=== PATIENT | female | born 1995 | race Caucasian/White ===

== ENCOUNTER 2021-08-14 10:33 | Outpatient (CLI) | payer OTHER, SELFPAY ==
[2021-08-14 11:57] LABS: Hematocrit 33.3 % (37.0-47.0); Hemoglobin 11.4 g/dL (12.0-15.0)
[2021-08-14 12:09] LABS: Glucose 1 Hour PP 50gm Dose 126 mg/dL
[2021-08-14 12:50] LABS: HIV 1/2 Ab P24 Ag Result Negative (Negative)
[2021-08-15 06:45] LABS: Rapid Plasma Reagin Non-Reactive (NonReactive)
== END 2021-08-14 10:34 | disposition home or self-care (01) ==
LOC: ANHLAB 10:36
PROVIDERS: Visit Provider Obstetrics & Gynecology
DX: Z36.89 Encounter for other specified antenatal screening (principal); O36.0130 Maternal care for anti-D [Rh] antibodies, third trimester, not applicable or unspecified; Z3A.00 Weeks of gestation of pregnancy not specified
CPT/HCPCS: 36415; 82947; 85014; 85018; 85461; 86592; 86703; G0432

== ENCOUNTER 2021-08-23 15:36 | Outpatient (RCR) | payer OTHER, SELFPAY ==
[2021-08-24] MEDS: RHO(D) IMMUNE GLOBULIN 300 MCG/2 ML SYRINGE IM (09:52)
== END 2021-11-21 23:59 | disposition home or self-care (01) ==
LOC: ANHLAB 15:36
PROVIDERS: Visit Provider Obstetrics & Gynecology
DX: Z29.13 Encounter for prophylactic Rho(D) immune globulin (principal); O36.0130 Maternal care for anti-D [Rh] antibodies, third trimester, not applicable or unspecified; Z3A.00 Weeks of gestation of pregnancy not specified
CPT/HCPCS: 36415; 85461; 90384; 96372; J2790

== ENCOUNTER 2021-10-29 07:27 | Inpatient (IN) | payer OTHER, SELFPAY ==
[2021-10-29] VITALS (14 sets, daily range): BP systolic 101–121; BP diastolic 43–104; PULSE 91–133; RESP 16–20; TEMP 36.6–37.4; BMI 30.8
[2021-10-29] MEDS: miSOPROStol 200 MCG TABLET 600 MCG (07:44)
[2021-10-29] MEDS: LACTATED RINGERS 1,000 ML 125 ML IV CONT (07:45)
--- NOTE | 2021-10-29 07:48 | WPDOBADMIT ---
Obstetrics - Admit Note Admission Note: record reviewed. No pertinent additions to the history and/or any subsequent changes in the physical findings that are not consistent with the expected course of the were found. Patient admitted after delivered baby in the car. Additions to the history and/or subsequent changes in the physical findings follow. None.
--- NOTE | 2021-10-29 07:49 | PM.OBPRVD ---
OB - Delivery Note Procedure Delivery date: 10/29/21 Induction method: None Delivery monitor: None Route of delivery: Laceration Description: None Specimen: No Quantitative Blood Loss (ml): 655 Anesthesia type: None Disposition: Floor Baby Date of : 10/29/21 Time of : 07:15 Weeks of gestation at delivery: 38 gender: Male Weight (pounds): 7 Weight (ounces): 7 presentation: vertex Placenta delivery description: Spontaneous Cord Vessel Description: 3 Vessels, Clamped/Cut and Delayed Cord Clamping score five minutes: 9
[2021-10-29] MEDS: OXYTOCIN 30 UNITS/NS 500 ML 30 UNITS/500 ML BAG 125 UNITS (08:14)
[2021-10-29 08:26] LABS: Basophils Percent Auto 0.2 % (0.2-1.2); Eosinophils Percent Auto 0.1 % (0-4.4); Hematocrit 31.6 % (37.0-47.0); Hemoglobin 10.3 g/dL (12.0-15.0); Immature Granulocyte Absolute 0.11 K/mm3 (0.00-0.031); Immature Granulocyte Percent A 0.6 % (0-0.5); Lymphocytes Absolute Auto 1.51 K/mm3 (0.9-3.2); Mean Corpuscular HGB Conc 32.6 g/dl (32-36); Mean Corpuscular Hemoglobin 28.5 pg (26-34); Mean Corpuscular Volume 87.3 fl (80-100); Monocytes Absolute Auto 1.1 K/mm3 (0.1-0.6); Monocytes Percent Auto 5.6 % (2.6-8.5); Neutrophils Absolute Auto 16.2 K/mm3 (1.3-6.7); Neutrophils Percent Auto 85.5 % (45.5-73.1); Platelet Count Result 226 k/mm3 (150-375); Red Blood Count 3.62 M/mm3 (4.2-5.4); Red Cell Distribution Width 14.1 % (11.5-14.5)
[2021-10-29] MEDS: IBUPROFEN 600 MG TABLET PO (08:52)
--- NOTE | 2021-10-29 09:44 | PC.NURSE ---
Met patient at unit entrance with warm blankets, crib, and wheelchair. Patient taken to room 107 on Labor and Delivery. Aldo Whitney CNM at entrance as well.
--- NOTE | 2021-10-29 10:19 | OBPPTRN ---
Patient transferred to post room # 282 via wheelchair. Support person present. Oriented to unit, room, information board, rooming in, admission packet and security measures. Patient verbalizes understanding.
--- NOTE | 2021-10-29 15:19 | LDADM ---
This patient, Vannessa Bowden, was admitted to L&D room 107. Plans for labor, pain management and were discussed with patient. Patient/family oriented to hospital policies and general routines including ID bracelet, bed and alarms, visiting hours, pain management, procedures, bathroom and other care routines, personal items, smoking policy, room service/diet and guest tray routines, infant security routines, and visiting hours. Patient/Family are encouraged to report perceived risks to care and to ask questions if they do not understand what they are told or what they should do. See OBIX for further documentation.
[2021-10-30] MEDS: IBUPROFEN 600 MG TABLET PO (04:25)
[2021-10-30 04:30] VITALS: BP 107/70; PULSE 91; RESP 16; TEMP 36.4
[2021-10-30 05:07] LABS: Hematocrit 24.2 % (37.0-47.0); Hemoglobin 7.9 g/dL (12.0-15.0)
[2021-10-30] MEDS: POLYSACCHARIDE IRON COMPLEX 150 MG CAPSULE PO (07:45)
[2021-10-30] MEDS: MULTIVIT/MIN/PREN/FOL AC/IRON TABLET 1 TAB PO (07:45)
[2021-10-30] MEDS: DOCUSATE SODIUM 100 MG CAPSULE PO (07:45)
[2021-10-30 07:50] VITALS: BP 113/60; PULSE 83; RESP 16; TEMP 36.6; O2SAT 100
--- NOTE | 2021-10-30 08:13 | P.PNOB_ITS ---
OB - PN: Subj Subjective Date/time seen: 10/30/21 08:13 Patient comments: no complaints and pain well controlled baby status: doing well and nursing well [place] feeding status: exclusively breast feeding OB - PN: Obj Data Labs CBC & Chem 7: 10/30/21 04:32 Labs: Laboratory Results - last 24 hr 10/29/21 10/29/21 10/30/21 08:19 08:19 04:32 WBC 19.0 H RBC 3.62 L Hgb 10.3 L 7.9 L Hct 31.6 L 24.2 L MCV 87.3 MCH 28.5 MCHC 32.6 RDW 14.1 Plt Count 226 MPV 11.0 H Immature Gran % (Auto) 0.6 H Neut % (Auto) 85.5 H Lymph % (Auto) 8.0 L [place] % (Auto) 5.6 Eos % (Auto) 0.1 Baso % (Auto) 0.2 Lymph # (Auto) 1.51 [place] # (Auto) 1.1 H Eos # (Auto) 0.0 Baso # (Auto) 0.0 Abs Immat Gran (auto) 0.11 H Absolute Neuts (auto) 16.2 H Absolute Nucleated RBC 0.0 Nucleated RBC % 0.0 Blood Type A Negative Antibody Screen Positive Antibody Identification Passive Due to RH Imm Glob Antigen Identification Cancelled DIXIE, IgG Interpret Not Performed DIXIE, Poly Interpret Neg DIXIE, Complement Interp Not Performed OB - PN A/P Assessment and Plan (1) Vaginal delivery: Code(s): O80 - Encounter for full-term uncomplicated delivery Status: Acute Plan day: 1 Plan: routine care and discharge home Comments: continue oral iron at home Time Spent With Patient Time: Total time spent is greater than 50% in coordination of care (as documented) at patient's floor/unit and/or counseling patient: Time with patient: less than 15 minutes Exam Narrative: NAD abdomen soft, nontender, fundus firm below the umbilicus Extremities nontender, 1+ edema
--- NOTE | 2021-10-30 08:15 | P.DS_ITS ---
DS: Admitting Diagnosis Discharge Date 10/30/21 Admitting Diagnosis delivery in car DS: Discharge Diagnosis Discharge Diagnosis (1) Vaginal delivery: Code(s): O80 - Encounter for full-term uncomplicated delivery Status: Acute DS: Summary Hospital Course Hospital Course: Vannessa delivered her in the car on the way to the hospital. She had an uncomplicated course. Status at Discharge Functional status at discharge: independent ambulation Time Spent with Patient Time attestation: Total time spent providing and/or coordinating discharge services: DS: Data Data Completed and Pending Labs on day of discharge: Labs from last 24 hours 10/30/21 10/29/21 10/29/21 04:32 08:19 08:19 WBC RBC Hgb 7.9 L Hct 24.2 L MCV MCH MCHC RDW Plt Count MPV Immature Gran % (Auto) Neut % (Auto) Lymph % (Auto) [place] % (Auto) Eos % (Auto) Baso % (Auto) Lymph # (Auto) [place] # (Auto) Eos # (Auto) Baso # (Auto) Abs Immat Gran (auto) Absolute Neuts (auto) Absolute Nucleated RBC Nucleated RBC % RPR Pending Blood Type A Negative Antibody Screen Positive Antibody Identification Passive Due to RH Imm Glob Antigen Identification Cancelled DIXIE, IgG Interpret Not Performed DIXIE, Poly Interpret Neg DIXIE, Complement Interp Not Performed 10/29/21 08:19 WBC 19.0 H RBC 3.62 L Hgb 10.3 L Hct 31.6 L MCV 87.3 MCH 28.5 MCHC 32.6 RDW 14.1 Plt Count 226 MPV 11.0 H Immature Gran % (Auto) 0.6 H Neut % (Auto) 85.5 H Lymph % (Auto) 8.0 L [place] % (Auto) 5.6 Eos % (Auto) 0.1 Baso % (Auto) 0.2 Lymph # (Auto) 1.51 [place] # (Auto) 1.1 H Eos # (Auto) 0.0 Baso # (Auto) 0.0 Abs Immat Gran (auto) 0.11 H Absolute Neuts (auto) 16.2 H Absolute Nucleated RBC 0.0 Nucleated RBC % 0.0 RPR Blood Type Antibody Screen Antibody Identification Antigen Identification DIXIE, IgG Interpret DIXIE, Poly Interpret DIXIE, Complement Interp Discharge Plan Discharge Attending physician on discharge: Kenisha Newton Discharging Clinician: Kenisha Newton Anticipated Discharge Date/Time: 10/30/21 08:14 Patient Disposition: Home, Self-Care Activity: pelvic rest Diet: regular Discharge Instructions: continue over the counter iron daily Patient Instructions: Antibiotic Form Stand Alone Forms: General Discharge Information Follow-up/Referrals: Paris Whitney CNM [Certified Nurse [employer] Inspector] - 4 Weeks Discharge Medications: Continued PNV [id number] [] 28 mg iron- 800 mcg Tablet 1 tablet PO DAILY RF: 0 Date of admission: 10/29/21 07:27 Primary Care Provider: UNKNOWN,DOCTOR Admitting Provider: Char Mane Attending physician on admission: Paris Whitney Condition: Stable
[2021-10-30 08:20] LABS: Rapid Plasma Reagin Non-Reactive (NonReactive)
[2021-10-30] MEDS: TETANUS,DIPHTHERIA,AC PERTUSSIS ADULT (0.5 ML) BOOSTRIX IM (09:42)
--- NOTE | 2021-10-30 10:05 | PC.NURSE ---
Patient instructed on viewing the discharge video Mother & Baby Care, The First Two Weeks . Patient was given the opportunity and encouraged to ask questions. Patient verbalized understanding of information shared and has been given the mother/baby guide for home reference.
[2021-11-01 11:33] VITALS: BP 128/77; PULSE 110; RESP 16; TEMP 37; O2SAT 100
== END 2021-10-30 10:45 | disposition home or self-care (01) | DRG 776 ==
LOC: ANHLDR 07:36 → ANHOB2 10-30 06:45 → ANHLDR 10-31 09:40 → ANHOB2 10-31 09:40
PROVIDERS: Advanced Practice Midwife; Admitting Provider Obstetrics & Gynecology; Visit Provider Obstetrics & Gynecology
DX: Z39.0 Encounter for care and examination of mother immediately after delivery (principal)
CPT/HCPCS: 36415; 85014; 85018; 85025; 86592; 86850; 86880; 86900; 86901; 86902; 90715; A9270; J2590; J7120

== ENCOUNTER 2021-11-01 12:14 | Outpatient (CLI) | payer OTHER, SELFPAY ==
[2021-11-01 12:34] LABS: Hematocrit 26.6 % (37.0-47.0); Hemoglobin 8.2 g/dL (12.0-15.0); Mean Corpuscular HGB Conc 30.8 g/dl (32-36); Mean Corpuscular Hemoglobin 28.3 pg (26-34); Mean Corpuscular Volume 91.7 fl (80-100); Mean Platelet Volume 10.2 fl (7.4-10.4); Platelet Count Result 188 k/mm3 (150-375); Red Cell Distribution Width 14.4 % (11.5-14.5)
== END 2021-11-01 12:15 | disposition home or self-care (01) ==
LOC: ANHOBOP 12:17
PROVIDERS: Visit Provider Advanced Practice Midwife
DX: Z34.90 Encounter for supervision of normal pregnancy, unspecified, unspecified trimester (principal); Z3A.00 Weeks of gestation of pregnancy not specified
CPT/HCPCS: 36415; 85027

== ENCOUNTER 2024-03-03 11:08 | Outpatient (RCR) | payer BC, SELFPAY ==
[2024-03-03] MEDS: RHO(D) IMMUNE GLOBULIN 300 MCG/2 ML SYRINGE IM (16:45)
== END 2024-06-01 23:59 | disposition home or self-care (01) ==
LOC: ANHLAB 11:08
PROVIDERS: PCP Family Medicine Sports Medicine; Visit Provider Advanced Practice Midwife
DX: O20.0 Threatened abortion (principal); Z29.13 Encounter for prophylactic Rho(D) immune globulin; O36.0190 Maternal care for anti-D [Rh] antibodies, unspecified trimester, not applicable or unspecified; Z3A.00 Weeks of gestation of pregnancy not specified
CPT/HCPCS: 36415; 84702; 85461; 86850; 86900; 86901; 90384; 96372; J2790

== ENCOUNTER 2024-03-03 15:40 | Outpatient (CLI) | payer BC, SELFPAY ==
[2024-03-03 16:43] LABS: Beta HCG Quantitative 624.48 mIU/ML
== END 2024-03-03 15:41 | disposition home or self-care (01) ==
LOC: ANHLAB 15:42
PROVIDERS: PCP Family Medicine Sports Medicine; Visit Provider Obstetrics & Gynecology
DX: O20.0 Threatened abortion (principal); Z3A.00 Weeks of gestation of pregnancy not specified
CPT/HCPCS: 36415; 84702

== ENCOUNTER 2024-03-09 14:19 | Outpatient (CLI) | payer BC, OTHER, SELFPAY ==
[2024-03-09 15:08] LABS: Beta HCG Quantitative 22.35 mIU/ML
== END 2024-03-09 14:20 | disposition home or self-care (01) ==
LOC: ANHLAB 14:22
PROVIDERS: PCP Family Medicine Sports Medicine; Visit Provider Obstetrics & Gynecology
DX: O03.9 Complete or unspecified spontaneous abortion without complication (principal)
CPT/HCPCS: 36415; 84702

== ENCOUNTER 2024-09-12 10:37 | Outpatient (RCR) | payer BC, OTHER, SELFPAY ==
--- OUTSIDE RECORDS SUMMARY | 2024-09-10 15:12 | XMS_ITS | Data Portability ---
Author Organization [facility] Address [address] [place] [address] Care Team Providers Care County Attorney Name Role Phone ABYLO MILLER Primary Care Provider Assessment Encounter Date Assessment Date Assessment LastModified by Organization Details LastModified Time 11/29/2021 11/29/2021 doing well normal pp exam f/u wwe in may 2022 Not available 11/29/2021 15:05:44 Plan of Treatment Reminders Order Date Submit Date Provider Last Modified By Organization Details Last Modified Time Details Appointments None recorded. Lab beta-HCG, quantitativ e, serum or plasma 2023 024 [facility] (Lab), [address] [facility], [place], [address], 4 10:27:40 beta-HCG, quantitativ e, serum or plasma [id number] (Lab), [address] [facility], [place], [address], 4 14:56:36 Referral None recorded. Procedures None recorded. Surgeries None recorded. Imaging US, obstetric, transvagina l 2023 024 [email or web address] [address], [address], [place], [address], 4 22:38:06 non-stress test 2021 022 [address], [place], [address], 2 16:10:26 Medication Orders dicloxacill in 250 mg capsule 2021 022 [email or web address] 1 [facility] [address] In [facility], [address] [place], [address], 2 14:34:12 Patient TargetsNo targets recorded. Patient InstructionsNo instructions recorded. Reason for Referral None Reported. Results Created Date Observation Date Name Description Value Unit Range Abnormal Flag Note LastModifiedBy Organization Detail LastModifiedTime 10/12/1910/11/2021 CULTU RE: GROUP B STREP SCREE N result report SEE RESULT S BELOW Test: Cultu re: Group B Strep Scree n - Vagin al/Re ctal Speci men Sourc e: Vagin a/Rec rosalina Speci men Type: Vagin al/Re ctal Speci men Date: 2021 3:46 PM Resul t Date: 2021 2:09 PM Resul t Statu s: Final resul t Abnor mal: No Resul ting Lab: [facility] [address] [facility] [address] Tel: CULTU RE ----- ----- ----- --- No Group B strep isola marline at 2 days (jose carlos ctive broth enhan cemen t) Not Available [facility] (Lab) [address] [facility], [place], [address], 10/14/2021 15:11:50 03/02/20 24 03/02/2024 BHCG, QUANT ITATI VE B-HCG 2408.0 mIU/m L This assay was perfo rmed using [employer] n reage nts and test kits. Value s obtai jeromy with other assay metho ds or kits canno t be used inter merritt eably . Refer ence Range s: Non-p regna nt, preme nopau bennie women : 0.0-5 .3 mIU/m L Postm enopa usal women : 0.0-7 .0 mIU/m L Hina l Pregn loki: Gesta cherie l Age bHCG Conc. - mIU/m L 3 Weeks 5.8 - 71.7 4 Weeks 9.5 - 750 5 Weeks 217-7 138 6 Weeks 158 - 31,79 5 7 Weeks 3,697 - 162,5 63 8 Weeks 32,06 5 - 149,5 71 9 Weeks 63,80 3 - 151,4 10 10 Weeks 46,50 9 - 186,9 77 12 Weeks 27,83 2 - 210,6 12 14 Weeks 13,95 0 - 62,53 0 15 Weeks 12,03 9 - 70,97 1 16 Weeks 9,040 - 56,45 1 17 Weeks 8,175 - 55,86 8 18 Weeks 8,099 - 58,17 6 Not Available [facility] (Lab) [address] [facility], [place], [address], 03/03/2024 10:27:40 03/16/20 24 03/16/2024 BHCG, QUANT ITATI VE B-HCG 1.8 mIU/m L This assay was perfo rmed using [employer] reage nts and test kits. Value s obtai jeromy with other assay metho ds or kits canno t be used inter merritt eably . Refer ence Range s: Non-p regna nt, preme nopau bennie women : 0.0-5 .3 mIU/m L Postm enopa usal women : 0.0-7 .0 mIU/m L Hina l Pregn loki: Gesta cherie l Age bHCG Conc. - mIU/m L 3 Weeks 5.8 - 71.7 4 Weeks 9.5 - 750 5 Weeks 217-7 138 6 Weeks 158 - 31,79 5 7 Weeks 3,697 - 162,5 63 8 Weeks 32,06 5 - 149,5 71 9 Weeks 63,80 3 - 151,4 10 10 Weeks 46,50 9 - 186,9 77 12 Weeks 27,83 2 - 210,6 12 14 Weeks 13,95 0 - 62,53 0 15 Weeks 12,03 9 - 70,97 1 16 Weeks 9,040 - 56,45 1 17 Weeks 8,175 - 55,86 8 18 Weeks 8,099 - 58,17 6 Not Available [facility] (Lab) [address], [place], [address], 03/17/2024 08:14:21 09/28/19 22 09/27/2021 non-s tress test No observ ation record ed. [email or web address] [facility] [address], [place], [address], 09/27/2021 15:00:43 09/28/19 22 09/27/2021 US, obste tric, bioph ysica l profi le + non-s tress test No observ ation record ed. [email or web address] [facility] [address], [place], [address], 09/27/2021 15:38:15 09/28/19 22 09/27/2021 US, obste tric, bioph ysica l profi le + non-s tress test No observ ation record ed. [email or web address] [address] [facility], [place], [address], 09/27/2021 21:44:05 10/05/19 22 10/04/2021 non-s tress test No observ ation record ed. [facility] [address], [place], [address], 10/04/2021 14:33:11 10/05/19 22 10/04/2021 US, obste tric, follo w-up No observ ation record ed. [email or web address] [facility] [address], [place], [address], 10/04/2021 17:49:35 10/05/19 22 10/04/2021 US, obste tric, bioph ysica l profi le + non-s tress test No observ ation record ed. [email or web address] [facility] [address], [place], [address], 10/04/2021 18:45:20 10/05/19 22 10/04/2021 US, obste tric, follo w-up No observ ation record ed. MIMI [address], [place], [address], 10/04/2021 20:08:47 10/12/19 22 10/11/2021 non-s tress test No observ ation record ed. [email or web address] [facility] [address], [place], [address], 10/11/2021 14:30:28 10/12/19 22 10/11/2021 US, obste tric, bioph ysica l profi le + non-s tress test No observ ation record ed. [email or web address] [address], [place], [address], 10/11/2021 18:37:03 10/12/19 22 10/11/2021 US, obste tric, bioph ysica l profi le + non-s tress test No observ ation record ed. [email or web address] [address], [place], [address], 10/11/2021 17:09:59 10/19/19 22 10/18/2021 non-s tress test No observ ation record ed. [email or web address] [facility] [address], [place], [address], 10/18/2021 14:42:39 10/19/19 22 10/18/2021 US, obste tric, bioph ysica l profi le + non-s tress test No observ ation record ed. [email or web address] [facility] [address], [place], [address], 10/18/2021 16:48:55 10/19/19 22 10/18/2021 US, obste tric, bioph ysica l profi le + non-s tress test No observ ation record ed. MIMI [address], [place], [address], 10/22/2021 03:47:50 10/26/19 22 10/25/2021 non-s tress test No observ ation record ed. [email or web address] [facility] [address], [place], [address], 10/25/2021 15:56:50 10/26/19 22 10/25/2021 US, obste tric, bioph ysica l profi le + non-s tress test No observ ation record ed. [email or web address] [facility] [address], [place], [address], 10/25/2021 18:34:09 10/26/19 22 10/25/2021 US, obste tric, bioph ysica l profi le + non-s tress test No observ ation record ed. [email or web address] [address], [place], [address], 10/26/2021 10:42:02 03/02/20 24 03/02/2024 US, obste tric, trans vagin al No observ ation record ed. [email or web address] [facility] [address], [place], [address], 03/02/2024 18:36:14 03/02/20 24 03/02/2024 US, obste tric, trans vagin al No observ ation record ed. [email or web address] [address], [place], [address], 03/02/2024 21:04:12 Result Notes None recorded. Problems Name Problem SNOMED Code Status Onset Date Resolution Date Notes Provider Name and Address Organization Details Recorded Time Normal pregnanc y in multigra bryan [id number] 4106 Completed 201805/22/2021 Encounte r for suprvsn of normal pregnanc y, third trimeste r;Practi ce ID: 0001 Radha bradley, [facility] 18:21:53 Uterine size for dates discrepa ncy Completed 201805/22/2021 Uterine size-ivet e discrepa ncy, third trimeste r;Practi ce ID: 0001 Radha Cloud null, [facility] 18:21:06 Gestatio n period, 35 weeks [id number] Completed 201805/22/2021 35 weeks gestatio n of pregnanc y;Practi ce ID: 0001 Radha Cloud null, [facility] 18:22:15 finding Completed 201805/22/2021 Matern care for oth or susp poor fetl grth, third tri, unsp;Pra ctice ID: 0001 Radha Cloud null, [facility] 18:21:09 Gestatio n period, 36 weeks [id number] Completed 201805/22/2021 36 weeks gestatio n of pregnanc y;Practi ce ID: 0001 Radha Cloud null, [facility] 18:22:07 Single live [id number] Completed 201805/22/2021 Single live ;Pr actice ID: 0001 Radha Cloud null, [facility] 18:20:37 Educatio n Completed 201905/22/2021 Encounte r for oth general cnsl and advice on contrace ption;Pr actice ID: 0001 Radha Pedro Luis null, [facility] 18:21:33 Lochia finding Completed 201905/22/2021 Encounte r for routine postpart um follow-u p;Practi ce ID: 0001 Radha bradley, [facility] 18:21:43 Postpart um care Completed 201205/22/2021 Routine postpart um follow-u p;Practi ce ID: 0001 Radha bradley, [facility] 18:20:27 First degree perineal lacerati on [id number] Completed 201205/22/2021 First-de gree perineal lacerati on, unspecif ied as to episode of care in pregnanc y;Practi ce ID: 0001 Radha bradley, [facility] 18:22:05 Educatio n Completed 201205/22/2021 Counseli ng contrace ptive manageme nt;Pract ice ID: 0001 Radha bradley, [facility] 18:21:58 Speciali zed medical examinat ion Completed 201205/22/2021 Routine gynecolo gical examinat ion;Prac luis fernando ID: 0001 Radha bradley, [facility] 18:22:00 Pregnanc y test negative [id number] Completed 201205/22/2021 Negative Pregnanc y Test;Pra ctice ID: 0001 Radha bradley, [facility] 18:21:19 Candidal vulvovag initis [id number] Completed 201305/22/2021 Candidia sis of vulva and vagina;P ractice ID: 0001 Radha bradley, [facility] 18:22:13 Proteinu mary [id number] Completed 201305/22/2021 Proteinu mary;Prac luis fernando ID: 0001 Radha bradley [facility] 18:21:28 Adult health examinat ion Completed 201405/22/2021 Routine general medical examinat ion at a health care facility ;Practic e ID: 0001 Radha bradley [facility] 18:21:22 Speciali zed medical examinat ion Completed 201405/22/2021 Other specifie d chlamydi al diseases ;Practic e ID: 0001 Radha bradley [facility] 18:22:01 Venereal disease screenin g Completed 201405/22/2021 Screenin g examinat ion for venereal disease; Practice ID: 0001 Radha bradley [facility] 18:20:39 Secondar y amenorrh ea 877412661 Completed 201405/22/2021 Secondar y amenorrh ea;Pract ice ID: 0001 Radha bradley [facility] 18:20:35 Pregnanc y detectio n examinat ion Completed 201405/22/2021 Encounte r for pregnanc y test, result positive ;Practic e ID: 0001 Radha bradley [facility] 18:22:14 Uterine size for dates discrepa ncy Completed 201405/22/2021 Uterine size-ivet e discrepa ncy, first trimeste r;Practi ce ID: 0001 Radha bradley [facility] 18:21:04 Gestatio n period, 8 weeks [id number] Completed 201405/22/2021 8 weeks gestatio n of pregnanc y;Practi ce ID: 0001 Radha bradley [facility] 18:21:21 Pregnanc y, childbir th and puerperi um finding Completed 201505/22/2021 Encntr for suprvsn of normal first preg, first trimeste r;Practi ce ID: 0001 Radha Starr null, [facility] 18:21:40 Pregnanc y, childbir th and puerperi um finding Completed 201505/22/2021 Encntr for suprvsn of normal first preg, third trimeste r;Practi ce ID: 0001 Radha Pedro Luis null, [facility] 18:21:42 finding Completed 201505/22/2021 Matern care for oth or susp poor fetl grth, 2nd tri, unsp;Pra ctice ID: 0001 Radha Cloud null, [facility] 18:21:07 Gestatio n period, 27 weeks [id number] Completed 201505/22/2021 27 weeks gestatio n of pregnanc y;Practi ce ID: 0001 Radha Starr null, [facility] 18:21:55 Gestatio n period, 31 weeks [id number] Completed 201505/22/2021 31 weeks gestatio n of pregnanc y;Practi ce ID: 0001 Radha Cloud null, [facility] 18:22:08 Gestatio n period, 34 weeks [id number] Completed 201505/22/2021 34 weeks gestatio n of pregnanc y;Practi ce ID: 0001 Radha Cloud null, [facility] 18:20:29 finding Completed 201505/22/2021 Matern care for oth or susp poor fetl grth, third tri, fts1;Pra ctice ID: 0001 Radha bradley, [facility] 18:21:11 Gestatio n period, 37 weeks 01654848 Completed 201505/22/2021 37 weeks gestatio n of pregnanc y;Practi ce ID: 0001 Radha bradley [facility] 18:21:51 Gestatio n period, 38 weeks [id number] Completed 201505/22/2021 38 weeks gestatio n of pregnanc y;Practi ce ID: 0001 Radha bradley, [facility] 18:20:31 Term pregnanc y delivere d [id number] Completed 201505/22/2021 Encounte r for full-ter m uncompli cated delivery ;Practic e ID: 0001 Radha Cloud [facility] 18:20:45 Finding of regulari ty of menstrua l cycle Completed 201505/22/2021 Irregula r menstrua tion, unspecif ied;Prac luis fernando ID: 0001 [facility] 18:20:[address] Concept Completed 201605/22/2021 Encntr for independent distributor exam (general ) (routine ) w/o abn findings ;Practic e ID: 0001 [facility] 18:21:31 Insertio n of intraute rine contrace ptive device Completed 201605/22/2021 Encounte r for insertio n of intraute rine contrace ptive device;P ractice ID: 0001 Radha bradley [facility] 18:22:10 Contrace ptive sheath status [id number] Completed 201605/22/2021 Encounte r for routine checking of intraute rine contrace p dev;Prac luis fernando ID: 0001 Radha bradley, [facility] 18:21:16 Gestatio n period, 11 weeks [id number] Completed 201805/22/2021 11 weeks gestatio n of pregnanc y;Practi ce ID: 0001 Radha bradley, [facility] 18:22:03 Antenata l screenin g Completed 201805/22/2021 Encounte r for antenata l screenin g for nuchal transluc ency;Pra ctice ID: 0001 Radha bradley, [facility] 18:21:13 Antenata l screenin g for malforma tion Completed 201805/22/2021 Encounte r for antenata l screenin g for malforma tions;Pr actice ID: 0001 Radha bradley, [facility] 18:22:11 Syphilis test finding [id number] Completed 201605/22/2021 Encntr screen for infectio ns w sexl mode of transmis s;Record ed Elsewher e: No Locat ion: [facility] S ource: EHR Pipe [employer] Trimmer mohsen: N Practi ce ID: 0001 David lable Time: 03:15:00 PM Radha bradley [facility] 18:21:50 Infectio n screenin g Completed 201605/22/2021 Encounte r for screenin g for oth infec/pa rastc diseases ;Recorde d Elsewher e: No Locat ion: [facility] S ource: EHR [employer] mohsen: N Practi ce ID: 0001 David lable Time: 03:15:00 PM Radha bradley [facility] 18:21:14 Placenta previa [id number] Completed 201805/22/2021 Placenta previa specifie d as w/o hemor, second trimeste r;Record ed Elsewher e: No [facility]at ion[facility] S ource: EHR P[employer] Trimmer mohsen: N Practi ce ID: 0001 David lable Time: 01:00:00 PM Radha bradley, [facility] 18:21:48 Central nervous system malforma tion in fetus affectin g obstetri [facility] [id number] Completed 201205/22/2021 Central nervous system malforma tion in fetus, antepart um;Recor ded Elsewher e: No Locat ion: [facility] S ource: EHR [employer] Tr[employer] mohsen: N Practi ce ID: 0001 David lable Time: 11:00:00 AM [facility] 18:20:33 Leukorrh ea [id number] Completed 201305/22/2021 Leukorrh ea, not specifie d as infectiv e;Record ed Elsewher e: No Locat ion: [facility] S ource: EHR [employer] Tr[employer] mohsen: N Practi ce ID: 0001 David lable Time: 03:00:00 PM Radha bradley, [facility] 18:21:00 Vaginiti s and vulvovag initis Completed 201105/22/2021 Vaginiti s and vulvovag initis, unspecif ied;Prac luis fernando ID: 0001 Radha bradley, [facility] 18:20:42 Pregnanc y test positive [id number] Completed 201105/22/2021 Positive Pregnanc y Test;Pra ctice ID: 0001 Radha bradley, [facility] 18:21:18 Screenin g for malignan t neoplasm of cervix Completed 201105/22/2021 Pap Smear;Pr actice ID: 0001 Radha bradley, [facility] 18:20:40 anatomy study Completed 201105/22/2021 [facility] ANATMC SURVEY;Emil hagen ID: 0001 Radha bradley, [facility] 18:21:26 Primigra bryan [id number] Completed 201105/22/2021 Supervis ion of normal first pregnanc y;Practi ce ID: 0001 Radha Cloud [facility], [facility] 18:20:25 Delivery normal [id number] Completed 201205/22/2021 Normal delivery ;Practic e ID: 0001 Radha Cloud [facility] 18:21:56 Pregnanc y-induce d hyperten russell Completed 201805/22/2021 Gestatio nal hyperten russell w/o signific ant proteinu mary, 2nd trimeste r;Record ed Elsewher e: No Locat ion: [facility] S ource: EHR P[employer] Trimmer mohsen: N Deedee ce ID: 0001 David lable Time: 02:30:00 PM [facility] 18:21:02 Clinical finding Completed 201605/22/2021 Presence of (intraut erine) contrace ptive device;R ecorded Elsewher e: No Locat ion: [facility] S ource: EHR P[employer] Tr[employer] mohsen: N Deedee ce ID: 0001 David lable Time: 08:00:00 AM Radha Cloud [facility] 18:21:45 Gestatio n period, 24 weeks [id number] Completed 201805/22/2021 24 weeks gestatio n of pregnanc y;Record ed Elsewher e: No [facility] [employer] mohsen: N Deedee ce ID: 0001 David lable Time: 01:00:00 PM Radha Cloud null, [facility] 1 18:21:29 Pregnanc y [id number] Completed 202011/14/2021 Graciela Bohnenstie hl null, [facility] 2 13:05:46 History of growth retardat ion [id number] 108 Completed wkly antenata l testing 32wks Graciela Bohnenstie hl null, [facility] 2 13:05:39 Placenta l abruptio n - delivere d [id number] Completed 36wks Graciela Bohnenstie hl null, [facility] 2 13:05:39 RhD negative [id number] Completed Graciela Bohnenstie hl null, [facility] 2 13:05:39 Problem Notes None recorded. Procedures Surgical History Date Name Laterality Status Provider Name and Address Organization Details Recorded Time 05/23/20 21 Date of Last Pap [facility] 10/11/2021 13:54:28 08/23/19 19 [facility] 08/23/2021 16:05:41 Imaging Results Imaging Date Name Status LastModified by Organization Details LastModified Time 09/27/2021 non-stress test completed [facility] [address], [place], [address], 09/27/2021 15:00:43 09/27/2021 US, obstetric, biophysical profile + non-stress test completed [email or web address] [facility] [address], [place], [address], 09/27/2021 15:38:15 09/27/2021 US, obstetric, biophysical profile + non-stress test completed [email or web address] [address], [place], [address], 09/27/2021 21:44:05 10/04/2021 non-stress test completed nelsy [facility], [place], [address], 10/04/2021 14:33:11 10/04/2021 US, obstetric, [facility] [address], [place], [address], 10/04/2021 17:49:35 10/04/2021 US, obstetric, biophysical profile + non-stress test [facility] [address], [place], [address], 10/04/2021 18:45:20 10/04/2021 US, obstetric, follow-up completed MIMI [address], [place], [address], 10/04/2021 20:08:47 10/11/2021 non-stress test completed nelsy [address], [place], [address], 10/11/2021 14:30:28 10/11/2021 US, obstetric, biophysical profile + non-stress test completed rohith [facility] [address], [place], [address], 10/11/2021 18:37:03 10/11/2021 US, obstetric, biophysical profile + non-stress test completed [email or web address] [address], [place], [address], 10/11/2021 17:09:59 10/18/2021 non-stress test completed nelsy [facility] [address], [place], [address], 10/18/2021 14:42:39 10/18/2021 US, obstetric, biophysical profile + non-stress test completed [email or web address] [facility] [address], [place], [address], 10/18/2021 16:48:55 10/18/2021 US, obstetric, biophysical profile + non-stress test completed MIMI [address], [place], [address], 10/22/2021 03:47:50 10/25/2021 non-stress test completed [email or web address] [address], [place], [address], 10/25/2021 15:56:50 10/25/2021 US, obstetric, biophysical profile + non-stress test completed [email or web address] [facility], [place], [address], 10/25/2021 18:34:09 10/25/2021 US, obstetric, biophysical profile + non-stress test completed [email or web address] [address], [place], [address], 10/26/2021 10:42:02 03/02/2024 US, obstetric, transvaginal completed [email or web address] [facility] [address], [place], [address], 03/02/2024 18:36:14 03/02/2024 US, obstetric, transvaginal completed [email or web address] [address], [place], [address], 03/02/2024 21:04:12 Procedure Notes None recorded. Medical Equipment None Reported. Allergies No known drug allergies Medications Name Sig Start Date Stop Date Status Note LastModified by Organization Details LastModified Time Mirena 21 mcg/24 hr (up to 8 years) 52 mg intrauter ine device 12/03 completed Prescrib ed Elsewher e: Yes Loca tion: Nannette oglesby [facility] odify By: [email or web address] z Encoun ter DateTime : 05/21/20 17 11:45:00 AM Not Available Not Available Not Available Diflucan 150 mg tablet take 1 tablet by oral route once 11/11 completed Prescrib ed Elsewher e: No [facility] odify By: [email or web address] trick En counter DateTime : 01/08/20 14 03:00:00 PM Not Available Not Available Not Available metronida zole 500 mg tablet Take 1 tablet twice a day by oral route for 7 days. 08/23 completed Not Available Not Available Not Available Metrogel Vaginal 0.75 % (37.5 mg/5 gram) insert 1 applicat orful (37.5MG) by vaginal route every day at bedtime 04/14 completed Prescrib ed Elsewher e: No Locat ion: [facility] odify By: [email or web address] trick En counter DateTime : 01/15/20 12 08:28:05 AM Not Available Not Available Not Available Vitamin D2 1,250 mcg (50,000 unit) capsule take 1 capsule ([id number] ITS) by oral route every week 01/25 completed Prescrib ed Elsewher e: No [facility] By: [email or web address] Mendel ncosheryl DateTime : 10/17/19 16 01:42:07 PM Not Available Not Available Not Available dicloxaci llin 250 mg capsule TAKE 1 CAPSULE BY MOUTH EVERY 6 HOURS FOR 7 DAYS 11/29 completed Not Available Not Available Not Available 11/29 completed Not Available Not Available Not Available Lo Loestrin Fe 1 mg-10 mcg (24)/10 mcg (2) tablet take 1 tablet by oral route every day 08/28 completed Prescrib ed Elsewher e: No Locat ion: [facility] odify By: sonia Moraes ter DateTime : 04/15/20 13 01:00:00 PM Not Available Not Available Not Available Triveen-D uo DHA 29 mg-1 mg-400 mg oral pack take 2 by Oral route every day 04/15 completed Prescrib ed Elsewher e: No Locat ion: [facility] odify By: [email or web address] trick En counter DateTime : 04/29/20 12 03:45:44 PM Not Available Not Available Not Available DEPUTY CLERK-PNV-DH A 28 mg iron-1 mg-200 mg capsule take 1 capsule by oral route every day 05/21 completed Prescrib ed Elsewher e: No Locat ion: [facility] odify By: [email or web address] Oglesby ncounter DateTime : 05/25/20 15 02:30:00 PM Not Available Not Available Not Available Diclegis 10 mg-10 mg tablet,de layed release 05/22 completed Not Available Not Available Not Available Minastrin 24 Fe 1 mg-20 mcg (24)/75 mg (4) chewable tablet chew 1 tablet by oral route every day 05/25 completed Prescrib ed Elsewher e: No Locat ion: [facility] odify By: [email or web address] trick En counter DateTime : 11/12/19 15 01:30:00 PM Not Available Not Available Not Available Slynd 4 mg (28) tablet Take 1 tablet every day by oral route. 05/22 completed Not Available Not Available Not Available ID NOW COVID-19 Test Kit TEST DIRECTED TODAY active Not Available Not Available No t Available Vitals Date Recorded Body height Body mass index (BMI) Body weight Systolic blood pressure Diastolic blood pressure Provider Name and Address Organization Details Last Updated DateTime 10/25/2021 172.72 cm 31.2 kg/m2 07186.43 585 g 125 mm[Hg] 84 mm[Hg] Ellen Tanner [facility] 16:17:48 Date Recorded Body height Body mass index (BMI) Systolic blood pressure Diastolic blood pressure Provider Name and Address Organization Details Last Updated DateTime 11/13/2021 172.72 cm 28.1 kg/m2 105 mm[Hg] 63 mm[Hg] Faye Chavez [facility] 11/13/2021 15:42:11 Date Recorded Body weight Provider Name an d Address Organization Details Last Updated DateTime 11/13/2021 79584.68605 g Graciela Dinora [facility] 11/14/2021 13:05:40 Date Recorded Body height Body mass index (BMI) Body weight Systolic blood pressure Diastolic blood pressure Provider Name and Address Organization Details Last Updated DateTime 11/29/2021 172.72 cm 27.7 kg/m2 35595.81 g 121 mm[Hg] 80 mm[Hg] Ellen Tanner [facility] 2 14:33:47 Date Recorded Body height Body mass index (BMI) Body weight Systolic blood pressure Diastolic blood pressure Provider Name and Address Organization Details Last Updated DateTime 03/02/2024 172.72 cm 27.8 kg/m2 53007.4 g 126 mm[Hg] 87 mm[Hg] Ellen [facility] 4 14:56:39 Social History Question Answer Notes LastModified by Organizat ion Details LastModified Time Tobacco Smoking Status Never Smoker Faye [email or web address] 11/13/2021 15:42:19 Do You Have An Advance Directive? No Information not available 06/01/2021 What Is Your Level Of Alcohol Consumption? None Information not available 06/01/2021 Are You Blind Or Do You Have Difficulty Seeing? No Information not available 06/01/2021 What Is Your Level Of Caffeine Consumption? Moderate Information not available 11/13/2021 How Much Tobacco Do You Chew? None Information not available 06/01/2021 In The 14 Days Before Symptom Onset, Have You Had Close Contact With A Laboratory-confir med COVID-19 While That Case Was Ill? No Information not available 06/01/2021 In The 14 Days Before Symptom Onset, Have You Had Close Contact With A Person Who Is Under Investigation For COVID-19 While That Person Was Ill? No Information not available 06/01/2021 Have You Been To An Area Known To Be High Risk For COVID-19? No Information not available 06/01/2021 Are You Deaf Or Do You Have Serious Difficulty Hearing? No Information not available 06/01/2021 What Type Of Diet Are You Following? REGULAR Information not available 06/01/2021 What Is The Highest Grade Or Level Of School You Have Completed Or The Highest Degree You Have Received? 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 No Information not available 06/01/2021 Do You Use Protection During Sex? No Information not available 06/01/2021 Do You Use Your Seat Belt Or Car Seat Routinely? Yes Information not available 06/01/2021 Do You Have Smoke And Carbon Monoxide Detectors In Your Home? Yes Information not available 06/01/2021 How Much Tobacco Do You Smoke? No Information not available 06/01/2021 Do You Feel Stressed (tense, Restless, Nervous, Or Anxious, Or Unable To Sleep At Night)? [id number] Information not available 06/01/2021 Do You Use Any Illicit Or Recreational Drugs? No Information not available 06/01/2021 Do You Use Sunscreen Routinely? Yes Information not available 06/01/2021 Have You Used IV Drugs? No Information not available 06/01/2021 Sex: Unknown Functional Status Question Answer Note LastModified by Organizat ion Details LastModified Time Do you have difficulty walking or climbing stairs? No Information not available 11/13/2021 Are you able to walk? YESWOREST Information not available 06/01/2021 Are you able to care for yourself? Yes Information not available 11/13/2021 Do you have difficulty dressing or bathing? No Information not available 11/13/2021 What is your exercise level? Occasional Information not available 06/01/2021 Mental Status None recorded. Family History Relationship Description Onset Age of this Age Resolved Age Notes LastModified by Organization Details LastModified Time Mother Multiple sclerosis [email or web address] Not available 2019 09:09:49 Maternal Grandfather Diabetes mellitus [email or web address] Not available 2019 09:10:00 Sister Polycystic ovary syndrome [email or web address] Not available 2023 14:01:01 Paternal Uncle Seizure disorder [email or web address] Not available 2023 14:01:01 Paternal Aunt Inflammatory disease of liver [email or web address] Not available 2023 14:01:01 Father Diabetes mellitus Not available 08/23 16:05:09 Medical History Condition Response Allergies (Food, seasonal, environmental ) N Other Y Breast Cancer N Drug/Latex Allergies/Reactions N Blood Transfusion N Dermatologic Disorders N Lung Disease N Defects or Inherited Disease N Breast Problem N Gestational Diabetes N Hematologic disorders N Anesthesia Complications N History of STI N Deep Vein Thrombosis N Polycystic ovary syndrome N Anxiety Disorder N Autoimmune disease N Arthritis N Infertility N Polyps N Acid Reflux (GERD) N History of abnormal pap N Cancer N Stroke N Varicosities N Neurologic/Epilepsy N Endometriosis N High Cholesterol N Headaches N Fibromyalgia N Kidney Disease N Heart Problems N Kidney or Bladder Problems N Thyroid Problems N GI Problems N Eating Disorder N Anemia N Art (IVF or FET) N Psychiatric Illness N Ovarian Cancer N Diabetes N Pulmonary (TB, Asthma) N Hepatitis/Liver Disease N No Past Medical History N Eczema N Urinary Tract Infection N Abuse/Domestic Violence N Asthma N Trauma/Violence N Depression/ depression N Heart Disease N Pre-Eclampsia N Hypertension N Osteoporosis N Thrombophilias N Gynecological History Statement/Question Response Date of Last Mammogram Date of LMP 01/06/2024 STIs/STDs N Was last menstrual period normal Y Date of Last Colonoscopy Partner Vasectomy Desired Control Method None Abnormal Pap N On BCP's at Conception? N HPV Vaccine N Duration of Flow (days) 4 Current Control Method Age at First Child 17 Are cycles usually normal Y Frequency of Cycle (Q days) 25 Sexually Active? Y Menses Monthly Y Date of DEXA bone scan Age of first menstrual cycle 10 Date of Last Pap Smear 05/23/2021 Sexual Problems? N LMP Approximate Obstetrics History GPAL:G 5 P 3 1 1 4 Type Value Full Term 3 Spontaneous 1 Premature 1 Living 4 Total 5 Past Encounters Encounter ID Performer Location Encounter Start Date Encounter Closed Date Diagnosis/Indication Diagnosis SNOMED-CT Code Diagnosis ICD10 Code Diagnosis Note [id number] Candelaria Gabemary ellen [facility] [address],[place] [address] 05/23/2021 15:18:49 05/23/2021 16:44:19 Gynecologic examination 62824972 Z01.419 test positive 116159289 Z32.01 Risk factors addressed: Tobacco Cessation, Safe Sexual Practices, environmen annia, work hazards, travel restrictio ns, seat belt use.Eat a health well balanced diet, avoid alcohol, tobacco, and street drugs.Enga ge in daily low impact exercise, avoid temperatur e extremes, and cat, rodent, and bird feces.Avoi d travel to areas where zika virus is a concern.Of fered cf/sma/nip t. Desires NIPT. Handouts given and discussed with patient.Ch ildbirth classes recommende d.New OB sheet given.If previous , counseling . New OB gina Gender ID Labs today Pt verbalizes that she understand s the importance of above instructio ns.All questions were answered.P atient reminded to have annual well woman examinatio n and address preventati ve healthcare . screening 2437 18702 Z36.89 Routine an tenatal care 476352679 Z34.92 [id number] Kellee Quiles [facility] [address],[place] [address] 05/23/2021 15:19:54 05/23/2021 16:16:25 Uterine size for dates discrepancy 538089927 O26.849 Z3A.15 [id number] Kellee Quiles [facility] [address],[place] [address] 06/01/2021 15:01:43 06/01/2021 15:47:42 [id number] Raffy Mane MD [facility] [address],[place] [address] 06/01/2021 15:02:38 06/01/2021 16:16:20 Routine care 835578446 Z34.82 [id number] Candelaria Bernalmary ellen [facility] [address],[place] [address] 07/25/2021 14:11:03 07/26/2021 11:24:08 Routine care 646727960 Z34.92 [id number] [facility] [address],[place] [address] 07/25/2021 14:08:04 07/25/2021 15:10:34 screening for malformation 553677600 Z36.3 [id number] Paris Whitney [facility] [address],[place] [address] 08/23/2021 15:56:13 08/23/2021 16:42:52 Routine care 980807286 Z34.93 [id number] [facility] [address],[place] [address] 09/07/2021 15:49:59 09/07/2021 16:31:09 Medical examination for suspected condition 597074676 Z03.74 [id number] Raffy Mane MD [facility] [address],[place] [address] 09/07/2021 15:50:45 09/07/2021 18:00:42 Routine care 716749498 Z34.82 [id number] Paris Whitney [facility] [address],[place] [address] 09/20/2021 13:55:34 09/20/2021 15:51:37 Routine care 218035720 Z34.93 [id number] Radha Cloud [facility] [address],[place] [address] 09/20/2021 13:55:02 09/20/2021 14:36:36 growth restriction 51748898 O36.5999 [id number] Kellee Quiles [facility] [address],[place] [address] 09/20/2021 13:55:20 09/20/2021 15:06:25 History of growth retardation 9752356806 9108 Z87.59 Z3A.32 [id number] Radha Cloud [facility] [address],[place] [address] 09/27/2021 14:26:40 09/27/2021 15:05:52 growth restriction 47920858 O36.5999 [id number] [facility] [address],[place] [address] 09/27/2021 14:26:58 09/27/2021 15:38:14 care: poor obstetric history 467578235 O09.293 Z3A.33 [id number] Raffy Mane MD [facility] [address],[place] [address] 09/27/2021 14:27:25 09/27/2021 15:52:51 Routine care 751182501 Z34.82 [id number] [facility] [address],[place] [address] 10/04/2021 13:58:38 10/04/2021 14:53:22 growth restriction 94621567 O36.5999 [id number] Kellee Quiles [facility] [address],[place] [address] 10/04/2021 13:59:12 10/04/2021 14:59:24 Poor growth affecting management 017924460 O36.5999 Z3A.34 [id number] Kenisha Newton MD [facility] [address],[place] [address] 10/04/2021 13:59:34 10/04/2021 15:26:35 Routine care 207453290 Z34.83 [id number] [facility] [address],[place] [address] 10/11/2021 13:55:00 10/11/2021 15:25:14 care: poor obstetric history 507382865 O09.293 Z3A.35 [id number] Radha [facility] [address],[place] [address] 10/11/2021 13:55:33 10/11/2021 14:41:34 growth restriction 31662089 O36.5999 [id number] Paris Whitney [facility] [address],[place] [address] 10/11/2021 13:55:51 10/11/2021 15:24:56 Routine care 595088234 Z34.93 [id number] Paris Whitney [facility] [address],[place] [address] 10/18/2021 14:00:56 10/18/2021 15:39:50 Routine care 468966763 Z34.93 [id number] Radha Cloud [facility] [address],[place] [address] 10/18/2021 13:59:59 10/18/2021 14:54:31 growth restriction 62900776 O36.5999 [id number] [facility] [address],[place] [address] 10/18/2021 14:00:45 10/18/2021 15:17:04 care: poor obstetric history 651073992 O09.293 Z3A.36 [id number] Paris Whitney [facility] [address],[place] [address] 10/25/2021 14:58:59 10/25/2021 17:22:18 Routine care 758367524 Z34.93 [id number] [facility] [address],[place] [address] 10/25/2021 14:58:16 10/25/2021 16:10:26 growth restriction 59468050 O36.5999 [id number] [facility] [address],[place] [address] 10/25/2021 14:58:44 10/25/2021 16:10:07 care: poor obstetric history 244211530 O09.293 Z3A.37 [id number] KATHE Murillo [facility] [address],[place] [address] 11/13/2021 15:15:37 11/13/2021 16:12:56 Acute mastitis 92894503 N61.0 Breast pain, redness, mild fevers, and flu-like symptoms x 1 day. She is 2 weeks , breastfeed ing infant.Lac tational mastitis suspected. 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 Time spent with the patient was 30 minutes [id number] Paris Whitney CNM [facility] [address],[place] [address] 11/29/2021 14:21:00 11/29/2021 15:12:35 care 586148743 Z39.2 [id number] Suyapa Welch [facility] [address],[place] [address] 03/02/2024 14:00:31 03/02/2024 14:59:26 Missed miscarriage 07218761 O02.1 Z3A.00 [id number] Raffy Mane MD [facility] [address],[place] [address] 03/02/2024 14:55:37 03/02/2024 17:03:00 Threatened miscarriage 96553859 O20.0 This patient is a 28y/o female who presents for threatened discussed the etiology, frequency, natural history, and treatment of this condition. Spent more than 35 minutes talking about the above, as well as, her history, the particular findings of her case, and detail of her the treatment options. We discussed the risk benefits of each option. She understand s the risk include infection and hemorrhage . She understand s a D&C also holds the risk of injury. She understand s that waiting can result in a septic that is even more difficult to treat. We talked about signs and symptoms of infection. There is some uncertaint y about the viability of the . It appears to be a missed A/B the pole, presumed pole, is very different in size than expected. Patient is very certain of last menstrual period. pole is much smaller than expected. Patient is considerin g her treatment options and will make a decision after we confirm the non viability of the . I spent over 30 minutes on the patient's care in total. Health Concerns Section Related Observation LastModified by Organization Detai ls LastModified Time None Recorded Concern Status LastModified by Organization Details LastModified Time None Recorded Advance Directives Directive N: Payers Encounter Date Sequence Insurance Name Policy Number Policy Chavez Covered Member ID Chavez Member ID Guarantor Name 10/25/2021 1 [place] [facility] Vannessa Holgeorge [id number] Vannessa Hol 10/25/2021 1 UMR [id number] Vannessa D Holik [id number] Vannessa Holgeorge 11/13/2021 1 [place] [facility] Vannessa Holik [id number] Vannessa Holik 11/13/2021 1 UMR [id number] Vannessa D Holik [id number] Vannessa Holik 11/29/2021 1 [place] [facility] Vannessa Holik [id number] Vannessa Holik 11/29/2021 1 UMR [id number] Vannessa D Holik [id number] Vannessa Holik 03/02/2024 1 [place] [id number] Vannessa Holik [id number] Vannessa Holik 03/02/2024 1 [place] [id number] Vannessa Holik [id number] Vannessa Holik Notes Date Note Type Note Provider Name and Address Organization Details Recorded Time 11/13/2021 text/html Here for left breast pain, fevers, chills, and unable to breastfeed from left breast. Patient is x 2 weeks. only. KATHE Murillo [address], [place], [address], [facility] 11/13/2021 16:02:08 11/29/2021 text/html VisitReported bypatient.Quality:N ; pt delivered in her car w/o any diffculties Context:complicatio ns of : none; feeding choice: breast; good support from partner/family Associated Symptoms:no abnormal bleeding; no vaginal discharge; no pelvic pain; no dysuria; no urinary incontinence; no fever; no problems; normal moodNotes:declines bcm thinking about vasectomy Paris Whitney CNM [address], [place], [address], [facility] 11/29/2021 15:06:00 03/02/2024 text/html This patient is a 28y/o female who presents for threatened discussed the etiology, frequency, natural history, and treatment of this condition. Spent more than 35 minutes talking about the above, as well as, her history, the particular findings of her case, and detail of her the treatment options. We discussed the risk benefits of each option. She understands the risk include infection and hemorrhage. She understands a D&C also holds the risk of injury. She understands that waiting can result in a septic that is even more difficult to treat. We talked about signs and symptoms of infection. There is some uncertainty about the viability of the . It appears to be a missed A/B the pole, presumed pole, is very different in size than expected. Patient is very certain of last menstrual period. pole is much smaller than expected. Patient is considering her treatment options and will make a decision after we confirm the non viability of the . Raffy Mane MD [address], [place], [address], [facility] 03/02/2024 15:21:23 OBGyn Episode Ob Episode Information Episode Created Date Number of Fetuses Patient Bloodtype Patient rh Status Prepregnancy Weight lbs Domestic Partner Domestic Partner Phone Father Name Corporate Traffic Manager Status 05/22/20 21 1 CLOSED Fetus Data First Name Last Name Admitted to NICU Weight (g) Sex Living Outcome Pediatric Complications Fetus ID Race Codes Race Delivery Type 3826.95 5704 M Full Term [id number] Vaginal Delivery Daryn Calculation Initial Daryn Date Initial Exam Date Initial Exam Provider Initial Ultrasound Date Last Menstrual Period Date Ultra Sound Weeks Gestation 0 Eighteen To Twenty Week Daryn Update Ultra Sound Date Fundal Height At Umbil Quickening Date Ultra Sound Latest Weeks Gestation Final Daryn Confirmed By Final Daryn Confirmed Date Final Daryn Date Ultra Sound Latest Days Gestation 0 0 Menstrual History Last Menstrual Date Menses Monthly On Bcp Conception Prior Menses Frequency Hcg Plus Date Menarche Onset Age Delivery Information Delivery Date Delivery Type Labor Anesthesia Weeks Gestation Incision Type Labor Labor Length Hrs Delivered By Post Complications Tubal Sterilization Discharge Date Comments 3 39 Terence Discharge Information Feeding Method Contraceptive Method Maternal HG B and HCT Levels Ob Episode Information Episode Created Date Number of Fetuses Patient Bloodtype Patient rh Status Prepregnancy Weight lbs Domestic Partner Domestic Partner Phone Father Name Corporate Traffic Manager Status 06/01/20 21 1 A Negative 182 CLOSED Fetus Data First Name Last Name Admitted to NICU Weight (g) Sex Living Outcome Pediatric Complications Fetus ID Race Codes Race Delivery Type 3373.59 05 M true Full Term [id number] Vaginal Delivery Problems Problem Notes Problem Name Start Date End Date Resolution Snomed Code Not e RhD negative [id number] History of growth retardation [id number] wkly an tenatal testing 32wks Placental abruption - delivered 36wks Daryn Calculation Initial Daryn Date Initial Exam Date Initial Exam Provider Initial Ultrasound Date Last Menstrual Period Date Ultra Sound Weeks Gestation 11/10/2021 06/01/2021 05/23/2021 15 Eighteen To Twenty Week Daryn Update Ultra Sound Date Fundal Height At Umbil Quickening Date Ultra Sound Latest Weeks Gestation Final Daryn Confirmed By Final Daryn Confirmed Date Final Daryn Date Ultra Sound Latest Days Gestation 0 [email or web address] 06/01/2021 11/11/19 22 0 Pre-tri Flowsheet Flowsheet Date 06/01/2021 Oliver Score Blood Edema Fundus Height Fundus Units Glucose Ketones Leukocytes Nitrite Labor Signs Protein Cervic Dilation Cervic Effacement Cervic Station 16 Type Weight in lbs Pre/Post Dialysis Refused Weight 185.274280533279 BP Diastolic BP Location Tested BP Systolic BP Type 71 R arm 107 sitting Fetus Heart Rate Present A 147 Fetus Movement Comments This patient is a 25-year-ol d 4 para 07/25/2002 at 16 weeks gestation who presents for initial care. She has history of abruption at 36 weeks and intrauterine growth restriction. The history growth restriction is suspected. The baby was 6 lb 6 oz at 38 weeks gestation. Patient to be vaccinated. To begin routine care. Flowsheet Date 07/25/2021 Oliver Score Blood Edema Fundus Height Fundus Units Glucose Ketones Leukocytes Nitrite Labor Signs Protein Cervic Dilation Cervic Effacement Cervic Station Type Weight in lbs Pre/Post Dialysis Refused BP Diastolic BP Location Tested BP Systolic BP Type Fetus Heart Rate Present Fetus Movement Comments Flowsheet Date 07/25/2021 Oliver Score Blood Edema Fundus Height Fundus Units Glucose Ketones Leukocytes Nitrite Labor Signs Protein Cervic Dilation Cervic Effacement Cervic Station none none trace Type Weight in lbs Pre/Post Dialysis Refused Weight 194.681567828425 BP Diastolic BP Location Tested BP Systolic BP Type 77 116 Fetus Heart Rate Present Fetus Movement A Yes Comments Doing well. No contractions. Order given for 28 week labs. U/S today. Will await recommendations. Flowsheet Date 08/23/2021 Oliver Score Blood Edema Fundus Height Fundus Units Glucose Ketones Leukocytes Nitrite Labor Signs Protein Cervic Dilation Cervic Effacement Cervic Station neg none 28 trace Type Weight in lbs Pre/Post Dialysis Refused Weight 196.783071479131 BP Diastolic BP Location Tested BP Systolic BP Type 79 119 Fetus Heart Rate Present A 150 Fetus Movement A Yes Comments order for rhogam given, doin g well, needs to schedule weekly NST plan growth hx IUGR Flowsheet Date 09/07/2021 Oliver Score Blood Edema Fundus Height Fundus Units Glucose Ketones Leukocytes Nitrite Labor Signs Protein Cervic Dilation Cervic Effacement Cervic Station Type Weight in lbs Pre/Post Dialysis Refused BP Diastolic BP Location Tested BP Systolic BP Type Fetus Heart Rate Present Fetus Movement Comments Flowsheet Date 09/07/2021 Oliver Score Blood Edema Fundus Height Fundus Units Glucose Ketones Leukocytes Nitrite Labor Signs Protein Cervic Dilation Cervic Effacement Cervic Station 30 Type Weight in lbs Pre/Post Dialysis Refused Weight 201.025608971335 BP Diastolic BP Location Tested BP Systolic BP Type 76 L arm 118 sitting Fetus Heart Rate Present A 145 Fetus Movement A Yes Comments Good growth on ultrasound, s hort humerus, insignificant, status post RhoGAM Flowsheet Date 09/20/2021 Oliver Score Blood Edema Fundus Height Fundus Units Glucose Ketones Leukocytes Nitrite Labor Signs Protein Cervic Dilation Cervic Effacement Cervic Station Type Weight in lbs Pre/Post Dialysis Refused BP Diastolic BP Location Tested BP Systolic BP Type Fetus Heart Rate Present Fetus Movement Comments Flowsheet Date 09/20/2021 Oliver Score Blood Edema Fundus Height Fundus Units Glucose Ketones Leukocytes Nitrite Labor Signs Protein Cervic Dilation Cervic Effacement Cervic Station Type Weight in lbs Pre/Post Dialysis Refused BP Diastolic BP Location Tested BP Systolic BP Type Fetus Heart Rate Present Fetus Movement Comments Flowsheet Date 09/20/2021 Oliver Score Blood Edema Fundus Height Fundus Units Glucose Ketones Leukocytes Nitrite Labor Signs Protein Cervic Dilation Cervic Effacement Cervic Station neg none trace Type Weight in lbs Pre/Post Dialysis Refused Weight 202.983186145411 BP Diastolic BP Location Tested BP Systolic BP Type 80 122 Fetus Heart Rate Present Fetus Movement A Yes Comments Bpp 01/29 NST R, doing well, p recautions reviewed, plan preadmit Flowsheet Date 09/27/2021 Oliver Score Blood Edema Fundus Height Fundus Units Glucose Ketones Leukocytes Nitrite Labor Signs Protein Cervic Dilation Cervic Effacement Cervic Station Type Weight in lbs Pre/Post Dialysis Refused BP Diastolic BP Location Tested BP Systolic BP Type Fetus Heart Rate Present Fetus Movement Comments Flowsheet Date 09/27/2021 Oliver Score Blood Edema Fundus Height Fundus Units Glucose Ketones Leukocytes Nitrite Labor Signs Protein Cervic Dilation Cervic Effacement Cervic Station Type Weight in lbs Pre/Post Dialysis Refused BP Diastolic BP Location Tested BP Systolic BP Type Fetus Heart Rate Present Fetus Movement Comments Flowsheet Date 09/27/2021 Oliver Score Blood Edema Fundus Height Fundus Units Glucose Ketones Leukocytes Nitrite Labor Signs Protein Cervic Dilation Cervic Effacement Cervic Station 33 Type Weight in lbs Pre/Post Dialysis Refused Weight 206.865855893237 BP Diastolic BP Location Tested BP Systolic BP Type 66 R arm 104 sitting Fetus Heart Rate Present A 145 Fetus Movement Comments No complaints, growth ultras ound next week, good growth in this , status post RhoGAM Flowsheet Date 10/04/2021 Oliver Score Blood Edema Fundus Height Fundus Units Glucose Ketones Leukocytes Nitrite Labor Signs Protein Cervic Dilation Cervic Effacement Cervic Station Type Weight in lbs Pre/Post Dialysis Refused BP Diastolic BP Location Tested BP Systolic BP Type Fetus Heart Rate Present Fetus Movement Comments Flowsheet Date 10/04/2021 Oliver Score Blood Edema Fundus Height Fundus Units Glucose Ketones Leukocytes Nitrite Labor Signs Protein Cervic Dilation Cervic Effacement Cervic Station Type Weight in lbs Pre/Post Dialysis Refused BP Diastolic BP Location Tested BP Systolic BP Type Fetus Heart Rate Present Fetus Movement Comments Flowsheet Date 10/04/2021 Oliver Score Blood Edema Fundus Height Fundus Units Glucose Ketones Leukocytes Nitrite Labor Signs Protein Cervic Dilation Cervic Effacement Cervic Station neg none 36 none trace Type Weight in lbs Pre/Post Dialysis Refused Weight 206.112996546973 BP Diastolic BP Location Tested BP Systolic BP Type 74 114 Fetus Heart Rate Present A 130 Fetus Movement A Yes Comments Doing well except GERD. Will try pepcid. BPP 04/02. Growth 62% this - no IUGR> Precautions given. Flowsheet Date 10/11/2021 Oliver Score Blood Edema Fundus Height Fundus Units Glucose Ketones Leukocytes Nitrite Labor Signs Protein Cervic Dilation Cervic Effacement Cervic Station Type Weight in lbs Pre/Post Dialysis Refused BP Diastolic BP Location Tested BP Systolic BP Type Fetus Heart Rate Present Fetus Movement Comments Flowsheet Date 10/11/2021 Oliver Score Blood Edema Fundus Height Fundus Units Glucose Ketones Leukocytes Nitrite Labor Signs Protein Cervic Dilation Cervic Effacement Cervic Station Type Weight in lbs Pre/Post Dialysis Refused BP Diastolic BP Location Tested BP Systolic BP Type Fetus Heart Rate Present Fetus Movement Comments Flowsheet Date 10/11/2021 Oliver Score Blood Edema Fundus Height Fundus Units Glucose Ketones Leukocytes Nitrite Labor Signs Protein Cervic Dilation Cervic Effacement Cervic Station neg none trace 2cm 50% -3 Type Weight in lbs Pre/Post Dialysis Refused Weight 206.215490777793 BP Diastolic BP Location Tested BP Systolic BP Type 78 112 Fetus Heart Rate Present Fetus Movement Comments US today, GBS collected, pre cautions reviewed, NST Flowsheet Date 10/18/2021 Oliver Score Blood Edema Fundus Height Fundus Units Glucose Ketones Leukocytes Nitrite Labor Signs Protein Cervic Dilation Cervic Effacement Cervic Station Type Weight in lbs Pre/Post Dialysis Refused BP Diastolic BP Location Tested BP Systolic BP Type Fetus Heart Rate Present Fetus Movement Comments Flowsheet Date 10/18/2021 Oliver Score Blood Edema Fundus Height Fundus Units Glucose Ketones Leukocytes Nitrite Labor Signs Protein Cervic Dilation Cervic Effacement Cervic Station Type Weight in lbs Pre/Post Dialysis Refused BP Diastolic BP Location Tested BP Systolic BP Type Fetus Heart Rate Present Fetus Movement Comments Flowsheet Date 10/18/2021 Oliver Score Blood Edema Fundus Height Fundus Units Glucose Ketones Leukocytes Nitrite Labor Signs Protein Cervic Dilation Cervic Effacement Cervic Station neg none none trace Type Weight in lbs Pre/Post Dialysis Refused Weight 207.255096222106 BP Diastolic BP Location Tested BP Systolic BP Type 78 108 Fetus Heart Rate Present Fetus Movement A Yes Comments doing well bpp 8/8, declines cervical exam, precautions reviewed f/u one week Flowsheet Date 10/25/2021 Oliver Score Blood Edema Fundus Height Fundus Units Glucose Ketones Leukocytes Nitrite Labor Signs Protein Cervic Dilation Cervic Effacement Cervic Station Type Weight in lbs Pre/Post Dialysis Refused BP Diastolic BP Location Tested BP Systolic BP Type Fetus Heart Rate Present Fetus Movement Comments Flowsheet Date 10/25/2021 Oliver Score Blood Edema Fundus Height Fundus Units Glucose Ketones Leukocytes Nitrite Labor Signs Protein Cervic Dilation Cervic Effacement Cervic Station Type Weight in lbs Pre/Post Dialysis Refused BP Diastolic BP Location Tested BP Systolic BP Type Fetus Heart Rate Present Fetus Movement Comments Flowsheet Date 10/25/2021 Oliver Score Blood Edema Fundus Height Fundus Units Glucose Ketones Leukocytes Nitrite Labor Signs Protein Cervic Dilation Cervic Effacement Cervic Station neg none none trace 3cm 50% -2 Type Weight in lbs Pre/Post Dialysis Refused Weight 205.638102058292 BP Diastolic BP Location Tested BP Systolic BP Type 84 125 Fetus Heart Rate Present Fetus Movement A Yes Comments PATIENT STATES THAT HAVING S OME CRAMPING. bpp 8/8 doing well, discussed 39 week induction, hx placental abruption, pt declines at this time will call, Flowsheet Date 11/13/2021 Oliver Score Blood Edema Fundus Height Fundus Units Glucose Ketones Leukocytes Nitrite Labor Signs Protein Cervic Dilation Cervic Effacement Cervic Station Type Weight in lbs Pre/Post Dialysis Refused Weight 185.514277131448 BP Diastolic BP Location Tested BP Systolic BP Type 63 105 Fetus Heart Rate Present Fetus Movement Comments Menstrual History Last Menstrual Date Menses Monthly On Bcp Conception Prior Menses Frequency Hcg Plus Date Menarche Onset Age Genetic Screening And Infection History Question Response Note Mental Retardation/Autism false Patient's Age Will Be 35 Years Or Older At Estim ated Date of Delivery false Thalassemia (Hebrew, Macedonian, Mediterranean, Or Background): MCV < 80 false Neural Tube Defect (Meningomyelocele, Spina Bifi da, Or Anencephaly) false Congenital Heart Defect false Down Syndrome false Kahlil-Sachs (eg, Congregation, Cajun, South African-Kaleva) f alse Curly Disease false Sickle Cell Disease Or Trait () false Hemophilia Or Other Blood Disorders false Muscular Dystrophy false Cystic Fibrosis false Meir's Chorea false Intellectual Disability/Autism false If Yes, Was Person Tested For Fragile X? false Other Inherited Genetic Or Chromosomal Disorder false Maternal Metabolic Disorder (eg, Type 1 Diabetes , PKU) false Patient Or Baby's Father Had A Child With Defects Not Listed Above false Recurrent Loss, Or A Stillbirth false Medications (including Suppl ements, Vitamins, Herbs, OTC Drugs), Illicit/Recreational Drugs, Alcohol false If Yes, Agent(s) And Strength/Dosage false Any Other Genetic History false Live With Someone With TB Or Exposed To TB false Patient Or Partner Has History Of Genital Herpes false Rash Or Viral Illness Since Last Menstrual Perio d false History Of STD, Gonorrhea, Chlamydia, HPV, Syphi lis false Other Infection History false History of HIV false History of Hepatitis false Prior GBS-infected child false Hemoglobinopathy Or Carrier false Other Structural Defect false Recent Travel History Outside of Country false Delivery Information Delivery Date Delivery Type Labor Anesthesia Weeks Gestation Incision Type Labor Labor Length Hrs Delivered By Post Complications Tubal Sterilization Discharge Date Comments 2 None None 38.2 false Paris Whitney CNTaylor Patient delivered in her car prior to arrival at the hospital. CNM at car upon arrival. Discharge Information Feeding Method Contraceptive Method Maternal HG B and HCT Levels Ob Episode Information Episode Created Date Number of Fetuses Patient Bloodtype Patient rh Status Prepregnancy Weight lbs Domestic Partner Domestic Partner Phone Father Name Corporate Traffic Manager Status 05/22/20 21 1 CLOSED Fetus Data First Name Last Name Admitted to NICU Weight (g) Sex Living Outcome Pediatric Complications Fetus ID Race Codes Race Delivery Type 2948.34 8 F Prematur e [id number] Vaginal Delivery Daryn Calculation Initial Daryn Date Initial Exam Date Initial Exam Provider Initial Ultrasound Date Last Menstrual Period Date Ultra Sound Weeks Gestation 0 Eighteen To Twenty Week Daryn Update Ultra Sound Date Fundal Height At Umbil Quickening Date Ultra Sound Latest Weeks Gestation Final Dayrn Confirmed By Final Daryn Confirmed Date Final Daryn Date Ultra Sound Latest Days Gestation 0 0 Menstrual History Last Menstrual Date Menses Monthly On Bcp Conception Prior Menses Frequency Hcg Plus Date Menarche Onset Age Delivery Information Delivery Date Delivery Type Labor Anesthesia Weeks Gestation Incision Type Labor Labor Length Hrs Delivered By Post Complications Tubal Sterilization Discharge Date Comments 9 36 Beckie Abruption Discharge Information Feeding Method Contraceptive Method Maternal HG B and HCT Levels Ob Episode Information Episode Created Date Number of Fetuses Patient Bloodtype Patient rh Status Prepregnancy Weight lbs Domestic Partner Domestic Partner Phone Father Name Corporate Traffic Manager Status 05/22/20 21 1 CLOSED Fetus Data First Name Last Name Admitted to NICU Weight (g) Sex Living Outcome Pediatric Complications Fetus ID Race Codes Race Delivery Type 2891.64 9 F Full Term [id number] Vaginal Delivery Daryn Calculation Initial Daryn Date Initial Exam Date Initial Exam Provider Initial Ultrasound Date Last Menstrual Period Date Ultra Sound Weeks Gestation 0 Eighteen To Twenty Week Daryn Update Ultra Sound Date Fundal Height At Umbil Quickening Date Ultra Sound Latest Weeks Gestation Final Daryn Confirmed By Final Daryn Confirmed Date Final Daryn Date Ultra Sound Latest Days Gestation 0 0 Menstrual History Last Menstrual Date Menses Monthly On Bcp Conception Prior Menses Frequency Hcg Plus Date Menarche Onset Age Delivery Information Delivery Date Delivery Type Labor Anesthesia Weeks Gestation Incision Type Labor Labor Length Hrs Delivered By Post Complications Tubal Sterilization Discharge Date Comments 6 38 Shira IUGR Discharge Information Feeding Method Contraceptive Method Maternal HG B and HCT Levels Ob Episode Information Episode Created Date Number of Fetuses Patient Bloodtype Patient rh Status Prepregnancy Weight lbs Domestic Partner Domestic Partner Phone Father Name Corporate Traffic Manager Status 03/09/20 24 1 CLOSED Fetus Data First Name Last Name Admitted to NICU Weight (g) Sex Living Outcome Pediatric Complications Fetus ID Race Codes Race Delivery Type , [place]ont[place] ous [id number] Daryn Calculation Initial Daryn Date Initial Exam Date Initial Exam Provider Initial Ultrasound Date Last Menstrual Period Date Ultra Sound Weeks Gestation 0 Eighteen To Twenty Week Daryn Update Ultra Sound Date Fundal Height At Umbil Quickening Date Ultra Sound Latest Weeks Gestation Final Daryn Confirmed By Final Daryn Confirmed Date Final Daryn Date Ultra Sound Latest Days Gestation 0 0 Menstrual History Last Menstrual Date Menses Monthly On Bcp Conception Prior Menses Frequency Hcg Plus Date Menarche Onset Age Delivery Information Delivery Date Delivery Type Labor Anesthesia Weeks Gestation Incision Type Labor Labor Length Hrs Delivered By Post Complications Tubal Sterilization Discharge Date Comments 4 Discharge Information Feeding Method Contraceptive Method Maternal HG B and HCT Levels
--- OUTSIDE RECORDS SUMMARY | 2024-09-10 15:12 | XMS_ITS | Clinical Summary ---
Author Organization [employer] [facility] Address [address] [place] [address] Care Team Providers Care Water Tender Name Role Phone Not Found, Stl Primary Care Provider Unavailabl e Allergies No known active allergies Medications PNV no.[id number] flannery-epa-fish ( Gummies) 400 mcg-35 mg- 25 mg-5 mg Tablet, Chewable Take 2 Each by mouth daily. Active doxylamine-pyri doxine, vit B6, (DICLEGIS) 10-10 mg Tablet, Delayed Release (E.C.) Take two tablets at bedtime on day 1 and 2; if symptoms persist, take 1 tablet in morning and 2 tablets at bedtime on day 3; if symptoms persist, may increase to 1 tablet in morning, 1 tablet mid-afternoon , and 2 tablets at bedtime on day 4. 90 Tablet 1 04/04/2021 Active Active Problems Problem Noted Date Diagnosed Date Prior with placent al abruption in first trimester, antepartum 04/04/2021 Nausea and vomiting in 04/04/2021 History of intrauterine grow th restriction in prior , currently in first trimester 04/03/2021 Low serum progesterone 04/03/2021 Family History Medical History Relation Name Comments Healthy Brother 1 Healthy Brother 2 Healthy Brother 3 Healthy Brother 4 Healthy Daughter Diabetes Father Healthy Sister Healthy Son 1 Healthy Son 2 Relation Name Status Comments Brother 1 Alive Brother 2 Alive Brother 3 Alive Brother 4 Alive Daughter Alive Father Alive Maternal Grandfather Maternal Grandmother Alive Mother Alive Has MS Paternal Grandfather Paternal Grandmother Alive Sister Alive Son 1 Alive Son 2 Alive Social History Tobacco Use Types Packs/Day Years Used Date Smoking Tobacco: Never Smokeless Tobacco: Never Tobacco Cessation:Counseling Given: No Alcohol Use Standard Drinks/Week Comments Never 0 (1 standard drink = 0.6 oz pur e alcohol) Feeling Safe Answer Date Recorded Within the last year, have y ou been afraid of your partner or ex-partner? No 03/15/2021 Within the last year, have y ou been humiliated or emotionally abused in other ways by your partner or ex-partner? No Within the last year, have y ou been kicked, hit, slapped, or otherwise physically hurt by your partner or ex-partner? No 03/15/2021 Within the last year, have y ou been raped or forced to have any kind of sexual activity by your partner or ex-partner? No 03/15/2021 Social Connections Answer Date Recorded In a typical week, how many times do you talk on the telephone with family, friends, or neighbors? More than three times a week 03/15/2021 How often do you get togethe r with friends or relatives? More than three times a week 03/15/2021 How often do you attend chur ch or scientology services? Never 03/15/2021 Do you belong to any clubs o r organizations such as baptist groups, unions, fraternal or athletic groups, or school groups? No 03/15/2021 How often do you attend meet ings of the clubs or organizations you belong to? Never 03/15/2021 Are you , , di vorced, , never , or living with a partner? 03/15/2021 Financial Resource Strain Answer Date R ecorded How hard is it for you to pa y for the very basics like food, housing, medical care, and heating? Not hard at all 03/15/2021 Food Insecurity Answer Date Recorded In the past 12 months, have you worried that your food would run out before you had money to buy more? Never true 03/15/2021 In the past 12 months, did y ou run out of food and didn't have money to buy more? Never true 03/15/2021 Transportation Needs Answer Date Record ed In the past 12 months, has l ack of transportation kept you from medical appointments or from getting medications? No 02/23 In the past 12 months, has l ack of transportation kept you from meetings, work, or from getting things needed for daily living? No 03/15/2021 Housing Stability Answer Date Recorded In the last 12 months, was t here a time when you were not able to pay the mortgage or rent on time? No 03/15/2021 Number of Times Moved in the Last Year Not on fi le 03/15/2021 (RETIRED) In the last 12 sat th, was there a time when you did not have a steady place to sleep or slept in a penitentiary (including now)? 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 Gender Identity Not on file Sexual Orientation Not on file Last Filed Vital Signs Vital Sign Reading Time Taken Comments Blood Pressure 100/58 04/04/2021 1:20 PM CDT Pulse - - Temperature - - Respiratory Rate - - Oxygen Saturation - - Inhaled Oxygen Concentration - - Weight 81.9 kg (180 lb 9.6 oz) 04/04/2021 1:20 P M CDT Height 172.7 cm (5' 8) 04/04/2021 1:20 PM CDT Body Mass Index 27.46 04/04/2021 1:20 PM CDT Plan of Treatment Health Maintenance Due Date Last Done Comments DTAP/TDAP/TD VACCINES (1 - Tdap) 2014 HEPATITIS B VACCINES (1 of 3 - 19+ 3-dose series) 2014 PAP SMEAR 2016 INFLUENZA VACCINE (#1) 2024 HPV VACCINES Aged Out No longer eligi ble based on patient's age to complete this topic PNEUMOCOCCAL VACCINE 0-49 YEARS Aged Out No longer eligible based on patient's age to complete this topic Insurance GENERIC PAYOR BCBS BLUE ACCESS CHOICE Care Teams Water Tender Relationship Specialty Start Date End Date Not Found, Stl NO ADDRESS ON FILE PCP - General 08/07/12
--- OUTSIDE RECORDS SUMMARY | 2024-09-10 15:12 | XMS_ITS | Clinical Summary ---
Author Organization [facility] Address [address] [place] [id number] Care Team Providers Care Customer Success Specialist Name Role Phone New Referring, Provider Primary Care Provider Un available Social History Tobacco Use Types Packs/Day Years Used Date Smoking Tobacco: Never Assessed Comments Unknown Sex and Gender Information Value Date Recorded Sex Assigned at Not on file Legal Sex Female 10:09 PM CDT Gender Identity Not on file Sexual Orientation Not on file Plan of Treatment Health Maintenance Due Date Last Done Comments Cervical Cancer Screening Pa p Smear (Age 21 to 29) Every 3 Years 1995 Cervical Cancer Screening 1995 Annual Physical 1998 Hepatitis C 2013 DTaP, Tdap and Td Vaccines ( 1 - Tdap) 2014 Hepatitis B Vaccines (1 of 3 - 19+ 3-dose series) 2014 COVID-19 Vaccine (2023-2 5 season) 2024 Influenza Adult (#1) 2024 HPV Vaccines Aged Out No longer eligi ble based on patient's age to complete this topic Meningococcal B Vaccine Aged Out No l onger eligible based on patient's age to complete this topic Meningococcal Vaccine Aged Out No jose nieves eligible based on patient's age to complete this topic Pneumococcal Vaccine: Pediat rics (0 to 5 Years) and At-Risk Patients (6 to 64 Years) Aged Out No longer eligible b ased on patient's age to complete this topic RSV Immunizations Under 20 Months Aged Out No longer eligible based on patient's age to complete this topic Care Teams Customer Success Specialist Relationship Specialty Start Date End Date New Referring, Provider PCP - General UNKNOWN PHYSICIAN SPECIALTY 03/16/21
== END 2024-12-09 23:59 | disposition home or self-care (01) ==
LOC: ANHLAB 10:37
PROVIDERS: PCP Family Medicine Sports Medicine; Visit Provider Obstetrics & Gynecology
DX: Z87.59 Personal history of other complications of pregnancy, childbirth and the puerperium (principal)
CPT/HCPCS: 36415; 84702

== ENCOUNTER 2025-02-20 13:06 | Outpatient (RCR) | payer BC, OTHER, SELFPAY ==
--- OUTSIDE RECORDS SUMMARY | 2012-08-06 18:00 | XMS_ITS | Continuity of Care Document ---
Author Organization [facility] Address [address] [place] [address] Phone Care Team Providers Care Verifier Name Role Phone Unavailable Unavailable Unavailable Advance Directives Directive Yes / No Effective Date File Name No Information Encounters Encounter Description Practice Location Reason(s) For Visit Diagnoses Date Provider Providers Copied on Encounter [facility], [address], [place], [place], [id number], [place] tel:[phone] [facility] No Information No Information Referring Provider: ANNITA WALLACE N, [address] [place], [address]. tel:[phone] Family History Family Member Type Diagnosis Age At Onset No Information Payers Payer name Insurance type Covered constitution party ID Authorgiannia rafael(s) [facility] PPO [id number] Social History Type Description Quantity Date Captured Comments Sex Female Smoking Status No Information Chief Complaint And Reason For Visit No Information History Of Present Illness Encounter Date Complaint History Of Prese nt Illness No Information Instructions Date Instruction Additional Infor mation No Information Assessments Type Assessment Date No Information
--- OUTSIDE RECORDS SUMMARY | 2025-02-20 13:09 | XMS_ITS | Clinical Summary ---
Author Organization [employer] [facility] Address [address] [place] [address] Care Team Providers Care Metal Welder Name Role Phone Not Found, Stl Primary Care Provider Unavailabl e Allergies No known active allergies Medications PNV no.[id number] flannery-epa-fish ( Gummies) 400 mcg-35 mg- 25 [...] often do you attend chur ch or buddhism services? Never 03/15/2021 Do you belong to any clubs o r organizations such as mosque groups, unions, fraternal or athletic groups, or [...] Last Year Not on fi le 03/15/2021 At any time in the past 12 m [facility], were you homeless or living in a nursing home (including now)? 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
[2025-02-22] MEDS: RHO(D) IMMUNE GLOBULIN 300 MCG/2 ML SYRINGE IM (14:04)
== END 2025-05-21 23:59 | disposition home or self-care (01) ==
LOC: ANHLAB 13:06
PROVIDERS: PCP Family Medicine Sports Medicine; Visit Provider Obstetrics & Gynecology
DX: Z29.13 Encounter for prophylactic Rho(D) immune globulin (principal); O36.0190 Maternal care for anti-D [Rh] antibodies, unspecified trimester, not applicable or unspecified; Z3A.00 Weeks of gestation of pregnancy not specified
CPT/HCPCS: 36415; 85461; 86850; 86900; 86901; 90384; 96372; J2790

== ENCOUNTER 2025-05-08 10:16 | Inpatient (IN) | payer BC, OTHER, SELFPAY ==
[2025-05-08] VITALS (16 sets, daily range): BP systolic 100–150; BP diastolic 59–87; PULSE 57–176; RESP 14–18; TEMP 36.8–37.1; O2SAT 100; BMI 31.4
--- OUTSIDE RECORDS SUMMARY | 2025-05-08 10:42 | XMS_ITS | Continuity of Care Document ---
Author Organization [facility] Address [address] [place] [address] Care Team Providers Care Ceo Na Name Role Phone LO BADILLO Primary Care Provider Assessment Encounter Date Assessment Date Assessment LastModified by Organization Details LastModified Time 04/30/2025 04/30/2025 Patient is _38__weeks . Discussed plan. Not available 04/30/2025 10:18:24 Plan of Treatment Reminders Order Date Submit Date Provider Last Modified By Organization Details Last Modified Time Details Appointments OB ROUTINE 2024 09:00A M Paris Whitney CNM Not available Not available Not available INDUCTION 2024 05:00A Taylor Whitney CNM Not available Not available Not available Lab None recorded. Referral None recorded. Procedures None recorded. Surgeries None recorded. Imaging None recorded. Medication Orders None recorded. Patient TargetsNo targets recorded. Patient InstructionsNo instructions recorded. Reason for Referral None Reported. Results Created Date Observation Date Name Description Value Unit Range Abnormal Flag Note LastModifiedBy Organization Detail LastModifiedTime 11/03/1911/02/2024 HIV 1/2 ANTIG EN/AN TIBOD Y, REFLE X CONFI RMATI ON HIV antigen/anti body Nonrea ctive nonrea ctive HIV-1 antig en and HIV-1 /HIV- 2 antib odies were not detec marline. No labor atory evide nce of HIV infec tion. Not Available [facility] (Lab) [address], [place], [address], 11/03/2024 12:54:58 11/03/1911/02/2024 HEPAT ITIS B SURFA CE ANTIG EN hepatitis B surface antigen Non-re active non-re active This assay was perfo rmed using [employer] ratio n reage nts and test kits. Value s obtai jeromy with other assay metho ds or kits canno t be used inter merritt eably . Not Available [facility] (Lab) [address], [place], [address], 11/03/2024 12:54:59 11/03/1911/02/2024 HEPAT ITIS C ANTIB BERYL SCREE N, REFLE X TO CONFI RMATI ON hepatitis C antibody Non-re active non-re active Antib odies to HCV Not Detec marline, does not exclu de the possi bilit y of expos ure to HCV. Not Available [facility] (Lab) [address], [place], [address], 11/03/2024 12:55:00 11/03/1911/02/2024 RUBEL LA IGG ANTIB BERYL, QUANT rubella antibodies, IgG Reacti ve reacti ve Not Available [facility] (Lab) [address], [place], [address], 11/03/2024 12:55:00 11/03/19 25 11/02/2024 RUBEL LA IGG ANTIB BERYL, QUANT rubella antibodies, IgG quant 20.6 IU/mL >=10 Non-r eacti ve (Non- Immun e) <10 IU/mL React shabbir (Immu ne) > or = 10 IU/mL Not Available [facility] (Lab) [address], [place], [address], 11/03/2024 12:55:00 11/03/1911/02/2024 CBC W/DIF F WBC 9.4 10'3/ uL 3.5-10 .5 Not Available [facility] (Lab) [address], [place], [address], 11/03/2024 12:55:01 11/03/19 25 11/02/2024 CBC W/DIF F RBC 3.77 10'6/ uL (based on docume nted legal sex) 3.80-5 .20 low Not Available [facility] (Lab) [address], [place], [address], 11/03/2024 12:55:01 11/03/19 25 11/02/2024 CBC W/DIF F HGB 12.4 g/dL (based on docume nted legal sex) 11.6-1 5.4 Not Available [facility] (Lab) [address], [place], [address], 11/03/2024 12:55:01 11/03/1911/02/2024 CBC W/DIF F HCT 35.4 % (based on docume nted legal sex) 34.0-4 5.0 Not Available [facility] (Lab) [address], [place], [address], 11/03/2024 12:55:01 11/03/19 25 11/02/2024 CBC W/DIF F MCV 93.9 fL 80.0-9 9.0 Not Available [facility] (Lab) [address], [place], [address], 11/03/2024 12:55:01 11/03/19 25 11/02/2024 CBC W/DIF F MCH 32.9 pg 27.0-3 4.0 Not Available [facility] (Lab) [address], [place], [address], 11/03/2024 12:55:01 11/03/19 25 11/02/2024 CBC W/DIF F MCHC 35.0 g/dL 32.0-3 5.5 Not Available [facility] (Lab) [address], [place], [address], 11/03/2024 12:55:01 11/03/19 25 11/02/2024 CBC W/DIF F RDW 13.2 % 11.0-1 5.0 Not Available [facility] (Lab) [address], [place], [address], 11/03/2024 12:55:01 11/03/1911/02/2024 CBC W/DIF F plt 252 10'3/ uL 150-40 0 Not Available [facility] (Lab) [address], [place], [address], 11/03/2024 12:55:01 11/03/19 25 11/02/2024 CBC W/DIF F MPV 10.9 fL 8.8-12 .1 Not Available [facility] (Lab) [address], [place], [address], 11/03/2024 12:55:01 11/03/19 25 11/02/2024 CBC W/DIF F NRBC's 0.0 % 0.0 Not Available [facility] (Lab) [address], [place], [address], 11/03/2024 12:55:01 11/03/1911/02/2024 CBC W/DIF F absolute NRBCs 0.0 10'3/ uL no refere nce range establ ished Not Available [facility] (Lab) [address], [place], [address], 11/03/2024 12:55:01 11/03/1911/02/2024 CBC W/DIF F neutrophils 75.0 % 34.0-7 3.0 high Not Available [facility] (Lab) [address], [place], [address], 11/03/2024 12:55:01 11/03/19 25 11/02/2024 CBC W/DIF F lymphocytes 17.0 % 15.0-5 0.0 Not Available [facility] (Lab) [address] [place], [address], 11/03/2024 12:55:01 11/03/1911/02/2024 CBC W/DIF F monocytes 6.8 % 1.0-15 .0 Not Available [facility] (Lab) [address] [place], [address], 11/03/2024 12:55:01 11/03/19 25 11/02/2024 CBC W/DIF F eosinophils 0.6 % 0.0-8. 0 Not Available [facility] (Lab) [address], [place], [address], 11/03/2024 12:55:01 11/03/1911/02/2024 CBC W/DIF F basophils 0.2 % 0.0-2. 0 Not Available [facility] (Lab) [address], [place], [address], 11/03/2024 12:55:01 11/03/1911/02/2024 CBC W/DIF F immature granulocytes 0.4 % no define d refere nce range Immat ure Granu locyt es (IG) repre sents autom ated enume ratio n of Metam yeloc ytes, Myelo cytes and Promy elocy kasey when IG is < 5%. Blast s are not inclu ded in IG and repor marline separ ately if prese nt. Not Available [facility] (Lab) [address], [place], [address], 11/03/2024 12:55:01 11/03/1911/02/2024 CBC W/DIF F absolute neutrophils 7.0 10'3/ uL 1.5-8. 0 Not Available [facility] (Lab) [address] [place], [address], 11/03/2024 12:55:01 11/03/1911/02/2024 CBC W/DIF F absolute lymphocytes 1.6 10'3/ uL 1.0-4. 0 Not Available [facility] (Lab) [address], [place], [address], 11/03/2024 12:55:01 11/03/1911/02/2024 CBC W/DIF F absolute monocytes 0.6 10'3/ uL 0.2-1. 0 Not Available [facility] (Lab) [address], [place], [address], 11/03/2024 12:55:01 11/03/1911/02/2024 CBC W/DIF F absolute eosinophils 0.1 10'3/ uL 0.0-0. 6 Not Available [facility] (Lab) [address], [place], [address], 11/03/2024 12:55:01 11/03/1911/02/2024 CBC W/DIF F absolute basophils 0.0 10'3/ uL 0.0-0. 3 Not Available [facility] (Lab) [address], [place], [address], 11/03/2024 12:55:01 11/03/1911/02/2024 CBC W/DIF F absolute immature granulocytes 0.0 10'3/ uL 0.00-0 .10 Refer ence range s for nonbi nary/ inter sex or unspe cifie d gende r patie nts have not been estab lishe d. [facility]as [facility] for range s estab lishe d for cisge nder patie nts and evalu ate in the clini georges elyssa xt of the indiv idual patie nt: https ://izzy vasquez book. nm.or g/gen derx Not Available [facility] (Lab) [address], [place], [address], 11/03/2024 12:55:01 11/03/1911/02/2024 TYPE/ RH/SC REEN ABO/Rh type A NEG Not Available [facility] (Lab) [address], [place], [address], 11/03/2024 12:55:02 11/03/1911/02/2024 TYPE/ RH/SC REEN antibody screen NEG Not Available [facility] (Lab) [address], [place], [address], 11/03/2024 12:55:02 11/03/1911/02/2024 TYPE/ RH/SC REEN exp date 2024 23:59 Not Available [facility] (Lab) [address], [place], [address], 11/03/2024 12:55:02 11/03/1911/02/2024 HEMOG LOBIN A1C hemoglobin A1C 4.5 % 4.0-5. 6 The Ameri can [employer] kasey [employer] iatio n recom mends that a prima ry goal of thera py shoul d be a HBA1C of < 7% and that physi cians shoul d reeva luate the treat ment regim en in patie nts with HBA1C value s consi stent ly > 8%. <5.7% Hina l 5.7 - 6.4% Incre ased risk for diabe kasey >=6.5 % Diagn ostic of diabe kasey <7.0% Goal of thera py >8.0% Actio n sugge sted Not Available [facility] (Lab) [address], [place], [address], 11/03/2024 12:55:02 11/03/1911/02/2024 RPR SCREE N, REFLE X TITER /CONF IRMAT ION RPR qualitative Nonrea ctive nonrea ctive Not Available [facility] (Lab) [address], [place], [address], 11/03/2024 12:55:03 11/03/1911/02/2024 CULTU RE: URINE result report SEE RESULT S BELOW Test: Cultu re: Urine Speci men Sourc e: Urine Voide d Speci men Type: Urine Speci men Date: 2024 1723 Resul t Date: 2024 0338 Resul t Statu s: Final resul t Abnor mal: No Resul ting Lab: [facility] [address] [facility] [address] Tel: CULTU RE ----- ----- ----- --- No growt h in 1 day (dete ction level of 10,00 0 colon ies / ml.) Not Available [facility] (Lab) [address], [place], [address], 11/04/2024 04:43:17 02/19/2002/18/2025 HEMAT OCRIT (HCT) HCT 32.0 % (based on docume nted legal sex) 34.0-4 5.0 low Not Available [facility] (Lab) [address], [place], [address], 02/19/2025 04:10:34 02/19/2002/18/2025 HEMOG LOBIN (HGB) HGB 10.3 g/dL (based on docume nted legal sex) 11.6-1 5.4 low Not Available [facility] (Lab) [address], [place], [address], 02/19/2025 04:10:34 02/19/2002/18/2025 GTT - GESTA MAYELIN L SCREE N, ACOG OB glucose, 1 hour screen 114 mg/dL 70-135 Not Available [facility] (Lab) [address] [place], [address], 02/19/2025 04:10:35 02/19/2002/18/2025 HIV 1/2 ANTIG EN/AN TIBOD Y, REFLE X CONFI RMATI ON HIV antigen/anti body Nonrea ctive nonrea ctive HIV-1 antig en and HIV-1 /HIV- 2 antib odies were not detec marline. No labor atory evide nce of HIV infec tion. Not Available [facility] (Lab) [address], [place], [address], 02/19/2025 04:10:35 03/05/2003/05/2025 RPR SCREE N, REFLE X TITER /CONF IRMAT ION RPR qualitative Nonrea ctive nonrea ctive Do not charg e a venip unctu re for this test. Test was cinthia d at last visit . Not Available [facility] (Lab) [address], [place], [address], 03/06/2025 11:08:08 04/07/2004/07/2025 CBC W/DIF F WBC 9.7 10'3/ uL 3.5-10 .5 Not Available [facility] (Lab) [address], [place], [address], 04/08/2025 04:02:42 04/07/20 25 04/07/2025 CBC W/DIF F RBC 3.68 10'6/ uL (based on docume nted legal sex) 3.80-5 .20 low Not Available [facility] (Lab) [address], [place], [address], 04/08/2025 04:02:42 04/07/20 25 04/07/2025 CBC W/DIF F HGB 11.4 g/dL (based on docume nted legal sex) 11.6-1 5.4 low Not Available [facility] (Lab) [address], [place], [address], 04/08/2025 04:02:42 04/07/2004/07/2025 CBC W/DIF F HCT 34.1 % (based on docume nted legal sex) 34.0-4 5.0 Not Available [facility] (Lab) [address], [place], [address], 04/08/2025 04:02:42 04/07/20 25 04/07/2025 CBC W/DIF F MCV 92.7 fL 80.0-9 9.0 Not Available [facility] (Lab) [address], [place], [address], 04/08/2025 04:02:42 04/07/20 25 04/07/2025 CBC W/DIF F MCH 31.0 pg 27.0-3 4.0 Not Available [facility] (Lab) [address], [place], [address], 04/08/2025 04:02:42 04/07/20 25 04/07/2025 CBC W/DIF F MCHC 33.4 g/dL 32.0-3 5.5 Not Available [facility] (Lab) [address], [place], [address], 04/08/2025 04:02:42 04/07/2004/07/2025 CBC W/DIF F RDW 15.2 % 11.0-1 5.0 high Not Available [facility] (Lab) [address], [place], [address], 04/08/2025 04:02:42 04/07/20 25 04/07/2025 CBC W/DIF F plt 203 10'3/ uL 150-40 0 Not Available [facility] (Lab) [address], [place], [address], 04/08/2025 04:02:42 04/07/20 25 04/07/2025 CBC W/DIF F MPV 11.8 fL 8.8-12 .1 Not Available [facility] (Lab) [address], [place], [address], 04/08/2025 04:02:42 04/07/20 25 04/07/2025 CBC W/DIF F NRBC's 0.0 % 0.0 Not Available [facility] (Lab) [address], [place], [address], 04/08/2025 04:02:42 04/07/20 25 04/07/2025 CBC W/DIF F absolute NRBCs 0.0 10'3/ uL no refere nce range establ ished Not Available [facility] (Lab) [address] [place], [address], 04/08/2025 04:02:42 04/07/20 25 04/07/2025 CBC W/DIF F neutrophils 78.0 % 34.0-7 3.0 high Not Available [facility] (Lab) [address] [place], [address], 04/08/2025 04:02:42 04/07/20 25 04/07/2025 CBC W/DIF F lymphocytes 14.8 % 15.0-5 0.0 low Not Available [facility] (Lab) [address] [place], [address], 04/08/2025 04:02:42 04/07/20 25 04/07/2025 CBC W/DIF F monocytes 5.8 % 1.0-15 .0 Not Available [facility] (Lab) [address] [place], [address], 04/08/2025 04:02:42 04/07/20 25 04/07/2025 CBC W/DIF F eosinophils 0.6 % 0.0-8. 0 Not Available [facility] (Lab) [address] [place], [address], 04/08/2025 04:02:42 04/07/20 25 04/07/2025 CBC W/DIF F basophils 0.3 % 0.0-2. 0 Not Available [facility] (Lab) [address] [place], [address], 04/08/2025 04:02:42 04/07/20 25 04/07/2025 CBC W/DIF F immature granulocytes 0.5 % no define d refere nce range Immat ure Granu locyt es (IG) repre sents autom ated enume ratio n of Metam yeloc ytes, Myelo cytes and Promy elocy kasey when IG is < 5%. Blast s are not inclu ded in IG and repor marline separ ately if prese nt. Not Available [facility] (Lab) [address], [place], [address], 04/08/2025 04:02:42 04/07/2004/07/2025 CBC W/DIF F absolute neutrophils 7.6 10'3/ uL 1.5-8. 0 Not Available [facility] (Lab) [address], [place], [address], 04/08/2025 04:02:42 04/07/20 25 04/07/2025 CBC W/DIF F absolute lymphocytes 1.4 10'3/ uL 1.0-4. 0 Not Available [facility] (Lab) [address], [place], [address], 04/08/2025 04:02:42 04/07/20 25 04/07/2025 CBC W/DIF F absolute monocytes 0.6 10'3/ uL 0.2-1. 0 Not Available [facility] (Lab) [address], [place], [address], 04/08/2025 04:02:42 04/07/20 25 04/07/2025 CBC W/DIF F absolute eosinophils 0.1 10'3/ uL 0.0-0. 6 Not Available [facility] (Lab) [address] [place], [address], 04/08/2025 04:02:42 04/07/20 25 04/07/2025 CBC W/DIF F absolute basophils 0.0 10'3/ uL 0.0-0. 3 Not Available [facility] (Lab) [address], [place], [address], 04/08/2025 04:02:42 04/07/20 25 04/07/2025 CBC W/DIF F absolute immature granulocytes 0.1 10'3/ uL 0.00-0 .10 Refer ence range s for nonbi nary/ inter sex or unspe cifie d gende r patie nts have not been estab lishe andrea Pleas e refer to the follo wing table for range s estab lishe d for cisge nder patie nts and evalu ate in the clini georges elyssa xt of the indiv idual patie nt: https ://izzy vasquez book. nm.or g/gen derx Not Available [facility] (Lab) [address], [place], [address], 04/08/2025 04:02:42 04/07/2004/07/2025 ADRIAN TIN / IRON / TRANS ADRIAN N / TIBC iron 123 ug/dL 40-170 Not Available [facility] (Lab) [address], [place], [address], 04/08/2025 04:02:42 04/07/20 25 04/07/2025 ADRIAN TIN / IRON / TRANS ADRIAN N / TIBC transferrin 360 mg/dL 200-36 0 Not Available [facility] (Lab) [address], [place], [address], 04/08/2025 04:02:42 04/07/20 25 04/07/2025 ADRIAN TIN / IRON / TRANS ADRIAN N / TIBC ferritin 10.4 NG/mL 8.0-25 2.0 Not Available [facility] (Lab) [address], [place], [address], 04/08/2025 04:02:42 04/07/20 25 04/07/2025 ADRIAN TIN / IRON / TRANS ADRIAN N / TIBC TIBC 504 ug/dL 250-45 0 high Not Available [facility] (Lab) [address] [place], [address], 04/08/2025 04:02:42 04/07/20 25 04/07/2025 ADRIAN TIN / IRON / TRANS ADRIAN N / TIBC iron saturation 24 % 20-55 Not Available [facility] (Lab) [address] [place], [address], 04/08/2025 04:02:42 04/16/20 25 04/16/2025 CULTU RE: GROUP B STREP SCREE N, REFLE X SUSCE PTIBI LITY result report SEE RESULT S BELOW abnormal Test: Cultu re: Group B Strep , Refle x Susce ptibi lity ([facility]/ [facility] ) Speci men Sourc e: Vagin a/Rec rosalina Speci men Type: Vagin al/Re ctal Speci men Date: 04/16 1426 Resul t Date: 04/20 1550 Resul t Statu s: Final resul t Abnor mal: Yes Resul ting Lab: [facility] [address] [facility] [address] Tel: CULTU RE ----- ----- ----- --- Posit shabbir for Strep tococ cus agala ctiae (Grou p B) (Abno rmal) Clind amyci n is presu med to be resis tant based on detec tion of induc ible clind amyci n resis tance (Dte st posit shabbir) .? Eryth romyc in = resis tant. Cefaz katerina may be used for intra partu m proph ylaxi s in penic illin -lai rgic women at low risk, and Vanco mycin is recom nafisa d for women at high risk for anaph ylaxi s. Susce ptibi lity testi ng is not neces jesica for these drugs . Not Available [facility] (Lab) [address], [place], [address], 04/20/2025 16:57:04 11/03/1911/02/2024 US, obste tric, nucha l trans lucen cy No observ ation record ed. [email or web address] [employer] [address], [place], [address], 11/02/2024 18:18:57 11/03/1911/02/2024 US, obste tric, follo w-up No observ ation record ed. [email or web address] [address], [place], [address], 11/03/2024 15:44:13 01/01/20 25 12/31/2024 US, obste tric, 2nd or 3rd trime ster No observ ation record ed. [email or web address] [address], [place], [address], 12/31/2024 16:14:45 01/01/20 25 12/31/2024 US, obste tric, 2nd or 3rd trime ster No observ ation record ed. [email or web address] Gr[address]a [address], [place], [address], 01/03/2025 22:41:59 01/12/20 25 01/11/2025 US, obste tric, trans vagin al No observ ation record ed. [email or web address] [address], [place], [address], 01/11/2025 17:33:19 01/12/20 25 01/11/2025 US, obste tric, trans vagin al No observ ation record ed. [email or web address] Gr[address]a [address], [place], [address], 01/12/2025 22:12:23 03/24/20 25 03/24/2025 US, obste tric, follo w-up No observ ation record ed. [email or web address] [address], [place], [address], 03/24/2025 13:36:18 03/24/20 25 03/24/2025 US, obste tric, bioph ysica l profi le No observ ation record ed. [email or web address] [address], [place], [address], 03/24/2025 13:36:31 03/24/20 25 03/24/2025 US, obste tric, follo w-up No observ ation record ed. [email or web address] Gr[address], [place], [address], 03/26/2025 17:41:33 04/06/2004/06/2025 imagi ng/di agnos tic resul t No observ ation record ed. [email or web address] Gr[address], [place], [address], 04/06/2025 13:11:41 04/06/2004/06/2025 US, obste tric, limit ed No observ ation record ed. [email or web address] [address], [place], [address], 04/06/2025 11:40:14 Result Notes None recorded. Problems Name Problem SNOMED Code Status Onset Date Resolution Date Notes Provider Name and Address Organization Details Recorded Time History of growth retardat ion 8927992013 [id number] Completed wkly antenata l testing 32wks Graciela Bohnenstieh l null, [facility] 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 2 13:05:39 RhD negative 993424292 Completed Graciela Gtznstieh l null, [facility] 2 13:05:39 Past pregnanc y history of placenta l abruptio n 361934095 Active Shadia Lu null, [facility] 5 09:35:28 History of previous intraute rine growth restrict ed [id number] 94934 Active Shadia Lu null, [facility] 5 09:35:56 Vaginiti s and vulvovag initis Completed 201105/22/2021 Vaginiti s and vulvovag initis, unspecif ied;Prac luis fernando ID: [id number] Radha bradley, [facility] 18:20:42 Pregnanc y test positive [id number] Completed 201105/22/2021 Positive Pregnanc y Test;Pra ctice ID: [id number] Radha bradley, [facility] 18:21:18 Screenin g for malignan t neoplasm of cervix Completed 201105/22/2021 Pap Smear;Pr actice ID: [id number] Radha bradley, [facility] 18:20:40 anatomy study Completed 201105/22/2021 [facility] ANATMC SURVEY;P ractice ID: [id number] Radha bradley, [facility] 18:21:26 Primigra bryan [id number] Completed 201105/22/2021 Supervis ion of normal first pregnanc y;Practi ce ID: 0001 Radha Cloud [facility] [place], [facility] 18:20:25 malforma tion of central nervous system affectin g obstetri [facility] [id number] Completed 201205/22/2021 Central nervous system malforma tion in fetus, antepart um;Recor ded Elsewher e: No Locat ion: [facility] S ource: EHR Paradi Tender mohsen: N Practi ce ID: [id number] David lable Time: 11:00:00 AM Radha bradley, [facility] 18:20:33 Delivery normal [id number] Completed 201205/22/2021 Normal delivery ;Practic e ID: 0001 Radha bradley, [facility] 18:21:56 Postpart um care Completed 201205/22/2021 Routine postpart um follow-u p;Practi ce ID: [id number] Radha bradley, [facility] 18:20:27 First degree perineal lacerati on [id number] Completed 201205/22/2021 First-de gree perineal lacerati on, unspecif ied as to episode of care in pregnanc y;Practi ce ID: 0001 Radha bradley [facility] 18:22:05 Educatio n Completed 201205/22/2021 Counseli ng contrace ptive manageme nt;Pract ice ID: 0001 Radha bradley [facility] 18:21:58 Speciali zed medical examinat ion Completed 201205/22/2021 Routine gynecolo gical examinat ion;Prac luis fernando ID: 0001 Radha Cloud [facility] [place], [facility] 18:22:00 Pregnanc y test negative [id number] Completed 201205/22/2021 Negative Pregnanc y Test;Pra ctice ID: 0001 Radha Cloud [facility] [place], [facility] 18:21:19 Candidal vulvovag initis [id number] Completed 201305/22/2021 Candidia sis of vulva and vagina;P ractice ID: 0001 Radha Cloud [facility] [place], [facility] 18:22:13 Proteinu mary [id number] Completed 201305/22/2021 Proteinu mary;Prac luis fernando ID: 0001 Radha Cloud [facility] [place] [facility] 18:21:28 Leukorrh ea [id number] Completed 201305/22/2021 Leukorrh ea, not specifie d as infectiv e;Record ed Elsewher e: No Locat ion: Nannette oglesby [facility] S ource: EHR Paradi Tender mohsen: N Practi ce ID: 0001 David lable Time: 03:00:00 PM Radha bradley [facility] 18:21:00 Adult health examinat ion Completed 201405/22/2021 Routine general medical examinat ion at a health care facility ;Practic e ID: 0001 Radha bradley [facility] 18:21:22 Speciali zed medical examinat ion Completed 201405/22/2021 Other specifie d chlamydi al diseases ;Practic e ID: 0001 Radha bradley [facility] 18:22:01 Venereal disease screenin g Completed 201405/22/2021 Screenin g examinat ion for venereal disease; Practice ID: 0001 Radha bradley [facility] 18:20:39 Secondar y amenorrh ea [id number] Completed 201405/22/2021 Secondar y amenorrh ea;Pract ice ID: 0001 Radha bradley [facility] 18:20:35 Pregnanc y detectio n examinat ion Completed 201405/22/2021 Encounte r for pregnanc y test, result positive ;Practic e ID: 0001 Radha bradley [facility] 18:22:14 Uterine size for dates discrepa ncy Completed 201405/22/2021 Uterine size-ivet e discrepa ncy, first trimeste r;Practi ce ID: 0001 Radha bradley [facility] 18:21:04 Gestatio n period, 8 weeks [id number] Completed 201405/22/2021 8 weeks gestatio n of pregnanc y;Practi ce ID: 0001 Radha Cloud null, [facility] 18:21:21 Pregnanc y, childbir th and puerperi um finding Completed 201505/22/2021 Encntr for suprvsn of normal first preg, first trimeste r;Practi ce ID: 0001 Radha Cloud null, [facility] 18:21:40 Pregnanc y, childbir th and puerperi um finding Completed 201505/22/2021 Encntr for suprvsn of normal first preg, third trimeste r;Practi ce ID: 0001 Radha Cloud null, [facility] 18:21:42 finding Completed 201505/22/2021 Matern care for oth or susp poor fetl grth, 2nd tri, unsp;Pra ctice ID: 0001 Radha Cloud null, [facility] 18:21:07 Gestatio n period, 27 weeks [id number] Completed 201505/22/2021 27 weeks gestatio n of pregnanc y;Practi ce ID: 0001 Radha Cloud null, [facility] 18:21:55 Gestatio n period, 31 weeks [id number] Completed 201505/22/2021 31 weeks gestatio n of pregnanc y;Practi ce ID: 0001 Radha Cloud null, [facility] 18:22:08 Gestatio n period, 34 weeks [id number] Completed 201505/22/2021 34 weeks gestatio n of pregnanc y;Practi ce ID: 0001 Radha Cloud null, [facility] 18:20:29 finding Completed 201505/22/2021 Matern care for oth or susp poor fetl grth, third tri, fts1;Pra ctice ID: 0001 Radha bradley, [facility] 18:21:11 Gestatio n period, 37 weeks [id number] Completed 201505/22/2021 37 weeks gestatio n of pregnanc y;Practi ce ID: 0001 Radha bradley [facility] 18:21:51 Gestatio n period, 38 weeks [id number] Completed 201505/22/2021 38 weeks gestatio n of pregnanc y;Practi ce ID: 0001 Radha Cloud [facility] [place] [facility] 18:20:31 Term pregnanc y delivere d [id number] Completed 201505/22/2021 Encounte r for full-ter m uncompli cated delivery ;Practic e ID: 0001 aRdha bradley, [facility] 18:20:45 Finding of regulari ty of menstrua l cycle Completed 201505/22/2021 Irregula r menstrua tion, unspecif ied;Prac luis fernando ID: 0001 Radha bradley [facility] 18:20:[address] Concept Completed 201605/22/2021 Encntr for hospital medical assistant exam (general ) (routine ) w/o abn findings ;Practic e ID: 0001 Radha bradley [facility] 18:21:31 Syphilis test finding [id number] Completed 201605/22/2021 Encntr screen for infectio ns w sexl mode of transmis s;Record ed Elsewher e: No Locat ion: Nannette oglesby [facility] S ource: EHR Paradi Tender mohsen: N Practi ce ID: 0001 David lable Time: 03:15:00 PM Radha bradley [facility] 18:21:50 Infectio n screenin g Completed 201605/22/2021 Encounte r for screenin g for oth infec/pa rastc diseases ;Recorde d Elsewher e: No Locat ion: [facility] S ource: EHR Paradi Tender mohsen: N Practi ce ID: 0001 David lable Time: 03:15:00 PM [facility]:21:14 Insertio n of intraute rine contrace ptive device Completed 201605/22/2021 Encounte r for insertio n of intraute rine contrace ptive device;P ractice ID: 0001 [facility] 18:22:10 Clinical finding Completed 201605/22/2021 Presence of (intraut erine) contrace ptive device;R ecorded Elsewher e: No [facility]at ion[facility] Practi ce ID: 0001 David lable Time: 08:00:00 AM [facility] 18:21:45 Contrace ptive sheath status [id number] Completed 201605/22/2021 Encounte r for routine checking of intraute rine contrace p dev;Prac luis fernando ID: 0001 Radha bradley, [facility] 18:21:16 Gestatio n period, 11 weeks [id number] Completed 201805/22/2021 11 weeks gestatio n of pregnanc y;Practi ce ID: 0001 Radha bradley, [facility] 18:22:03 Antenata l screenin g Completed 201805/22/2021 Encounte r for antenata l screenin g for nuchal transluc ency;Pra ctice ID: 0001 Radha bradley, [facility] 18:21:13 Pregnanc y-induce d hyperten russell Completed 201805/22/2021 Gestatio nal hyperten russell w/o signific ant proteinu mary, 2nd trimeste r;Record ed Elsewher e: No Locat ion: Nannette oglesby [facility] S ource: EHR Paradi Tender mohsen: N Practi ce ID: 0001 David lable Time: 02:30:00 PM Radha bardley, [facility] 18:21:02 Antenata l screenin g for malforma tion Completed 201805/22/2021 Encounte r for antenata l screenin g for malforma tions;Pr actice ID: 0001 Radha bradley, [facility] 18:22:11 Placenta previa [id number] Completed 201805/22/2021 Placenta previa specifie d as w/o hemor, second trimeste r;Record ed Elsewher e: No [facility] S ource: EHR Paradi Tender mohsen: N Pravinti ce ID: 0001 David lable Time: 01:00:00 PM Radha bradley [facility] 18:21:48 Gestatio n period, 24 weeks [id number] Completed 201805/22/2021 24 weeks gestatio n of pregnanc y;Record ed Elsewher e: No [facility] S ource: EHR Paradi Tender mohsen: N Pravinti ce ID: 0001 David lable Time: 01:00:00 PM Radha bradley, [facility] 18:21:29 Normal pregnanc y in multigra bryan [id number] 92123 Completed 201805/22/2021 Encounte r for suprvsn of normal pregnanc y, third trimeste r;Practi ce ID: 0001 Radha bradley, [facility] 18:21:53 Uterine size for dates discrepa ncy Completed 201805/22/2021 Uterine size-ivet e discrepa ncy, third trimeste r;Practi ce ID: 0001 Radha bradley, [facility] 18:21:06 Gestatio n period, 35 weeks [id number] Completed 201805/22/2021 35 weeks gestatio n of pregnanc y;Practi ce ID: 0001 Radha bradley, [facility] 18:22:15 finding Completed 201805/22/2021 Matern care for oth or susp poor fetl grth, third tri, unsp;Pra ctice ID: 0001 Radha bradley, [facility] 18:21:09 Gestatio n period, 36 weeks [id number] Completed 201805/22/2021 36 weeks gestatio n of pregnanc y;Practi ce ID: 0001 Radha bradley, [facility] 18:22:07 Single live from singleto n pregnanc y [id number] Completed 201805/22/2021 Single live ;Pr actice ID: 0001 Radha bradley, [facility] 18:20:37 Procedur e by method Completed 201905/22/2021 Encounte r for oth general cnsl and advice on contrace ption;Pr actice ID: 0001 Radha Cloud mirna, [facility] 18:21:33 Lochia finding Completed 201905/22/2021 Encounte r for routine postpart um follow-u p;Practi ce ID: 0001 Radha Cloud [facility] [place], [facility] 1 18:21:43 Pregnanc y [id number] Completed 202011/14/[address] [facility] 5 17:00:00 Pregnanc y 97026550 Active 2024 Shadia Lu [facility] [place], [facility] 5 17:00:00 Precipit ate labor 19965626 Active 2024 delivere d in car on last pregnanc y Raffy Mane MD [address], [place], [address], [facility] 5 17:13:06 Administ ration of human anti-D immunogl obulin needed Active 2024 A neg rhogam @28wks Yesi Vivar [facility] 5 06:51:43 Administ ration of human anti-D immunogl obulin needed Active 2024 A neg rhogam @28wks Yesi Vivar [facility] 5 06:51:43 Iron deficien cy anemia 35919853 Active 2024 Fe suppleme nt, recheck at 34 weeks KYRA GOULD MD [address], [place], [address], [facility] 5 18:03:31 Problem Notes None recorded. Procedures Surgical History Date Name Laterality Status Provider Name and Address Organization Details Recorded Time 10/08/19 25 Date of Last Pap Smear completed Shadiameme Lu [facility] 11/02/2024 16:57:17 08/23/19 19 Cholecystectomy completed Ellen Tanner [facility] 08/23/2021 16:05:41 Cholecystectomy completed Latoya Tejeda [facility] 10/07/2024 15:24:22 Imaging Results None recorded. Procedure Notes None recorded. Medical Equipment None Reported. Allergies No known drug allergies Medications Name Sig Start Date Stop Date Status Note LastModified by Organization Details LastModified Time Mirena 21 mcg/24 hr (up to 8 years) 52 mg intrauter ine device 12/03 completed Prescrib ed Elsewher e: Yes Loca tion: [facility] odify By: [email or web address] z Encoun ter DateTime : 05/21/20 17 11:45:00 AM Not Available Not Available Not Available Diflucan 150 mg tablet take 1 tablet by oral route once 11/11 completed Prescrib ed Elsewher e: No Locat ion: [facility] odify By: [email or web address] trick En counter DateTime [...] Prescrib ed Elsewher e: No Locat ion: [facility] odify By: [email or web address] trick En counter DateTime : 01/15/20 12 08:28:05 AM Not Available Not Available Not Available Vitamin D2 1,250 mcg (50,000 unit) capsule take 1 capsule (21371NO ITS) by oral route every week 01/25 completed Prescrib ed Elsewher e: No Locat ion: [facility] odify By: kelsy wayne DateTime : 10/17/19 16 01:42:07 PM Not Available Not Available Not Available dicloxaci llin 250 mg capsule TAKE 1 CAPSULE BY MOUTH EVERY 6 HOURS FOR 7 DAYS 11/29 completed Not Available Not Available Not Available active Not Available Not Avai lable Not Available Lo Loestrin Fe 1 mg-10 mcg (24)/10 mcg (2) tablet take 1 tablet by oral route every day 08/28 completed Prescrib ed Elsewher e: No Locat ion: [facility] odify By: sonia alexander DateTime : 04/15/20 13 01:00:00 PM Not Available Not Available Not Available Tyson-Richard uo DHA 29 mg-1 mg-400 mg oral pack take 2 by Oral route every day 04/15 completed Prescrib ed Elsewher e: No Locat ion: [facility] odify By: [email or web address] trick En counter DateTime : 04/29/20 12 03:45:44 PM Not Available Not Available Not Available TIMING INSPECTOR-PNV-DH A 28 mg iron-1 mg-200 mg capsule take 1 capsule by oral route every day 05/21 completed Prescrib ed Elsewher e: No Locat ion: [facility] odify By: kelsy wayne DateTime : 05/25/20 15 02:30:00 PM Not Available Not Available Not Available Diclegis 10 mg-10 mg tablet,de layed release 05/22 completed Not Available Not Available Not Available Minastrin 24 Fe 1 mg-20 mcg (24)/75 mg (4) chewable tablet chew 1 tablet by oral route every day 05/25 completed Prescrib ed Elsewher e: No Locat ion: [facility] odify By: [email or web address] trick En counter DateTime : 11/12/19 15 01:30:00 PM Not Available Not Available Not Available Slynd 4 mg (28) tablet Take 1 tablet every day by oral route. 05/22 completed Not Available Not Available Not Available ID NOW COVID-19 Test Kit TEST DIRECTED TODAY 10/07 completed Not Available Not Available Not Available Vitals Date Recorded Body weight Systolic And Diastolic Provider Name and Address Organization Details Last Updated DateTime 04/30/2025 26030.51670 g 112/77 mm[Hg] Shadia Lu [facility] 04/30/2025 10:02:26 Social History Question Answer Notes LastModified by Organizat ion Details LastModified Time Tobacco Smoking Status Never Smoker Faye Chavez [facility] 11/13/2021 15:42:19 Do You Have An Advance Directive? No Information n ot available 06/01/2021 Are You Blind Or Do You Have Difficulty Seeing? No Information n ot available 06/01/2021 What Is Your Level Of Caffeine Consumption? Moderate Information not available 11/13/2021 How Much Tobacco Do You Chew? None Information not available 06/01/2021 In The 14 Days Before Symptom Onset, Have You Had Close Contact With A Laboratory-confirm ed COVID-19 While That Case Was Ill? No Information n ot available 06/01/2021 In The 14 Days Before [...] Of Diet Are You Following? REGULAR Information n ot available 06/01/2021 What Is The Highest Grade Or Level Of School You Have Completed Or The Highest Degree You Have Received? [id number] Information not available 06/01/2021 Are There Any Guns Present In Your [...] IV Drugs? No Information not available 06/01/2021 Do You Have Difficulty Walking Or Climbing Stairs? No Information not available 11/13/2021 Sex: Unknown Functional Status Question Answer Note LastModified by Organizat ion Details LastModified Time Do you use any illicit or recreational drugs? No Information not available 06/01/2021 What is your level of alcohol consumption? None Information not available 06/01/2021 Are you able to walk independently without assistance or assistive devices? YESWOREST Information not available 06/01/2021 Are you able to care for yourself independently? 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 No Information not available 11/13/2021 What is your exercise level? Occasional Information not available 06/01/2021 Mental Status Question Answer Note LastModified by Organization D etails LastModified Time Do you feel stressed (tense, restless, nervous, or anxious, or unable to sleep at night)? [id number] Information not available 06/01/2021 Family History Relationship Description Onset Age of this Age Resolved Age Notes LastModified by Organization Details LastModified Time Mother Multiple sclerosis [email or web address] Not available 2019 09:09:49 Maternal Grandfather Diabetes mellitus [email or web address] Not available 2019 09:10:00 Sister Polycystic ovary syndrome [email or web address] Not available 2023 14:01:01 Paternal Uncle Seizure disorder [email or web address] Not available 2023 14:01:01 Paternal Aunt Inflammatory disease of liver Not available 2023 14:01:01 Father Diabetes mellitus [email or web address] Not available 08/23 16:05:09 Medical History Condition [...] History Statement/Question Response Date of Last Mammogram Flow Moderate Date of LMP 08/05/2024 Was last menstrual period normal Y STIs/STDs N Date of Last Colonoscopy Partner Vasectomy Desired [...] cycle 10 Date of Last Pap Smear 10/07/2024 Sexual Problems? N LMP Approximate Obstetrics History GPAL:G 6 P 3 1 1 4 Type Value Full Term 3 Spontaneous 1 Premature 1 Living 4 Total 6 Past Encounters Encounter ID Performer Location Encounter Start Date Encounter Closed Date Diagnosis/Indication Diagnosis SNOMED-CT Code Diagnosis ICD10 Code Diagnosis IMO Codes Diagnosis Note [id number] KYRA GOULD MD [facility] [address],[place] [address] 04/06/2025 10:18:59 04/06/2025 11:09:33 Oligohydramnios 50410246 O41.03X0 Z3A.34 [id number] YKRA GOULD MD [facility] [address] [place] [address] 04/07/2025 13:49:57 04/07/2025 14:53:45 Anemia 935353792 D64.9 7190467 Iron defic iency anemia 33968322 D50.9 23163388 Gestation period, 35 weeks 19600714 Z3A.35 3334254 [id number] KYRA GOULD MD [facility] [address],[place] [address] 04/16/2025 14:41:56 04/16/2025 15:29:08 Gestation period, 36 weeks 52560736 Z3A.36 6745224 Iron defic iency anemia 06932723 D50.9 89119552 Precipitate labor 806729 04 O62.3 [id number] Paris Whitney CNM [facility] [address] [address] 04/30/2025 09:39:14 04/30/2025 10:21:58 Gestation period, 38 weeks 38082740 Z3A.38 5944854 Health Concerns Section Related Observation LastModified by Organization Detai ls LastModified Time None Recorded Concern Status LastModified by Organization Details LastModified Time None Recorded Payers Encounter Date Sequence Insurance Name Policy Number Policy Chavez Covered Member ID Chavez Member ID Guarantor Name 04/30/2025 1 [facility] [id number] Vannessa Bowden [id number] Vannessa Bowden 04/30/2025 2 [facility] ON OR AFTER 12/22/20 (MEDICAID REPLACEMENT - HMO) Vannessa Bowden [id number] Vannessa Bowden Notes Date Note Type Note Provider Name and Address Organization Details Recorded Time 04/30/2025 text/html Generic HPI TemplateReported by Patient Paris Whitney CNM [address], [place], [address], [facility] 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 Status 11/03/19 25 1 A Negative 173 OPEN Fetus Data First Name Last Name Admitted to NICU Weight (g) Sex Living Outcome Pediatric Complications Fetus ID Race Codes Race Delivery Type [id number] Problems Problem Notes Problem Name Start Date End Date Resolution Snomed Code Not e Administration of human anti-D immunoglobulin needed 11/04/2024 5927581065 A neg rhogam @28wks Precipitate labor 11/02/2024 88319320 d elivered in car on last Past history of placental abruption 500649650 History of previous intrauterine growth restricted 138718923923645 Iron deficiency anemia 03/09/2025 730585 02 Fe supplement, recheck at 34 weeks Daryn Calculation Initial Daryn Date Initial Exam Date Initial Exam Provider Initial Ultrasound Date Last Menstrual Period Date Ultra Sound Weeks Gestation 11/02/2024 10/07/2024 08/05/2024 9 Eighteen To Twenty Week Daryn Update Ultra Sound Date Fundal Height At Umbil Quickening Date Ultra Sound Latest Weeks Gestation Final Daryn Confirmed By Final Daryn Confirmed Date Final Daryn Date Ultra Sound Latest Days Gestation 01/01/20 25 20 [email or web address] 11/02/2024 05/12/20 25 4 Pre-tri Flowsheet Flowsheet Date 11/02/2024 Oliver Score Blood Edema Fundus Height Fundus Units Glucose Ketones Leukocytes Nitrite Labor Signs Protein Cervic Dilation Cervic Effacement Cervic Station Type Weight in lbs Pre/Post Dialysis Refused Weight 176.576380368941 BP Diastolic BP Location Tested BP Systolic BP Type 78 L arm 114 sitting Fetus Heart Rate Present Fetus Movement Comments this patient is a 29-year-ol d mulltiparous female at 12 weeks' gestation who presents for initial care. She has a history of term vaginal births. Her medical, surgical, obstetric history is unremarkable. She is vaccinated. She was given precautions recommendations for . We talked about vaccines in . Talked about care in detail. She is having genetic testing. She had a normal 12 week ultrasound. To begin routine care. Flowsheet Date 11/30/2024 Oliver Score Blood Edema Fundus Height Fundus Units Glucose Ketones Leukocytes Nitrite Labor Signs Protein Cervic Dilation Cervic Effacement Cervic Station Type Weight in lbs Pre/Post Dialysis Refused Weight 180.647110246715 BP Diastolic BP Location Tested BP Systolic BP Type 81 L arm 133 sitting Fetus Heart Rate Present A 148 Present Fetus Movement A Yes Comments no complaints, no problems, routine care, no contractions, no vaginal bleeding, no loss of fluid, no cramping Flowsheet Date 12/31/2024 Oliver Score Blood Edema Fundus Height Fundus Units Glucose Ketones Leukocytes Nitrite Labor Signs Protein Cervic Dilation Cervic Effacement Cervic Station Type Weight in lbs Pre/Post Dialysis Refused BP Diastolic BP Location Tested BP Systolic BP Type Fetus Heart Rate Present Fetus Movement Comments Flowsheet Date 12/31/2024 Oliver Score Blood Edema Fundus Height Fundus Units Glucose Ketones Leukocytes Nitrite Labor Signs Protein Cervic Dilation Cervic Effacement Cervic Station Type Weight in lbs Pre/Post Dialysis Refused 184.461393216203 BP Diastolic BP Location Tested BP Systolic BP Type 86 L arm 126 sitting Fetus Heart Rate Present A 145 Fetus Movement A Yes Comments no complaints, no problems, routine care, no contractions, no vaginal bleeding, no loss of fluid, no cramping Flowsheet Date 01/11/2025 Oliver Score Blood Edema Fundus Height Fundus Units Glucose Ketones Leukocytes Nitrite Labor Signs Protein Cervic Dilation Cervic Effacement Cervic Station Type Weight in lbs Pre/Post Dialysis Refused BP Diastolic BP Location Tested BP Systolic BP Type Fetus Heart Rate Present Fetus Movement Comments Flowsheet Date 01/28/2025 Oliver Score Blood Edema Fundus Height Fundus Units Glucose Ketones Leukocytes Nitrite Labor Signs Protein Cervic Dilation Cervic Effacement Cervic Station Type Weight in lbs Pre/Post Dialysis Refused 191.682580872530 BP Diastolic BP Location Tested BP Systolic BP Type 76 L arm 113 sitting Fetus Heart Rate Present A 146 Present Fetus Movement A Yes Comments no complaints, no problems, routine care, no contractions, no vaginal bleeding, no loss of fluid, no cramping Flowsheet Date 02/18/2025 Oliver Score Blood Edema Fundus Height Fundus Units Glucose Ketones Leukocytes Nitrite Labor Signs Protein Cervic Dilation Cervic Effacement Cervic Station Type Weight in lbs Pre/Post Dialysis Refused 195.085157206635 BP Diastolic BP Location Tested BP Systolic BP Type 81 L arm 119 sitting Fetus Heart Rate Present A 136 Present Fetus Movement A Yes Comments no complaints, no problems, routine care, no contractions, no vaginal bleeding, no loss of fluid, no cramping Flowsheet Date 03/05/2025 Oliver Score Blood Edema Fundus Height Fundus Units Glucose Ketones Leukocytes Nitrite Labor Signs Protein Cervic Dilation Cervic Effacement Cervic Station Type Weight in lbs Pre/Post Dialysis Refused Weight 200.790252496530 BP Diastolic BP Location Tested BP Systolic BP Type 76 L arm 114 sitting Fetus Heart Rate Present A 152 Present Fetus Movement A Yes Comments Flowsheet Date 03/09/2025 Oliver Score Blood Edema Fundus Height Fundus Units Glucose Ketones Leukocytes Nitrite Labor Signs Protein Cervic Dilation Cervic Effacement Cervic Station Type Weight in lbs Pre/Post Dialysis Refused Weight 200.884927331721 BP Diastolic BP Location Tested BP Systolic BP Type 74 L arm 110 sitting Fetus Heart Rate Present A 150 Fetus Movement A Yes Comments Doing well, no cramping or b leeding. Good movement. Received Rhogam. Passed GCT. Mild anemia, recheck in 4 weeks, starting Fe supplement. Growth US next visit for hx of FGR in G2 . RTC 2 weeks. Flowsheet Date 03/24/2025 Oliver Score Blood Edema Fundus Height Fundus Units Glucose Ketones Leukocytes Nitrite Labor Signs Protein Cervic Dilation Cervic Effacement Cervic Station Type Weight in lbs Pre/Post Dialysis Refused BP Diastolic BP Location Tested BP Systolic BP Type Fetus Heart Rate Present Fetus Movement Comments Flowsheet Date 03/24/2025 Oliver Score Blood Edema Fundus Height Fundus Units Glucose Ketones Leukocytes Nitrite Labor Signs Protein Cervic Dilation Cervic Effacement Cervic Station Type Weight in lbs Pre/Post Dialysis Refused 200.077882669382 BP Diastolic BP Location Tested BP Systolic BP Type 76 L arm 106 sitting Fetus Heart Rate Present A Present Fetus Movement A Yes Comments Doing well, no issues. Good movement. No cramping or bleeding. EFW 28%, low normal KIESHA, KIESHA 6.9cm. Repeat in 2 weeks. Flowsheet Date 04/06/2025 Oliver Score Blood Edema Fundus Height Fundus Units Glucose Ketones Leukocytes Nitrite Labor Signs Protein Cervic Dilation Cervic Effacement Cervic Station Type Weight in lbs Pre/Post Dialysis Refused BP Diastolic BP Location Tested BP Systolic BP Type Fetus Heart Rate Present Fetus Movement Comments Flowsheet Date 04/07/2025 Oliver Score Blood Edema Fundus Height Fundus Units Glucose Ketones Leukocytes Nitrite Labor Signs Protein Cervic Dilation Cervic Effacement Cervic Station Type Weight in lbs Pre/Post Dialysis Refused [phone] BP Diastolic BP Location Tested BP Systolic BP Type 76 L arm 116 sitting Fetus Heart Rate Present A 130 Fetus Movement A Yes Comments Doing well, baby active. KIESHA repeated yesterday due to low normal last visit, now 8.1cm with DVP >3cm. Considering 39 week induction. Discussed GBS for next week.Repeat anemia labs today. RTC 1 week. Flowsheet Date 04/16/2025 Oliver Score Blood Edema Fundus Height Fundus Units Glucose Ketones Leukocytes Nitrite Labor Signs Protein Cervic Dilation Cervic Effacement Cervic Station 2cm 50% -3 Type Weight in lbs Pre/Post Dialysis Refused [id number] BP Diastolic BP Location Tested BP Systolic BP Type 69 L arm 104 sitting Fetus Heart Rate Present A 145 Fetus Movement A Yes Comments Good movement. Mild cr amping, no bleeding. GBS collected today. SVE 2cm. Labor precautions discussed. RTC 1 week. Flowsheet Date 04/30/2025 Oliver Score Blood Edema Fundus Height Fundus Units Glucose Ketones Leukocytes Nitrite Labor Signs Protein Cervic Dilation Cervic Effacement Cervic Station 2cm 60% -2 Type Weight in lbs Pre/Post Dialysis Refused [id number] BP Diastolic BP Location Tested BP Systolic BP Type 77 L arm 112 sitting Fetus Heart Rate Present A 145 Present Fetus Movement A Yes Comments +FM, +GBS discussed precauti ons and education, f/u one week, declines IOL Flowsheet Date 05/07/2025 Oliver Score Blood Edema Fundus Height Fundus Units Glucose Ketones Leukocytes Nitrite Labor Signs Protein Cervic Dilation Cervic Effacement Cervic Station 4cm 60% -2 Type Weight in lbs Pre/Post Dialysis Refused Weight 209.278132611535 BP Diastolic BP Location Tested BP Systolic BP Type 85 L arm 127 sitting Fetus Heart Rate Present Fetus Movement A Yes Comments membrane sweep, +FM doing we ll IOL next saturday scheduled for 0500, precautions and education Menstrual History Last Menstrual Date Menses Monthly On Bcp Conception Prior Menses Frequency Hcg Plus Date Menarche Onset Age 0208/05/2024 true Delivery Information Delivery Date Delivery Type Labor Anesthesia Weeks Gestation Incision Type Labor Labor Length Hrs Delivered By Post Complications Tubal Sterilization Discharge Date Comments Discharge Information Feeding Method Contraceptive Method Maternal HG B and HCT Levels
--- OUTSIDE RECORDS SUMMARY | 2025-05-08 10:42 | XMS_ITS | Continuity of Care Document ---
Author Organization [facility], [facility] Address [address] [place] [address] Care Team Providers Care Aerodynamicist Name Role Phone ABYLO Primary Care Provider Assessment No assessment recorded. Plan of Treatment Reminders Order Date Submit Date Provider Last Modified By Organization Details Last Modified Time Details Appointments OB ROUTINE 2024 09:00A Taylor Whitney CNM Not available Not available [...] nce of HIV infec tion. Not Available [facility] (Lab) [address], [place], [address], 11/03/2024 12:54:58 11/03/1911/02/2024 HEPAT ITIS B SURFA CE ANTIG EN hepatitis B surface antigen Non-re active non-re active This assay was perfo rmed using [employer] ratio n reage nts and test kits. Value s obtai jeromy with other assay metho ds or kits canno t be used inter merritt eably . Not Available [facility] (Lab) [address] [facility], [place], [address], 11/03/2024 12:54:59 11/03/19 25 11/02/2024 HEPAT ITIS C ANTIB BERYL SCREE N, REFLE X TO CONFI RMATI ON hepatitis C antibody Non-re active non-re active Antib odies to HCV Not Detec marline, does not exclu de the possi bilit y of expos ure to HCV. Not Available [facility] (Lab) [address], [place], [address], 11/03/2024 12:55:00 11/03/1911/02/2024 RUBEL LA IGG ANTIB BERYL, QUANT rubella antibodies, IgG Reacti ve reacti ve Not Available [facility] (Lab) [address], [place], [address], 11/03/2024 12:55:00 11/03/19 25 11/02/2024 RUBEL LA IGG ANTIB BERYL, QUANT rubella antibodies, IgG quant 20.6 IU/mL >=10 Non-r eacti ve (Non- Immun e) <10 IU/mL React shabbir (Immu ne) > or = 10 IU/mL Not Available [facility] (Lab) [address], [place], [address], 11/03/2024 12:55:00 11/03/19 25 11/02/2024 CBC W/DIF F WBC 9.4 10'3/ uL 3.5-10 .5 Not Available [facility] (Lab) [address] [place], [address], 11/03/2024 12:55:01 11/03/19 25 11/02/2024 CBC W/DIF F RBC 3.77 10'6/ uL (based on docume nted legal sex) 3.80-5 .20 low Not Available [facility] (Lab) [address], [place], [address], 11/03/2024 12:55:01 11/03/1911/02/2024 CBC W/DIF F HGB 12.4 g/dL (based on docume nted legal sex) 11.6-1 5.4 Not Available [facility] (Lab) [address], [place], [address], 11/03/2024 12:55:01 11/03/19 25 11/02/2024 CBC W/DIF F HCT 35.4 % (based on docume nted legal sex) 34.0-4 5.0 Not Available [facility] (Lab) [address], [place], [address], 11/03/2024 12:55:01 11/03/1911/02/2024 CBC W/DIF F MCV 93.9 fL 80.0-9 9.0 Not Available [facility] (Lab) [address], [place], [address], 11/03/2024 12:55:01 11/03/1911/02/2024 CBC W/DIF F MCH 32.9 pg 27.0-3 4.0 Not Available [facility] (Lab) [address], [place], [address], 11/03/2024 12:55:01 11/03/19 25 11/02/2024 CBC W/DIF F MCHC 35.0 g/dL 32.0-3 5.5 Not Available [facility] (Lab) [address], [place], [address], 11/03/2024 12:55:01 11/03/1911/02/2024 CBC W/DIF F RDW 13.2 % 11.0-1 5.0 Not Available [facility] (Lab) [address], [place], [address], 11/03/2024 12:55:01 11/03/19 25 11/02/2024 CBC W/DIF F plt 252 10'3/ uL 150-40 0 Not Available [facility] (Lab) [address] [facility], [place], [address], 11/03/2024 12:55:01 11/03/19 25 11/02/2024 CBC W/DIF F MPV 10.9 fL 8.8-12 .1 Not Available [facility] (Lab) [address], [place], [address], 11/03/2024 12:55:01 11/03/19 25 11/02/2024 CBC W/DIF F NRBC's 0.0 % 0.0 Not Available [facility] (Lab) [address], [place], [address], 11/03/2024 12:55:01 11/03/1911/02/2024 CBC W/DIF F absolute NRBCs 0.0 10'3/ uL no refere nce range establ ished Not Available [facility] (Lab) [address], [place], [address], 11/03/2024 12:55:01 11/03/19 25 11/02/2024 CBC W/DIF F neutrophils 75.0 % 34.0-7 3.0 high Not Available [facility] (Lab) [address], [place], [address], 11/03/2024 12:55:01 11/03/19 25 11/02/2024 CBC W/DIF F lymphocytes 17.0 % 15.0-5 0.0 Not Available [facility] (Lab) [address], [place], [address], 11/03/2024 12:55:01 11/03/19 25 11/02/2024 CBC W/DIF F monocytes 6.8 % 1.0-15 .0 Not Available [facility] (Lab) [address] [place], [address], 11/03/2024 12:55:01 11/03/19 25 11/02/2024 CBC W/DIF F eosinophils 0.6 % 0.0-8. 0 Not Available [facility] (Lab) [address], [place], [address], 11/03/2024 12:55:01 11/03/19 25 11/02/2024 CBC W/DIF F basophils 0.2 % 0.0-2. 0 Not Available [facility] (Lab) [address] [facility], [place], [address], 11/03/2024 12:55:01 11/03/19 25 11/02/2024 CBC W/DIF F immature granulocytes 0.4 % no define d refere nce range Immat ure Granu locyt es (IG) repre sents autom ated enume ratio n of Metam yeloc ytes, Myelo cytes and Promy elocy kasey when IG is < 5%. Blast s are not inclu ded in IG and repor marline separ ately if prese nt. Not Available [facility] (Lab) [address] , [place], [address], 11/03/2024 12:55:01 11/03/19 25 11/02/2024 CBC W/DIF F absolute neutrophils 7.0 10'3/ uL 1.5-8. 0 Not Available [facility] (Lab) [address], [place], [address], 11/03/2024 12:55:01 11/03/19 25 11/02/2024 CBC W/DIF F absolute lymphocytes 1.6 10'3/ uL 1.0-4. 0 Not Available [facility] (Lab) [address], [place], [address], 11/03/2024 12:55:01 11/03/19 25 11/02/2024 CBC W/DIF F absolute monocytes 0.6 10'3/ uL 0.2-1. 0 Not Available [facility] (Lab) [address], [place], [address], 11/03/2024 12:55:01 11/03/1911/02/2024 CBC W/DIF F absolute eosinophils 0.1 10'3/ uL 0.0-0. 6 Not Available [facility] (Lab) [address], [place], [address], 11/03/2024 12:55:01 11/03/1911/02/2024 CBC W/DIF F absolute basophils 0.0 10'3/ uL 0.0-0. 3 Not Available [facility] (Lab) [address], [place], [address], 11/03/2024 12:55:01 11/03/1911/02/2024 CBC W/DIF F absolute immature granulocytes 0.0 10'3/ uL 0.00-0 .10 Refer ence range s for nonbi nary/ inter sex or unspe cifie d gende r patie nts have not been estab lishe d. Pleas e refer to the follo wing table for range s estab lishe d for cisge nder patie nts and evalu ate in the clini georges elyssa xt of the indiv idual patie nt: https ://izzy vasquez book. nm.or g/gen derx Not Available [facility] (Lab) [address], [place], [address], 11/03/2024 12:55:01 11/03/1911/02/2024 TYPE/ RH/SC REEN ABO/Rh type A NEG Not Available [facility] (Lab) [address], [place], [address], 11/03/2024 12:55:02 11/03/1911/02/2024 TYPE/ RH/SC REEN antibody screen NEG Not Available [facility] (Lab) [address], [place], [address], 11/03/2024 12:55:02 11/03/1911/02/2024 TYPE/ RH/SC REEN exp date 2024 23:59 Not Available [facility] (Lab) [address], [place], [address], 11/03/2024 12:55:02 11/03/19 25 11/02/2024 HEMOG LOBIN A1C hemoglobin A1C 4.5 % [...] >8.0% Actio n sugge sted Not Available [facility] (Lab) [address], [place], [address], 11/03/2024 12:55:02 11/03/1911/02/2024 RPR SCREE N, REFLE X TITER /CONF IRMAT ION RPR qualitative Nonrea ctive nonrea ctive Not Available [facility] (Lab) [address], [place], [address], 11/03/2024 12:55:03 11/03/1911/02/2024 CULTU RE: URINE result report SEE RESULT S BELOW Test: Cultu re: Urine Speci men Sourc e: Urine Voide d Speci men Type: Urine Speci men Date: 2024 1723 Resul t Date: 2024 0338 Resul t Statu s: Final resul t Abnor mal: No Resul ting Lab: [facility] [address] [facility] [address] Tel: CULTU RE ----- ----- ----- --- No growt h in 1 day (dete ction level of 10,00 0 colon ies / ml.) Not Available [facility] (Lab) [address], [place], [address], 11/04/2024 04:43:17 02/19/20 25 02/18/2025 HEMAT OCRIT (HCT) HCT 32.0 % (based on docume nted legal sex) 34.0-4 5.0 low Not Available [facility] (Lab) [address] [facility], [place], [address], 02/19/2025 04:10:34 02/19/20 25 02/18/2025 HEMOG LOBIN (HGB) HGB 10.3 g/dL (based on docume nted legal sex) 11.6-1 5.4 low Not Available [facility] (Lab) [address] [place], [address], 02/19/2025 04:10:34 02/19/20 25 02/18/2025 GTT - GESTA MAYELIN L CHIDI Rivera, ACOG OB glucose, 1 hour screen 114 mg/dL 70-[address] [facility] (Lab) [address] [place], [address], 02/19/2025 04:10:35 02/19/20 25 02/18/2025 HIV 1/2 ANTIG EN/AN TIBOD Y, REFLE X CONFI RMATI ON HIV antigen/anti body Nonrea ctive nonrea ctive HIV-1 antig en and HIV-1 /HIV- 2 antib odies were not detec marline. No labor atory evide nce of HIV infec tion. Not Available [facility] (Lab) [address] [place], [address], 02/19/2025 04:10:35 03/05/20 25 03/05/2025 RPR SCREE N, REFLE X TITER /CONF IRMAT ION RPR qualitative Nonrea ctive nonrea ctive Do not charg e a venip unctu re for this test. Test was misse d at last visit . Not Available [facility] (Lab) [address], [place], [address], 03/06/2025 11:08:08 11/03/19 25 11/02/2024 US, obste tric, nucha l trans lucen cy No observ ation record ed. [email or web address] [address], [place], [address], 11/02/2024 18:18:57 11/03/1911/02/2024 US, obste tric, follo w-up No observ ation record ed. [email or web address] Graciela [address], [place], [address], 11/03/2024 15:44:13 01/01/20 25 12/31/2024 US, obste tric, 2nd or 3rd trime ster No observ ation record ed. [email or web address] [address], [place], [address], 12/31/2024 16:14:45 01/01/2012/31/2024 US, obste tric, 2nd or 3rd trime ster No observ ation record ed. [email or web address] Graciela [address], [place], [address], 01/03/2025 22:41:59 01/12/20 25 01/11/2025 US, obste tric, trans vagin al No observ ation record ed. [email or web address] [address], [place], [address], 01/11/2025 17:33:19 01/12/20 25 01/11/2025 US, obste tric, trans vagin al No observ ation record ed. [email or web address] Graciela [address], [place], [address], 01/12/2025 22:12:23 03/24/2003/24/2025 US, obste tric, follo w-up No observ ation record ed. [email or web address] [address], [place], [address], 03/24/2025 13:36:18 03/24/2003/24/2025 US, obste tric, bioph ysica l profi le No observ ation record ed. [email or web address] [address], [place], [address], 03/24/2025 13:36:31 03/24/2003/24/2025 , obste tric, follo w-up No observ ation record ed. [email or web address] Graciela [address], [place], [address], 03/26/2025 17:41:33 04/06/2004/06/2025 imagi ng/di agnos tic resul t No observ ation record ed. [email or web address] Graciela [address], [place], [address], 04/06/2025 13:11:41 04/06/2004/06/2025 , obste tric, limit ed No observ ation record ed. [email or web address] [address], [place], [address], 04/06/2025 11:40:14 Result Notes None recorded. Problems Name Problem SNOMED Code Status Onset Date Resolution Date Notes Provider Name and Address Organization Details Recorded Time History of growth retardat ion [id number] 9159 Completed wkly antenata l testing 32wks Graciela lund null, [facility] 2 13:05:39 Placenta l abruptio n - delivere d [id number] Completed 36wks Graciela lund null, [facility] 2 13:05:39 RhD negative 459317045 Completed Graciela lund [facility], [facility] 2 13:05:39 Past pregnanc y history of placenta l abruptio n 525517829 Active Shadia Lu [facility], [facility] 5 09:35:28 History of previous intraute rine growth restrict ed [id number] 35899 Active Shadia Lu null, [facility] 5 09:35:56 Vaginiti s and vulvovag initis Completed 201105/22/2021 Vaginiti s and vulvovag initis, unspecif ied;Prac luis fernando ID: 0001 Radha Cloud [facility] 18:20:42 Pregnanc y test positive [id number] Completed 201105/22/2021 Positive Pregnanc y Test;Pra ctice ID: 0001 Radha Cloud [facility], [facility] 18:21:18 Screenin g for malignan t neoplasm of cervix Completed 201105/22/2021 Pap Smear;Pr actice ID: 0001 Radha bradley, [facility] 18:20:40 anatomy study Completed 201105/22/2021 [facility] ANATMC SURVEY;P ractice ID: 0001 Radha bradley, [facility] 18:21:26 Primigra bryan [id number] Completed 201105/22/2021 Supervis ion of normal first pregnanc y;Practi ce ID: 0001 Radha bradley, [facility] 18:20:25 malforma tion of central nervous system affectin g obstetri [facility] [id number] Completed 201205/22/2021 Central nervous system malforma tion in fetus, antepart um;Recor ded Elsewher e: No Locat ion: Nannette oglesby [facility] S ource: EHR Sales Operations Assistant mohsen: N Practi ce ID: 0001 David lable Time: 11:00:00 AM Radha bradley, [facility] 18:20:33 Delivery normal [id number] Completed 201205/22/2021 Normal delivery ;Practic e ID: 0001 Radha bradley, [facility] 18:21:56 Postpart um care Completed 201205/22/2021 Routine postpart um follow-u p;Practi ce ID: 0001 Radha bradley, [facility] 18:20:27 First degree perineal lacerati on [id number] Completed 201205/22/2021 First-de gree perineal lacerati on, unspecif ied as to episode of care in pregnanc y;Practi ce ID: 0001 Radha bradley, [facility] 18:22:05 Educatio n Completed 201205/22/2021 Counseli ng contrace ptive manageme nt;Pract ice ID: 0001 Radha bradley, [facility] 18:21:58 Speciali zed medical examinat ion Completed 201205/22/2021 Routine gynecolo gical examinat ion;Prac luis fernando ID: 0001 Radha bradley, [facility] 18:22:00 Pregnanc y test negative [id number] Completed 201205/22/2021 Negative Pregnanc y Test;Pra ctice ID: 0001 Radha bradley, [facility] 18:21:19 Candidal vulvovag initis [id number] Completed 201305/22/2021 Candidia sis of vulva and vagina;P ractice ID: 0001 Radha bradley [facility] 18:22:13 Proteinu mary [id number] Completed 201305/22/2021 Proteinu mary;Prac luis fernando ID: 0001 Radha bradley [facility] 18:21:28 Leukorrh ea [id number] Completed 201305/22/2021 Leukorrh ea, not specifie d as infectiv e;Record ed Elsewher e: No Locat ion: [facility] S ource: EHR Sales Operations Assistant mohsen: N Practi ce ID: 0001 David lable Time: 03:00:00 PM Radha bradley [facility] 18:21:00 Adult health examinat ion Completed 201405/22/2021 Routine general medical examinat ion at a health care facility ;Practic e ID: 0001 Radha bradley [facility] 18:21:22 Speciali zed medical examinat ion Completed 201405/22/2021 Other specifie d chlamydi al diseases ;Practic e ID: 0001 Radha bradley [facility] 18:22:01 Venereal disease screenin g Completed 201405/22/2021 Screenin g examinat ion for venereal disease; Practice ID: 0001 Radhajeane bradley [facility] 18:20:39 Secondar y amenorrh ea [id number] Completed 201405/22/2021 Secondar y amenorrh ea;Pract ice ID: 0001 Radha bradley [facility] 11/29/202 1 18:20:35 Pregnanc y detectio n examinat ion Completed 201405/22/2021 Encounte r for pregnanc y test, result positive ;Practic e ID: 0001 Radha Mazomanie mirna, [facility] 18:22:14 Uterine size for dates discrepa ncy Completed 201405/22/2021 Uterine size-ivet e discrepa ncy, first trimeste r;Practi ce ID: 0001 Radha Mazomanie mirna, [facility] 18:21:04 Gestatio n period, 8 weeks [id number] Completed 201405/22/2021 8 weeks gestatio n of pregnanc y;Practi ce ID: 0001 Radha Pedro Luis bradley, [facility] 18:21:21 Pregnanc y, childbir th and puerperi um finding Completed 201505/22/2021 Encntr for suprvsn of normal first preg, first trimeste r;Practi ce ID: 0001 Radha Pedro Luis bradley, [facility] 18:21:40 Pregnanc y, childbir th and puerperi um finding Completed 201505/22/2021 Encntr for suprvsn of normal first preg, third trimeste r;Practi ce ID: 0001 Radha Mazomanie mirna, [facility] 18:21:42 finding Completed 201505/22/2021 Matern care for oth or susp poor fetl grth, 2nd tri, unsp;Pra ctice ID: 0001 Radha Mazomanie mirna, [facility] 18:21:07 Gestatio n period, 27 weeks [id number] Completed 201505/22/2021 27 weeks gestatio n of pregnanc y;Practi ce ID: 0001 Radha Pedro Luis bradley, [facility] 18:21:55 Gestatio n period, 31 weeks [id number] Completed 201505/22/2021 31 weeks gestatio n of pregnanc y;Practi ce ID: 0001 Radha bradley, [facility] 18:22:08 Gestatio n period, 34 weeks [id number] Completed 201505/22/2021 34 weeks gestatio n of pregnanc y;Practi ce ID: 0001 Radha bradley, [facility] 18:20:29 finding Completed 201505/22/2021 Matern care for oth or susp poor fetl grth, third tri, fts1;Pra ctice ID: 0001 Radha bradley, [facility] 18:21:11 Gestatio n period, 37 weeks [id number] Completed 201505/22/2021 37 weeks gestatio n of pregnanc y;Practi ce ID: 0001 Radha Cloud mirna, [facility] 18:21:51 Gestatio n period, 38 weeks [id number] Completed 201505/22/2021 38 weeks gestatio n of pregnanc y;Practi ce ID: 0001 Radha Cloud mirna, [facility] 18:20:31 Term pregnanc y delivere d [id number] Completed 201505/22/2021 Encounte r for full-ter m uncompli cated delivery ;Practic e ID: 0001 Radha Cloud mirna, [facility] 18:20:45 Finding of regulari ty of menstrua l cycle Completed 201505/22/2021 Irregula r menstrua tion, unspecif ied;Prac luis fernando ID: 0001 [facility]:[address] Concept Completed 201605/22/2021 Encntr for vacuum conditioner operator exam (general ) (routine ) w/o abn findings ;Practic e ID: 0001 Radha bradley [facility] 18:21:31 Syphilis test finding [id number] Completed 201605/22/2021 Encntr screen for infectio ns w sexl mode of transmis s;Record ed Elsewher e: No Locat ion: [facility] S ource: EHR Sales Operations Assistant mohsen: N Practi ce ID: 0001 David lable Time: 03:15:00 PM [facility] 18:21:50 Infectio n screenin g Completed 201605/22/2021 Encounte r for screenin g for oth infec/pa rastc diseases ;Recorde d Elsewher e: No Locat ion: [facility] S ource: EHR Sales Operations Assistant mohsen: N Practi ce ID: 0001 David lable Time: 03:15:00 PM Radha bradley [facility] 18:21:14 Insertio n of intraute rine contrace ptive device Completed 201605/22/2021 Encounte r for insertio n of intraute rine contrace ptive device;P ractice ID: 0001 Radha bradley [facility] 18:22:10 Clinical finding Completed 201605/22/2021 Presence of (intraut erine) contrace ptive device;R ecorded Elsewher e: No Locat ion: [facility] S ource: EHR Sales Operations Assistant mohsen: N Practi ce ID: 0001 David lable Time: 08:00:00 AM [facility] 18:21:45 Contrace ptive sheath status [id number] Completed 201605/22/2021 Encounte r for routine checking of intraute rine contrace p dev;Prac luis fernando ID: 0001 Radha bradley, [facility] 18:21:16 Gestatio n period, 11 weeks [id number] Completed 201805/22/2021 11 weeks gestatio n of pregnanc y;Practi ce ID: 0001 Radha bradley, [facility] 18:22:03 Antenata l screenin g Completed 201805/22/2021 Encounte r for antenata l screenin g for nuchal transluc ency;Pra ctice ID: 0001 Radha bradley, [facility] 18:21:13 Pregnanc y-induce d hyperten russell Completed 201805/22/2021 Gestatio nal hyperten russell w/o signific ant proteinu mary, 2nd trimeste r;Record ed Elsewher e: No Locat ion: [facility] S ource: EHR Sales Operations Assistant mohsen: N Practi ce ID: 0001 David lable Time: 02:30:00 PM Radha bradley, [facility] 18:21:02 Antenata l screenin g for malforma tion Completed 201805/22/2021 Encounte r for antenata l screenin g for malforma tions;Pr actice ID: 0001 Radha bradley, [facility] 18:22:11 Placenta previa [id number] Completed 201805/22/2021 Placenta previa specifie d as w/o hemor, second trimeste r;Record ed Elsewher e: No Locat ion: [facility] S ource: EHR Sales Operations Assistant mohsen: N Practi ce ID: 0001 David lable Time: 01:00:00 PM Radha bradley, [facility] 18:21:48 Gestatio n period, 24 weeks [id number] Completed 201805/22/2021 24 weeks gestatio n of pregnanc y;Record ed Elsewher e: No Locat ion: Nannette oglesby [facility] S ource: EHR Sales Operations Assistant mohsen: N Practi ce ID: 0001 David lable Time: 01:00:00 PM Radha bradley, [facility] 18:21:29 Normal pregnanc y in multigra bryan [id number] Completed 201805/22/2021 Encounte r for suprvsn of normal pregnanc y, third trimeste r;Practi ce ID: 0001 Radha bradley, [facility] 18:21:53 Uterine size for dates discrepa ncy Completed 201805/22/2021 Uterine size-ivet e discrepa ncy, third trimeste r;Practi ce ID: 0001 Radha Cloud null, [facility] 18:21:06 Gestatio n period, 35 weeks [id number] Completed 201805/22/2021 35 weeks gestatio n of pregnanc y;Practi ce ID: 0001 Radha Cloud mirna, [facility] 18:22:15 finding Completed 201805/22/2021 Matern care for oth or susp poor fetl grth, third tri, unsp;Pra ctice ID: 0001 Radha Cloud mirna, [facility] 18:21:09 Gestatio n period, 36 weeks [id number] Completed 201805/22/2021 36 weeks gestatio n of pregnanc y;Practi ce ID: 0001 Radha Pedro Luis mirna, [facility] 18:22:07 Single live from [place] n pregnanc y [id number] Completed 201805/22/2021 Single live ;Pr actice ID: 0001 Radha bradley, [facility] 18:20:37 Procedur e by method Completed 201905/22/2021 Encounte r for oth general cnsl and advice on contrace ption;Pr actice ID: 0001 Radha bradley, [facility] 18:21:33 Lochia finding Completed 201905/22/2021 Encounte r for routine postpart um follow-u p;Practi ce ID: 0001 Radha Cloud [facility], [facility] 18:21:43 Pregnanc y [id number] Completed 202011/14/2021 Shadia Lu [facility], [facility] 5 17:00:00 Pregnanc y [id number] Active 2024 Shadia Lu [facility], [facility] 5 17:00:00 Precipit ate labor [id number] Active 2024 delivere d in car on last pregnanc y Raffy Mane MD [address], [place], [address], [facility] 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 5 06:51:43 Iron deficien cy anemia [id number] Active 2024 Fe suppleme nt, recheck at 34 weeks KYRA GOULD MD [address], [place], [address], [facility] 5 18:03:31 Problem Notes None recorded. Procedures Surgical History Date Name Laterality Status Provider Name and Address Organization Details Recorded Time 10/08/19 25 Date of Last Pap Smear completed Shadia Lu [facility] 11/02/2024 16:57:17 08/23/19 19 Cholecystectomy completed Ellen Tanner [facility] 08/23/2021 16:05:41 Cholecystectomy completed Latoya Tejeda [facility] 10/07/2024 15:24:22 Imaging Results None recorded. Procedure Notes None recorded. Medical Equipment None Reported. Allergies No known drug allergies Medications Name Sig Start Date Stop Date Status Note LastModified by Organization Details LastModified Time Mirena 21 mcg/24 hr (up to 8 years) 52 mg intrauter ine device 12/03 completed [facility] ed Elsewher e: Yes Loca tion: [facility] By: [email or web address] z Encoun ter DateTime : 05/21/20 17 11:45:00 AM Not Available Not Available Not Available Diflucan 150 mg tablet take 1 tablet by oral route once 11/11 completed [facility] ed Elsewher e: No Locat ion: [facility] By: [email or web address] morton En counter DateTime : 01/08/20 14 03:00:00 PM Not Available Not Available Not Available metronida zole 500 mg tablet Take 1 tablet twice a day by oral route for 7 days. 08/23 completed Not Available Not Available Not Available Metrogel Vaginal 0.75 % (37.5 mg/5 gram) insert 1 applicat orful (37.5MG) by vaginal route every day at bedtime 04/14 completed [facility] ed Elsewher e: No Locat ion: [facility] By: [email or web address] trick En counter DateTime : 01/15/20 12 08:28:05 AM Not Available Not Available Not Available Vitamin D2 1,250 mcg (50,000 unit) capsule take 1 capsule (57738IY ITS) by oral route every week 01/25 completed Prescrib ed Elsewher e: No [facility] By: [email or web address] Oglesby ncounter DateTime : 10/17/19 16 01:42:07 PM Not [...] Prescrib ed Elsewher e: No Locat ion: [facility] By: sonia alexander DateTime : 04/15/20 13 01:00:00 PM Not Available Not Available Not Available Triveen-Richard uo DHA 29 mg-1 mg-400 mg oral pack take 2 by Oral route every day 04/15 completed Prescrib ed Elsewher e: No Locat ion: [facility] By: [email or web address] trick En counter DateTime : 04/29/20 12 03:45:44 PM Not Available Not Available Not Available 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 A 28 mg iron-1 mg-200 mg capsule take 1 capsule by oral route every day 05/21 completed Prescrib ed Elsewher e: No Locat ion: [facility] By: amkshahzad Oglesby ncounter DateTime : 05/25/20 15 02:30:00 PM Not Available Not Available Not Available Diclegis 10 mg-10 mg tablet,de layed release 05/22 completed Not Available Not Available Not Available Minastrin 24 Fe 1 mg-20 mcg (24)/75 mg (4) chewable tablet chew 1 tablet by oral route every day 05/25 completed Prescrib ed Elsewher e: No [facility] By: [email or web address] trick En counter DateTime : 11/12/19 01:30:00 PM Not Available Not Available Not Available Slynd 4 mg (28) tablet Take 1 tablet every day by oral route. 05/22 completed Not Available Not Available Not Available ID NOW COVID-19 Test Kit TEST DIRECTED TODAY 10/07 completed Not Available Not Available Not Available Vitals Date Recorded Body weight Body mass index (BMI) Body height Systolic And Diastolic Provider Name and Address Organization Details Last Updated DateTime 03/24/2025 70250.474 g 30.4 kg/m2 172.72 cm 106/76 mm[Hg] Candice Malik [facility] 03/24/2025 10:31:36 Social History Question Answer Notes LastModified by Organizat ion Details LastModified Time Tobacco Smoking Status Never Smoker Faye bradley, [facility] 11/13/2021 15:42:19 Do You Have [...] Or The Highest Degree You Have Received? [id number] Information not available 06/01/2021 Are There Any [...] anxious, or unable to sleep at night)? DT5397-4 Information not available 06/01/2021 Family History Relationship Description Onset Age of this Age Resolved Age Notes LastModified by Organization Details LastModified Time Mother Multiple sclerosis [email or web address] Not available 2019 09:09:49 Maternal Grandfather Diabetes mellitus [email or web address] Not available 2019 09:10:00 Sister Polycystic ovary syndrome Not available 2023 14:01:01 Paternal Uncle Seizure disorder [email or web address] Not available 2023 14:01:01 Paternal Aunt Inflammatory disease of liver Not available 2023 14:01:01 Father Diabetes mellitus [email or web address] Not available 08/23 16:05:09 Medical History Condition Response Allergies (Food, seasonal, environmental ) N Other Y Breast Cancer N Blood Transfusion N Drug/Latex Allergies/Reactions N Dermatologic Disorders N Lung Disease N Defects or Inherited Disease N Breast Problem N Gestational Diabetes N Hematologic disorders N Anesthesia Complications N History of STI N Deep Vein Thrombosis N Polycystic ovary syndrome N Anxiety Disorder N Autoimmune disease N Arthritis N Polyps N Infertility N Acid Reflux (GERD) N History of abnormal pap N Cancer N Varicosities N Stroke N Neurologic/Epilepsy N Endometriosis N High Cholesterol N Fibromyalgia N Headaches N Kidney Disease N Heart Problems N Thyroid Problems N Kidney or Bladder Problems N GI Problems N Eating Disorder [...] ICD10 Code Diagnosis IMO Codes Diagnosis Note [id number] Raffy Mane MD [facility] [address],[place] [address] 03/05/2025 14:53:58 03/05/2025 17:56:54 [id number] KYRA GOULD MD [facility] [address],[place] [address] 03/09/2025 17:40:12 03/09/2025 18:06:45 History of previous intrauterine growth restricted 4270129978 88911 Z87.59 [id number] Past pregn loki history of placental abruption 687813849 Z87.59 85890543 Iron defic iency anemia 17988139 D50.9 68370815 Gestation period, 30 weeks 88457115 Z3A.30 6960924 [id number] KYRA GOULD MD [facility] [address],[place] [address] 03/24/2025 09:55:18 03/24/2025 10:37:52 Past history of small for gestational age baby 304099495 Z87.59 O41.03X0 Z3A.33 57317352 [id number] KYRA GOULD MD [facility] [address],[place] [address] 03/24/2025 09:55:33 03/24/2025 16:01:09 Iron deficiency anemia 59862311 D50.9 60225380 History of previous intrauterine growth restricted 3017331270 28415 Z87.59 27924403 Gestation period, 33 weeks 95301290 Z3A.33 1936244 Health Concerns Section Related Observation LastModified by Organization Detai ls LastModified Time None Recorded Concern Status LastModified by Organization Details LastModified Time None Recorded Payers Encounter Date Sequence Insurance Name Policy Number Policy Chavez Covered Member ID Chavez Member ID Guarantor Name 03/24/2025 1 [facility] [id number] Vannessa Bowden [id number] Vannessa Bowden 03/24/2025 2 [facility] - DOS ON OR AFTER 20 (MEDICAID REPLACEMENT - HMO) Vannessa Bowden [id number] Vannessa Bowden Notes Date Note Type Note Provider Name and Address Organization Details Recorded Time 03/24/2025 text/html Generic HPI TemplateReported by Patient KYRA GOULD MD [address], [place], [address], [place] [facility] 03/24/2025 15:57:46 OBGyn Episode Ob Episode Information Episode Created Date Number of Fetuses Patient Bloodtype Patient rh Status Prepregnancy Weight lbs Domestic Partner Domestic Partner Phone Father Name Brain Surgeon Status 11/03/19 25 1 A Negative 173 OPEN Fetus Data First Name Last Name Admitted to NICU Weight (g) Sex Living Outcome Pediatric Complications Fetus ID Race Codes Race Delivery Type [id number] Problems Problem Notes Problem Name Start Date End Date Resolution Snomed Code Not e Administration of human anti-D immunoglobulin needed 11/04/2024 3632430029 A neg rhogam @28wks Precipitate labor 11/02/2024 55419618 d elivered in car on last Past history of placental abruption 852965303 History of previous intrauterine growth restricted 142360691929609 Iron deficiency anemia 03/09/2025 102497 02 Fe supplement, recheck at 34 weeks [...] 25 20 [email or web address] 11/02/2024 05/12/20 25 4 Pre- Flowsheet Flowsheet Date 11/02/2024 Oliver Score Blood Edema Fundus Height Fundus Units Glucose Ketones Leukocytes Nitrite Labor Signs Protein Cervic Dilation Cervic Effacement Cervic Station Type Weight in lbs Pre/Post Dialysis Refused Weight 176.068270507699 BP Diastolic BP Location Tested BP Systolic [...] Weight in lbs Pre/Post Dialysis Refused Weight 180.724684024994 BP Diastolic BP Location Tested BP Systolic [...] Type Weight in lbs Pre/Post Dialysis Refused 184.862293764559 BP Diastolic BP Location Tested BP Systolic [...] Type Weight in lbs Pre/Post Dialysis Refused 191.415386490186 BP Diastolic BP Location Tested BP Systolic [...] Type Weight in lbs Pre/Post Dialysis Refused 195.676727665889 BP Diastolic BP Location Tested BP Systolic [...] Weight in lbs Pre/Post Dialysis Refused Weight 200.647443689515 BP Diastolic BP Location Tested BP Systolic BP Type 76 L arm 114 sitting Fetus Heart Rate Present A 152 Present Fetus Movement A Yes Comments Flowsheet Date 03/09/2025 Oliver Score Blood Edema Fundus Height Fundus Units Glucose Ketones Leukocytes Nitrite Labor Signs Protein Cervic Dilation Cervic Effacement Cervic Station Type Weight in lbs Pre/Post Dialysis Refused Weight 200.991365998184 BP Diastolic BP Location Tested BP Systolic [...] Type Weight in lbs Pre/Post Dialysis Refused 200.822075487540 BP Diastolic BP Location Tested BP Systolic [...] Type Weight in lbs Pre/Post Dialysis Refused 203.23873061866 BP Diastolic BP Location Tested BP Systolic [...] Type Weight in lbs Pre/Post Dialysis Refused 204.050538750763 BP Diastolic BP Location Tested BP Systolic [...] Type Weight in lbs Pre/Post Dialysis Refused 208.582739150088 BP Diastolic BP Location Tested BP Systolic [...] Weight in lbs Pre/Post Dialysis Refused Weight 209.958005442613 BP Diastolic BP Location Tested BP Systolic [...]
--- OUTSIDE RECORDS SUMMARY | 2025-05-08 10:42 | XMS_ITS | Clinical Summary ---
Author Organization [facility] Address [address] [place] [address] Care Team Providers Care Program Director/Music Director Name Role Phone Not Found, Stl Primary Care Provider Unavailabl e Allergies No known active allergies Medications PNV no.[id number] flannery-epa-fish ( Gummies) 400 mcg-35 mg- 25 [...] 03/15/2021 How often do you attend chur or hoahaoism services? Never 03/15/2021 Do you belong to any clubs o r organizations such as confucianist groups, unions, fraternal or athletic groups, or [...] any time in the past 12 m [facility], were you homeless or living in a fdc (including now)? 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
--- OUTSIDE RECORDS SUMMARY | 2025-05-08 10:42 | XMS_ITS | Continuity of Care Document ---
Author Organization [facility] Address [address] [place] [address] Care Team Providers Care Jewelsmith Name Role Phone LO BADILLO Primary Care Provider Assessment Encounter Date Assessment Date Assessment LastModified by Organization Details LastModified Time 03/05/2025 03/05/2025 Patient is ___weeks . Discussed plan. [email or web address] Not available 03/05/2025 15:21:10 Plan of Treatment Reminders Order Date Submit [...] nce of HIV infec tion. Not Available [facility] (Lab) [address], [place], [address], 11/03/2024 12:54:58 11/03/1911/02/2024 HEPAT ITIS B SURFA CE ANTIG EN hepatitis B surface antigen Non-re active non-re active This assay was perfo rmed using [employer] ratio n reage nts and test kits. Value s obtai jeromy with other assay metho ds or kits canno t be used inter merritt eably . Not Available [facility] (Lab) [address], [place], [address], 11/03/2024 12:54:59 11/03/1911/02/2024 HEPAT ITIS C ANTIB BERYL SCREE N, REFLE X TO CONFI RMATI ON hepatitis C antibody Non-re active non-re active Antib odies to HCV Not Detec marline, does not exclu de the possi bilit y of expos ure to HCV. Not Available [facility] (Lab) [address], [place], [address], 11/03/2024 12:55:00 11/03/1911/02/2024 RUBEL LA IGG ANTIB BERYL, QUANT rubella antibodies, IgG Reacti ve reacti ve Not Available [facility] (Lab) [address], [place], [address], 11/03/2024 12:55:00 11/03/19 25 11/02/2024 RUBEL LA IGG ANTIB BERYL, QUANT rubella antibodies, IgG quant 20.6 IU/mL >=10 Non-r eacti ve (Non- Immun e) <10 IU/mL React shabbir (Immu ne) > or = 10 IU/mL Not Available [facility] (Lab) [address], [place], [address], 11/03/2024 12:55:00 11/03/1911/02/2024 CBC W/DIF F WBC 9.4 10'3/ uL 3.5-10 .5 Not Available [facility] (Lab) [address], [place], [address], 11/03/2024 12:55:01 11/03/19 25 11/02/2024 CBC W/DIF F RBC 3.77 10'6/ uL (based on docume nted legal sex) 3.80-5 .20 low Not Available [facility] (Lab) [address], [place], [address], 11/03/2024 12:55:01 11/03/19 25 11/02/2024 CBC W/DIF F HGB 12.4 g/dL (based on docume nted legal sex) 11.6-1 5.4 Not Available [facility] (Lab) [address] [facility], [place], [address], 11/03/2024 12:55:01 11/03/1911/02/2024 CBC W/DIF F HCT 35.4 % (based on docume nted legal sex) 34.0-4 5.0 Not Available [facility] (Lab) [address] [facility], [place], [address], 11/03/2024 12:55:01 11/03/19 25 11/02/2024 CBC W/DIF F MCV 93.9 fL 80.0-9 9.0 Not Available [facility] (Lab) [address] [facility], [place], [address], 11/03/2024 12:55:01 11/03/19 25 11/02/2024 CBC W/DIF F MCH 32.9 pg 27.0-3 4.0 Not Available [facility] (Lab) [address] [facility], [place], [address], 11/03/2024 12:55:01 11/03/19 25 11/02/2024 CBC W/DIF F MCHC 35.0 g/dL 32.0-3 5.5 Not Available [facility] (Lab) [address] [facility], [place], [address], 11/03/2024 12:55:01 11/03/19 25 11/02/2024 CBC W/DIF F RDW 13.2 % 11.0-1 5.0 Not Available [facility] (Lab) [address] [facility], [place], [address], 11/03/2024 12:55:01 11/03/1911/02/2024 CBC W/DIF F plt 252 10'3/ uL 150-40 0 Not Available [facility] (Lab) [address] [facility], [place], [address], 11/03/2024 12:55:01 11/03/19 25 11/02/2024 CBC W/DIF F MPV 10.9 fL 8.8-12 .1 Not Available [facility] (Lab) [address] [facility], [place], [address], 11/03/2024 12:55:01 11/03/19 25 11/02/2024 CBC W/DIF F NRBC's 0.0 % 0.0 Not Available [facility] (Lab) [address] [facility], [place], [address], 11/03/2024 12:55:01 11/03/1911/02/2024 CBC W/DIF F absolute NRBCs 0.0 10'3/ uL no refere nce range establ ished Not Available [facility] (Lab) [address] [facility], [place], [address], 11/03/2024 12:55:01 11/03/1911/02/2024 CBC W/DIF F neutrophils 75.0 % 34.0-7 3.0 high Not Available [facility] (Lab) [address] [facility], [place], [address], 11/03/2024 12:55:01 11/03/19 25 11/02/2024 CBC W/DIF F lymphocytes 17.0 % 15.0-5 0.0 Not Available [facility] (Lab) [address] [place], [address], 11/03/2024 12:55:01 11/03/1911/02/2024 CBC W/DIF F monocytes 6.8 % 1.0-15 .0 Not Available [facility] (Lab) [address] [place], [address], 11/03/2024 12:55:01 11/03/19 25 11/02/2024 CBC W/DIF F eosinophils 0.6 % 0.0-8. 0 Not Available [facility] (Lab) [address] [facility], [place], [address], 11/03/2024 12:55:01 11/03/1911/02/2024 CBC W/DIF F basophils 0.2 % 0.0-2. 0 Not Available [facility] (Lab) [address] [facility], [place], [address], 11/03/2024 12:55:01 11/03/1911/02/2024 CBC W/DIF F immature granulocytes 0.4 % no define d refere nce range Immat ure Granu locyt es (IG) repre sents autom ated enume ratio n of Metam yeloc ytes, Myelo cytes and Promy elocy kasey when IG is < 5%. Blast s are not inclu ded in IG and repor marline separ ately if prese nt. Not Available [facility] (Lab) [address] [facility], [place], [address], 11/03/2024 12:55:01 11/03/1911/02/2024 CBC W/DIF F absolute neutrophils 7.0 10'3/ uL 1.5-8. 0 Not Available [facility] (Lab) [address] [place], [address], 11/03/2024 12:55:01 11/03/1911/02/2024 CBC W/DIF F absolute lymphocytes 1.6 10'3/ uL 1.0-4. 0 Not Available [facility] (Lab) [address] [facility], [place], [address], 11/03/2024 12:55:01 11/03/1911/02/2024 CBC W/DIF F absolute monocytes 0.6 10'3/ uL 0.2-1. 0 Not Available [facility] (Lab) [address], [place], [address], 11/03/2024 12:55:01 11/03/1911/02/2024 CBC W/DIF F absolute eosinophils 0.1 10'3/ uL 0.0-0. 6 Not Available [facility] (Lab) [address], [place], [address], 11/03/2024 12:55:01 11/03/1911/02/2024 CBC W/DIF F absolute basophils 0.0 10'3/ uL 0.0-0. 3 Not Available [facility] (Lab) [address], [place], [address], 11/03/2024 12:55:01 11/03/1911/02/2024 CBC W/DIF F absolute immature granulocytes 0.0 10'3/ uL 0.00-0 .10 Refer ence range s for nonbi nary/ inter sex or unspe cifie d gende r patie nts have not been estab lishe d. Pleas e refer to the [facility] table for range s estab lishe d for cisge nder patie nts and evalu ate in the clini georges elyssa xt of the indiv idual patie nt: https ://izzy vasquez book. nm.or g/gen derx Not Available [facility] (Lab) [address], [place], [address], 11/03/2024 12:55:01 11/03/1911/02/2024 TYPE/ RH/SC REEN ABO/Rh type A NEG Not Available [facility] (Lab) [address], [place], [address], 11/03/2024 12:55:02 11/03/1911/02/2024 TYPE/ RH/SC REEN antibody screen NEG Not Available [facility] (Lab) [address] [facility], [place], [address], 11/03/2024 12:55:02 11/03/1911/02/2024 TYPE/ RH/SC REEN exp date 2024 23:59 Not Available [facility] (Lab) [address] [facility], [place], [address], 11/03/2024 12:55:02 11/03/1911/02/2024 HEMOG LOBIN A1C hemoglobin [...] >8.0% Actio n sugge sted Not Available [facility] (Lab) [address] [facility], [place], [address], 11/03/2024 12:55:02 11/03/1911/02/2024 RPR SCREE N, REFLE X TITER /CONF IRMAT ION RPR qualitative Nonrea ctive nonrea ctive Not Available [facility] (Lab) [address] [facility], [place], [address], 11/03/2024 12:55:03 11/03/1911/02/2024 CULTU RE: URINE result report SEE RESULT S BELOW Test: Cultu re: Urine Speci men Sourc e: Urine Voide d Speci men Type: Urine Speci men Date: 2024 1723 Resul t Date: 2024 0338 Resul t Statu s: Final resul t Abnor mal: No Resul ting Lab: [facility] [address] [facility] [address] Tel: CULTU RE ----- ----- ----- --- No growt h in 1 day (dete ction level of 10,00 0 colon ies / ml.) Not Available [facility] (Lab) [address] [facility], [place], [address], 11/04/2024 04:43:17 02/19/2002/18/2025 HEMAT OCRIT (HCT) HCT 32.0 % (based on docume nted legal sex) 34.0-4 5.0 low Not Available [facility] (Lab) [address] [facility], [place], [address], 02/19/2025 04:10:34 02/19/2002/18/2025 HEMOG LOBIN (HGB) HGB 10.3 g/dL (based on docume nted legal sex) 11.6-1 5.4 low Not Available [facility] (Lab) [address] [facility], [place], [address], 02/19/2025 04:10:34 02/19/2002/18/2025 GTT - GESTA MAYELIN L SCREE N, ACOG OB glucose, 1 hour screen 114 mg/dL 70-135 Not Available [facility] (Lab) [address] [place], [address], 02/19/2025 04:10:35 02/19/2002/18/2025 HIV 1/2 ANTIG EN/AN TIBOD Y, REFLE X CONFI RMATI ON HIV antigen/anti body Nonrea ctive nonrea ctive HIV-1 antig en and HIV-1 /HIV- 2 antib odies were not detec marline. No labor atory evide nce of HIV infec tion. Not Available [facility] (Lab) [address] [facility], [place], [address], 02/19/2025 04:10:35 03/05/20 25 03/05/2025 RPR SCREE N, REFLE X TITER /CONF IRMAT ION RPR qualitative Nonrea ctive nonrea ctive Do not charg e a venip unctu re for this test. Test was misse d at last visit . Not Available [facility] (Lab) [address], [place], [address], 03/06/2025 11:08:08 11/03/19 25 11/02/2024 US, obste tric, nucha l trans lucen cy No observ ation record ed. [email or web address] [place] [address], [place], [address], 11/02/2024 18:18:57 11/03/19 25 11/02/2024 US, obste tric, follo w-up No observ ation record ed. [email or web address] [address], [place], [address], 11/03/2024 15:44:13 01/01/20 25 12/31/2024 US, obste tric, 2nd or 3rd trime ster No observ ation record ed. [email or web address] [place] [address], [place], [address], 12/31/2024 16:14:45 01/01/20 25 12/31/2024 US, obste tric, 2nd or 3rd trime ster No observ ation record ed. [email or web address] Graciela [address], [place], [address], 01/03/2025 22:41:59 01/12/20 25 01/11/2025 US, obste tric, trans vagin al No observ ation record ed. [email or web address] [place] [address], [place], [address], 01/11/2025 17:33:19 01/12/20 25 01/11/2025 US, obste tric, trans vagin al No observ ation record ed. Graciela [address], [place], [address], 01/12/2025 22:12:23 03/24/2003/24/2025 US, obste tric, follo w-up No observ ation record ed. [email or web address] [address], [place], [address], 03/24/2025 13:36:18 03/24/2003/24/2025 , obste tric, bioph ysica l profi le No observ ation record ed. [email or web address] [address], [place], [address], 03/24/2025 13:36:31 03/24/2003/24/2025 , obste tric, follo w-up No observ ation record ed. [email or web address] Graciela [address], [place], [address], 03/26/2025 17:41:33 04/06/2004/06/2025 imagi ng/di agnos tic resul t No observ ation record ed. [email or web address] Gr[address]iela [address], [place], [address], 04/06/2025 13:11:41 04/06/2004/06/2025 US, obste tric, limit ed No observ ation record ed. [email or web address] [address], [place], [address], 04/06/2025 11:40:14 Result Notes None recorded. Problems Name Problem SNOMED Code Status Onset Date Resolution Date Notes Provider Name and Address Organization Details Recorded Time History of growth retardat ion 6944071381 9108 Completed wkly antenata l testing 32wks Graciela lund [facility], [place] - [facility] 2 13:05:39 Placenta l abruptio n - delivere d [id number] Completed 36wks Graciela lund [facility] 2 13:05:39 RhD negative 259231425 Completed [facility] 13:05:39 Past pregnanc y history of placenta l abruptio n 011533182 Active Shadia Lu [facility], [facility] 5 09:35:28 History of previous intraute rine growth restrict ed [id number] 96448 Active Shadia Lu [facility], [facility] 5 09:35:56 Vaginiti s and vulvovag initis Completed 201105/22/2021 Vaginiti s and vulvovag initis, unspecif ied;Prac luis fernando ID: 0001 Radha Cloud [facility], [facility] 18:20:42 Pregnanc y test positive [id number] Completed 201105/22/2021 Positive Pregnanc y Test;Pra ctice ID: 0001 Radha Cloud [facility], [facility] 18:21:18 Screenin g for malignan t neoplasm of cervix Completed 201105/22/2021 Pap Smear;Pr actice ID: 0001 Radha Cloud [facility], [facility] 18:20:40 anatomy study Completed 201105/22/2021 [facility] SURVEY;P ractice ID: 0001 Radha Cloud [facility], [facility] 18:21:26 Primigra bryan [id number] Completed 201105/22/2021 Supervis ion of normal first pregnanc y;Practi ce ID: 0001 Radha bradley, [facility] 18:20:25 malforma tion of central nervous system affectin g obstetri georges care [id number] Completed 201205/22/2021 Central nervous system malforma tion in fetus, antepart um;Recor ded Elsewher e: No [facility] [employer] [employer] mohsen: N Practi ce ID: 0001 David lable Time: 11:00:00 AM Radha bradley, [facility] 18:20:33 Delivery normal [id number] Completed 201205/22/2021 Normal delivery ;Practic e ID: 0001 Radha bradley, [facility] 18:21:56 Postpart um care Completed 201205/22/2021 Routine postpart um follow-u p;Practi ce ID: 0001 Radha Cloud [facility], [facility] 18:20:27 First degree perineal lacerati on [id number] Completed 201205/22/2021 First-de gree perineal lacerati on, unspecif ied as to episode of care in pregnanc y;Practi ce ID: 0001 Radha bradley [facility] 18:22:05 Educatio n Completed 201205/22/2021 Counseli ng contrace ptive manageme nt;Pract ice ID: 0001 Radha Cloud [facility], [facility] 18:21:58 Speciali zed medical examinat ion Completed 201205/22/2021 Routine gynecolo gical examinat ion;Prac luis fernando ID: 0001 Radha bradley, [facility] 18:22:00 Pregnanc y test negative 132162701 Completed 201205/22/2021 Negative Pregnanc y Test;Pra ctice ID: 0001 Radha bradley [facility] 18:21:19 Candidal vulvovag initis [id number] Completed 201305/22/2021 Candidia sis of vulva and vagina;P ractice ID: 0001 Radha bradley [facility] 18:22:13 Proteinu mary [id number] Completed 201305/22/2021 Proteinu mary;Prac luis fernando ID: 0001 [facility] 18:21:28 Leukorrh ea [id number] Completed 201305/22/2021 Leukorrh ea, not specifie d as infectiv e;Record ed Elsewher e: No Locat ion: [facility] S ource: [employer] mohsen: N Practi ce ID: 0001 David lable Time: 03:00:00 PM Radha bradley [facility] 18:21:00 Adult health examinat ion Completed 201405/22/2021 Routine general medical examinat ion at a health care facility ;Practic e ID: 0001 Radha bradley [facility] 18:21:22 Speciali zed medical examinat ion Completed 201405/22/2021 Other specifie d chlamydi al diseases ;Practic e ID: 0001 Radha bradley [facility] 18:22:01 Venereal disease screenin g Completed 201405/22/2021 Screenin g examinat ion for venereal disease; Practice ID: 0001 Radha Phillipsan mirna [facility] 18:20:39 Secondar y amenorrh ea [id number] Completed 201405/22/2021 Secondar y amenorrh ea;Pract ice ID: 0001 Radha Cloud mirna, [facility] 18:20:35 Pregnanc y detectio n examinat ion Completed 201405/22/2021 Encounte r for pregnanc y test, result positive ;Practic e ID: 0001 Radha Watkins mirna, [facility] 18:22:14 Uterine size for dates discrepa ncy Completed 201405/22/2021 Uterine size-ivet e discrepa ncy, first trimeste r;Practi ce ID: 0001 Radha Watkins mirna, [facility] 18:21:04 Gestatio n period, 8 weeks [id number] Completed 201405/22/2021 8 weeks gestatio n of pregnanc y;Practi ce ID: 0001 Radha Pedro Luis null, [facility] 18:21:21 Pregnanc y, childbir th and puerperi um finding Completed 201505/22/2021 Encntr for suprvsn of normal first preg, first trimeste r;Practi ce ID: 0001 Radha Pedro Luis null, [facility] 18:21:40 Pregnanc y, childbir th and puerperi um finding Completed 201505/22/2021 Encntr for suprvsn of normal first preg, third trimeste r;Practi ce ID: 0001 Radha Pedro Luis null, [facility] 18:21:42 finding Completed 201505/22/2021 Matern care for oth or susp poor fetl grth, 2nd tri, unsp;Pra ctice ID: 0001 Radha bradley, [facility] 18:21:07 Gestatio n period, 27 weeks [id number] Completed 201505/22/2021 27 weeks gestatio n of pregnanc y;Practi ce ID: 0001 Radha bradley, [facility] 18:21:55 Gestatio n period, 31 weeks [id number] Completed 201505/22/2021 31 weeks gestatio n of pregnanc y;Practi ce ID: 0001 Radha Cloud null, [facility] 18:22:08 Gestatio n period, 34 weeks [id number] Completed 201505/22/2021 34 weeks gestatio n of pregnanc y;Practi ce ID: 0001 Radha bradley, [facility] 18:20:29 finding Completed 201505/22/2021 Matern care for oth or susp poor fetl grth, third tri, fts1;Pra ctice ID: 0001 Radha bradley, [facility] 18:21:11 Gestatio n period, 37 weeks [id number] Completed 201505/22/2021 37 weeks gestatio n of pregnanc y;Practi ce ID: 0001 Radha bradley, [facility] 18:21:51 Gestatio n period, 38 weeks [id number] Completed 201505/22/2021 38 weeks gestatio n of pregnanc y;Practi ce ID: 0001 Radha Cloud null, [facility] 18:20:31 Term pregnanc y delivere d [id number] Completed 201505/22/2021 Encounte r for full-ter m uncompli cated delivery ;Practic e ID: 0001 Radha Pedro Luis bradley, [facility] 18:20:45 Finding of regulari ty of menstrua l cycle Completed 201505/22/2021 Irregula r menstrua tion, unspecif ied;Prac luis fernando ID: 0001 Radha bradley, [facility] 18:20:[address] Concept Completed 201605/22/2021 Encntr for economic manager exam (general ) (routine ) w/o abn findings ;Practic e ID: 0001 Radha bradley, [facility] 18:21:31 Syphilis test finding [id number] Completed 201605/22/2021 Encntr screen for infectio ns w sexl mode of transmis s;Record ed Elsewher e: No Locat ion: [facility] S ource: [employer] mohsen: N Practi ce ID: 0001 David lable Time: 03:15:00 PM Radha bradley, [facility] 18:21:50 Infectio n screenin g Completed 201605/22/2021 Encounte r for screenin g for oth infec/pa rastc diseases ;Recorde d Elsewher e: No Locat ion: [facility] S ource: [employer] moshen: N Practi ce ID: 0001 David lable Time: 03:15:00 PM Radha bradley [facility] 18:21:14 Insertio n of intraute rine contrace ptive device Completed 201605/22/2021 Encounte r for insertio n of intraute rine contrace ptive device;P ractice ID: 0001 Radha bradley, [facility] 18:22:10 Clinical finding Completed 201605/22/2021 Presence of (intraut erine) contrace ptive device;R ecorded Elsewher e: No Locat ion: [facility] S ource: [employer] mohsen: N Practi ce ID: 0001 David lable Time: 08:00:00 AM Radha bradley [facility] 18:21:45 Contrace ptive sheath status [id number] Completed 201605/22/2021 Encounte r for routine checking of intraute rine contrace p dev;Prac luis fernando ID: 0001 Radha bradley, [facility] 18:21:16 Gestatio n period, 11 weeks [id number] Completed 201805/22/2021 11 weeks gestatio n of pregnanc y;Practi ce ID: 0001 Radha Cloud [facility], [facility] 18:22:03 Antenata l screenin g Completed 201805/22/2021 Encounte r for antenata l screenin g for nuchal transluc ency;Pra ctice ID: 0001 Radha Cloud [facility], [facility] 18:21:13 Pregnanc y-induce d hyperten russell Completed 201805/22/2021 Gestatio nal hyperten russell w/o signific ant proteinu mary, 2nd trimeste r;Record ed Elsewher e: No Locat ion: [facility] N Practi ce ID: 0001 David lable Time: 02:30:00 PM Radha bradley [facility] 18:21:02 Antenata l screenin g for malforma tion Completed 201805/22/2021 Encounte r for antenata l screenin g for malforma tions;Pr actice ID: 0001 Radha bradley [facility] 18:22:11 Placenta previa [id number] Completed 201805/22/2021 Placenta previa specifie d as w/o hemor, second trimeste r;Record ed Elsewher e: No Locat ion: [facility] S ource: [employer] mohsen: N Practi ce ID: 0001 David lable Time: 01:00:00 PM Radha bradley, [facility] 18:21:48 Gestatio n period, 24 weeks [id number] Completed 201805/22/2021 24 weeks gestatio n of pregnanc y;Record ed Elsewher e: No Locat ion: [facility] S ource: [employer] mohsen: N Practi ce ID: 0001 David lable Time: 01:00:00 PM Radha bradley, [facility] 18:21:29 Normal pregnanc y in multigra bryan [id number] Completed 201805/22/2021 Encounte r for suprvsn of normal pregnanc y, third trimeste r;Practi ce ID: 0001 Radha Cloud null, [facility] 18:21:53 Uterine size for dates discrepa ncy Completed 201805/22/2021 Uterine size-ivet e discrepa ncy, third trimeste r;Practi ce ID: 0001 Radha Cloud null, [facility] 18:21:06 Gestatio n period, 35 weeks [id number] Completed 201805/22/2021 35 weeks gestatio n of pregnanc y;Practi ce ID: 0001 Radha Cloud null, [facility] 18:22:15 finding Completed 201805/22/2021 Matern care for oth or susp poor fetl grth, third tri, unsp;Pra ctice ID: 0001 Radha bradley, [facility] 18:21:09 Gestatio n period, 36 weeks [id number] Completed 201805/22/2021 36 weeks gestatio n of pregnanc y;Practi ce ID: 0001 Radha bradley, [facility] 18:22:07 Single live from singleto n pregnanc y [id number] Completed 201805/22/2021 Single live ;Pr actice ID: 0001 Radha bradley, [facility] 18:20:37 Procedur e by method Completed 201905/22/2021 Encounte r for oth general cnsl and advice on contrace ption;Pr actice ID: 0001 Radha bradley, [facility] 18:21:33 Lochia finding Completed 201905/22/2021 Encounte r for routine postpart um follow-u p;Practi ce ID: 0001 Radha bradley, [facility] 18:21:43 Pregnanc y [id number] Completed 202011/14/2021 Shadia Lu [facility], [facility] 5 17:00:00 Pregnanc y [id number] Active 2024 Shadiameme Mitcheller [facility], [facility] 5 17:00:00 Precipit ate labor [id number] Active 2024 delivere d in car on last pregnanc y Raffy Mane MD [address], [place], [address], [place] [facility] 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 5 06:51:43 Iron deficien cy anemia [id number] Active 2024 Fe suppleme nt, recheck at 34 weeks KYRA GOULD MD [address], [place], [address], [place] [facility] 5 18:03:31 Problem Notes None recorded. Procedures Surgical History Date Name Laterality Status Provider Name and Address Organization Details Recorded Time 10/08/19 25 Date of Last Pap Smear completed Shadia Lu [facility] 11/02/2024 16:57:17 08/23/19 19 Cholecystectomy completed Ellen Tanner [facility] 08/23/2021 16:05:41 Cholecystectomy completed Latoya Tejeda [facility] 10/07/2024 15:24:22 Imaging Results None recorded. Procedure Notes None recorded. Medical Equipment None Reported. Allergies No known drug allergies Medications Name Sig Start Date Stop Date Status Note LastModified by Organization Details LastModified Time Mirena 21 mcg/24 hr (up to 8 years) 52 mg intrauter ine device 12/03 completed [facility] ed Elsewher e: Yes Loca tion: [facility] odify By: [email or web address] z Encoun ter DateTime : 05/21/20 17 11:45:00 AM Not Available Not Available Not Available Diflucan 150 mg tablet take 1 tablet by oral route once 11/11 completed [facility] ed Elsewher e: No Locat ion: [facility] odify By: [email or web address] trick En counter DateTime [...] Prescrib ed Elsewher e: No Locat ion: [facility] odify By: [email or web address] trick En counter DateTime : 01/15/20 12 08:28:05 AM Not Available Not Available Not Available Vitamin D2 1,250 mcg (50,000 unit) capsule take 1 capsule ([id number] ITS) by oral route every week 01/25 completed Prescrib ed Elsewher e: No Locat ion: [facility] odify By: ammona Boo ncounter DateTime : 10/17/19 16 01:42:07 PM [...] Prescrib ed Elsewher e: No Locat ion: [facility] odify By: sonia alexander DateTime : 04/15/20 13 01:00:00 PM Not Available Not Available Not Available Donald uo DHA 29 mg-1 mg-400 mg oral pack take 2 by Oral route every day 04/15 completed Prescrib ed Elsewher e: No Locat ion: [facility] odify By: [email or web address] trick En counter DateTime : 04/29/20 12 03:45:44 PM Not Available Not Available Not Available BIN PILER-PNV-DH A 28 mg iron-1 mg-200 mg capsule take 1 capsule by oral route every day 05/21 completed Prescrib ed Elsewher e: No Locat ion: [facility] odify By: kelsy Boo ncounter DateTime : 05/25/20 15 02:30:00 PM Not Available Not Available Not Available Diclegis 10 mg-10 mg tablet,de layed release 05/22 completed Not Available Not Available Not Available Minastrin 24 Fe 1 mg-20 mcg (24)/75 mg (4) chewable tablet chew 1 tablet by oral route every day 05/25 completed Prescrib ed Kwaku e: No Locat ion: [facility] Taylor mccann By: [email or web address] trick En counter DateTime : 11/12/19 01:30:00 PM Not Available Not Available Not Available Slynd 4 mg (28) tablet Take 1 tablet every day by oral route. 05/22 completed Not Available Not Available Not Available ID NOW COVID-19 Test Kit TEST DIRECTED TODAY 10/07 completed Not Available Not Available Not Available Vitals Date Recorded Body height Body mass index (BMI) Body weight Systolic And Diastolic Provider Name and Address Organization Details Last Updated DateTime 03/05/2025 172.72 cm 30.5 kg/m2 73786.63 g 114/76 mm[Hg] Latoya Tejeda [facility] 03/05/2025 15:24:00 Social History Question Answer Notes LastModified by Organizat ion Details LastModified Time Tobacco Smoking Status Never Smoker Faye Kathy bradley, [facility] 11/13/2021 15:42:19 Do You Have [...] Or The Highest Degree You Have Received? PV21219-0 Information not available 06/01/2021 Are There Any [...] anxious, or unable to sleep at night)? [id number] [email or web address] Information not available 06/01/2021 Family History Relationship Description Onset Age of this Age Resolved Age Notes LastModified by Organization Details LastModified Time Mother Multiple sclerosis [email or web address] Not available 2019 09:09:49 Maternal Grandfather Diabetes mellitus [email or web address] Not available 2019 09:10:00 Sister Polycystic ovary syndrome [email or web address] Not available 2023 14:01:01 Paternal Uncle Seizure disorder [email or web address] Not available 2023 14:01:01 Paternal Aunt Inflammatory disease of liver [email or web address] Not available 2023 14:01:01 Father Diabetes mellitus [email or web address] Not available 08/23 16:05:09 Medical History Condition [...] ICD10 Code Diagnosis IMO Codes Diagnosis Note [id number] Raffy Mane MD [place] [address],[facility] [place] [address] 02/18/2025 13:46:22 02/18/2025 14:50:08 care status [id number] Z34.83 [id number] Raffy Mane MD [place] [address],[facility] [place] [address] 03/05/2025 14:53:58 03/05/2025 17:56:54 Health Concerns Section Related Observation LastModified by Organization Detai ls LastModified Time None Recorded Concern Status LastModified by Organization Details LastModified Time None Recorded Payers Encounter Date Sequence Insurance Name Policy Number Policy Chavez Covered Member ID Chavez Member ID Guarantor Name 03/05/2025 1 [facility] (O) [id number] Vannessa Bowden [id number] Vannessa Bowden 03/05/2025 2 [facility] ON OR AFTER 12/22/20 (MEDICAID REPLACEMENT - HMO) Vannessa Bowden [id number] Vannessa Bowden Notes Date Note Type Note Provider Name and Address Organization Details Recorded Time 03/05/2025 text/html Generic HPI TemplateReported by Patient Raffy Mane MD [address], [place], [address], [facility] 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 Status 11/03/19 25 1 A Negative 173 OPEN Fetus Data First Name Last Name Admitted to NICU Weight (g) Sex Living Outcome Pediatric Complications Fetus ID Race Codes Race Delivery Type [id number] Problems Problem Notes Problem Name Start Date End Date Resolution Snomed Code Not e Administration of human anti-D immunoglobulin needed 11/04/2024 [id number] A neg rhogam @28wks Precipitate labor 11/02/2024 [id number] d elivered in car on last Past history of placental abruption [id number] History of previous intrauterine growth restricted [id number] Iron deficiency anemia 03/09/2025 000703 02 Fe supplement, recheck at 34 weeks [...] Weight in lbs Pre/Post Dialysis Refused Weight 176.044634258135 BP Diastolic BP Location Tested BP Systolic [...] Weight in lbs Pre/Post Dialysis Refused Weight 180.512691088337 BP Diastolic BP Location Tested BP Systolic [...] Type Weight in lbs Pre/Post Dialysis Refused 184.008807383662 BP Diastolic BP Location Tested BP Systolic [...] Type Weight in lbs Pre/Post Dialysis Refused 191.017690598173 BP Diastolic BP Location Tested BP Systolic [...] Type Weight in lbs Pre/Post Dialysis Refused 195.071748699679 BP Diastolic BP Location Tested BP Systolic [...] Weight in lbs Pre/Post Dialysis Refused Weight 200.406179567603 BP Diastolic BP Location Tested BP Systolic BP Type 76 L arm 114 sitting Fetus Heart Rate Present A 152 Present Fetus Movement A Yes Comments Flowsheet Date 03/09/2025 Oliver Score Blood Edema Fundus Height Fundus Units Glucose Ketones Leukocytes Nitrite Labor Signs Protein Cervic Dilation Cervic Effacement Cervic Station Type Weight in lbs Pre/Post Dialysis Refused Weight 200.188021030251 BP Diastolic BP Location Tested BP Systolic [...] Type Weight in lbs Pre/Post Dialysis Refused 200.915007974581 BP Diastolic BP Location Tested BP Systolic [...] Type Weight in lbs Pre/Post Dialysis Refused 203.08441476907 BP Diastolic BP Location Tested BP Systolic [...] Type Weight in lbs Pre/Post Dialysis Refused 204.679167078891 BP Diastolic BP Location Tested BP Systolic [...] Type Weight in lbs Pre/Post Dialysis Refused 208.441953282431 BP Diastolic BP Location Tested BP Systolic [...] Weight in lbs Pre/Post Dialysis Refused Weight 209.442860264352 BP Diastolic BP Location Tested BP Systolic [...]
--- OUTSIDE RECORDS SUMMARY | 2025-05-08 10:42 | XMS_ITS | Continuity of Care Document ---
Author Organization [facility], [facility] Address [address] [place] [address] Care Team Providers Care Demolition Crane Operator Name Role Phone ABYLO Primary Care Provider [phone] Assessment No assessment recorded. Plan of Treatment [...] nce of HIV infec tion. Not Available [facility] (Lab) [address], [place], [address], 11/03/2024 12:54:58 11/03/1911/02/2024 HEPAT ITIS B SURFA CE ANTIG EN hepatitis B surface antigen Non-re active non-re active This assay was perfo rmed using [employer] ratio n reage nts and test kits. Value s obtai jeromy with other assay metho ds or kits canno t be used inter merritt eably . Not Available [facility] (Lab) [address] [facility], [place], [address], 11/03/2024 12:54:59 11/03/19 25 11/02/2024 HEPAT ITIS C ANTIB BERYL SCREE N, REFLE X TO CONFI RMATI ON hepatitis C antibody Non-re active non-re active Antib odies to HCV Not Detec marline, does not exclu de the possi bilit y of expos ure to HCV. Not Available [facility] (Lab) [address] [facility] [facility], [place], [address], 11/03/2024 12:55:00 11/03/1911/02/2024 RUBEL LA IGG ANTIB BERYL, QUANT rubella antibodies, IgG Reacti ve reacti ve Not Available [facility] (Lab) [address] [facility], [place], [address], 11/03/2024 12:55:00 11/03/19 25 11/02/2024 RUBEL LA IGG ANTIB BERYL, QUANT rubella antibodies, IgG quant 20.6 IU/mL >=10 Non-r eacti ve (Non- Immun e) <10 IU/mL React shabbir (Immu ne) > or = 10 IU/mL Not Available [facility] (Lab) [address] [facility], [place], [address], 11/03/2024 12:55:00 11/03/19 25 11/02/2024 CBC W/DIF F WBC 9.4 10'3/ uL 3.5-10 .5 Not Available [facility] (Lab) [address] [place], [address], 11/03/2024 12:55:01 11/03/19 25 11/02/2024 CBC W/DIF F RBC 3.77 10'6/ uL (based on docume nted legal sex) 3.80-5 .20 low Not Available [facility] (Lab) [address], [place], [address], 11/03/2024 12:55:01 11/03/1911/02/2024 CBC W/DIF F HGB 12.4 g/dL (based on docume nted legal sex) 11.6-1 5.4 Not Available [facility] (Lab) [address], [place], [address], 11/03/2024 12:55:01 11/03/19 25 11/02/2024 CBC W/DIF F HCT 35.4 % (based on docume nted legal sex) 34.0-4 5.0 Not Available [facility] (Lab) [address], [place], [address], 11/03/2024 12:55:01 11/03/1911/02/2024 CBC W/DIF F MCV 93.9 fL 80.0-9 9.0 Not Available [facility] (Lab) [address], [place], [address], 11/03/2024 12:55:01 11/03/1911/02/2024 CBC W/DIF F MCH 32.9 pg 27.0-3 4.0 Not Available [facility] (Lab) [address], [place], [address], 11/03/2024 12:55:01 11/03/19 25 11/02/2024 CBC W/DIF F MCHC 35.0 g/dL 32.0-3 5.5 Not Available [facility] (Lab) [address], [place], [address], 11/03/2024 12:55:01 11/03/1911/02/2024 CBC W/DIF F RDW 13.2 % 11.0-1 5.0 Not Available [facility] (Lab) [address], [place], [address], 11/03/2024 12:55:01 11/03/19 25 11/02/2024 CBC W/DIF F plt 252 10'3/ uL 150-40 0 Not Available [facility] (Lab) [address] [facility], [place], [address], 11/03/2024 12:55:01 11/03/19 25 11/02/2024 CBC W/DIF F MPV 10.9 fL 8.8-12 .1 Not Available [facility] (Lab) [address] [facility], [place], [address], 11/03/2024 12:55:01 11/03/19 25 11/02/2024 CBC W/DIF F NRBC's 0.0 % 0.0 Not Available [facility] (Lab) [address] [facility], [place], [address], 11/03/2024 12:55:01 11/03/1911/02/2024 CBC W/DIF F absolute NRBCs 0.0 10'3/ uL no refere nce range establ ished Not Available [facility] (Lab) [address] [facility], [place], [address], 11/03/2024 12:55:01 11/03/19 25 11/02/2024 CBC W/DIF F neutrophils 75.0 % 34.0-7 3.0 high Not Available [facility] (Lab) [address], [place], [address], 11/03/2024 12:55:01 11/03/19 25 11/02/2024 CBC W/DIF F lymphocytes 17.0 % 15.0-5 0.0 Not Available [facility] (Lab) [address] [facility], [place], [address], 11/03/2024 12:55:01 11/03/19 25 11/02/2024 CBC W/DIF F monocytes 6.8 % 1.0-15 .0 Not Available [facility] (Lab) [address] [place], [address], 11/03/2024 12:55:01 11/03/19 25 11/02/2024 CBC W/DIF F eosinophils 0.6 % 0.0-8. 0 Not Available [facility] (Lab) [address], [place], [address], 11/03/2024 12:55:01 11/03/19 25 11/02/2024 CBC W/DIF F basophils 0.2 % 0.0-2. 0 Not Available [facility] (Lab) [address] [facility], [place], [address], 11/03/2024 12:55:01 11/03/19 25 11/02/2024 CBC W/DIF [...] separ ately if prese nt. Not Available [facility] (Lab) [address] , [place], [address], 11/03/2024 12:55:01 11/03/19 25 11/02/2024 CBC W/DIF F absolute neutrophils 7.0 10'3/ uL 1.5-8. 0 Not Available [facility] (Lab) [address], [place], [address], 11/03/2024 12:55:01 11/03/19 25 11/02/2024 CBC W/DIF F absolute lymphocytes 1.6 10'3/ uL 1.0-4. 0 Not Available [facility] (Lab) [address], [place], [address], 11/03/2024 12:55:01 11/03/19 25 11/02/2024 CBC W/DIF F absolute monocytes 0.6 10'3/ uL 0.2-1. 0 Not Available [facility] (Lab) [address], [place], [address], 11/03/2024 12:55:01 11/03/1911/02/2024 CBC W/DIF F absolute eosinophils 0.1 10'3/ uL 0.0-0. 6 Not Available [facility] (Lab) [address], [place], [address], 11/03/2024 12:55:01 11/03/1911/02/2024 CBC W/DIF F absolute basophils 0.0 10'3/ uL 0.0-0. 3 Not Available [facility] (Lab) [address], [place], [address], 11/03/2024 12:55:01 11/03/1911/02/2024 CBC W/DIF F absolute [...] vasquez book. nm.or g/gen derx Not Available [facility] (Lab) [address], [place], [address], 11/03/2024 12:55:01 11/03/1911/02/2024 TYPE/ RH/SC REEN ABO/Rh type A NEG Not Available [facility] (Lab) [address], [place], [address], 11/03/2024 12:55:02 11/03/1911/02/2024 TYPE/ RH/SC REEN antibody screen NEG Not Available [facility] (Lab) [address], [place], [address], 11/03/2024 12:55:02 11/03/1911/02/2024 TYPE/ RH/SC REEN exp date 2024 23:59 Not Available [facility] (Lab) [address], [place], [address], 11/03/2024 12:55:02 11/03/19 25 11/02/2024 HEMOG LOBIN [...] >8.0% Actio n sugge sted Not Available [facility] (Lab) [address] [facility], [place], [address], 11/03/2024 12:55:02 11/03/1911/02/2024 RPR SCREE N, REFLE X TITER /CONF IRMAT ION RPR qualitative Nonrea ctive nonrea ctive Not Available [facility] (Lab) [address] [facility], [place], [address], 11/03/2024 12:55:03 11/03/1911/02/2024 CULTU RE: URINE result report SEE RESULT S BELOW Test: Cultu re: Urine Speci men Sourc e: Urine Voide d Speci men Type: Urine Speci men Date: 2024 1723 Resul t Date: 2024 0338 Resul t Statu s: Final resul t Abnor mal: No Resul ting Lab: [facility] [address] [facility] [address] Tel: CULTU RE ----- ----- ----- --- No growt h in 1 day (dete ction level of 10,00 0 colon ies / ml.) Not Available [facility] (Lab) [address] [facility], [place], [address], 11/04/2024 04:43:17 02/19/20 25 02/18/2025 HEMAT OCRIT (HCT) HCT 32.0 % (based on docume nted legal sex) 34.0-4 5.0 low Not Available [facility] (Lab) [address] [facility], [place], [address], 02/19/2025 04:10:34 02/19/20 25 02/18/2025 HEMOG LOBIN (HGB) HGB 10.3 g/dL (based on docume nted legal sex) 11.6-1 5.4 low Not Available [facility] (Lab) [address] [place], [address], 02/19/2025 04:10:34 02/19/20 25 02/18/2025 GTT - GESTA MAYELIN L CHIDI Rivera, ACOG OB glucose, 1 hour screen 114 mg/dL 70-135 Not Available [facility] (Lab) [address] [place], [address], 02/19/2025 04:10:35 02/19/20 25 02/18/2025 HIV 1/2 ANTIG EN/AN TIBOD Y, REFLE X CONFI RMATI ON HIV antigen/anti body Nonrea ctive nonrea ctive HIV-1 antig en and HIV-1 /HIV- 2 antib odies were not detec marline. No labor atory evide nce of HIV infec tion. Not Available [facility] (Lab) [address] [place], [address], 02/19/2025 04:10:35 03/05/20 25 03/05/2025 RPR SCREE N, REFLE X TITER /CONF IRMAT ION RPR qualitative Nonrea ctive nonrea ctive Do not charg e a venip unctu re for this test. Test was misse d at last visit . Not Available [facility] (Lab) [address], [place], [address], 03/06/2025 11:08:08 11/03/19 25 11/02/2024 US, obste tric, nucha l trans lucen cy No observ ation record ed. [email or web address] [address], [place], [address], 11/02/2024 18:18:57 11/03/1911/02/2024 US, obste tric, follo w-up No observ ation record ed. Graciela [address], [place], [address], 11/03/2024 15:44:13 01/01/20 25 12/31/2024 US, obste tric, 2nd or 3rd trime ster No observ ation record ed. [email or web address] [address], [place], [address], 12/31/2024 16:14:45 01/01/2012/31/2024 US, obste tric, 2nd or 3rd trime ster No observ ation record ed. [email or web address] Gr[address]a [address], [place], [address], 01/03/2025 22:41:59 01/12/20 25 01/11/2025 US, obste tric, trans vagin al No observ ation record ed. [email or web address] [address], [place], [address], 01/11/2025 17:33:19 01/12/20 25 01/11/2025 US, obste tric, trans vagin al No observ ation record ed. [email or web address] Gr[address]a [address], [place], [address], 01/12/2025 22:12:23 03/24/2003/24/2025 US, obste tric, follo w-up No observ ation record ed. [email or web address] [address], [place], [address], 03/24/2025 13:36:18 03/24/2003/24/2025 US, obste tric, bioph ysica l profi le No observ ation record ed. [email or web address] [address], [place], [address], 03/24/2025 13:36:31 03/24/2003/24/2025 , obste tric, follo w-up No observ ation record ed. [email or web address] Gr[address], [place], [address], 03/26/2025 17:41:33 04/06/2004/06/2025 imagi ng/di agnos tic resul t No observ ation record ed. [email or web address] [address], [place], [address], 04/06/2025 13:11:41 04/06/2004/06/2025 , obste tric, limit ed No observ ation record ed. [email or web address] [address], [place], [address], 04/06/2025 11:40:14 Result Notes None recorded. Problems Name Problem SNOMED Code Status Onset Date Resolution Date Notes Provider Name and Address Organization Details Recorded Time History of growth retardat ion [id number] 9194 Completed wkly antenata l testing 32wks Graciela lund null, [facility] 2 13:05:39 Placenta l abruptio n - delivere d [id number] Completed 36wks Graciela lund null, [facility] 2 13:05:39 RhD negative 658367635 Completed Graciela lund [facility], [facility] 2 13:05:39 Past pregnanc y history of placenta l abruptio n 591151327 Active Shadia Lu [facility], [facility] 5 09:35:28 History of previous intraute rine growth restrict ed 4766104090 58177 Active Shadia Lu null, [facility] 5 09:35:56 Vaginiti s and vulvovag initis Completed 201105/22/2021 Vaginiti s and vulvovag initis, unspecif ied;Prac luis fernando ID: 0001 Radha Cloud [facility] 18:20:42 Pregnanc y test positive [id number] Completed 201105/22/2021 Positive Pregnanc y Test;Pra ctice ID: 0001 Radha Cloud [facility], [facility] 18:21:18 Screenin g for malignan t neoplasm of cervix Completed 201105/22/2021 Pap Smear;Pr actice ID: 0001 Radha bradley, [facility] 18:20:40 anatomy study Completed 201105/22/2021 [facility] ANATMC SURVEY;P ractice ID: 0001 Radha bradley, [facility] 18:21:26 Primigra bryan [id number] Completed 201105/22/2021 Supervis ion of normal first pregnanc y;Practi ce ID: 0001 Radha bradlye, [facility] 18:20:25 malforma tion of central nervous system affectin g obstetri georges care [id number] Completed 201205/22/2021 Central nervous system malforma tion in fetus, antepart um;Recor ded Elsewher e: No Locat ion: Nannette oglesby [facility] S ource: EHR Supervisor Riprap Placing mohsen: N Practi ce ID: 0001 David lable Time: 11:00:00 AM Radha bradley, [facility] 18:20:33 Delivery normal [id number] Completed 201205/22/2021 Normal delivery ;Practic e ID: 0001 Radha bradley, [facility] 18:21:56 Postpart um care Completed 201205/22/2021 Routine postpart um follow-u p;Practi ce ID: 0001 Radha bradley, [facility] 18:20:27 First degree perineal lacerati on [id number] Completed 201205/22/2021 First-de gree perineal lacerati on, unspecif ied as to episode of care in pregnanc y;Practi ce ID: 0001 Radha bradley, [facility] 18:22:05 Educatio n Completed 201205/22/2021 Counseli ng contrace ptive manageme nt;Pract ice ID: 0001 Radha bradley, [facility] 18:21:58 Speciali zed medical examinat ion Completed 201205/22/2021 Routine gynecolo gical examinat ion;Prac luis fernando ID: 0001 Radha bradley, [facility] 18:22:00 Pregnanc y test negative [id number] Completed 201205/22/2021 Negative Pregnanc y Test;Pra ctice ID: 0001 Radha bradley, [facility] 18:21:19 Candidal vulvovag initis 71231158 Completed 201305/22/2021 Candidia sis of vulva and vagina;P ractice ID: 0001 Radha bradley [facility] 18:22:13 Proteinu mary [id number] Completed 201305/22/2021 Proteinu mary;Prac luis fernando ID: 0001 Radha bradley [facility] 18:21:28 Leukorrh ea 804840360 Completed 201305/22/2021 Leukorrh ea, not specifie d as infectiv e;Record ed Elsewher e: No Locat ion: [facility] S ource: EHR Supervisor Riprap Placing mohsen: N Practi ce ID: 0001 David lable Time: 03:00:00 PM Radha bradley [facility] 18:21:00 Adult health examinat ion Completed 201405/22/2021 Routine general medical examinat ion at a health care facility ;Practic e ID: 0001 Radha bradley [facility] 18:21:22 Speciali zed medical examinat ion Completed 201405/22/2021 Other specifie d chlamydi al diseases ;Practic e ID: 0001 Radha bradley [facility] 18:22:01 Venereal disease screenin g Completed 201405/22/2021 Screenin g examinat ion for venereal disease; Practice ID: 0001 Radhajeane bradley [facility] 18:20:39 Secondar y amenorrh ea [id number] Completed 201405/22/2021 Secondar y amenorrh ea;Pract ice ID: 0001 Radha bradley [facility] 11/29/202 1 18:20:35 Pregnanc y detectio n examinat ion Completed 201405/22/2021 Encounte r for pregnanc y test, result positive ;Practic e ID: 0001 Radha Marilla mirna, [facility] 18:22:14 Uterine size for dates discrepa ncy Completed 201405/22/2021 Uterine size-ivet e discrepa ncy, first trimeste r;Practi ce ID: 0001 Radha Marilla mirna, [facility] 18:21:04 Gestatio n period, 8 weeks [id number] Completed 201405/22/2021 8 weeks gestatio n of pregnanc y;Practi ce ID: 0001 Radha Pedro Luis bradley, [facility] 18:21:21 Pregnanc y, childbir th and puerperi um finding Completed 201505/22/2021 Encntr for suprvsn of normal first preg, first trimeste r;Practi ce ID: 0001 Radha Pedro Luis bradley, [facility] 18:21:40 Pregnanc y, childbir th and puerperi um finding Completed 201505/22/2021 Encntr for suprvsn of normal first preg, third trimeste r;Practi ce ID: 0001 Radha Marilla mirna, [facility] 18:21:42 finding Completed 201505/22/2021 Matern care for oth or susp poor fetl grth, 2nd tri, unsp;Pra ctice ID: 0001 Radha Marilla mirna, [facility] 18:21:07 Gestatio n period, 27 weeks [id number] Completed 201505/22/2021 27 weeks gestatio n of pregnanc y;Practi ce ID: 0001 Radha Pedro Luis bradley, [facility] 18:21:55 Gestatio n period, 31 weeks [id number] Completed 201505/22/2021 31 weeks gestatio n of pregnanc y;Practi ce ID: 0001 Radha bradley, [facility] 18:22:08 Gestatio n period, 34 weeks [id number] Completed 201505/22/2021 34 weeks gestatio n of pregnanc y;Practi ce ID: 0001 Radha bradley, [facility] 18:20:29 finding Completed 201505/22/2021 Matern care for oth or susp poor fetl grth, third tri, fts1;Pra ctice ID: 0001 Radha bradley, [facility] 18:21:11 Gestatio n period, 37 weeks [id number] Completed 201505/22/2021 37 weeks gestatio n of pregnanc y;Practi ce ID: 0001 Radha Cloud mirna, [facility] 18:21:51 Gestatio n period, 38 weeks [id number] Completed 201505/22/2021 38 weeks gestatio n of pregnanc y;Practi ce ID: 0001 Radha Cloud mirna, [facility] 18:20:31 Term pregnanc y delivere d [id number] Completed 201505/22/2021 Encounte r for full-ter m uncompli cated delivery ;Practic e ID: 0001 Radha Cloud mirna, [facility] 18:20:45 Finding of regulari ty of menstrua l cycle Completed 201505/22/2021 Irregula r menstrua tion, unspecif ied;Prac luis fernando ID: 0001 [facility]:20:[address] Concept Completed 201605/22/2021 Encntr for home care consultant exam (general ) (routine ) w/o abn findings ;Practic e ID: 0001 Radha bradley [facility] 18:21:31 Syphilis test finding [id number] Completed 201605/22/2021 Encntr screen for infectio ns w sexl mode of transmis s;Record ed Elsewher e: No Locat ion: [facility] S ource: EHR Supervisor Riprap Placing mohsen: N Practi ce ID: 0001 David lable Time: 03:15:00 PM [facility] 18:21:50 Infectio n screenin g Completed 201605/22/2021 Encounte r for screenin g for oth infec/pa rastc diseases ;Recorde d Elsewher e: No Locat ion: [facility] S ource: EHR Supervisor Riprap Placing mohsen: N Practi ce ID: 0001 David lable Time: 03:15:00 PM Radha bradley [facility] 18:21:14 Insertio n of intraute rine contrace ptive device Completed 201605/22/2021 Encounte r for insertio n of intraute rine contrace ptive device;P ractice ID: 0001 Radha bradley [facility] 18:22:10 Clinical finding Completed 201605/22/2021 Presence of (intraut erine) contrace ptive device;R ecorded Elsewher e: No Locat ion: [facility] S ource: EHR Supervisor Riprap Placing mohsen: N Practi ce ID: 0001 David lable Time: 08:00:00 AM [facility] 18:21:45 Contrace ptive sheath status [id number] Completed 201605/22/2021 Encounte r for routine checking of intraute rine contrace p dev;Prac luis fernando ID: 0001 Radha bradley, [facility] 18:21:16 Gestatio n period, 11 weeks [id number] Completed 201805/22/2021 11 weeks gestatio n of pregnanc y;Practi ce ID: 0001 Radha bradley, [facility] 18:22:03 Antenata l screenin g Completed 201805/22/2021 Encounte r for antenata l screenin g for nuchal transluc ency;Pra ctice ID: 0001 Radha bradley, [facility] 18:21:13 Pregnanc y-induce d hyperten russell Completed 201805/22/2021 Gestatio nal hyperten russell w/o signific ant proteinu mary, 2nd trimeste r;Record ed Elsewher e: No Locat ion: [facility] S ource: EHR Supervisor Riprap Placing mohsen: N Practi ce ID: 0001 David lable Time: 02:30:00 PM Radha bradley, [facility] 18:21:02 Antenata l screenin g for malforma tion Completed 201805/22/2021 Encounte r for antenata l screenin g for malforma tions;Pr actice ID: 0001 Radha bradley, [facility] 18:22:11 Placenta previa [id number] Completed 201805/22/2021 Placenta previa specifie d as w/o hemor, second trimeste r;Record ed Elsewher e: No Locat ion: [facility] S ource: EHR Supervisor Riprap Placing mohsen: N Practi ce ID: 0001 David lable Time: 01:00:00 PM Radha bradley, [facility] 18:21:48 Gestatio n period, 24 weeks [id number] Completed 201805/22/2021 24 weeks gestatio n of pregnanc y;Record ed Elsewher e: No Locat ion: Nannette oglesby [facility] S ource: EHR Supervisor Riprap Placing mohsen: N Practi ce ID: 0001 David lable Time: 01:00:00 PM Radha bradley, [facility] 18:21:29 Normal pregnanc y in multigra bryan [id number] Completed 201805/22/2021 Encounte r for suprvsn of normal pregnanc y, third trimeste r;Practi ce ID: 0001 Radha bradley, [facility] 18:21:53 Uterine size for dates discrepa ncy Completed 201805/22/2021 Uterine size-ivet e discrepa ncy, third trimeste r;Practi ce ID: 0001 Radha Cloud null, [facility] 18:21:06 Gestatio n period, 35 weeks [id number] Completed 201805/22/2021 35 weeks gestatio n of pregnanc y;Practi ce ID: 0001 Radha Cloud mirna, [facility] 18:22:15 finding Completed 201805/22/2021 Matern care for oth or susp poor fetl grth, third tri, unsp;Pra ctice ID: 0001 Radha Cloud mirna, [facility] 18:21:09 Gestatio n period, 36 weeks [id number] Completed 201805/22/2021 36 weeks gestatio n of pregnanc y;Practi ce ID: 0001 Radha Pedro Luis mirna, [facility] 18:22:07 Single live from jerryo n pregnanc y [id number] Completed 201805/22/2021 Single live ;Pr actice ID: 0001 Radha bradley, [facility] 18:20:37 Procedur e by method Completed 201905/22/2021 Encounte r for oth general cnsl and advice on contrace ption;Pr actice ID: 0001 Radha bradley, [facility] 18:21:33 Lochia finding Completed 201905/22/2021 Encounte r for routine postpart um follow-u p;Practi ce ID: [id number] Radha Cloud [facility], [facility] 18:21:43 Pregnanc y [id number] Completed 202011/14/2021 Shadia Lu [facility], [facility] 5 17:00:00 Pregnanc y [id number] Active 2024 Shadia Lu [facility], [facility] 5 17:00:00 Precipit ate labor 06124742 Active 2024 delivere d in car on last pregnanc y Raffy Mane MD [address], [place], [address], [facility] 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 5 06:51:43 Iron deficien cy anemia 05157020 Active 2024 Fe suppleme nt, recheck at 34 weeks KYRA GOULD MD [address], [place], [address], [facility] 5 18:03:31 Problem Notes None recorded. Procedures Surgical History Date Name Laterality Status Provider Name and Address Organization Details Recorded Time 10/08/19 25 Date of Last Pap Smear completed Shadia Lu [facility] 11/02/2024 16:57:17 08/23/19 19 Cholecystectomy completed Ellen Tanner [facility] 08/23/2021 16:05:41 Cholecystectomy completed Latoya Tejeda [facility] 10/07/2024 15:24:22 Imaging Results None recorded. Procedure Notes None recorded. Medical Equipment None Reported. Allergies No known drug allergies Medications Name Sig Start Date Stop Date Status Note LastModified by Organization Details LastModified Time Mirena 21 mcg/24 hr (up to 8 years) 52 mg intrauter ine device 12/03 completed [facility] ed Elsewher e: Yes Loca tion: [facility] odify By: [email or web address] z Encoun ter DateTime : 05/21/20 17 11:45:00 AM Not Available Not Available Not Available Diflucan 150 mg tablet take 1 tablet by oral route once 11/11 completed [facility] ed Elsewher e: No Locat ion: [facility] odify By: [email or web address] morton En counter DateTime [...] route every day at bedtime 04/14 completed [facility] [facility] ed Elsewher e: No Locat ion: [facility] odify By: [email or web address] trick En counter DateTime : 01/15/20 12 08:28:05 AM Not Available Not Available Not Available Vitamin D2 1,250 mcg (50,000 unit) capsule take 1 capsule (04853WI ITS) by oral route every week 01/25 completed Prescrib ed Elsewher e: No [facility]at [facility] odify By: [email or web address] Oglesby ncounter DateTime : [...] Prescrib ed Elsewher e: No Locat ion: [facility] odify By: sonia alexander DateTime : 04/15/20 13 01:00:00 PM Not Available Not Available Not Available Triveen-Richard uo DHA 29 mg-1 mg-400 mg oral pack take 2 by Oral route every day 04/15 completed Prescrib ed Elsewher e: No Locat ion: [facility] odify By: [email or web address] trick En counter DateTime : 04/29/20 12 03:45:44 PM Not Available Not Available Not Available DOT COMPLIANCE COORDINATOR-PNV-DH A 28 mg iron-1 mg-200 mg capsule take 1 capsule by oral route every day 05/21 completed Prescrib ed Elsewher e: No Locat ion: [facility] odify By: [email or web address] Oglesby ncounter DateTime : 05/25/20 15 02:30:00 PM Not Available Not Available Not Available Diclegis 10 mg-10 mg tablet,de layed release 05/22 completed Not Available Not Available Not Available Minastrin 24 Fe 1 mg-20 mcg (24)/75 mg (4) chewable tablet chew 1 tablet by oral route every day 05/25 completed Prescrib ed Elsewher e: No [facility] By: [email or web address] trick En counter [...] and Address Organization Details Last Updated DateTime 03/09/2025 172.72 cm 30.4 kg/m2 76316.47 g 110/74 mm[Hg] Candice Malik [facility] 03/09/2025 17:45:30 Social History Question Answer Notes LastModified by Organizat ion Details LastModified Time Tobacco Smoking Status Never Smoker Faye bradley, [facility] 11/13/2021 15:42:19 Do You Have An [...] Or The Highest Degree You Have Received? CV98886-4 Information not available 06/01/2021 Are There Any [...] anxious, or unable to sleep at night)? QT8056-0 Information not available 06/01/2021 Family History Relationship Description Onset Age of this Age Resolved Age Notes LastModified by Organization Details LastModified Time Mother Multiple sclerosis [email or web address] Not available 2019 09:09:49 Maternal Grandfather Diabetes mellitus [email or web address] Not available 2019 09:10:00 Sister Polycystic ovary syndrome [email or web address] Not available 2023 14:01:01 Paternal Uncle Seizure disorder [email or web address] Not available 2023 14:01:01 Paternal Aunt Inflammatory disease of liver [email or web address] Not available 2023 14:01:01 Father Diabetes mellitus [email or web address] Not available 08/23 16:05:09 Medical History Condition [...] ICD10 Code Diagnosis IMO Codes Diagnosis Note [id number] Raffy Mane MD [facility] [address] [address] 02/18/2025 13:46:22 02/18/2025 14:50:08 care status 377651735 Z34.83 [id number] Raffy Mane MD [facility] [address],[facility] [place] [address] 03/05/2025 14:53:58 03/05/2025 17:56:54 [id number] KYRA GOULD MD [facility] [address],[facility] [place] [address] 03/09/2025 17:40:12 03/09/2025 18:06:45 History of previous intrauterine growth restricted 0924871655 43484 Z87.59 09807985 Past pregn loki history of placental abruption 234496191 Z87.59 95329721 Iron defic iency anemia 56015450 D50.9 20634838 Gestation period, 30 weeks 71122420 Z3A.30 [id number] Health Concerns Section Related Observation LastModified by Organization Detai ls LastModified Time None Recorded Concern Status LastModified by Organization Details LastModified Time None Recorded Payers Encounter Date Sequence Insurance Name Policy Number Policy Chavez Covered Member ID Chavez Member ID Guarantor Name 03/09/2025 1 [facility] ([facility]) [id number] Vannessa Bowden [id number] Vannessa Bowden 03/09/2025 2 [facility] - DOS ON OR AFTER 20 (MEDICAID REPLACEMENT - HMO) Vannessa Bowden [id number] Vannessa Bowden Notes Date Note Type Note Provider Name and Address Organization Details Recorded Time 03/09/2025 text/html Generic HPI TemplateReported by Patient KYRA GOULD MD [address], [place], [address], [facility] 03/09/2025 18:03:54 OBGyn Episode Ob Episode Information Episode Created Date Number of Fetuses Patient Bloodtype Patient rh Status Prepregnancy Weight lbs Domestic Partner Domestic Partner Phone Father Name Bottom Man Status 11/03/19 1 A Negative 173 OPEN Fetus Data First Name Last Name Admitted to NICU Weight (g) Sex Living Outcome Pediatric Complications Fetus ID Race Codes Race Delivery Type [id number] Problems Problem Notes Problem Name Start Date End Date Resolution Snomed Code Not e Administration of human anti-D immunoglobulin needed 11/04/2024 [id number] A neg rhogam @28wks Precipitate labor 11/02/2024 23321065 d elivered in car on last Past history of placental abruption 176905983 History of previous intrauterine growth restricted 262375132102154 Iron deficiency anemia 03/09/2025 715477 02 Fe supplement, recheck at 34 weeks [...] Weight in lbs Pre/Post Dialysis Refused Weight 176.151984610294 BP Diastolic BP Location Tested BP Systolic [...] Weight in lbs Pre/Post Dialysis Refused Weight 180.701062293353 BP Diastolic BP Location Tested BP Systolic [...] Type Weight in lbs Pre/Post Dialysis Refused 184.235006242732 BP Diastolic BP Location Tested BP Systolic [...] Type Weight in lbs Pre/Post Dialysis Refused 191.852151627858 BP Diastolic BP Location Tested BP Systolic [...] Type Weight in lbs Pre/Post Dialysis Refused 195.874912427158 BP Diastolic BP Location Tested BP Systolic [...] Weight in lbs Pre/Post Dialysis Refused Weight 200.589622948824 BP Diastolic BP Location Tested BP Systolic BP Type 76 L arm 114 sitting Fetus Heart Rate Present A 152 Present Fetus Movement A Yes Comments Flowsheet Date 03/09/2025 Oliver Score Blood Edema Fundus Height Fundus Units Glucose Ketones Leukocytes Nitrite Labor Signs Protein Cervic Dilation Cervic Effacement Cervic Station Type Weight in lbs Pre/Post Dialysis Refused Weight 200.000776142933 BP Diastolic BP Location Tested BP Systolic [...] Type Weight in lbs Pre/Post Dialysis Refused 200.195100006960 BP Diastolic BP Location Tested BP Systolic [...] Type Weight in lbs Pre/Post Dialysis Refused 203.55265295158 BP Diastolic BP Location Tested BP Systolic [...] Type Weight in lbs Pre/Post Dialysis Refused 204.014346900612 BP Diastolic BP Location Tested BP Systolic [...] Type Weight in lbs Pre/Post Dialysis Refused 208.652076189404 BP Diastolic BP Location Tested BP Systolic [...] Weight in lbs Pre/Post Dialysis Refused Weight 209.458285651268 BP Diastolic BP Location Tested BP Systolic [...]
--- OUTSIDE RECORDS SUMMARY | 2025-05-08 10:42 | XMS_ITS | Continuity of Care Document ---
Author Organization [facility] Address [address] [place] [address] Care Team Providers Care Environmental Field Technician Name Role Phone ABYLO Primary Care Provider [...] None recorded. Surgeries None recorded. Imaging US, obstetric , limited 2024 025 [email or web address] [place], [address], [address], [place], [address], 04/06/2025 11:41:44 Medication Orders None recorded. Patient TargetsNo targets [...] nce of HIV infec tion. Not Available [facility] (Lab) [address], [place], [address], 11/03/2024 12:54:58 11/03/1911/02/2024 HEPAT ITIS B SURFA CE ANTIG EN hepatitis B surface antigen Non-re active non-re active This assay was perfo rmed using [employer] ratio n reage nts and test kits. Value s obtai jeromy with other assay metho ds or kits canno t be used inter merritt eably . Not Available [facility] (Lab) [address], [place], [address], 11/03/2024 12:54:59 11/03/1911/02/2024 HEPAT ITIS C ANTIB BERYL SCREE N, REFLE X TO CONFI RMATI ON hepatitis C antibody Non-re active non-re active Antib odies to HCV Not Detec marline, does not exclu de the possi bilit y of expos ure to HCV. Not Available [facility] (Lab) [address], [place], [address], 11/03/2024 12:55:00 11/03/19 25 11/02/2024 RUBEL LA IGG ANTIB BERYL, QUANT rubella antibodies, IgG Reacti ve reacti ve Not Available [facility] (Lab) [address] , [place], [address], 11/03/2024 12:55:00 11/03/19 25 11/02/2024 RUBEL LA IGG ANTIB BERYL, QUANT rubella antibodies, IgG quant 20.6 IU/mL >=10 Non-r eacti ve (Non- Immun e) <10 IU/mL React shabbir (Immu ne) > or = 10 IU/mL Not Available [facility] (Lab) [address], [place], [address], 11/03/2024 12:55:00 11/03/19 25 11/02/2024 CBC W/DIF F WBC 9.4 10'3/ uL 3.5-10 .5 Not Available [facility] (Lab) [address] [place], [address], 11/03/2024 12:55:01 11/03/19 25 11/02/2024 CBC W/DIF F RBC 3.77 10'6/ uL (based on docume nted legal sex) 3.80-5 .20 low Not Available [facility] (Lab) [address], [place], [address], 11/03/2024 12:55:01 11/03/1911/02/2024 CBC W/DIF F HGB 12.4 g/dL (based on docume nted legal sex) 11.6-1 5.4 Not Available [facility] (Lab) [address], [place], [address], 11/03/2024 12:55:01 11/03/1911/02/2024 CBC W/DIF F HCT 35.4 % (based on docume nted legal sex) 34.0-4 5.0 Not Available [facility] (Lab) [address], [place], [address], 11/03/2024 12:55:01 11/03/1911/02/2024 CBC W/DIF F MCV 93.9 fL 80.0-9 9.0 Not Available [facility] (Lab) [address], [place], [address], 11/03/2024 12:55:01 11/03/1911/02/2024 CBC W/DIF F MCH 32.9 pg 27.0-3 4.0 Not Available [facility] (Lab) [address], [place], [address], 11/03/2024 12:55:01 11/03/1911/02/2024 CBC W/DIF F MCHC 35.0 g/dL 32.0-3 5.5 Not Available [facility] (Lab) [address], [place], [address], 11/03/2024 12:55:01 11/03/19 25 11/02/2024 CBC W/DIF F RDW 13.2 % 11.0-1 5.0 Not Available [facility] (Lab) [address], [place], [address], 11/03/2024 12:55:01 11/03/1911/02/2024 CBC W/DIF F plt 252 10'3/ uL 150-40 0 Not Available [facility] (Lab) [address], [place], [address], 11/03/2024 12:55:01 11/03/19 25 11/02/2024 CBC W/DIF F MPV 10.9 fL 8.8-12 .1 Not Available [facility] (Lab) [address], [place], [address], 11/03/2024 12:55:01 11/03/19 25 11/02/2024 CBC W/DIF F NRBC's 0.0 % 0.0 Not Available [facility] (Lab) [address], [place], [address], 11/03/2024 12:55:01 11/03/1911/02/2024 CBC W/DIF F absolute NRBCs 0.0 10'3/ uL no refere nce range establ ished Not Available [facility] (Lab) [address], [place], [address], 11/03/2024 12:55:01 11/03/1911/02/2024 CBC W/DIF F neutrophils 75.0 % 34.0-7 3.0 high Not Available [facility] (Lab) [address], [place], [address], 11/03/2024 12:55:01 11/03/1911/02/2024 CBC W/DIF F lymphocytes 17.0 % 15.0-5 0.0 Not Available [facility] (Lab) [address] [place], [address], 11/03/2024 12:55:01 11/03/19 25 11/02/2024 CBC W/DIF F monocytes 6.8 % 1.0-15 .0 Not Available [facility] (Lab) [address], [place], [address], 11/03/2024 12:55:01 11/03/1911/02/2024 CBC W/DIF F eosinophils 0.6 % 0.0-8. 0 Not Available [facility] (Lab) [address] [facility], [place], [address], 11/03/2024 12:55:01 11/03/1911/02/2024 CBC W/DIF F basophils 0.2 % 0.0-2. 0 Not Available [facility] (Lab) [address] [facility], [place], [address], 11/03/2024 12:55:01 11/03/19 25 11/02/2024 CBC W/DIF [...] separ ately if prese nt. Not Available [facility] (Lab) [address], [place], [address], 11/03/2024 12:55:01 11/03/1911/02/2024 CBC W/DIF F absolute neutrophils 7.0 10'3/ uL 1.5-8. 0 Not Available [facility] (Lab) [address] [place], [address], 11/03/2024 12:55:01 11/03/19 25 11/02/2024 CBC W/DIF F absolute lymphocytes 1.6 10'3/ uL 1.0-4. 0 Not Available [facility] (Lab) [address], [place], [address], 11/03/2024 12:55:01 11/03/19 25 11/02/2024 CBC W/DIF F absolute monocytes 0.6 10'3/ uL 0.2-1. 0 Not Available [facility] (Lab) [address] [facility], [place], [address], 11/03/2024 12:55:01 11/03/1911/02/2024 CBC W/DIF F absolute eosinophils 0.1 10'3/ uL 0.0-0. 6 Not Available [facility] (Lab) [address] [facility], [place], [address], 11/03/2024 12:55:01 11/03/19 25 11/02/2024 CBC W/DIF F absolute basophils 0.0 10'3/ uL 0.0-0. 3 Not Available [facility] (Lab) [address] [facility], [place], [address], 11/03/2024 12:55:01 11/03/1911/02/2024 CBC W/DIF F absolute immature granulocytes 0.0 10'3/ uL 0.00-0 .10 Refer ence range s for nonbi nary/ inter sex or unspe cifie d gende r patie nts have not been estab lishe d. Pleas e [facility] for range s estab lishe d for cisge nder patie nts and evalu ate in the clini georges elyssa xt of the indiv idual patie nt: https ://izzy vasquez book. nm.or g/gen derx Not Available [facility] (Lab) [address], [place], [address], 11/03/2024 12:55:01 11/03/1911/02/2024 TYPE/ RH/SC REEN ABO/Rh type A NEG Not Available [facility] (Lab) [address] , [place], [address], 11/03/2024 12:55:02 11/03/19 11/02/2024 TYPE/ RH/SC REEN antibody screen NEG Not Available [facility] (Lab) [address] [facility], [place], [address], 11/03/2024 12:55:02 11/03/19 25 11/02/2024 TYPE/ RH/SC REEN exp date 2024 23:59 Not Available [facility] (Lab) [address] [facility], [place], [address], 11/03/2024 12:55:02 11/03/19 25 11/02/2024 HEMOG LOBIN [...] >8.0% Actio n sugge sted Not Available [facility] (Lab) [address] [facility], [place], [address], 11/03/2024 12:55:02 11/03/1911/02/2024 RPR SCREE N, REFLE X TITER /CONF IRMAT ION RPR qualitative Nonrea ctive nonrea ctive Not Available [facility] (Lab) [address] [facility], [place], [address], 11/03/2024 12:55:03 11/03/1911/02/2024 CULTU RE: URINE result report SEE RESULT S BELOW Test: Cultu re: Urine Speci men Sourc e: Urine Voide d Speci men Type: Urine Speci men Date: 2024 1723 Resul t Date: 2024 0338 Resul t Statu s: Final resul t Abnor mal: No Resul ting Lab: [facility] [address] [facility] [address] Tel: CULTU RE ----- ----- ----- --- No growt h in 1 day (dete ction level of 10,00 0 colon ies / ml.) Not Available [facility] (Lab) [address] [facility], [place], [address], 11/04/2024 04:43:17 02/19/2002/18/2025 HEMAT OCRIT (HCT) HCT 32.0 % (based on docume nted legal sex) 34.0-4 5.0 low Not Available [facility] (Lab) [address] [facility], [place], [address], 02/19/2025 04:10:34 02/19/20 25 02/18/2025 HEMOG LOBIN (HGB) HGB 10.3 g/dL (based on docume nted legal sex) 11.6-1 5.4 low Not Available [facility] (Lab) [address] [facility], [place], [address], 02/19/2025 04:10:34 02/19/20 25 02/18/2025 GTT - GESTA MAYELIN L SCREE N, ACOG OB glucose, 1 hour screen 114 mg/dL 70-135 Not Available [facility] (Lab) [address] [place], [address], 02/19/2025 04:10:35 02/19/20 25 02/18/2025 HIV 1/2 ANTIG EN/AN TIBOD Y, REFLE X CONFI RMATI ON HIV antigen/anti body Nonrea ctive nonrea ctive HIV-1 antig en and HIV-1 /HIV- 2 antib odies were not detec marline. No labor atory evide nce of HIV infec tion. Not Available [facility] (Lab) [address] [place], [address], 02/19/2025 04:10:35 03/05/20 25 03/05/2025 RPR SCREE N, REFLE X TITER /CONF IRMAT ION RPR qualitative Nonrea ctive nonrea ctive Do not charg e a venip unctu re for this test. Test was misse d at last visit . Not Available [facility] (Lab) [address], [place], [address], 03/06/2025 11:08:08 11/03/19 25 11/02/2024 US, obste tric, nucha l trans lucen cy No observ ation record ed. [email or web address] [facility] [address], [place], [address], 11/02/2024 18:18:57 11/03/19 25 11/02/2024 US, obste tric, follo w-up No observ ation record ed. Graciela [address], [place], [address], 11/03/2024 15:44:13 01/01/20 25 12/31/2024 US, obste tric, 2nd or 3rd trime ster No observ ation record ed. [email or web address] [facility] [address], [place], [address], 12/31/2024 16:14:45 01/01/20 25 12/31/2024 US, obste tric, 2nd or 3rd trime ster No observ ation record ed. [email or web address] [address], [place], [address], 01/03/2025 22:41:59 01/12/20 25 01/11/2025 US, obste tric, trans vagin al No observ ation record ed. [email or web address] [facility] [address], [place], [address], 01/11/2025 17:33:19 07/01/11/2025 US, obste tric, trans vagin al No observ ation record ed. Graciela [address], [place], [address], 01/12/2025 22:12:23 03/24/2003/24/2025 US, obste tric, follo w-up No observ ation record ed. [email or web address] [facility] [address], [place], [address], 03/24/2025 13:36:18 03/24/2003/24/2025 , obste tric, bioph ysica l profi le No observ ation record ed. [email or web address] [place] [address], [place], [address], 03/24/2025 13:36:31 03/24/2003/24/2025 , obste tric, follo w-up No observ ation record ed. [email or web address] [address], [place], [address], 03/26/2025 17:41:33 04/06/2004/06/2025 imagi ng/di agnos tic resul t No observ ation record ed. [email or web address] [address], [place], [address], 04/06/2025 13:11:41 04/06/2004/06/2025 , obste tric, limit ed No observ ation record ed. [email or web address] [facility] [address], [place], [address], 04/06/2025 11:40:14 Result Notes None recorded. Problems Name Problem SNOMED Code Status Onset Date Resolution Date Notes Provider Name and Address Organization Details Recorded Time History of growth retardat ion [id number] Completed wkly antenata l testing 32wks Graciela lund [facility], [facility] 2 13:05:39 Placenta l abruptio n - delivere d [id number] Completed 36wks Graciela lund null, [facility] 2 13:05:39 RhD negative 110304582 Completed Graciela lund null, [facility] 2 13:05:39 Past pregnanc y history of placenta l abruptio n 995854293 Active Shadia Lu [facility], [facility] 5 09:35:28 History of previous intraute rine growth restrict ed [id number] 72859 Active Shadia Lu null, [facility] 5 09:35:56 Vaginiti s and vulvovag initis Completed 201105/22/2021 Vaginiti s and vulvovag initis, unspecif ied;Prac luis fernando ID: 0001 Radha Cloud [facility], [facility] 18:20:42 Pregnanc y test positive [id number] Completed 201105/22/2021 Positive Pregnanc y Test;Pra ctice ID: 0001 Radha bradley, [facility] 18:21:18 Screenin g for malignan t neoplasm of cervix Completed 201105/22/2021 Pap Smear;Pr actice ID: 0001 Radha bradley, [facility] 18:20:40 anatomy study Completed 201105/22/2021 [facility] ANATMC SURVEY;P maddietice ID: 0001 Radha bradley, [facility] 18:21:26 Primigra bryan [id number] Completed 201105/22/2021 Supervis ion of normal first pregnanc y;Practi ce ID: 0001 Radha bradley, [facility] 18:20:25 malforma tion of central nervous system affectin g obstetri [facility] care [id number] Completed 201205/22/2021 Central nervous system malforma tion in fetus, antepart um;Recor ded Elsewher e: No Locat ion: [facility] S ource: [employer] Field Technician mohsen: N Practi ce ID: 0001 David lable Time: 11:00:00 AM Radha bradley, [facility] 18:20:33 Delivery normal [id number] Completed 201205/22/2021 Normal delivery ;Practic e ID: 0001 Radha bradley, [facility] 18:21:56 Postpart um care Completed 201205/22/2021 Routine postpart um follow-u p;Practi ce ID: 0001 Radha bradley, [facility] 18:20:27 First degree perineal lacerati on [id number] Completed 201205/22/2021 First-de gree perineal lacerati on, unspecif ied as to episode of care in pregnanc y;Practi ce ID: 0001 Radha bradley [facility] 18:22:05 Educatio n Completed 201205/22/2021 Counseli ng contrace ptive manageme nt;Pract ice ID: 0001 Radha bradley, [facility] 18:21:58 Speciali zed medical examinat ion Completed 201205/22/2021 Routine gynecolo gical examinat ion;Prac luis fernando ID: 0001 Radha bradley, [facility] 18:22:00 Pregnanc y test negative [id number] Completed 201205/22/2021 Negative Pregnanc y Test;Pra ctice ID: 0001 Radha bradley [facility] 18:21:19 Candidal vulvovag initis [id number] Completed 201305/22/2021 Candidia sis of vulva and vagina;P ractice ID: 0001 Radha bradley [facility] 18:22:13 Proteinu mary [id number] Completed 201305/22/2021 Proteinu mary;Prac luis fernando ID: 0001 [facility] 18:21:28 Leukorrh ea [id number] Completed 201305/22/2021 Leukorrh ea, not specifie d as infectiv e;Record ed Elsewher e: No Locat ion: [facility] [address] S ource: [employer] Field Technician mohsen: N Practi ce ID: 0001 David lable Time: 03:00:00 PM Radha bradley [facility] 18:21:00 Adult health examinat ion Completed 201405/22/2021 Routine general medical examinat ion at a health care facility ;Practic e ID: 0001 Radha bradley [facility] 18:21:22 Speciali zed medical examinat ion Completed 201405/22/2021 Other specifie d chlamydi al diseases ;Practic e ID: 0001 Radha bradley [facility] 18:22:01 Venereal disease screenin g Completed 201405/22/2021 Screenin g examinat ion for venereal disease; Practice ID: 0001 Radha bradley [facility] 18:20:39 Secondar y amenorrh ea [id number] Completed 201405/22/2021 Secondar y amenorrh ea;Pract ice ID: 0001 Radha Pedro Luis mirna, [facility] 18:20:35 Pregnanc y detectio n examinat ion Completed 201405/22/2021 Encounte r for pregnanc y test, result positive ;Practic e ID: 0001 Radha Pedro Luis bradley, [facility] 18:22:14 Uterine size for dates discrepa ncy Completed 201405/22/2021 Uterine size-ivet e discrepa ncy, first trimeste r;Practi ce ID: 0001 Radha Pedro Luis bradley, [facility] 18:21:04 Gestatio n period, 8 weeks [id number] Completed 201405/22/2021 8 weeks gestatio n of pregnanc y;Practi ce ID: 0001 Radha Pedro Luis bradley, [facility] 18:21:21 Pregnanc y, childbir th and puerperi um finding Completed 201505/22/2021 Encntr for suprvsn of normal first preg, first trimeste r;Practi ce ID: 0001 Radha bradley, [facility] 18:21:40 Pregnanc y, childbir th and puerperi um finding Completed 201505/22/2021 Encntr for suprvsn of normal first preg, third trimeste r;Practi ce ID: 0001 Radha bradley, [facility] 18:21:42 finding Completed 201505/22/2021 Matern care for oth or susp poor fetl grth, 2nd tri, unsp;Pra ctice ID: 0001 Radha bradley, [facility] 18:21:07 Gestatio n period, 27 weeks [id number] Completed 201505/22/2021 27 weeks gestatio n of pregnanc y;Practi ce ID: 0001 Radha Cloud mirna, [facility] 18:21:55 Gestatio n period, 31 weeks [id number] Completed 201505/22/2021 31 weeks gestatio n of pregnanc y;Practi ce ID: 0001 Radha L[place] null, [facility] 18:22:08 Gestatio n period, 34 weeks [id number] Completed 201505/22/2021 34 weeks gestatio n of pregnanc y;Practi ce ID: 0001 Radha Pedro Luis bradley, [facility] 18:20:29 finding Completed 201505/22/2021 Matern care for oth or susp poor fetl grth, third tri, fts1;Pra ctice ID: 0001 Radha Pedro Luis mirna, [facility] 18:21:11 Gestatio n period, 37 weeks [id number] Completed 201505/22/2021 37 weeks gestatio n of pregnanc y;Practi ce ID: 0001 Radha Pedro Luis bradley, [facility] 18:21:51 Gestatio n period, 38 weeks [id number] Completed 201505/22/2021 38 weeks gestatio n of pregnanc y;Practi ce ID: 0001 Radha Pedro Luis bradley, [facility] 18:20:31 Term pregnanc y delivere d [id number] Completed 201505/22/2021 Encounte r for full-ter m uncompli cated delivery ;Practic e ID: 0001 Radha bradley, [facility] 18:20:45 Finding of regulari ty of menstrua l cycle Completed 201505/22/2021 Irregula r menstrua tion, unspecif ied;Prac luis fernando ID: 0001 Radha bradley, [facility] 18:20:[address] Concept Completed 201605/22/2021 Encntr for departure clerk exam (general ) (routine ) w/o abn findings ;Practic e ID: 0001 Radha bradley, [facility] 18:21:31 Syphilis test finding [id number] Completed 201605/22/2021 Encntr screen for infectio ns w sexl mode of transmis s;Record ed Elsewher e: No Locat ion: [facility] [address] S ource: [employer] Field Technician mohsen: N Practi ce ID: 0001 David lable Time: 03:15:00 PM [facility] 18:21:50 Infectio n screenin g Completed 201605/22/2021 Encounte r for screenin g for oth infec/pa rastc diseases ;Recorde d Elsewher e: No Locat ion: [facility] [address] S ource: [employer] Field Technician mohsen: N Practi ce ID: 0001 David lable Time: 03:15:00 PM Radha bradley [facility] 18:21:14 Insertio n of intraute rine contrace ptive device Completed 201605/22/2021 Encounte r for insertio n of intraute rine contrace ptive device;P ractice ID: 0001 [facility] 18:22:10 Clinical finding Completed 201605/22/2021 Presence of (intraut erine) contrace ptive device;R ecorded Elsewher e: No Locat ion: [facility] [address] [facility] N Practi ce ID: 0001 David lable Time: 08:00:00 AM Rdaha bradley [facility] 18:21:45 Contrace ptive sheath status [id number] Completed 201605/22/2021 Encounte r for routine checking of intraute rine contrace p dev;Prac luis fernando ID: 0001 Radha bradley, [facility] 18:21:16 Gestatio n period, 11 weeks [id number] Completed 201805/22/2021 11 weeks gestatio n of pregnanc y;Practi ce ID: 0001 Radha bradley, [facility] 18:22:03 Antenata l screenin g Completed 201805/22/2021 Encounte r for antenata l screenin g for nuchal transluc ency;Pra ctice ID: 0001 Radha bradley, [facility] 18:21:13 Pregnanc y-induce d hyperten russell Completed 201805/22/2021 Gestatio nal hyperten russell w/o signific ant proteinu mary, 2nd trimeste r;Record ed Elsewher e: No Locat ion: [facility] N Practi ce ID: 0001 David lable Time: 02:30:00 PM Radha bradley, [facility] 18:21:02 Antenata l screenin g for malforma tion Completed 201805/22/2021 Encounte r for antenata l screenin g for malforma tions;Pr actice ID: 0001 Radha bradley, [facility] 18:22:11 Placenta previa [id number] Completed 201805/22/2021 Placenta previa specifie d as w/o hemor, second trimeste r;Record ed Elsewher e: No Locat ion: [facility] [address] S ource: [employer] mohsen: N Practi ce ID: 0001 David lable Time: 01:00:00 PM Radha bradley, [facility] 18:21:48 Gestatio n period, 24 weeks [id number] Completed 201805/22/2021 24 weeks gestatio n of pregnanc y;Record ed Elsewher e: No Locat ion: [facility] [address] S ource: [employer] Techn[employer] mohsen: N Practi ce ID: [id number] David lable Time: 01:00:00 PM Radha bradley, [facility] 18:21:29 [facility] [id number] Completed 201805/22/2021 Encounte r for suprvsn of normal pregnanc y, third trimeste r;Practi ce ID: 0001 Radha Cloud null, [facility] 18:21:53 Uterine size for dates discrepa ncy Completed 201805/22/2021 Uterine size-ivet e discrepa ncy, third trimeste r;Practi ce ID: 0001 Radha Cloud null, [facility] 18:21:06 Gestatio n period, 35 weeks [id number] Completed 201805/22/2021 35 weeks gestatio n of pregnanc y;Practi ce ID: 0001 Radha Cloud null, [facility] 18:22:15 finding Completed 201805/22/2021 Matern care for oth or susp poor fetl grth, third tri, unsp;Pra ctice ID: 0001 Radha Cloud null, [facility] 18:21:09 Gestatio n period, 36 weeks [id number] Completed 201805/22/2021 36 weeks gestatio n of pregnanc y;Pravinti ce ID: 0001 Radha bradley, [facility] 18:22:07 Single live from singleto n pregnanc y [id number] Completed 201805/22/2021 Single live ;Pr actice ID: 0001 Radha bradley, [facility] 18:20:37 Procedur e by method Completed 201905/22/2021 Encounte r for oth general cnsl and advice on contrace ption;Pr actice ID: 0001 Radha bradley, [facility] 18:21:33 Lochia finding Completed 201905/22/2021 Encounte r for routine postpart um follow-u p;Practi ce ID: 0001 Radha bradley, [facility] 18:21:43 Pregnanc y [id number] Completed 202011/14/2021 Shadia Lu [facility], [facility] 5 17:00:00 Pregnanc y [id number] Active 2024 Shadia Lu [facility], [facility] 5 17:00:00 Precipit ate labor [id number] Active 2024 delivere d in car on last pregnanc y Raffy Mane MD [address], [place], [place], [id number], [place] [facility] 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 5 06:51:43 Iron deficien cy anemia [id number] Active 2024 Fe suppleme nt, recheck at 34 weeks KYRA GOULD MD [address], [place], [address], [facility] 5 18:03:31 Problem Notes None recorded. Procedures Surgical History Date Name Laterality Status Provider Name and Address Organization Details Recorded Time 10/08/19 25 Date of Last Pap Smear completed Shadia Lu [facility] 11/02/2024 16:57:17 08/23/19 19 Cholecystectomy completed Ellen Tanner [facility] 08/23/2021 16:05:41 Cholecystectomy completed Latoya Teejda [facility] 10/07/2024 15:24:22 Imaging Results None recorded. Procedure Notes None recorded. Medical Equipment None Reported. Allergies No known drug allergies Medications Name Sig Start Date Stop Date Status Note LastModified by Organization Details LastModified Time Mirena 21 mcg/24 hr (up to 8 years) 52 mg intrauter ine device 12/03 completed [facility] ed Elsewher e: Yes Loca tion: [facility] odify By: [email or web address] z Encoun ter DateTime : 05/21/20 17 11:45:00 AM Not Available Not Available Not Available Diflucan 150 mg tablet take 1 tablet by oral route once 11/11 completed Prescrib ed Elsewher e: No Locat ion: [facility] odify By: [email or web address] trick En counter DateTime [...] Prescrib ed Elsewher e: No Locat ion: [facility]on[facility] m[facility] odify By: [email or web address] trick En counter DateTime : 01/15/20 12 08:28:05 AM Not Available Not Available Not Available Vitamin D2 1,250 mcg (50,000 unit) capsule take 1 capsule (77811DH ITS) by oral route every week 01/25 completed Prescrib ed Elsewher e: No [facility] By: [email or web address] E ncounter DateTime : 10/17/19 16 01:42:07 PM [...] Prescrib ed Elsewher e: No Locat ion: [facility] odify By: sonia alexander DateTime : 04/15/20 13 01:00:00 PM Not Available Not Available Not Available Tyson-Richard uo DHA 29 mg-1 mg-400 mg oral pack take 2 by Oral route every day 04/15 completed Prescrib ed Elsewher e: No Locat ion: Alannade[facility] ogles[facility] odify By: [email or web address] trick En counter DateTime : 04/29/20 12 03:45:44 PM Not Available Not Available Not Available [employer] PROFESSOR-PNV-DH A 28 mg iron-1 mg-200 mg capsule take 1 capsule by oral route every day 05/21 completed Prescrib ed Elsewher e: No Locat ion: [facility] odify By: kelsy Oglesby ncounter DateTime : 05/25/20 15 02:30:00 PM Not Available Not Available Not Available Diclegis 10 mg-10 mg tablet,de layed release 05/22 completed Not Available Not Available Not Available Minastrin 24 Fe 1 mg-20 mcg (24)/75 mg (4) chewable tablet chew 1 tablet by oral route every day 05/25 completed Prescrib ed Elsewher e: No Locat ion: [facility] [address] M odify By: [email or web address] trick En counter DateTime : 11/12/19 15 01:30:00 PM Not Available Not Available Not Available Slynd 4 mg (28) tablet Take 1 tablet every day by oral route. 05/22 completed Not Available Not Available Not Available ID NOW COVID-19 Test Kit TEST DIRECTED TODAY 10/07 completed Not Available Not Available Not Available Vitals None Recorded Social History Question Answer Notes LastModified by Organizat ion Details LastModified Time Tobacco Smoking Status Never Smoker Faye Chavez [facility], [facility] 11/13/2021 15:42:19 Do You Have An [...] Or The Highest Degree You Have Received? [id number] Information not available 06/01/2021 Are There Any [...] anxious, or unable to sleep at night)? [id number] Information not available 06/01/2021 Family History Relationship Description Onset Age of this Age Resolved Age Notes LastModified by Organization Details LastModified Time Mother Multiple sclerosis [email or web address] Not available 2019 09:09:49 Maternal Grandfather Diabetes mellitus [email or web address] Not available 2019 09:10:00 Sister Polycystic ovary syndrome [email or web address] Not available 2023 14:01:01 Paternal Uncle Seizure disorder [email or web address] Not available 2023 14:01:01 Paternal Aunt Inflammatory disease of liver [email or web address] Not available 2023 14:01:01 Father Diabetes mellitus [email or web address] Not available 08/23 16:05:09 Medical History Condition Response Allergies (Food, seasonal, environmental ) N Other Y Drug/Latex Allergies/Reactions N Blood Transfusion N Breast Cancer N Dermatologic Disorders N Lung Disease N [...] ICD10 Code Diagnosis IMO Codes Diagnosis Note [id number] MD Cuong GARRISON [address],[place] [address] 03/09/2025 17:40:12 03/09/2025 18:06:45 History of previous intrauterine growth restricted 7175803646 66525 Z87.59 [id number] Past pregn loki history of placental abruption 726847330 Z87.59 72269201 Iron defic iency anemia 20429660 D50.9 24867645 Gestation period, 30 weeks 45132306 Z3A.30 6847534 [id number] KYRA GOULD MD [facility] [address],[place] [address] 03/24/2025 09:55:18 03/24/2025 10:37:52 Past history of small for gestational age baby 171955054 Z87.59 O41.03X0 Z3A.33 98676984 [id number] KYRA GOULD MD [place] [address],[place] [address] 03/24/2025 09:55:33 03/24/2025 16:01:09 Iron deficiency anemia 84011606 D50.9 98828866 History of previous intrauterine growth restricted 9997207693 70878 Z87.59 54864935 Gestation period, 33 weeks 04874593 Z3A.33 0270473 [id number] KYRA GOULD MD [facility] [address],[place] [address] 04/06/2025 10:18:59 04/06/2025 11:09:33 Oligohydramnios 15765958 O41.03X0 Z3A.34 [id number] Health Concerns Section Related Observation LastModified by Organization Detai ls LastModified Time None Recorded Concern Status LastModified by Organization Details LastModified Time None Recorded Payers Encounter Date Sequence Insurance Name Policy Number Policy Chavez Covered Member ID Chavez Member ID Guarantor Name 04/06/2025 1 [facility] [id number] Vannessa Bowden [id number] Vannessa Bowden 04/06/2025 2 [facility] - DOS ON OR AFTER 20 (MEDICAID REPLACEMENT - HMO) Vannessa Bowden [id number] Vannessa Holik OBGyn Episode Ob Episode Information Episode Created Date Number of Fetuses Patient Bloodtype Patient rh Status Prepregnancy Weight lbs Domestic Partner Domestic Partner Phone Father Name Tube Builder Airplane Status 11/03/19 25 1 A Negative 173 OPEN Fetus Data First Name Last Name Admitted to NICU Weight (g) Sex Living Outcome Pediatric Complications Fetus ID Race Codes Race Delivery Type [id number] Problems Problem Notes Problem Name Start Date End Date Resolution Snomed Code Not e Administration of human anti-D immunoglobulin needed 11/04/2024 4670979649 A neg rhogam @28wks Precipitate labor 11/02/2024 42903220 d elivered in car on last Past history of placental abruption 849274927 History of previous intrauterine growth restricted 415822861248677 Iron deficiency anemia 03/09/2025 238591 02 Fe supplement, recheck at 34 weeks [...] Weight in lbs Pre/Post Dialysis Refused Weight 176.198016217646 BP Diastolic BP Location Tested BP Systolic [...] Weight in lbs Pre/Post Dialysis Refused Weight 180.533091454363 BP Diastolic BP Location Tested BP Systolic [...] Type Weight in lbs Pre/Post Dialysis Refused 184.766984853275 BP Diastolic BP Location Tested BP Systolic [...] Type Weight in lbs Pre/Post Dialysis Refused 191.259740303503 BP Diastolic BP Location Tested BP Systolic [...] Type Weight in lbs Pre/Post Dialysis Refused 195.378044496499 BP Diastolic BP Location Tested BP Systolic [...] Weight in lbs Pre/Post Dialysis Refused Weight 200.193117612530 BP Diastolic BP Location Tested BP Systolic BP Type 76 L arm 114 sitting Fetus Heart Rate Present A 152 Present Fetus Movement A Yes Comments Flowsheet Date 03/09/2025 Oliver Score Blood Edema Fundus Height Fundus Units Glucose Ketones Leukocytes Nitrite Labor Signs Protein Cervic Dilation Cervic Effacement Cervic Station Type Weight in lbs Pre/Post Dialysis Refused Weight 200.939852253823 BP Diastolic BP Location Tested BP Systolic [...] Type Weight in lbs Pre/Post Dialysis Refused 200.166091984076 BP Diastolic BP Location Tested BP Systolic [...] Type Weight in lbs Pre/Post Dialysis Refused 203.44760975803 BP Diastolic BP Location Tested BP Systolic [...] Type Weight in lbs Pre/Post Dialysis Refused 204.000846500882 BP Diastolic BP Location Tested BP Systolic [...] Type Weight in lbs Pre/Post Dialysis Refused 208.299810385162 BP Diastolic BP Location Tested BP Systolic [...] Weight in lbs Pre/Post Dialysis Refused Weight 209.123487812528 BP Diastolic BP Location Tested BP Systolic [...]
--- OUTSIDE RECORDS SUMMARY | 2025-05-08 10:42 | XMS_ITS | Data Portability ---
Author Organization [facility], [facility] Address [address] [place] [address] Care Team Providers Care Callisthenics Instructor Name Role Phone LO BADILLO Primary Care Provider Assessment Encounter Date Assessment Date Assessment LastModified by Organization Details LastModified Time 04/30/2025 04/30/2025 Patient is _38__weeks . Discussed plan. Not available 04/30/2025 10:18:24 05/07/2025 05/07/2025 Patient is __39_weeks . Discussed plan. [email or web address] Not available 05/07/2025 10:17:02 Plan of Treatment Reminders Order Date Submit Date Provider Last Modified By Organization Details Last Modified Time Details Appointments OB ROUTINE 2024 09:00A Taylor Whitney CNM Not available Not available Not available INDUCTION 2024 05:00A Taylor Whitney CNM Not available Not available Not available Lab streptoco ccus group B, culture, unspecifi ed specimen 2024 025 [facility] (Lab), [address], [place], [address], 04/20/2025 16:57:04 iron + TIBC + ferritin, serum 2024 025 [facility] (Lab), [address], [place], [address], 04/08/2025 04:02:42 CBC w/ auto diff 2024 025 [facility] (Lab), [address], [place], [address], 04/08/2025 04:02:42 Referral None recorded. Procedures None recorded. Surgeries None recorded. Imaging US, obstetric , limited 2024 025 [email or web address] [place], [facility] [address], [address], [place], [address], 04/06/2025 11:41:44 Medication Orders None recorded. Patient TargetsNo targets recorded. Patient InstructionsNo instructions recorded. Reason for Referral None Reported. Results Created Date Observation Date Name Description Value Unit Range Abnormal Flag Note LastModifiedBy Organization Detail LastModifiedTime 04/07/2004/07/2025 CBC W/DIF F WBC 9.7 10'3/ uL 3.5-10 .5 Not Available [facility] (Lab) [address], [place], [address], 04/08/2025 04:02:42 04/07/2004/07/2025 CBC W/DIF F RBC 3.68 10'6/ uL (based on docume nted legal sex) 3.80-5 .20 low Not Available [facility] (Lab) [address] , [place], [address], 04/08/2025 04:02:42 04/07/2004/07/2025 CBC W/DIF F HGB 11.4 g/dL (based on docume nted legal sex) 11.6-1 5.4 low Not Available [facility] (Lab) [address] , [place], [address], 04/08/2025 04:02:42 04/07/2004/07/2025 CBC W/DIF F HCT 34.1 % (based on docume nted legal sex) 34.0-4 5.0 Not Available [facility] (Lab) [address], [place], [address], 04/08/2025 04:02:42 04/07/20 25 04/07/2025 CBC W/DIF F MCV 92.7 fL 80.0-9 9.0 Not Available [facility] (Lab) [address], [place], [address], 04/08/2025 04:02:42 04/07/20 25 04/07/2025 CBC W/DIF F MCH 31.0 pg 27.0-3 4.0 Not Available [facility] (Lab) [address], [place], [address], 04/08/2025 04:02:42 04/07/20 25 04/07/2025 CBC W/DIF F MCHC 33.4 g/dL 32.0-3 5.5 Not Available [facility] (Lab) [address], [place], [address], 04/08/2025 04:02:42 04/07/20 25 04/07/2025 CBC W/DIF F RDW 15.2 % 11.0-1 5.0 high Not Available [facility] (Lab) [address] [facility], [place], [address], 04/08/2025 04:02:42 04/07/20 25 04/07/2025 CBC W/DIF F plt 203 10'3/ uL 150-40 0 Not Available [facility] (Lab) [address], [place], [address], 04/08/2025 04:02:42 04/07/20 25 04/07/2025 CBC W/DIF F MPV 11.8 fL 8.8-12 .1 Not Available [facility] (Lab) [address] [facility], [place], [address], 04/08/2025 04:02:42 04/07/20 25 04/07/2025 CBC W/DIF F NRBC's 0.0 % 0.0 Not Available [facility] (Lab) [address], [place], [address], 04/08/2025 04:02:42 04/07/20 25 04/07/2025 CBC W/DIF F absolute NRBCs 0.0 10'3/ uL no refere nce range establ ished Not Available [facility] (Lab) [address] [facility], [place], [address], 04/08/2025 04:02:42 04/07/20 25 04/07/2025 CBC W/DIF F neutrophils 78.0 % 34.0-7 3.0 high Not Available [facility] (Lab) [address] [facility], [place], [address], 04/08/2025 04:02:42 04/07/20 25 04/07/2025 CBC W/DIF F lymphocytes 14.8 % 15.0-5 0.0 low Not Available [facility] (Lab) [address] [facility], [place], [address], 04/08/2025 04:02:42 04/07/20 25 04/07/2025 CBC W/DIF F monocytes 5.8 % 1.0-15 .0 Not Available [facility] (Lab) [address] [facility], [place], [address], 04/08/2025 04:02:42 04/07/20 25 04/07/2025 CBC W/DIF F eosinophils 0.6 % 0.0-8. 0 Not Available [facility] (Lab) [address] [facility], [place], [address], 04/08/2025 04:02:42 04/07/20 25 04/07/2025 CBC W/DIF F basophils 0.3 % 0.0-2. 0 Not Available [facility] (Lab) [address] [facility], [place], [address], 04/08/2025 04:02:42 04/07/20 25 04/07/2025 CBC W/DIF [...] separ ately if prese nt. Not Available [facility] (Lab) [address] [facility], [place], [address], 04/08/2025 04:02:42 04/07/20 25 04/07/2025 CBC W/DIF F absolute neutrophils 7.6 10'3/ uL 1.5-8. 0 Not Available [facility] (Lab) [address] [facility], [place], [address], 04/08/2025 04:02:42 04/07/20 25 04/07/2025 CBC W/DIF F absolute lymphocytes 1.4 10'3/ uL 1.0-4. 0 Not Available [facility] (Lab) [address] [facility], [place], [address], 04/08/2025 04:02:42 04/07/20 25 04/07/2025 CBC W/DIF F absolute monocytes 0.6 10'3/ uL 0.2-1. 0 Not Available [facility] (Lab) [address] [facility], [place], [address], 04/08/2025 04:02:42 04/07/20 25 04/07/2025 CBC W/DIF F absolute eosinophils 0.1 10'3/ uL 0.0-0. 6 Not Available [facility] (Lab) [address] [facility], [place], [address], 04/08/2025 04:02:42 04/07/20 25 04/07/2025 CBC W/DIF F absolute basophils 0.0 10'3/ uL 0.0-0. 3 Not Available [facility] (Lab) [address] [place], [address], 04/08/2025 04:02:42 04/07/20 04/07/2025 CBC W/DIF F absolute immature granulocytes 0.1 10'3/ uL 0.00-0 .10 Refer ence range s for nonbi nary/ inter sex or unspe cifie d gende r patie nts have not been estab lishe d. Nghia e refer [facility] table for range s estab lishe d for cisge nder patie nts and evalu ate in the clini georges elyssa xt of the indiv idual patie nt: https ://izzy todd book. nm.or g/gen derx Not Available [facility] (Lab) [address], [place], [address], 04/08/2025 04:02:42 04/07/2004/07/2025 ADRIAN TIN / IRON / TRANS ADRIAN N / TIBC iron 123 ug/dL 40-170 Not Available [facility] (Lab) [address] [facility], [place], [address], 04/08/2025 04:02:42 04/07/2004/07/2025 ADRIAN TIN / IRON / TRANS ADRIAN N / TIBC transferrin 360 mg/dL 200-36 0 Not Available [facility] (Lab) [address] [facility], [place], [address], 04/08/2025 04:02:42 04/07/2004/07/2025 ADRIAN TIN / IRON / TRANS ADRIAN N / TIBC ferritin 10.4 NG/mL 8.0-25 2.0 Not Available [facility] (Lab) [address] [place], [address], 04/08/2025 04:02:42 04/07/2004/07/2025 ADRIAN TIN / IRON / TRANS ADRIAN N / TIBC TIBC 504 ug/dL 250-45 0 high Not Available [facility] (Lab) [address] [place], [address], 04/08/2025 04:02:42 04/07/20 25 04/07/2025 ADRIAN TIN / IRON / TRANS ADRIAN N / TIBC iron saturation 24 % 20-55 Not Available [facility] (Lab) [address], [place], [address], 04/08/2025 04:02:42 04/16/2004/16/2025 CULTU RE: GROUP B STREP SCREE N, [...] Final resul t Abnor mal: Yes Resul jamilag Lab: [facility] [address] [facility] [address] Tel: CULTU RE ----- ----- ----- --- [...] jesica for these drugs . Not Available [facility] (Lab) [address], [place], [address], 04/20/2025 16:57:04 03/24/2003/24/2025 US, obste tric, follo w-up No observ ation record ed. [email or web address] [place] [address], [place], [address], 03/24/2025 13:36:18 03/24/2003/24/2025 US, obste tric, bioph ysica l profi le No observ ation record ed. [email or web address] [place] [address], [place], [address], 03/24/2025 13:36:31 03/24/2003/24/2025 US, obste tric, follo w-up No observ ation record ed. [email or web address] Gr[address], [place], [address], 03/26/2025 17:41:33 04/06/2004/06/2025 imagi ng/di agnos tic resul t No observ ation record ed. MIMI Graciela [address], [place], [address], 04/06/2025 13:11:41 04/06/2004/06/2025 , obste tric, limit ed No observ ation record ed. [email or web address] [place] [address], [place], [address], 04/06/2025 11:40:14 Result Notes None recorded. Problems Name Problem SNOMED Code Status Onset Date Resolution Date Notes Provider Name and Address Organization Details Recorded Time History of growth retardat ion 2314982612 9171 Completed wkly antenata l testing 32wks Graciela Boharacelinstieh l null, [facility] 2 13:05:39 Placenta l abruptio n - delivere d [id number] Completed 36wks Graciela Bohnenstieh l null, [facility] 2 13:05:39 RhD negative 634163197 Completed Gracielahuy Gtznstieh l null, [facility] 2 13:05:39 Past pregnanc y history of placenta l abruptio n 370656524 Active Shadia Lu null, [facility] 5 09:35:28 History of previous intraute rine growth restrict ed 4624707928 53180 Active Shadia bradley, [facility] 5 09:35:56 Vaginiti s and vulvovag initis Completed 201105/22/2021 Vaginiti s and vulvovag initis, unspecif ied;Prac luis fernando ID: 0001 Radha bradley, [facility] 18:20:42 Pregnanc y test positive 156549808 Completed 201105/22/2021 Positive Pregnanc y Test;Pra ctice ID: 0001 Radha bradley, [facility] 18:21:18 Screenin g for malignan t neoplasm of cervix Completed 201105/22/2021 Pap Smear;Pr actice ID: 0001 Radha bradley, [facility] 18:20:40 anatomy study Completed 201105/22/2021 [facility] ANATMC SURVEY;P ractice ID: 0001 Radha bradley, [facility] 18:21:26 Primigra bryan [id number] Completed 201105/22/2021 Supervis ion of normal first pregnanc y;Practi ce ID: 0001 Radha bradley, [facility] 18:20:25 malforma tion of central nervous system affectin g obstetri georges care [id number] Completed 201205/22/2021 Central nervous system malforma tion in fetus, antepart um;Recor ded Elsewher e: No Locat ion: Nannette oglesby [facility] S ource: EHR Employment Counselor mohsen: N Practi ce ID: 0001 David lable Time: 11:00:00 [facility]:33 Delivery normal [id number] Completed 201205/22/2021 Normal delivery ;Practic e ID: 0001 Radha bradley [facility] 18:21:56 Postpart um care Completed 201205/22/2021 Routine postpart um follow-u p;Practi ce ID: 0001 Radha bradley, [facility] 18:20:27 First degree perineal lacerati on 41011448 Completed 201205/22/2021 First-de gree perineal lacerati on, unspecif ied as to episode of care in pregnanc y;Practi ce ID: 0001 [facility] 18:22:05 Educatio n Completed 201205/22/2021 Counseli ng contrace ptive manageme nt;Pract ice ID: 0001 [facility] 18:21:58 Speciali zed medical examinat ion Completed 201205/22/2021 Routine gynecolo gical examinat ion;Prac luis fernando ID: 0001 Radha bradley, [facility] 18:22:00 Pregnanc y test negative [id number] Completed 201205/22/2021 Negative Pregnanc y Test;Pra ctice ID: 0001 [facility] 18:21:19 Candidal vulvovag initis 94950944 Completed 201305/22/2021 Candidia sis of vulva and vagina;P ractice ID: 0001 Radha bradley, [facility] 18:22:13 Proteinu mary [id number] Completed 201305/22/2021 Proteinu mary;Prac luis fernando ID: 0001 Radha bradley [facility] 18:21:28 Leukorrh ea 596564302 Completed 201305/22/2021 Leukorrh ea, not specifie d as infectiv e;Record ed Elsewher e: No Locat ion: [facility] S ource: EHR Employment Counselor mohsen: N Practi ce ID: 0001 David lable Time: 03:00:00 PM Radha bradley [facility] 18:21:00 Adult health examinat ion Completed 201405/22/2021 Routine general medical examinat ion at a health care facility ;Practic e ID: 0001 Radha bradley [facility] 18:21:22 Speciali zed medical examinat ion Completed 201405/22/2021 Other specifie d chlamydi al diseases ;Practic e ID: 0001 Radha bradley [facility] 18:22:01 Venereal disease screenin g Completed 201405/22/2021 Screenin g examinat ion for venereal disease; Practice ID: 0001 Radha bradley [facility] 18:20:39 Secondar y amenorrh ea [id number] Completed 201405/22/2021 Secondar y amenorrh ea;Pract ice ID: 0001 Radha bradley [facility] 18:20:35 Pregnanc y detectio n examinat ion Completed 201405/22/2021 Encounte r for pregnanc y test, result positive ;Practic e ID: 0001 Radha Phillipsan mirna [facility] 18:22:14 Uterine size for dates discrepa ncy Completed 201405/22/2021 Uterine size-ivet e discrepa ncy, first trimeste r;Practi ce ID: 0001 Radha bradley, [facility] 18:21:04 Gestatio n period, 8 weeks [id number] Completed 201405/22/2021 8 weeks gestatio n of pregnanc y;Practi ce ID: 0001 Radha bradley, [facility] 18:21:21 Pregnanc y, childbir th and puerperi um finding Completed 201505/22/2021 Encntr for suprvsn of normal first preg, first trimeste r;Practi ce ID: 0001 Radha bradley, [facility] 18:21:40 Pregnanc y, childbir th and puerperi um finding Completed 201505/22/2021 Encntr for suprvsn of normal first preg, third trimeste r;Practi ce ID: 0001 Radha bradley, [facility] 18:21:42 finding Completed 201505/22/2021 Matern care for oth or susp poor fetl grth, 2nd tri, unsp;Pra ctice ID: 0001 Radha bradley, [facility] 18:21:07 Gestatio n period, 27 weeks [id number] Completed 201505/22/2021 27 weeks gestatio n of pregnanc y;Practi ce ID: 0001 Radha bradley, [facility] 18:21:55 Gestatio n period, 31 weeks [id number] Completed 201505/22/2021 31 weeks gestatio n of pregnanc y;Practi ce ID: 0001 Radha bradley, [facility] 18:22:08 Gestatio n period, 34 weeks [id number] Completed 201505/22/2021 34 weeks gestatio n of pregnanc y;Practi ce ID: 0001 Radha bradley, [facility] 18:20:29 finding Completed 201505/22/2021 Matern care for oth or susp poor fetl grth, third tri, fts1;Pra ctice ID: 0001 Radha bradley, [facility] 18:21:11 Gestatio n period, 37 weeks [id number] Completed 201505/22/2021 37 weeks gestatio n of pregnanc y;Practi ce ID: 0001 Radha bradley, [facility] 18:21:51 Gestatio n period, 38 weeks [id number] Completed 201505/22/2021 38 weeks gestatio n of pregnanc y;Practi ce ID: 0001 Radha bradley, [facility] 18:20:31 Term pregnanc y delivere d [id number] Completed 201505/22/2021 Encounte r for full-ter m uncompli cated delivery ;Practic e ID: 0001 Radha bradley, [facility] 18:20:45 Finding of regulari ty of menstrua l cycle Completed 201505/22/2021 Irregula r menstrua tion, unspecif ied;Prac luis fernando ID: 0001 [facility]:[address] Concept Completed 201605/22/2021 Encntr for wreath and garland maker exam (general ) (routine ) w/o abn findings ;Practic e ID: 0001 Radha bradley, [facility] 18:21:31 Syphilis test finding [id number] Completed 201605/22/2021 Encntr screen for infectio ns w sexl mode of transmis s;Record ed Elsewher e: No Locat ion: [facility] S ource: EHR Employment Counselor mohsen: N Practi ce ID: 0001 David lable Time: 03:15:00 PM Radha bradley, [facility] 18:21:50 Infectio n screenin g Completed 201605/22/2021 Encounte r for screenin g for oth infec/pa rastc diseases ;Recorde d Elsewher e: No Locat ion: [facility] S ource: EHR Employment Counselor mohsen: N Practi ce ID: 0001 David lable Time: 03:15:00 PM Radha bradley [facility] 18:21:14 Insertio n of intraute rine contrace ptive device Completed 201605/22/2021 Encounte r for insertio n of intraute rine contrace ptive device;P ractice ID: 0001 Radha bradley, [facility] 18:22:10 Clinical finding Completed 201605/22/2021 Presence of (intraut erine) contrace ptive device;R ecorded Elsewher e: No Locat ion: [facility] S ource: EHR Employment Counselor mohsen: N Practi ce ID: 0001 David lable Time: 08:00:00 AM Radha bradley [facility] 18:21:45 Contrace ptive sheath status [id number] Completed 201605/22/2021 Encounte r for routine checking of intraute rine contrace p dev;Prac luis fernando ID: 0001 Radha bradley, [facility] 18:21:16 Gestatio n period, 11 weeks [id number] Completed 201805/22/2021 11 weeks gestatio n of pregnanc y;Practi ce ID: 0001 Radha bradley, [facility] 18:22:03 Antenata l screenin g Completed 201805/22/2021 Encounte r for antenata l screenin g for nuchal transluc ency;Pra ctice ID: 0001 Radha bradley, [facility] 18:21:13 Pregnanc y-induce d hyperten russell Completed 201805/22/2021 Gestatio nal hyperten russell w/o signific ant proteinu mary, 2nd trimeste r;Record ed Elsewher e: No Locat ion: Nannette oglesby [facility] S ource: EHR Employment Counselor mohsen: N Practi ce ID: 0001 David lable Time: 02:30:00 PM [facility]:21:02 Antenata l screenin g for malforma tion Completed 201805/22/2021 Encounte r for antenata l screenin g for malforma tions;Pr actice ID: 0001 Radha Cloud [facility], [facility] 18:22:11 Placenta previa [id number] Completed 201805/22/2021 Placenta previa specifie d as w/o hemor, second trimeste r;Record ed Elsewher e: No Locat ion: Nannette oglesby [facility] S ource: EHR Employment Counselor mohsen: N Practi ce ID: 0001 David lable Time: 01:00:00 PM [facility] 18:21:48 Gestatio n period, 24 weeks [id number] Completed 201805/22/2021 24 weeks gestatio n of pregnanc y;Record ed Elsewher e: No Locat ion: Nannette oglesby [facility] S ource: EHR Employment Counselor mohsen: N Practi ce ID: 0001 David lable Time: 01:00:00 PM Radha brdaley, [facility] 18:21:29 Normal pregnanc y in multigra bryan [id number] Completed 201805/22/2021 Encounte r for suprvsn of normal pregnanc y, third trimeste r;Practi ce ID: 0001 Radha Cloud null, [facility] 18:21:53 Uterine size for dates discrepa ncy Completed 201805/22/2021 Uterine size-ivet e discrepa ncy, third trimeste r;Practi ce ID: 0001 Radha [place] mirna, [facility] 18:21:06 Gestatio n period, 35 weeks [id number] Completed 201805/22/2021 35 weeks gestatio n of pregnanc y;Practi ce ID: 0001 Radha Pedro Luis mirna, [facility] 18:22:15 finding Completed 201805/22/2021 Matern care for oth or susp poor fetl grth, third tri, unsp;Pra ctice ID: 0001 Radha [place] mirna, [facility] 18:21:09 Gestatio n period, 36 weeks [id number] Completed 201805/22/2021 36 weeks gestatio n of pregnanc y;Practi ce ID: 0001 Radha [place] mirna, [facility] 18:22:07 Single live from singleto n pregnanc y [id number] Completed 201805/22/2021 Single live ;Pr actice ID: 0001 Radha bradley, [facility] 18:20:37 Procedur e by method Completed 201905/22/2021 Encounte r for oth general cnsl and advice on contrace ption;Pr actice ID: 0001 Radha bradley, [facility] 18:21:33 Lochia finding Completed 201905/22/2021 Encounte r for routine postpart um follow-u p;Practi ce ID: 0001 Radha bradley, [facility] 18:21:43 Pregnanc y [id number] Completed 202011/14/2021 Shadia Lu [facility], [facility] 5 17:00:00 Pregnanc y 49469567 Active 2024 Shadia Aly [facility] 5 17:00:00 Precipit ate labor 38175917 Active 2024 delivere d in car on last pregnanc y Raffy Mane MD [address], [place], [address], [facility] 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 5 06:51:43 Iron deficien cy anemia 51239072 Active 2024 Fe suppleme nt, recheck at 34 weeks KYRA GOULD MD [address], [place], [address], [facility] 5 18:03:31 Problem Notes None recorded. Procedures Surgical History Date Name Laterality Status Provider Name and Address Organization Details Recorded Time 10/08/19 25 Date of Last Pap Smear completed Shadia Lu [facility] 11/02/2024 16:57:17 08/23/19 19 Cholecystectomy completed Ellen Tanner [facility] 08/23/2021 16:05:41 Cholecystectomy completed Latoya Ileana [facility] 10/07/2024 15:24:22 Imaging Results None recorded. Procedure Notes None recorded. Medical Equipment None Reported. Allergies No known drug allergies Medications Name Sig Start Date Stop Date Status Note LastModified by Organization Details LastModified Time Mirena 21 mcg/24 hr (up to 8 years) 52 mg intrauter ine device 12/03 completed Prescrib ed Elsewher e: Yes Loca tion: [facility] odify By: [email or web address] z Encoun ter DateTime : 05/21/20 17 11:45:00 AM Not Available Not Available Not Available Diflucan 150 mg tablet take 1 tablet by oral route once 11/11 completed Prescrib ed Elsewher e: No Locat ion: [facility] odify By: [email or web address] trick En counter [...] Prescrib ed Elsewher e: No Locat ion: [facility] odify By: [email or web address] trick En counter DateTime : 01/15/20 12 08:28:05 AM Not Available Not Available Not Available Vitamin D2 1,250 mcg (50,000 unit) capsule take 1 capsule ([id number] ITS) by oral route every week 01/25 completed Prescrib ed Elsewher e: No Locat ion: [facility] odify By: [email or web address] Oglesby ncounter DateTime : [...] Prescrib ed Elsewher e: No Locat ion: [facility] odify By: sonia alexander DateTime : 04/15/20 13 01:00:00 PM Not Available Not Available Not Available [employer] uo DHA 29 mg-1 mg-400 mg oral pack take 2 by Oral route every day 04/15 completed Prescrib ed Elsewher e: No Locat ion: [facility] odify By: [email or web address] trick En counter DateTime : 04/29/20 12 03:45:44 PM Not Available Not Available Not Available [employer]-PNV-DH A 28 mg iron-1 mg-200 mg capsule take 1 capsule by oral route every day 05/21 completed Prescrib ed Elsewher e: No Locat ion: [facility] odify By: [email or web address] Oglesby ncounter DateTime : 05/25/20 15 02:30:00 PM Not Available Not Available Not Available Diclegis 10 mg-10 mg tablet,de layed release 05/22 completed Not Available Not Available Not Available Minastrin 24 Fe 1 mg-20 mcg (24)/75 mg (4) chewable tablet chew 1 tablet by oral route every day 05/25 completed Prescrib ed Elsewher e: No Locat ion: [facility] odify By: [email or web address] trick En counter [...] and Address Organization Details Last Updated DateTime 04/07/2025 75291.251 11 g 30.9 kg/m2 172.72 cm 116/76 mm[Hg] [facility] 04/07/2025 14:13:18 Date Recorded Body weight Body mass index (BMI) Body height Systolic And Diastolic Provider Name and Address Organization Details Last Updated DateTime 04/16/2025 30680.843 48 g 31 kg/m2 172.72 cm 104/69 mm[Hg] [facility] 04/16/2025 14:55:30 Date Recorded Body weight Systolic And Diastolic Provider Name and Address Organization Details Last Updated DateTime 04/30/2025 66849.02813 g 112/77 mm[Hg] [facility] 04/30/2025 10:02:26 Date Recorded Body height Body mass index (BMI) Body weight Systolic And Diastolic Provider Name and Address Organization Details Last Updated DateTime 05/07/2025 172.72 cm 31.8 kg/m2 43506.81 g 127/85 mm[Hg] [facility] 05/07/2025 10:16:57 Social History Question Answer Notes LastModified by Organizat ion Details LastModified Time Tobacco Smoking Status Never Smoker Faye Chavez [facility] 11/13/2021 15:42:19 Do You Have An [...] Or The Highest Degree You Have Received? [id number] Information not available 06/01/2021 Are There Any [...] anxious, or unable to sleep at night)? [id number] Information not available 06/01/2021 Family History Relationship Description Onset Age of this Age Resolved Age Notes LastModified by Organization Details LastModified Time Mother Multiple sclerosis [facility] Not available 2019 09:09:49 Maternal Grandfather Diabetes mellitus [email or web address] Not available 2019 09:10:00 Sister Polycystic ovary syndrome Not available 2023 14:01:01 Paternal Uncle Seizure disorder [email or web address] Not available 2023 14:01:01 Paternal Aunt Inflammatory disease of liver [email or web address] Not available 2023 14:01:01 Father Diabetes mellitus [email or web address] Not available 08/23 16:05:09 Medical History Condition [...] ICD10 Code Diagnosis IMO Codes Diagnosis Note [id number] Candelaria Stein CNM [facility] [address] [address] 05/23/2021 15:18:49 05/23/2021 16:44:19 Gynecologic examination 40685224 Z01.419 test positive 318970824 Z32.01 Risk factors addressed: Tobacco Cessation, Safe [...] Desires NIPT. Handouts given and discussed with patient. ildbirth classes recommende d.New OB sheet given.If previous , counseling . New OB gina Gender ID Labs today Pt verbalizes that she understand s the importance of above instructio ns.All questions were answered.P atient reminded to have annual well woman examinatio n and address preventati ve healthcare . screening 7209 66998 Z36.89 Routine an tenatal care 124350659 Z34.92 [id number] Raffy Mane MD [facility] [address],[place] [address] 05/23/2021 15:19:54 05/23/2021 16:16:25 Uterine size for dates discrepancy 295744997 O26.849 Z3A.15 [id number] MD Cuong Springer [address],[place] [address] 06/01/2021 15:01:43 06/01/2021 15:47:42 [id number] MD Cuong Springer [address],[place] [address] 06/01/2021 15:02:38 06/01/2021 16:16:20 Routine care 646574818 Z34.82 [id number] Candelaria Stein [facility] [address],[place] [address] 07/25/2021 14:11:03 07/26/2021 11:24:08 Routine care 727360222 Z34.92 [id number] Raffy Mane MD [facility] [address],[place] [address] 07/25/2021 14:08:04 07/25/2021 15:10:34 screening for malformation 302156581 Z36.3 46011 Paris Whitney CNM [facility] [address],[place] [address] 08/23/2021 15:56:13 08/23/2021 16:42:52 Routine care 106742629 Z34.93 [id number] Raffy Mane MD [facility] [address],[place] [address] 09/07/2021 15:49:59 09/07/2021 16:31:09 Medical examination for suspected condition 129676021 Z03.74 [id number] MD Cuong Springer [address],[place] [address] 09/07/2021 15:50:45 09/07/2021 18:00:42 Routine care 239648675 Z34.82 [id number] Paris Whitney CNM [facility] [address],[place] [address] 09/20/2021 13:55:34 09/20/2021 15:51:37 Routine care 858800932 Z34.93 [id number] MD Cuong Springer [address],[place] [address] 09/20/2021 13:55:02 09/20/2021 14:36:36 growth restriction 77688070 O36.5999 [id number] MD Cuong Springer [address],[place] [address] 09/20/2021 13:55:20 09/20/2021 15:06:25 History of growth retardation 1759977515 9108 Z87.59 Z3A.32 [id number] MD Cuong Springer [address],[place] [address] 09/27/2021 14:26:40 09/27/2021 15:05:52 growth restriction 54237697 O36.5999 [id number] MD Cuong Springer [address],[place] [address] 09/27/2021 14:26:58 09/27/2021 15:38:14 care: poor obstetric history 905332298 O09.293 Z3A.33 [id number] MD Cuong Springer [address],[place] [address] 09/27/2021 14:27:25 09/27/2021 15:52:51 Routine care 999248781 Z34.82 [id number] MD Cuong Redman [address],[place] [address] 10/04/2021 13:58:38 10/04/2021 14:53:22 growth restriction 42812467 O36.5999 [id number] MD Cuong Redman [address],[place] [address] 10/04/2021 13:59:12 10/04/2021 14:59:24 Poor growth affecting management 800052430 O36.5999 Z3A.34 07772 Kenisha Newton MD [facility] [address],[place] [address] 10/04/2021 13:59:34 10/04/2021 15:26:35 Routine care 596561989 Z34.83 [id number] MD Cuong Springer [address],[place] [address] 10/11/2021 13:55:00 10/11/2021 15:25:14 care: poor obstetric history 091242901 O09.293 Z3A.35 [id number] Raffy Mane MD [facility] [address],[place] [address] 10/11/2021 13:55:33 10/11/2021 14:41:34 growth restriction 09137398 O36.5999 [id number] [facility] [address],[place] [address] 10/11/2021 13:55:51 10/11/2021 15:24:56 Routine care 730561602 Z34.93 69394 [facility] [address],[place] [address] 10/18/2021 14:00:56 10/18/2021 15:39:50 Routine care 819290634 Z34.93 [id number] Raffy Mane MD [facility] [address],[place] [address] 10/18/2021 13:59:59 10/18/2021 14:54:31 growth restriction 55208025 O36.5999 [id number] Raffy Mane MD [facility] [address],[place] [address] 10/18/2021 14:00:45 10/18/2021 15:17:04 care: poor obstetric history 425513126 O09.293 Z3A.36 15170 [facility] [address],[place] [address] 10/25/2021 14:58:59 10/25/2021 17:22:18 Routine care 224590083 Z34.93 [id number] Raffy Mane MD [facility] [address],[place] [address] 10/25/2021 14:58:16 10/25/2021 16:10:26 growth restriction 63180814 O36.5999 [id number] Raffy Mane MD [facility] [address],[place] [address] 10/25/2021 14:58:44 10/25/2021 16:10:07 care: poor obstetric history 312452790 O09.293 Z3A.37 [id number] KATHE Murillo [facility] [address],[place] [address] 11/13/2021 15:15:37 11/13/2021 16:12:56 Acute mastitis 28217685 N61.0 Breast pain, redness, mild fevers, and flu-like symptoms x 1 day. She is 2 weeks , breastfeed ing .Lac tational mastitis suspected. Will start antibiotic therapy, encouraged tylenol to help with pain and fever skein winder.Co ld compress to breast.Con tinue to breastfeed and pump from that breast.Pat ient to call the office if she is not feeling any better in the next 2-3 days.She should go to the ED with any worsening symptoms. Time spent with the patient was 30 minutes [id number] [facility] [address],[place] [address] 11/29/2021 14:21:00 11/29/2021 15:12:35 care 393214793 Z39.2 [id number] Raffy Mane MD [facility] [address],[place] [address] 03/02/2024 14:00:31 03/02/2024 14:59:26 Missed miscarriage 06554081 O02.1 Z3A.00 [id number] Raffy Mane MD [facility] [address],[place] [address] 03/02/2024 14:55:37 03/02/2024 17:03:00 Threatened miscarriage 30656368 O20.0 This patient is a 28y/o female [...] minutes on the patient's care in total. [id number] Raffy Mane MD [facility] [address],[place] [address] 09/22/2024 11:45:06 09/22/2024 12:27:43 care: poor obstetric history 107287556 O09.291 O36.80X0 Z3A.01 [id number] Raffy Mane MD [facility] [address],[place] [address] 10/07/2024 14:53:29 10/07/2024 15:21:45 [id number] Raffy Mane MD [facility] [address],[place] [address] 10/07/2024 14:54:03 10/07/2024 16:24:51 test positive 311730925 Z32.01 1. Exam today within normal limits. 2. Ultrasound today confirms GA and viability. EDC 05/12/25, FHR 175, single IUP 3. GC/Clamydi a testing done: will f/u as indicated. Pap smear updated today. 4. ACOG guidelines and plan of care for reviewed with patient. All questions answered. 5. Return to office at 12 weeks for new OB visit. Will need labs, UDS, and urine culture performed at that time. 6. Genetic screening: counseled, declines 7. Reviewed dos and don'ts of . New OB informatio n packet given, explained how practice/e xchange works. All questions answered. 8. Encouraged vitamins. [id number] MD Cuong Springer [address],[place] [address] 11/02/2024 15:48:54 11/02/2024 16:37:49 screening 465391748 Z36.82 Z3A.12 6147325969 [id number] MD Cuong Springer [address],[place] [address] 11/02/2024 15:49:16 11/02/2024 17:23:00 care status 326154484 Z34.82 20103498 [id number] MD Cuong Springer [address],[place] [address] 11/30/2024 14:45:20 11/30/2024 15:45:44 care status 595155271 Z34.82 19711313 [id number] MD Cuong Springer [address],[place] [address] 12/31/2024 09:46:37 12/31/2024 11:05:22 screening for malformation 729464934 Z36.3 Z3A.21 3884539713 [id number] Raffy Mane MD [facility] [address],[place] [address] 12/31/2024 09:46:53 12/31/2024 11:43:29 care status 304876975 Z34.82 55143141 [id number] MD Cuong Springer [address],[place] [address] 01/11/2025 15:48:59 01/11/2025 17:02:23 Suspected clinical finding 128248440 Z03.75 Z3A.22 9009040 [id number] Raffy Mane MD [facility] [address],[place] [address] 01/28/2025 09:35:59 01/28/2025 10:05:41 care status 204556140 Z34.82 87050154 [id number] Raffy Mane MD [facility] [address],[place] [address] 02/18/2025 13:46:22 02/18/2025 14:50:08 care status 585035352 Z34.83 [id number] Raffy Mane MD [facility] [address],[place] [address] 03/05/2025 14:53:58 03/05/2025 17:56:54 [id number] KYRA GOULD MD [facility] [address],[place] [address] 03/09/2025 17:40:12 03/09/2025 18:06:45 History of previous intrauterine growth restricted 0718993210 49406 Z87.59 38626542 Past pregn loki history of placental abruption 068103078 Z87.59 40486916 Iron defic iency anemia 38825253 D50.9 71806216 Gestation period, 30 weeks 04206395 Z3A.30 4612511 [id number] KYRA GOULD MD [facility] [address],[place] [address] 03/24/2025 09:55:18 03/24/2025 10:37:52 Past history of small for gestational age baby 933115662 Z87.59 O41.03X0 Z3A.33 16840990 [id number] MD Cuong GARRISON [address] [place] [address] 03/24/2025 09:55:33 03/24/2025 16:01:09 Iron deficiency anemia 91867324 D50.9 26096298 History of previous intrauterine growth restricted 5146145385 50006 Z87.59 09457418 Gestation period, 33 weeks 47045814 Z3A.33 8208314 [id number] KYRA GOULD MD [facility] [address],[place] [address] 04/06/2025 10:18:59 04/06/2025 11:09:33 Oligohydramnios 52413147 O41.03X0 Z3A.34 41965640 [id number] KYRA GOULD MD [facility] [address],[place] [address] 04/07/2025 13:49:57 04/07/2025 14:53:45 Anemia 755131657 D64.9 3497528 Iron defic iency anemia 56871791 D50.9 22727002 Gestation period, 35 weeks 62088377 Z3A.35 8627559 [id number] KYRA GOULD MD [facility] [address],[place] [address] 04/16/2025 14:41:56 04/16/2025 15:29:08 Gestation period, 36 weeks 40955136 Z3A.36 3306353 Iron defic iency anemia 57023071 D50.9 32513403 Precipitate labor 583823 04 O62.3 207504 [id number] [facility] [address],[place] [address] 04/30/2025 09:39:14 04/30/2025 10:21:58 Gestation period, 38 weeks 47972260 Z3A.38 2737857 [id number] [facility] [address],[place] [address] 05/07/2025 09:38:27 05/07/2025 10:38:28 Gestation period, 39 weeks 03577910 Z3A.39 4623605 Health Concerns Section Related Observation LastModified by Organization Detai ls LastModified Time None Recorded Concern Status LastModified by Organization Details LastModified Time None Recorded Advance Directives Directive N: Payers Insurance Date Sequence Insurance Name Policy Number Policy Chavez Covered Member ID Chavez Member ID Guarantor Name 09/21/2024 1 [facility] (PPO) [id number] Vannessa Bowden [id number] Vannessa Holik 07/25/2021 1 [facility] [id number] Hamzah Livingston [id number] Vannessa Holik 05/06/2025 1 [facility] (O) [id number] Vannessa Holik [id number] Vannessa Holik 03/02/2024 1 [place] [facility] Vannessa Holik [id number] Vannessa Holik 05/03/2025 2 [facility] - DOS ON OR AFTER 20 (MEDICAID REPLACEMENT - HMO) Vannessa Holik [id number] Vannessa Holik 03/02/2024 1 [facility] [id number] Vannessa Ramos Holik [id number] Vannessa Holik 07/25/2021 1 [facility] (PPO) [id number] Hamzah Evans [id number] Vannessa Holik 03/02/2024 1 [facility] - DOS ON OR AFTER 20 (MEDICAID REPLACEMENT - HMO) Vannessa Holik [id number] Vannessa Holik Notes Date Note Type Note Provider Name and Address Organization Details Recorded Time 04/07/2025 text/html Generic HPI TemplateReported by Patient KYRA GOULD MD [address], [place], [address], [facility] 04/07/2025 14:45:44 04/16/2025 text/html Generic HPI TemplateReported by Patient KYRA GOULD MD [address], [place], [address], [facility] 04/16/2025 15:22:31 04/30/2025 text/html Generic HPI TemplateReported by Patient Paris Whitney CNM [address], [place], [address], [facility] 04/30/2025 10:18:48 05/07/2025 text/html Generic HPI TemplateReported by Patient Paris Whitney, [place] [address], [place], [address], [facility] 05/07/2025 10:30:57 OBGyn Episode Ob Episode Information Episode Created Date Number of Fetuses Patient Bloodtype Patient rh Status Prepregnancy Weight lbs Domestic Partner Domestic Partner Phone Father Name Tractor Engine Mechanic Status 05/22/20 21 1 CLOSED Fetus Data First Name Last Name Admitted to NICU Weight (g) Sex Living Outcome Pediatric Complications Fetus ID Race Codes Race Delivery Type 3826.95 5704 M Full Term 79669 Vaginal Delivery Daryn Calculation Initial Daryn Date [...] Domestic Partner Domestic Partner Phone Father Name Tractor Engine Mechanic Status 06/01/20 21 1 A Negative 182 CLOSED Fetus Data First Name Last Name Admitted to NICU Weight (g) Sex Living Outcome Pediatric Complications Fetus ID Race Codes Race Delivery Type 3373.59 05 M true Full Term 93145 Vaginal Delivery Problems Problem Notes Problem Name Start Date End Date Resolution Snomed Code Not e RhD negative 325142667 History of growth retardation 39806395459993 wkly an tenatal testing 32wks Placental abruption - delivered 560235490 36wks Daryn Calculation Initial Daryn Date Initial [...] Weight in lbs Pre/Post Dialysis Refused Weight 185.664594759924 BP Diastolic BP Location Tested BP Systolic [...] Weight in lbs Pre/Post Dialysis Refused Weight 194.122351230121 BP Diastolic BP Location Tested BP Systolic [...] Weight in lbs Pre/Post Dialysis Refused Weight 196.248679535860 BP Diastolic BP Location Tested BP Systolic [...] Weight in lbs Pre/Post Dialysis Refused Weight 201.464924754789 BP Diastolic BP Location Tested BP Systolic [...] Weight in lbs Pre/Post Dialysis Refused Weight 202.531874599576 BP Diastolic BP Location Tested BP Systolic BP Type 80 122 Fetus Heart Rate Present Fetus Movement A Yes Comments Bpp 8/8 NST R, doing well, p recautions reviewed, [...] Weight in lbs Pre/Post Dialysis Refused Weight 206.660490426567 BP Diastolic BP Location Tested BP Systolic [...] Weight in lbs Pre/Post Dialysis Refused Weight 206.630981449790 BP Diastolic BP Location Tested BP Systolic [...] Weight in lbs Pre/Post Dialysis Refused Weight 206.154692802599 BP Diastolic BP Location Tested BP Systolic [...] Weight in lbs Pre/Post Dialysis Refused Weight 207.816731992828 BP Diastolic BP Location Tested BP Systolic [...] Weight in lbs Pre/Post Dialysis Refused Weight 205.146147565026 BP Diastolic BP Location Tested BP Systolic [...] Weight in lbs Pre/Post Dialysis Refused Weight 185.200401130104 BP Diastolic BP Location Tested BP Systolic [...] Estim ated Date of Delivery false Thalassemia (Brazilian, Danish, Mediterranean, Or Background): MCV < 80 false Neural Tube Defect (Meningomyelocele, Spina Bifi da, Or Anencephaly) false Congenital Heart Defect false Down Syndrome false Kahlil-Sachs (eg, Druze, Cajun, Ukrainian-Maywood) f alse Curly Disease false Sickle Cell [...] Date Comments 2 None None 38.2 false [place], Paris CNM Patient delivered in her car prior to arrival at the hospital. CNM at car upon arrival. Discharge Information Feeding Method Contraceptive Method Maternal HG B and HCT Levels Ob Episode Information Episode Created Date Number of Fetuses Patient Bloodtype Patient rh Status Prepregnancy Weight lbs Domestic Partner Domestic Partner Phone Father Name Tractor Engine Mechanic Status 05/22/20 21 1 CLOSED Fetus Data First Name Last Name Admitted to NICU Weight (g) Sex Living Outcome Pediatric Complications Fetus ID Race Codes Race Delivery Type 2948.34 8 F Prematur e 79708 Vaginal Delivery Daryn Calculation Initial Daryn Date [...] Domestic Partner Domestic Partner Phone Father Name Tractor Engine Mechanic Status 05/22/20 21 1 CLOSED Fetus Data First Name Last Name Admitted to NICU Weight (g) Sex Living Outcome Pediatric Complications Fetus ID Race Codes Race Delivery Type 2891.64 9 F Full Term 37503 Vaginal Delivery Daryn Calculation Initial Daryn Date [...] Domestic Partner Domestic Partner Phone Father Name Tractor Engine Mechanic Status 11/03/19 25 1 A Negative 173 OPEN Fetus Data First Name Last Name Admitted to NICU Weight (g) Sex Living Outcome Pediatric Complications Fetus ID Race Codes Race Delivery Type 74563 Problems Problem Notes Problem Name Start Date End Date Resolution Snomed Code Not e Administration of human anti-D immunoglobulin needed 11/04/2024 3336289927 A neg rhogam @28wks Precipitate labor 11/02/2024 82649395 d elivered in car on last Past history of placental abruption 859738442 History of previous intrauterine growth restricted 046755678856624 Iron deficiency anemia 03/09/2025 204961 02 Fe supplement, recheck at 34 weeks [...] Weight in lbs Pre/Post Dialysis Refused Weight 176.302543436059 BP Diastolic BP Location Tested BP Systolic [...] Weight in lbs Pre/Post Dialysis Refused Weight 180.254447210618 BP Diastolic BP Location Tested BP Systolic [...] Type Weight in lbs Pre/Post Dialysis Refused 184.897884908360 BP Diastolic BP Location Tested BP Systolic [...] Type Weight in lbs Pre/Post Dialysis Refused 191.101478560988 BP Diastolic BP Location Tested BP Systolic [...] Type Weight in lbs Pre/Post Dialysis Refused 195.904739483565 BP Diastolic BP Location Tested BP Systolic BP Type 81 L arm 119 sitting Fetus Heart Rate Present A 136 Present Fetus Movement A Yes Comments no complaints, no problems, routine care, no contractions, no vaginal bleeding, no loss of fluid, no cramping Flowsheet Date 03/05/2025 Oilver Score Blood Edema Fundus Height Fundus Units Glucose Ketones Leukocytes Nitrite Labor Signs Protein Cervic Dilation Cervic Effacement Cervic Station Type Weight in lbs Pre/Post Dialysis Refused Weight 200.459399119918 BP Diastolic BP Location Tested BP Systolic BP Type 76 L arm 114 sitting Fetus Heart Rate Present A 152 Present Fetus Movement A Yes Comments Flowsheet Date 03/09/2025 Oliver Score Blood Edema Fundus Height Fundus Units Glucose Ketones Leukocytes Nitrite Labor Signs Protein Cervic Dilation Cervic Effacement Cervic Station Type Weight in lbs Pre/Post Dialysis Refused Weight 200.371190583611 BP Diastolic BP Location Tested BP Systolic [...] Type Weight in lbs Pre/Post Dialysis Refused 200.796380989385 BP Diastolic BP Location Tested BP Systolic [...] Type Weight in lbs Pre/Post Dialysis Refused 203.23672369813 BP Diastolic BP Location Tested BP Systolic [...] Type Weight in lbs Pre/Post Dialysis Refused 204.140126378861 BP Diastolic BP Location Tested BP Systolic [...] Type Weight in lbs Pre/Post Dialysis Refused 208.385553745537 BP Diastolic BP Location Tested BP Systolic [...] Weight in lbs Pre/Post Dialysis Refused Weight 209.880821187419 BP Diastolic BP Location Tested BP Systolic [...] Domestic Partner Domestic Partner Phone Father Name Tractor Engine Mechanic Status 03/09/20 24 1 CLOSED Fetus Data First Name Last Name Admitted to NICU Weight (g) Sex Living Outcome Pediatric Complications Fetus ID Race Codes Race Delivery Type , Spontane ous 09209 Daryn Calculation Initial Daryn Date Initial Exam [...]
--- OUTSIDE RECORDS SUMMARY | 2025-05-08 10:43 | XMS_ITS | Continuity of Care Document ---
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 Plan of Treatment Reminders Order Date Submit Date Provider Last Modified By Organization Details Last Modified Time Details Appointments OB ROUTINE 2024 09:00A Taylor Whitney CNM Not available Not available Not available INDUCTION 2024 05:00A Taylor Whitney CNM Not available Not available Not available Lab streptoco ccus group B, culture, unspecifi ed specimen 2024 025 [facility] (Lab), [address] [place], [address], 04/20/2025 16:57:04 Referral None recorded. Procedures None recorded. Surgeries [...] nce of HIV infec tion. Not Available [facility] (Lab) [address] [facility], [place], [address], 11/03/2024 12:54:58 11/03/1911/02/2024 HEPAT ITIS B SURFA CE ANTIG EN hepatitis B surface antigen Non-re active non-re active This assay was perfo rmed using [employer] ratio n reage nts and test kits. Value s obtai jeromy with other assay metho ds or kits canno t be used inter merritt eably . Not Available [facility] (Lab) [address] [facility], [place], [address], 11/03/2024 12:54:59 11/03/1911/02/2024 HEPAT ITIS C ANTIB BERYL SCREE N, REFLE X TO CONFI RMATI ON hepatitis C antibody Non-re active non-re active Antib odies to HCV Not Detec marline, does not exclu de the possi bilit y of expos ure to HCV. Not Available [facility] (Lab) [address] , [place], [address], 11/03/2024 12:55:00 11/03/1911/02/2024 RUBEL LA IGG ANTIB BERYL, QUANT rubella antibodies, IgG Reacti ve reacti ve Not Available [facility] (Lab) [address], [place], [address], 11/03/2024 12:55:00 11/03/1911/02/2024 RUBEL LA IGG ANTIB BERYL, QUANT rubella antibodies, IgG quant 20.6 IU/mL >=10 Non-r eacti ve (Non- Immun e) <10 IU/mL React shabbir (Immu ne) > or = 10 IU/mL Not Available [facility] (Lab) [address] [place], [address], 11/03/2024 12:55:00 11/03/1911/02/2024 CBC W/DIF F WBC 9.4 10'3/ uL 3.5-[address] [facility] (Lab) [address] [place], [address], 11/03/2024 12:55:01 11/03/1911/02/2024 CBC W/DIF F RBC 3.77 10'6/ uL (based on docume nted legal sex) 3.80-5 [address] [facility] (Lab) [address] [facility], [place], [address], 11/03/2024 12:55:01 11/03/19 25 11/02/2024 CBC W/DIF F HGB 12.4 g/dL (based on docume nted legal sex) 11.6-[address] [facility] (Lab) [address] [facility], [place], [address], 11/03/2024 12:55:01 11/03/19 25 11/02/2024 CBC W/DIF F HCT 35.4 % (based on docume nted legal sex) 34.0-[address] [facility] (Lab) [address] [facility], [place], [address], 11/03/2024 12:55:01 11/03/19 25 11/02/2024 CBC W/DIF F MCV 93.9 fL 80.0-[address] [facility] (Lab) [address] [facility], [place], [address], 11/03/2024 12:55:01 11/03/19 25 11/02/2024 CBC W/DIF F MCH 32.9 pg 27.0-[address] [facility] (Lab) [address] [facility], [place], [address], 11/03/2024 12:55:01 11/03/19 25 11/02/2024 CBC W/DIF F MCHC 35.0 g/dL 32.0-[address] [facility] (Lab) [address] [place], [address], 11/03/2024 12:55:01 11/03/1911/02/2024 CBC W/DIF F RDW 13.2 % 11.0-[address] [facility] (Lab) [address], [place], [address], 11/03/2024 12:55:01 11/03/1911/02/2024 CBC W/DIF F plt 252 10'3/ uL 150-[address] [facility] (Lab) [address], [place], [address], 11/03/2024 12:55:01 11/03/1911/02/2024 CBC W/DIF F MPV 10.9 fL 8.8-[address] [facility] (Lab) [address], [place], [address], 11/03/2024 12:55:01 11/03/19 25 11/02/2024 CBC W/DIF F NRBC's 0.0 % 0.[address] [facility] (Lab) [address], [place], [address], 11/03/2024 12:55:01 11/03/1911/02/2024 CBC W/DIF F absolute NRBCs 0.0 10'3/ uL no refere nce range establ ished Not Available [facility] (Lab) [address], [place], [address], 11/03/2024 12:55:01 11/03/1911/02/2024 CBC W/DIF F neutrophils 75.0 % 34.0-7 3[address] [facility] (Lab) [address] [facility], [place], [address], 11/03/2024 12:55:01 11/03/19 25 11/02/2024 CBC W/DIF F lymphocytes 17.0 % 15.0-[address] [facility] (Lab) [address] [place], [address], 11/03/2024 12:55:01 11/03/19 25 11/02/2024 CBC W/DIF F monocytes 6.8 % 1.0-[address] [facility] (Lab) [address] [facility], [place], [address], 11/03/2024 12:55:01 11/03/19 25 11/02/2024 CBC W/DIF F eosinophils 0.6 % 0.0-8. [address] [facility] (Lab) [address] [facility], [place], [address], 11/03/2024 12:55:01 11/03/19 25 11/02/2024 CBC W/DIF F basophils 0.2 % 0.0-2. [address] [facility] (Lab) [address] [facility], [place], [address], 11/03/2024 12:55:01 11/03/19 25 11/02/2024 CBC W/DIF [...] separ ately if prese nt. Not Available [facility] (Lab) [address], [place], [address], 11/03/2024 12:55:01 11/03/1911/02/2024 CBC W/DIF F absolute neutrophils 7.0 10'3/ uL 1.5-8. [address] [facility] (Lab) [address] [place], [address], 11/03/2024 12:55:01 11/03/19 25 11/02/2024 CBC W/DIF F absolute lymphocytes 1.6 10'3/ uL 1.0-4. [address] [facility] (Lab) [address], [place], [address], 11/03/2024 12:55:01 11/03/1911/02/2024 CBC W/DIF F absolute monocytes 0.6 10'3/ uL 0.2-1. [address] [facility] (Lab) [address], [place], [address], 11/03/2024 12:55:01 11/03/1911/02/2024 CBC W/DIF F absolute eosinophils 0.1 10'3/ uL 0.0-0. [address] [facility] (Lab) [address], [place], [address], 11/03/2024 12:55:01 11/03/1911/02/2024 CBC W/DIF F absolute basophils 0.0 10'3/ uL 0.0-0. [address] [facility] (Lab) [address], [place], [address], 11/03/2024 12:55:01 11/03/1911/02/2024 CBC W/DIF F absolute immature granulocytes 0.0 10'3/ uL 0.00-0 .10 Refer ence range s for nonbi nary/ inter sex or unspe cifie d gende r patie nts have not been estab lishe d. Pleas e [facility] for range s estab lishe d for cisge nder patie nts and evalu ate in the clini georges elyssa xt of the indiv idual patie nt: https ://izzy vasquez book. nm.or g/gen derx Not Available [facility] (Lab) [address], [place], [address], 11/03/2024 12:55:01 11/03/1911/02/2024 TYPE/ RH/SC REEN ABO/Rh type A NEG Not Available [facility] (Lab) [address], [place], [address], 11/03/2024 12:55:02 11/03/1911/02/2024 TYPE/ RH/SC REEN antibody screen NEG Not Available [facility] (Lab) [address] [facility], [place], [address], 11/03/2024 12:55:02 11/03/1911/02/2024 TYPE/ RH/SC REEN exp date 2024 23:[address] [facility] (Lab) [address] [address] [facility], [place], [address], 11/03/2024 12:55:02 11/03/19 25 11/02/2024 HEMOG LOBIN [...] >8.0% Actio n sugge sted Not Available [facility] (Lab) [address] [address] [facility], [place], [address], 11/03/2024 12:55:02 11/03/1911/02/2024 RPR SCREE N, REFLE X TITER /CONF IRMAT ION RPR qualitative Nonrea ctive nonrea ctive Not Available [facility] (Lab) [address] [address] [facility], [place], [address], 11/03/2024 12:55:03 11/03/19 25 11/02/2024 CULTU RE: URINE result report SEE RESULT S BELOW Test: Cultu re: Urine Speci men Sourc e: Urine Voide d Speci men Type: Urine Speci men Date: 2024 1723 Resul t Date: 2024 0338 Resul t Statu s: Final resul t Abnor mal: No Resul ting Lab: [facility] [address] [facility] [address] Tel: CULTU RE ----- ----- ----- --- No growt h in 1 day (dete ction level of 10,00 0 colon ies / ml.) Not Available [facility] (Lab) [address] [place], [address], 11/04/2024 04:43:17 02/19/2002/18/2025 HEMAT OCRIT (HCT) HCT 32.0 % (based on docume nted legal sex) 34.0-[address] [facility] (Lab) [address] [place], [address], 02/19/2025 04:10:34 02/19/20 25 02/18/2025 HEMOG LOBIN (HGB) HGB 10.3 g/dL (based on docume nted legal sex) 11.6-1 [address] [facility] (Lab) [address] [place], [address], 02/19/2025 04:10:34 02/19/20 25 02/18/2025 GTT - GESTA MAYELIN L SCREE N, ACOG OB glucose, 1 hour screen 114 mg/dL 70-135 Not Available [facility] (Lab) [address] [place], [address], 02/19/2025 04:10:35 02/19/20 25 02/18/2025 HIV 1/2 ANTIG EN/AN TIBOD Y, REFLE X CONFI RMATI ON HIV antigen/anti body Nonrea ctive nonrea ctive HIV-1 antig en and HIV-1 /HIV- 2 antib odies were not detec marline. No labor atory evide nce of HIV infec tion. Not Available [facility] (Lab) [address] [place], [address], 02/19/2025 04:10:35 03/05/20 25 03/05/2025 RPR SCREE N, REFLE X TITER /CONF IRMAT ION RPR qualitative Nonrea ctive nonrea ctive Do not charg e a venip unctu re for this test. Test was misse d at last visit . Not Available [facility] (Lab) [address], [place], [address], 03/06/2025 11:08:08 04/07/2004/07/2025 CBC W/DIF F WBC 9.7 10'3/ uL 3.5-[address] [facility] (Lab) [address] , [place], [address], 04/08/2025 04:02:42 04/07/20 25 04/07/2025 CBC W/DIF F RBC 3.68 10'6/ uL (based on docume nted legal sex) 3.80-5 [address] [facility] (Lab) [address], [place], [address], 04/08/2025 04:02:42 04/07/20 25 04/07/2025 CBC W/DIF F HGB 11.4 g/dL (based on docume nted legal sex) 11.6-1 5[address] [facility] (Lab) [address], [place], [address], 04/08/2025 04:02:42 04/07/2004/07/2025 CBC W/DIF F HCT 34.1 % (based on docume nted legal sex) 34.0-[address] [facility] (Lab) [address] [place], [address], 04/08/2025 04:02:42 04/07/20 25 04/07/2025 CBC W/DIF F MCV 92.7 fL 80.0-[address] [facility] (Lab) [address] [place], [address], 04/08/2025 04:02:42 04/07/20 25 04/07/2025 CBC W/DIF F MCH 31.0 pg 27.0-[address] [facility] (Lab) [address] [facility], [place], [address], 04/08/2025 04:02:42 04/07/20 25 04/07/2025 CBC W/DIF F MCHC 33.4 g/dL 32.0-[address] [facility] (Lab) [address] [facility], [place], [address], 04/08/2025 04:02:42 04/07/20 25 04/07/2025 CBC W/DIF F RDW 15.2 % 11.0-1 5[address] [facility] (Lab) [address] [facility], [place], [address], 04/08/2025 04:02:42 04/07/20 25 04/07/2025 CBC W/DIF F plt 203 10'3/ uL 150-[address] [facility] (Lab) [address] [facility], [place], [address], 04/08/2025 04:02:42 04/07/20 25 04/07/2025 CBC W/DIF F MPV 11.8 fL 8.8-[address] [facility] (Lab) [address] [facility], [place], [address], 04/08/2025 04:02:42 04/07/20 25 04/07/2025 CBC W/DIF F NRBC's 0.0 % 0.[address] [facility] (Lab) [address] [facility], [place], [address], 04/08/2025 04:02:42 04/07/20 25 04/07/2025 CBC W/DIF F absolute NRBCs 0.0 10'3/ uL no refere nce range establ ished Not Available [facility] (Lab) [address] [facility], [place], [address], 04/08/2025 04:02:42 04/07/20 25 04/07/2025 CBC W/DIF F neutrophils 78.0 % 34.0-7 3[address] [facility] (Lab) [address] [place], [address], 04/08/2025 04:02:42 04/07/20 25 04/07/2025 CBC W/DIF F lymphocytes 14.8 % 15.0-5 0[address] [facility] (Lab) [address] [place], [address], 04/08/2025 04:02:42 04/07/20 25 04/07/2025 CBC W/DIF F monocytes 5.8 % 1.0-[address] [facility] (Lab) [address] [place], [address], 04/08/2025 04:02:42 04/07/20 25 04/07/2025 CBC W/DIF F eosinophils 0.6 % 0.0-8. [address] [facility] (Lab) [address] [place], [address], 04/08/2025 04:02:42 04/07/20 25 04/07/2025 CBC W/DIF F basophils 0.3 % 0.0-2. [address] [facility] (Lab) [address] [place], [address], 04/08/2025 04:02:42 04/07/20 25 04/07/2025 CBC W/DIF [...] separ ately if prese nt. Not Available [facility] (Lab) [address] [facility], [place], [address], 04/08/2025 04:02:42 04/07/20 25 04/07/2025 CBC W/DIF F absolute neutrophils 7.6 10'3/ uL 1.5-8. [address] [facility] (Lab) [address] [facility], [place], [address], 04/08/2025 04:02:42 04/07/20 25 04/07/2025 CBC W/DIF F absolute lymphocytes 1.4 10'3/ uL 1.0-4. [address] [facility] (Lab) [address] [facility], [place], [address], 04/08/2025 04:02:42 04/07/20 25 04/07/2025 CBC W/DIF F absolute monocytes 0.6 10'3/ uL 0.2-1. [address] [facility] (Lab) [address] [facility], [place], [address], 04/08/2025 04:02:42 04/07/20 25 04/07/2025 CBC W/DIF F absolute eosinophils 0.1 10'3/ uL 0.0-0. [address] [facility] (Lab) [address] [facility], [place], [address], 04/08/2025 04:02:42 04/07/20 25 04/07/2025 CBC W/DIF F absolute basophils 0.0 10'3/ uL 0.0-0. [address] [facility] (Lab) [address] [facility], [place], [address], 04/08/2025 04:02:42 04/07/20 25 04/07/2025 CBC W/DIF F absolute immature granulocytes 0.1 10'3/ uL 0.00-0 .10 Refer ence range s for nonbi nary/ inter sex or unspe cifie d gende r patie nts have not been estab lishe d. Nghia oglesby refer to the follo wing table for range s estab lishe d for cisge nder patie nts and evalu ate in the clini georges elyssa xt of the indiv idual patie nt: https ://izzy vasquez book. nm.or g/gen derx Not Available [facility] (Lab) [address], [place], [address], 04/08/2025 04:02:42 04/07/2004/07/2025 ADRIAN TIN / IRON / TRANS ADRIAN N / TIBC iron 123 ug/dL 40-[address] [facility] (Lab) [address], [place], [address], 04/08/2025 04:02:42 04/07/2004/07/2025 ADRIAN TIN / IRON / TRANS ADRIAN N / TIBC transferrin 360 mg/dL 200-[address] [facility] (Lab) [address], [place], [address], 04/08/2025 04:02:42 04/07/2004/07/2025 ADRIAN TIN / IRON / TRANS ADRIAN N / TIBC ferritin 10.4 NG/mL 8.0-[address] [facility] (Lab) [address], [place], [address], 04/08/2025 04:02:42 04/07/2004/07/2025 ADRIAN TIN / IRON / TRANS ADRIAN N / TIBC TIBC 504 ug/dL 250-[address] [facility] (Lab) [address] [place], [address], 04/08/2025 04:02:42 04/07/2004/07/2025 ADRIAN TIN / IRON / TRANS ADRIAN N / TIBC iron saturation 24 % 20-55 Not Available [facility] (Lab) [address] [place], [address], 04/08/2025 04:02:42 04/16/2004/16/2025 CULTU RE: GROUP B [...] t Abnor mal: Yes Resul ting Lab: [facility] [address] [facility] [address] [facility] [address] Tel: CULTU RE ----- ----- ----- --- [...] jesica for these drugs . Not Available [facility] (Lab) [address], [place], [address], 04/20/2025 16:57:04 11/03/19 25 11/02/2024 US, obste tric, nucha l trans lucen cy No observ ation record ed. [email or web address] [address], [place], [address], 11/02/2024 18:18:57 11/03/19 25 11/02/2024 US, obste tric, follo w-up No observ ation record ed. Graciela [address], [place], [address], 11/03/2024 15:44:13 01/01/20 25 12/31/2024 US, obste tric, 2nd or 3rd trime ster No observ ation record ed. [email or web address] [address], [place], [address], 12/31/2024 16:14:45 01/01/20 25 12/31/2024 US, obste tric, 2nd or 3rd trime ster No observ ation record ed. [email or web address] Graciela [address], [place], [address], 01/03/2025 22:41:59 01/12/20 25 01/11/2025 US, obste tric, trans vagin al No observ ation record ed. [email or web address] [address], [place], [address], 01/11/2025 17:33:19 01/12/20 25 01/11/2025 US, obste tric, trans vagin al No observ ation record ed. Graciela [address], [place], [address], 01/12/2025 22:12:23 03/24/2003/24/2025 , mary tric, follo w-up No observ ation record ed. [email or web address] [address], [place], [address], 03/24/2025 13:36:18 03/24/2003/24/2025 , mary gómez, bioph ysica l profi le No observ ation record ed. [email or web address] [address], [place], [address], 03/24/2025 13:36:31 10/01/03/24/2025 US, obste tric, follo w-up No observ ation record ed. [email or web address] Graciela [address], [place], [address], 03/26/2025 17:41:33 04/06/2004/06/2025 imagi ng/di agnos tic resul t No observ ation record ed. MIMI Gr[address]iela [address], [place], [address], 04/06/2025 13:11:41 04/06/2004/06/2025 US, obste tric, limit ed No observ ation record ed. [email or web address] [address], [place], [address], 04/06/2025 11:40:14 Result Notes None recorded. Problems Name Problem SNOMED Code Status Onset Date Resolution Date Notes Provider Name and Address Organization Details Recorded Time History of growth retardat ion 0596180752 [id number] Completed wkly antenata l testing 32wks Graciela Gtznstieh l null, [facility] 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 2 13:05:39 RhD negative [id number] Completed Graciela Molinanenstieh l null, [facility] 2 13:05:39 Past pregnanc y history of placenta l abruptio n 914916611 Active Shadia Lu null, [facility] 5 09:35:28 History of previous intraute rine growth restrict ed [id number] 73525 Active Shadia Lu null, [facility] 5 09:35:56 Vaginiti s and vulvovag initis Completed 201105/22/2021 Vaginiti s and vulvovag initis, unspecif ied;Prac luis fernando ID: 0001 Radha bradley, [facility] 18:20:42 Pregnanc y test positive [id number] Completed 201105/22/2021 Positive Pregnanc y Test;Pra ctice ID: 0001 Radha bradley, [facility] 18:21:18 Screenin g for malignan t neoplasm of cervix Completed 201105/22/2021 Pap Smear;Pr actice ID: 0001 Radha Cloud [facility], [facility] 18:20:40 anatomy study Completed 201105/22/2021 [facility] ANATMC SURVEY;P ractice ID: 0001 Radha bradley, [facility] 18:21:26 Primigra bryan [id number] Completed 201105/22/2021 Supervis ion of normal first pregnanc y;Practi ce ID: 0001 Radha Cloud [facility], [facility] 18:20:25 malforma tion of central nervous system affectin g obstetri georges care [id number] Completed 201205/22/2021 Central nervous system malforma tion in fetus, antepart um;Recor ded Elsewher e: No Locat ion: [facility] S ource: EHR Sourcing Manager mohsen: N Practi ce ID: 0001 David lable Time: 11:00:00 AM Radha bradley [facility] 18:20:33 Delivery normal [id number] Completed 201205/22/2021 Normal delivery ;Practic e ID: 0001 Radha Cloud mirna [facility] 18:21:56 Postpart um care Completed 201205/22/2021 Routine postpart um follow-u p;Practi ce ID: 0001 [facility] 18:20:27 First degree perineal lacerati on [id number] Completed 201205/22/2021 First-de gree perineal lacerati on, unspecif ied as to episode of care in pregnanc y;Practi ce ID: 0001 [facility] 18:22:05 Educatio n Completed 201205/22/2021 Counseli ng contrace ptive manageme nt;Pract ice ID: 0001 [facility] 18:21:58 Speciali zed medical examinat ion Completed 201205/22/2021 Routine gynecolo gical examinat ion;Prac luis fernando ID: 0001 Radha Cloud [facility] 18:22:00 Pregnanc y test negative [id number] Completed 201205/22/2021 Negative Pregnanc y Test;Pra ctice ID: 0001 [facility] 18:21:19 Candidal vulvovag initis [id number] Completed 201305/22/2021 Candidia sis of vulva and vagina;P ractice ID: 0001 Radha Cloud [facility] 18:22:13 Proteinu mary [id number] Completed 201305/22/2021 Proteinu mary;Prac luis fernando ID: 0001 Radha Cloud [facility] 18:21:28 Leukorrh ea [id number] Completed 201305/22/2021 Leukorrh ea, not specifie d as infectiv e;Record ed Elsewher e: No Locat ion: [facility] S ource: EHR Sourcing Manager mohsen: N Practi ce ID: 0001 David lable Time: 03:00:00 PM Radha bradley [facility] 18:21:00 Adult health examinat ion Completed 201405/22/2021 Routine general medical examinat ion at a health care facility ;Practic e ID: 0001 Radha bradley [facility] 18:21:22 Speciali zed medical examinat ion Completed 201405/22/2021 Other specifie d chlamydi al diseases ;Practic e ID: 0001 Radha bradley [facility] 18:22:01 Venereal disease screenin g Completed 201405/22/2021 Screenin g examinat ion for venereal disease; Practice ID: [id number] Radha bradley, [facility] 18:20:39 Secondar y amenorrh ea [id number] Completed 201405/22/2021 Secondar y amenorrh ea;Pract ice ID: 0001 Radha bradley [facility] 18:20:35 Pregnanc y detectio n examinat ion Completed 201405/22/2021 Encounte r for pregnanc y test, result positive ;Practic e ID: 0001 Radha bradley, [facility] 18:22:14 Uterine size for dates discrepa ncy Completed 201405/22/2021 Uterine size-ivet e discrepa ncy, first trimeste r;Practi ce ID: 0001 Radha bradley, [facility] 18:21:04 Gestatio n period, 8 weeks [id number] Completed 201405/22/2021 8 weeks gestatio n of pregnanc y;Practi ce ID: 0001 Radha Cloud null, [facility] 18:21:21 Pregnanc y, childbir th and puerperi um finding Completed 201505/22/2021 Encntr for suprvsn of normal first preg, first trimeste r;Practi ce ID: 0001 Radha Bristow null, [facility] 18:21:40 Pregnanc y, childbir th and puerperi um finding Completed 201505/22/2021 Encntr for suprvsn of normal first preg, third trimeste r;Practi ce ID: 0001 Radha Bristow null, [facility] 18:21:42 finding Completed 201505/22/2021 Matern care for oth or susp poor fetl grth, 2nd tri, unsp;Pra ctice ID: 0001 Radha Bristow null, [facility] 18:21:07 Gestatio n period, 27 weeks [id number] Completed 201505/22/2021 27 weeks gestatio n of pregnanc y;Practi ce ID: 0001 Radha Bristow null, [facility] 18:21:55 Gestatio n period, 31 weeks [id number] Completed 201505/22/2021 31 weeks gestatio n of pregnanc y;Practi ce ID: 0001 Radha Bristow null, [facility] 18:22:08 Gestatio n period, 34 weeks [id number] Completed 201505/22/2021 34 weeks gestatio n of pregnanc y;Practi ce ID: 0001 Radha Cloud null, [facility] 18:20:29 finding Completed 201505/22/2021 Matern care for oth or susp poor fetl grth, third tri, fts1;Pra ctice ID: 0001 Radha bradley, [facility] 18:21:11 Gestatio n period, 37 weeks [id number] Completed 201505/22/2021 37 weeks gestatio n of pregnanc y;Practi ce ID: 0001 Radha bradley, [facility] 18:21:51 Gestatio n period, 38 weeks [id number] Completed 201505/22/2021 38 weeks gestatio n of pregnanc y;Practi ce ID: 0001 Radha bradley, [facility] 18:20:31 Term pregnanc y delivere d [id number] Completed 201505/22/2021 Encounte r for full-ter m uncompli cated delivery ;Practic e ID: 0001 Radha bradley, [facility] 18:20:45 Finding of regulari ty of menstrua l cycle Completed 201505/22/2021 Irregula r menstrua tion, unspecif ied;Prac luis fernando ID: 0001 Radha bradley, [facility] 18:20:[address] Concept Completed 201605/22/2021 Encntr for staffing rn exam (general ) (routine ) w/o abn findings ;Practic e ID: 0001 Radha bradley, [facility] 18:21:31 Syphilis test finding [id number] Completed 201605/22/2021 Encntr screen for infectio ns w sexl mode of transmis s;Record ed Elsewher e: No Locat ion: Nannette oglesby [facility] S ource: EHR Sourcing Manager mohsen: N Practi ce ID: 0001 David lable Time: 03:15:00 PM aRdha bradley [facility] 18:21:50 Infectio n screenin g Completed 201605/22/2021 Encounte r for screenin g for oth infec/pa rastc diseases ;Recorde d Elsewher e: No Locat ion: [facility] S ource: EHR Sourcing Manager mohsen: N Practi ce ID: 0001 David lable Time: 03:15:00 PM Radha bradley, [facility] 18:21:14 Insertio n of intraute rine contrace ptive device Completed 201605/22/2021 Encounte r for insertio n of intraute rine contrace ptive device;P ractice ID: 0001 Radhajeane Cloud [facility] 18:22:10 Clinical finding Completed 201605/22/2021 Presence of (intraut erine) contrace ptive device;R ecorded Elsewher e: No Locat ion: [facility] S ource: EHR Sourcing Manager mohsen: N Practi ce ID: 0001 David lable Time: 08:00:00 AM [facility] 18:21:45 Contrace ptive sheath status [id number] Completed 201605/22/2021 Encounte r for routine checking of intraute rine contrace p dev;Prac luis fernando ID: 0001 Radha bradley, [facility] 18:21:16 Gestatio n period, 11 weeks [id number] Completed 201805/22/2021 11 weeks gestatio n of pregnanc y;Practi ce ID: 0001 Radha bradley, [facility] 18:22:03 Antenata l screenin g Completed 201805/22/2021 Encounte r for antenata l screenin g for nuchal transluc ency;Pra ctice ID: 0001 Radha bradley, [facility] 18:21:13 Pregnanc y-induce d hyperten russell Completed 201805/22/2021 Gestatio nal hyperten russell w/o signific ant proteinu mary, 2nd trimeste r;Record ed Elsewher e: No Locat ion: Nannette oglesby [facility] S ource: EHR Sourcing Manager mohsen: N Practi ce ID: 0001 David lable Time: 02:30:00 PM Radha bradley, [facility] 18:21:02 Antenata l screenin g for malforma tion Completed 201805/22/2021 Encounte r for antenata l screenin g for malforma tions;Pr actice ID: 0001 Radha bradley, [facility] 18:22:11 Placenta previa 30650441 Completed 201805/22/2021 Placenta previa specifie d as w/o hemor, second trimeste r;Record ed Elsewher e: No [facility] S ource: EHR Sourcing Manager mohsen: N Practi ce ID: 0001 David lable Time: 01:00:00 PM Radha bradley [facility] 18:21:48 Gestatio n period, 24 weeks [id number] Completed 201805/22/2021 24 weeks gestatio n of pregnanc y;Record ed Elsewher e: No Locat ion: Nannette oglesby [facility] S ource: EHR Sourcing Manager mohsen: N Practi ce ID: 0001 David lable Time: 01:00:00 PM Radha bradley, [facility] 18:21:29 Normal pregnanc y in multigra bryan [id number] 38739 Completed 201805/22/2021 Encounte r for suprvsn of normal pregnanc y, third trimeste r;Practi ce ID: 0001 Radha bradley, [facility] 18:21:53 Uterine size for dates discrepa ncy Completed 201805/22/2021 Uterine size-ivet e discrepa ncy, third trimeste r;Practi ce ID: 0001 Radha Cloud null, [facility] 18:21:06 Gestatio n period, 35 weeks 12723990 Completed 201805/22/2021 35 weeks gestatio n of pregnanc y;Practi ce ID: 0001 Radha bradley, [facility] 18:22:15 finding Completed 201805/22/2021 Matern care for oth or susp poor fetl grth, third tri, unsp;Pra ctice ID: 0001 Radha bradley, [facility] 18:21:09 Gestatio n period, 36 weeks [id number] Completed 201805/22/2021 36 weeks gestatio n of pregnanc y;Practi ce ID: 0001 Radha Cloud null, [facility] 18:22:07 Single live from singleto n pregnanc y [id number] Completed 201805/22/2021 Single live ;Pr actice ID: 0001 Radha bradley, [facility] 18:20:37 Procedur e by method Completed 201905/22/2021 Encounte r for oth general cnsl and advice on contrace ption;Pr actice ID: 0001 Radha Cloud mirna, [facility] 18:21:33 Lochia finding Completed 201905/22/2021 Encounte r for routine postpart um follow-u p;Practi ce ID: 0001 Radha Cloud [facility], [facility] 1 18:21:43 Pregnanc y 82157474 Completed 202011/14/2021 Shadia Lu [facility] 5 17:00:00 Pregnanc y 70159347 Active 2024 Shadia Lu [facility] 5 17:00:00 Precipit ate labor 98058710 Active 2024 delivere d in car on last pregnanc y Raffy Mane MD [address], [place], [address], [facility] 5 17:13:06 Administ ration of human anti-D immunogl obulin needed Active 2024 A neg rhogam @28wks Yesi Vivar [facility] 5 06:51:43 Administ ration of human anti-D immunogl obulin needed Active 2024 A neg rhogam @28wks Yesi Vivar [facility] 5 06:51:43 Iron deficien cy anemia 88201388 Active 2024 Fe suppleme nt, recheck at 34 weeks KYRA GOULD MD [address], [place], [address], [facility] 5 18:03:31 Problem Notes None recorded. Procedures Surgical History Date Name Laterality Status Provider Name and Address Organization Details Recorded Time 10/08/19 25 Date of Last Pap Smear completed Shadia Lu [facility] 11/02/2024 16:57:17 08/23/19 19 Cholecystectomy completed Ellen Tanner [facility] 08/23/2021 16:05:41 Cholecystectomy completed Latoya Tejeda [facility] 10/07/2024 15:24:22 Imaging Results None recorded. Procedure Notes None recorded. Medical Equipment None Reported. Allergies No known drug allergies Medications Name Sig Start Date Stop Date Status Note LastModified by Organization Details LastModified Time Mirena 21 mcg/24 hr (up to 8 years) 52 mg intrauter ine device 12/03 completed Prescrib ed Elsewher e: Yes Loca tion: [facility] By: [email or web address] z Encoun ter DateTime : 05/21/20 17 11:45:00 AM Not Available Not Available Not Available Diflucan 150 mg tablet take 1 tablet by oral route once 11/11 completed Prescrib ed Elsewher e: No Locat ion: [facility] By: [email or web address] trick En counter DateTime [...] Prescrib ed Elsewher e: No Locat ion: [facility] By: [email or web address] trick En counter DateTime : 01/15/20 12 08:28:05 AM Not Available Not Available Not Available Vitamin D2 1,250 mcg (50,000 unit) capsule take 1 capsule (13024YQ ITS) by oral route every week 01/25 completed Prescrib ed Elsewher e: No Locat ion: [facility] By: [email or web address] mominunter DateTime : 10/17/19 16 01:42:07 PM Not [...] Prescrib ed Elsewher e: No Locat ion: [facility] By: sonia alexander DateTime : 04/15/20 13 01:00:00 PM Not Available Not Available Not Available Triveen-D uo DHA 29 mg-1 mg-400 mg oral pack take 2 by Oral route every day 04/15 completed Prescrib ed Elsewher e: No Locat ion: [facility] By: [email or web address] trick En counter DateTime : 04/29/20 12 03:45:44 PM Not Available Not Available Not Available BEAD STRINGER-PNV-DH A 28 mg iron-1 mg-200 mg capsule take 1 capsule by oral route every day 05/21 completed Prescrib ed Elsewher e: No Locat ion: [facility] By: kelsy wayne DateTime : 05/25/20 15 02:30:00 PM Not Available Not Available Not Available Diclegis 10 mg-10 mg tablet,de layed release 05/22 completed Not Available Not Available Not Available Minastrin 24 Fe 1 mg-20 mcg (24)/75 mg (4) chewable tablet chew 1 tablet by oral route every day 05/25 completed Prescrib ed Elsewher e: No Locat ion: [facility] By: [email or web address] trick En counter DateTime [...] Address Organization Details Last Updated DateTime 04/16/2025 24013.843 48 g 31 kg/m2 172.72 cm 104/69 mm[Hg] Candice Malik [facility] 04/16/2025 14:55:30 Social History Question Answer Notes LastModified by Organizat ion Details LastModified Time Tobacco Smoking Status Never Smoker Faye Chavez mirna, [facility] 11/13/2021 15:42:19 Do You Have [...] Or The Highest Degree You Have Received? [id number] Information not available 06/01/2021 Are There Any [...] anxious, or unable to sleep at night)? [id number] Information not available 06/01/2021 Family History Relationship Description Onset Age of this Age Resolved Age Notes LastModified by Organization Details LastModified Time Mother Multiple sclerosis [email or web address] Not available 2019 09:09:49 Maternal Grandfather Diabetes mellitus [email or web address] Not available 2019 09:10:00 Sister Polycystic ovary syndrome [email or web address] Not available 2023 14:01:01 Paternal Uncle Seizure disorder [email or web address] Not available 2023 14:01:01 Paternal Aunt Inflammatory disease of liver [email or web address] Not available 2023 14:01:01 Father Diabetes mellitus [email or web address] Not available 08/23 16:05:09 Medical History Condition [...] ICD10 Code Diagnosis IMO Codes Diagnosis Note [id number] KYRA GOULD MD [facility] [address] [address] 03/24/2025 09:55:18 03/24/2025 10:37:52 Past history of small for gestational age baby 617400948 Z87.59 O41.03X0 Z3A.33 28515413 [id number] KYRA GOULD MD [facility] [address] [address] 03/24/2025 09:55:33 03/24/2025 16:01:09 Iron deficiency anemia 59362025 D50.9 08880395 History of previous intrauterine growth restricted 8231990793 79048 Z87.59 69696030 Gestation period, 33 weeks 16067859 Z3A.33 2173728 [id number] KYRA GOULD MD [facility] [address],[place] [address] 04/06/2025 10:18:59 04/06/2025 11:09:33 Oligohydramnios 29298479 O41.03X0 Z3A.34 47378610 [id number] KYRA GOULD MD [facility] [address],[place] [address] 04/07/2025 13:49:57 04/07/2025 14:53:45 Anemia 402296469 D64.9 4506345 Iron defic iency anemia 30810493 D50.9 53707158 Gestation period, 35 weeks 02638965 Z3A.35 9989155 [id number] KYRA GOULD MD [facility] [address],[place] [address] 04/16/2025 14:41:56 04/16/2025 15:29:08 Gestation period, 36 weeks 57331291 Z3A.36 2915278 Iron defic iency anemia 31950030 D50.9 44650477 Precipitate labor 253931 04 O62.3 504859 Health Concerns Section Related Observation LastModified by Organization Detai ls LastModified Time None Recorded Concern Status LastModified by Organization Details LastModified Time None Recorded Payers Encounter Date Sequence Insurance Name Policy Number Policy Chavez Covered Member ID Chavez Member ID Guarantor Name 04/16/2025 1 [facility] (O) [id number] Vannessa Bowden [id number] Vannessa Bowden 04/16/2025 2 [facility] - DOS ON OR AFTER 20 (MEDICAID REPLACEMENT - HMO) Vannessa Bowden [id number] Vannessa Bowden Notes Date Note Type Note Provider Name and Address Organization Details Recorded Time 04/16/2025 text/html Generic HPI TemplateReported by Patient KYRA GOULD MD [address], [place], [address], [facility] 04/16/2025 15:22:31 OBGyn Episode Ob Episode Information Episode Created Date Number of Fetuses Patient Bloodtype Patient rh Status Prepregnancy Weight lbs Domestic Partner Domestic Partner Phone Father Name Liquid Flavor Compounder Status 11/03/19 25 1 A Negative 173 OPEN Fetus Data First Name Last Name Admitted to NICU Weight (g) Sex Living Outcome Pediatric Complications Fetus ID Race Codes Race Delivery Type [id number] Problems Problem Notes Problem Name Start Date End Date Resolution Snomed Code Not e Administration of human anti-D immunoglobulin needed 11/04/2024 7147510117 A neg rhogam @28wks Precipitate labor 11/02/2024 37601993 d elivered in car on last Past history of placental abruption 244203715 History of previous intrauterine growth restricted 834401538518773 Iron deficiency anemia 03/09/2025 739545 02 Fe supplement, recheck at 34 weeks [...] Weight in lbs Pre/Post Dialysis Refused Weight 176.383467121573 BP Diastolic BP Location Tested BP Systolic [...] Weight in lbs Pre/Post Dialysis Refused Weight 180.351282759177 BP Diastolic BP Location Tested BP Systolic [...] Type Weight in lbs Pre/Post Dialysis Refused 184.404767603552 BP Diastolic BP Location Tested BP Systolic [...] Type Weight in lbs Pre/Post Dialysis Refused 191.024197159293 BP Diastolic BP Location Tested BP Systolic [...] Type Weight in lbs Pre/Post Dialysis Refused 195.174205862409 BP Diastolic BP Location Tested BP Systolic [...] Weight in lbs Pre/Post Dialysis Refused Weight 200.553280256906 BP Diastolic BP Location Tested BP Systolic BP Type 76 L arm 114 sitting Fetus Heart Rate Present A 152 Present Fetus Movement A Yes Comments Flowsheet Date 03/09/2025 Oliver Score Blood Edema Fundus Height Fundus Units Glucose Ketones Leukocytes Nitrite Labor Signs Protein Cervic Dilation Cervic Effacement Cervic Station Type Weight in lbs Pre/Post Dialysis Refused Weight 200.564327122036 BP Diastolic BP Location Tested BP Systolic [...] Type Weight in lbs Pre/Post Dialysis Refused 200.404824118584 BP Diastolic BP Location Tested BP Systolic [...] Type Weight in lbs Pre/Post Dialysis Refused 203.46558661268 BP Diastolic BP Location Tested BP Systolic [...] Type Weight in lbs Pre/Post Dialysis Refused 204.221482166047 BP Diastolic BP Location Tested BP Systolic [...] Type Weight in lbs Pre/Post Dialysis Refused 208.507029511904 BP Diastolic BP Location Tested BP Systolic [...] Weight in lbs Pre/Post Dialysis Refused Weight 209.769559351709 BP Diastolic BP Location Tested BP Systolic [...]
--- OUTSIDE RECORDS SUMMARY | 2025-05-08 10:43 | XMS_ITS | Clinical Summary ---
Author Organization [facility] Address [address] [place] [address] Care Team Providers Care Funeral Location Manager Name Role Phone New Referring, Provider Primary [...] of 3 - 19+ 3-dose series) 2014 HPV Vaccines (1 - 3-dose SCD M series) 2022 COVID-19 Vaccine (1 - 2024-2 6 season) 2025 Influenza Adult (#1) 2025 Hepatitis A Vaccines Aged Out No long er eligible based on patient's age to complete this topic Meningococcal B Vaccine Aged Out No l onger eligible based on patient's age to complete this topic Meningococcal Vaccine Aged Out No jose nieves eligible based on patient's age to complete this topic Pneumococcal Vaccine: Pediat rics (0 to 5 Years) and At-Risk Patients (6 to 49 Years) Aged Out No longer eligible b ased on patient's age to complete this topic RSV Immunizations Under 20 Months Aged Out No longer eligible based on patient's age to complete this topic Care Teams Funeral Location Manager Relationship Specialty Start Date End Date New Referring, Provider PCP - General UNKNOWN PHYSICIAN SPECIALTY 03/16/21
--- OUTSIDE RECORDS SUMMARY | 2025-05-08 10:43 | XMS_ITS | Continuity of Care Document ---
Author Organization [facility] Address [address] [place] [address] Care Team Providers Care Asp Net Developer Name Role Phone LO BADILLO Primary Care Provider Assessment Encounter Date Assessment Date Assessment LastModified by Organization Details LastModified Time 02/18/2025 02/18/2025 Patient is ___weeks . Discussed plan. [email or web address] Not available 02/18/2025 14:02:49 Plan of Treatment Reminders Order Date Submit [...] of HIV infec tion. Not Available [facility] (Lab) [address], [place], [address], 11/03/2024 12:54:58 11/03/1911/02/2024 HEPAT ITIS B SURFA CE ANTIG EN hepatitis B surface antigen Non-re active non-re active This assay was perfo rmed using [employer] ratio n reage nts and test kits. Value s obtai jeromy with other assay metho ds or kits canno t be used inter merritt eably . Not Available [facility] (Lab) [address], [place], [address], 11/03/2024 12:54:59 11/03/1911/02/2024 HEPAT ITIS C ANTIB BERYL SCREE N, REFLE X TO CONFI RMATI ON hepatitis C antibody Non-re active non-re active Antib odies to HCV Not Detec marline, does not exclu de the possi bilit y of expos ure to HCV. Not Available [facility] (Lab) [address], [place], [address], 11/03/2024 12:55:00 11/03/1911/02/2024 RUBEL LA IGG ANTIB BERYL, QUANT rubella antibodies, IgG Reacti ve reacti ve Not Available [facility] (Lab) [address], [place], [address], 11/03/2024 12:55:00 11/03/19 25 11/02/2024 RUBEL LA IGG ANTIB BERYL, QUANT rubella antibodies, IgG quant 20.6 IU/mL >=10 Non-r eacti ve (Non- Immun e) <10 IU/mL React shabbir (Immu ne) > or = 10 IU/mL Not Available [facility] (Lab) [address], [place], [address], 11/03/2024 12:55:00 11/03/1911/02/2024 CBC W/DIF F WBC 9.4 10'3/ uL 3.5-[address] [facility] (Lab) [address], [place], [address], 11/03/2024 12:55:01 11/03/19 25 11/02/2024 CBC W/DIF F RBC 3.77 10'6/ uL (based on docume nted legal sex) 3.80-5 .[address] [facility] (Lab) [address] [facility], [place], [address], 11/03/2024 12:55:01 11/03/19 25 11/02/2024 CBC W/DIF F HGB 12.4 g/dL (based on docume nted legal sex) 11.6-[address] [facility] (Lab) [address] [facility], [place], [address], 11/03/2024 12:55:01 11/03/1911/02/2024 CBC W/DIF F HCT 35.4 % (based on docume nted legal sex) 34.0-[address] [facility] (Lab) [address] [facility] [facility], [place], [address], 11/03/2024 12:55:01 11/03/19 25 11/02/2024 CBC W/DIF F MCV 93.9 fL 80.0-[address] [facility] (Lab) [address] [facility] [facility], [place], [address], 11/03/2024 12:55:01 11/03/19 25 11/02/2024 CBC W/DIF F MCH 32.9 pg 27.0-[address] [facility] (Lab) [address] [facility] [facility], [place], [address], 11/03/2024 12:55:01 11/03/19 25 11/02/2024 CBC W/DIF F MCHC 35.0 g/dL 32.0-[address] [facility] (Lab) [address] [place], [address], 11/03/2024 12:55:01 11/03/19 25 11/02/2024 CBC W/DIF F RDW 13.2 % 11.0-[address] [facility] (Lab) [address] [facility], [place], [address], 11/03/2024 12:55:01 11/03/1911/02/2024 CBC W/DIF F plt 252 10'3/ uL 150-[address] [facility] (Lab) [address] [facility] [facility], [place], [address], 11/03/2024 12:55:01 11/03/19 25 11/02/2024 CBC W/DIF F MPV 10.9 fL 8.8-[address] [facility] (Lab) [address] [facility] [facility], [place], [address], 11/03/2024 12:55:01 11/03/19 25 11/02/2024 CBC W/DIF F NRBC's 0.0 % 0.[address] [facility] (Lab) [address] [facility] [facility], [place], [address], 11/03/2024 12:55:01 11/03/1911/02/2024 CBC W/DIF F absolute NRBCs 0.0 10'3/ uL no refere nce range establ ished Not Available [facility] (Lab) [address] [facility], [place], [address], 11/03/2024 12:55:01 11/03/1911/02/2024 CBC W/DIF F neutrophils 75.0 % 34.0-7 3[address] [facility] (Lab) [address] [facility] [facility], [place], [address], 11/03/2024 12:55:01 11/03/19 25 11/02/2024 CBC W/DIF F lymphocytes 17.0 % 15.0-[address] [facility] (Lab) [address] [place], [address], 11/03/2024 12:55:01 11/03/1911/02/2024 CBC W/DIF F monocytes 6.8 % 1.0-[address] [facility] (Lab) [address] [place], [address], 11/03/2024 12:55:01 11/03/19 25 11/02/2024 CBC W/DIF F eosinophils 0.6 % 0.0-8. [address] [facility] (Lab) [address] [facility], [place], [address], 11/03/2024 12:55:01 11/03/19 25 11/02/2024 CBC W/DIF F basophils 0.2 % 0.0-2. [address] [facility] (Lab) [address] [facility], [place], [address], 11/03/2024 12:55:01 11/03/1911/02/2024 CBC W/DIF F immature granulocytes 0.4 % no define d refere nce range Immat ure Granu locyt es (IG) repre sents autom ated enume ratio n of Metam yeloc ytes, Myelo cytes and Promy elocy kasey when IG is < 5%. Blast s are not inclu ded in IG and repor marline separ ately if prese nt. Not Available [facility] (Lab) [address] [facility], [place], [address], 11/03/2024 12:55:01 11/03/1911/02/2024 CBC W/DIF F absolute neutrophils 7.0 10'3/ uL 1.5-8. [address] [facility] (Lab) [address] [facility] [facility], [place], [address], 11/03/2024 12:55:01 11/03/1911/02/2024 CBC W/DIF F absolute lymphocytes 1.6 10'3/ uL 1.0-4. [address] [facility] (Lab) [address] [facility] [facility], [place], [address], 11/03/2024 12:55:01 11/03/1911/02/2024 CBC W/DIF F absolute monocytes 0.6 10'3/ uL 0.2-1. [address] [facility] (Lab) [address], [place], [address], 11/03/2024 12:55:01 11/03/1911/02/2024 CBC W/DIF F absolute eosinophils 0.1 10'3/ uL 0.0-0. [address] [facility] (Lab) [address], [place], [address], 11/03/2024 12:55:01 11/03/1911/02/2024 CBC W/DIF F absolute basophils 0.0 10'3/ uL 0.0-0. [address] [facility] (Lab) [address], [place], [address], 11/03/2024 12:55:01 11/03/1911/02/2024 CBC W/DIF F absolute immature granulocytes 0.0 10'3/ uL 0.00-0 .10 Refer ence range s for nonbi nary/ inter sex or unspe cifie d gende r patie nts have not been estab lishe d. Pleas e [facility] for range s estab lishe d for cisge nder patie nts and evalu ate in the clini georges elyssa xt of the indiv idual patie nt: https ://izzy vasquez book. nm.or g/gen derx Not Available [facility] (Lab) [address], [place], [address], 11/03/2024 12:55:01 11/03/1911/02/2024 TYPE/ RH/SC REEN ABO/Rh type A NEG Not Available [facility] (Lab) [address], [place], [address], 11/03/2024 12:55:02 11/03/1911/02/2024 TYPE/ RH/SC REEN antibody screen NEG Not Available [facility] (Lab) [address] [facility], [place], [address], 11/03/2024 12:55:02 11/03/1911/02/2024 TYPE/ RH/SC REEN exp date 2024 23:[address] [facility] (Lab) [address] [facility], [place], [address], 11/03/2024 12:55:02 11/03/19 25 11/02/2024 HEMOG LOBIN [...] Actio n sugge sted Not Available [facility] (Lab) [address] [facility] [facility], [place], [address], 11/03/2024 12:55:02 11/03/19 25 11/02/2024 RPR SCREE N, REFLE X TITER /CONF IRMAT ION RPR qualitative Nonrea ctive nonrea ctive Not Available [facility] (Lab) [address] [facility] [facility], [place], [address], 11/03/2024 12:55:03 11/03/19 25 11/02/2024 CULTU RE: URINE result report SEE RESULT S BELOW Test: Cultu re: Urine Speci men Sourc e: Urine Voide d Speci men Type: Urine Speci men Date: 2024 1723 Resul t Date: 2024 0338 Resul t Statu s: Final resul t Abnor mal: No Resul ting Lab: [facility] [address] [facility] [address] Tel: [phone] CULTU RE ----- ----- ----- --- No growt h in 1 day (dete ction level of 10,00 0 colon ies / ml.) Not Available [facility] (Lab) [address] [facility], [place], [address], 11/04/2024 04:43:17 02/19/2002/18/2025 HEMAT OCRIT (HCT) HCT 32.0 % (based on docume nted legal sex) 34.0-[address] [facility] (Lab) [address] [facility] [facility], [place], [address], 02/19/2025 04:10:34 02/19/2002/18/2025 HEMOG LOBIN (HGB) HGB 10.3 g/dL (based on docume nted legal sex) 11.6-1 [address] [facility] (Lab) [address] [place], [address], 02/19/2025 04:10:34 02/19/2002/18/2025 GTT - GESTA MAYELIN L SCREE N, ACOG OB glucose, 1 hour screen 114 mg/dL 70-135 Not Available [facility] (Lab) [address] [place], [address], 02/19/2025 04:10:35 02/19/2002/18/2025 HIV 1/2 ANTIG EN/AN TIBOD Y, REFLE X CONFI RMATI ON HIV antigen/anti body Nonrea ctive nonrea ctive HIV-1 antig en and HIV-1 /HIV- 2 antib odies were not detec marline. No labor atory evide nce of HIV infec tion. Not Available [facility] (Lab) [address] [place], [address], 02/19/2025 04:10:35 11/03/19 25 11/02/2024 US, obste tric, nucha l trans lucen cy No observ ation record ed. [email or web address] [address], [place], [address], 11/02/2024 18:18:57 11/03/19 25 11/02/2024 US, obste tric, follo w-up No observ ation record ed. Graciela [address], [place], [address], 11/03/2024 15:44:13 01/01/20 25 12/31/2024 US, obste tric, 2nd or 3rd trime ster No observ ation record ed. [email or web address] [address], [place], [address], 12/31/2024 16:14:45 01/01/20 25 12/31/2024 US, obste tric, 2nd or 3rd trime ster No observ ation record ed. [email or web address] Gr[address], [place], [address], 01/03/2025 22:41:59 01/12/20 25 01/11/2025 US, obste tric, trans vagin al No observ ation record ed. [email or web address] [address], [place], [address], 01/11/2025 17:33:19 01/12/20 25 01/11/2025 US, obste tric, trans vagin al No observ ation record ed. [email or web address] [address], [place], [address], 01/12/2025 22:12:23 03/24/20 25 03/24/2025 US, obste tric, follo w-up No observ ation record ed. [email or web address] [address], [place], [address], 03/24/2025 13:36:18 03/24/2003/24/2025 US, obste tric, bioph ysica l profi le No observ ation record ed. [email or web address] [address], [place], [address], 03/24/2025 13:36:31 03/24/2003/24/2025 US, obste tric, follo w-up No observ ation record ed. [email or web address] Graciela [address], [place], [address], 03/26/2025 17:41:33 04/06/2004/06/2025 imagi ng/di agnos tic resul t No observ ation record ed. [email or web address] Gr[address]a [address], [place], [address], 04/06/2025 13:11:41 04/06/2004/06/2025 , obste tric, limit ed No observ ation record ed. [email or web address] [address], [place], [address], 04/06/2025 11:40:14 Result Notes None recorded. Problems Name Problem SNOMED Code Status Onset Date Resolution Date Notes Provider Name and Address Organization Details Recorded Time History of growth retardat ion 2874316606 9108 Completed wkly antenata l testing 32wks Graciela Bohnenstieh l null, [facility] 2 13:05:39 Placenta l abruptio n - delivere d [id number] Completed 36wks Graciela Bohnenstieh l null, [facility] 2 13:05:39 RhD negative 293056568 Completed Graciela Bohnenstieh l null, [facility] 2 13:05:39 Past pregnanc y history of placenta l abruptio n 311457735 Active Shadia bradley, [facility] 5 09:35:28 History of previous intraute rine growth restrict ed 1953966362 60313 Active Shadia bradley, [facility] 5 09:35:56 Vaginiti s and vulvovag initis Completed 201105/22/2021 Vaginiti s and vulvovag initis, unspecif ied;Prac luis fernando ID: 0001 Radha bradley, [facility] 18:20:42 Pregnanc y test positive [id number] Completed 201105/22/2021 Positive Pregnanc y Test;Pra ctice ID: 0001 Radah bradley, [facility] 18:21:18 Screenin g for malignan t neoplasm of cervix Completed 201105/22/2021 Pap Smear;Pr actice ID: 0001 Radha [place], [facility] 18:20:40 anatomy study Completed 201105/22/2021 [facility]AT[facility] SURVEY;P ractice ID: 0001 Radha bradley, [facility] 18:21:26 Primigra bryan [id number] Completed 201105/22/2021 Supervis ion of normal first pregnanc y;Practi ce ID: 0001 Radha bradley, [facility] 18:20:25 malforma tion of central nervous system affectin g obstetri georges care [id number] Completed 201205/22/2021 Central nervous system malforma tion in fetus, antepart um;Recor ded Elsewher e: No Locat ion: Nannette oglesby [facility] S ource: EHR Plant Operations Manager mohsen: N Practi ce ID: 0001 David lable Time: 11:00:00 AM Radha bradley [facility] 18:20:33 Delivery normal [id number] Completed 201205/22/2021 Normal delivery ;Practic e ID: 0001 Radha bradley [facility] 18:21:56 Postpart um care Completed 201205/22/2021 Routine postpart um follow-u p;Practi ce ID: 0001 [facility]:20:27 First degree perineal lacerati on [id number] Completed 201205/22/2021 First-de gree perineal lacerati on, unspecif ied as to episode of care in pregnanc y;Practi ce ID: 0001 Radha bradley [facility] 18:22:05 Educatio n Completed 201205/22/2021 Counseli ng contrace ptive manageme nt;Pract ice ID: 0001 [facility] 18:21:58 Speciali zed medical examinat ion Completed 201205/22/2021 Routine gynecolo gical examinat ion;Prac luis fernando ID: 0001 Radha bradley [facility] 18:22:00 Pregnanc y test negative [id number] Completed 201205/22/2021 Negative Pregnanc y Test;Pra ctice ID: 0001 Radha bradley [facility] 18:21:19 Candidal vulvovag initis [id number] Completed 201305/22/2021 Candidia sis of vulva and vagina;P ractice ID: 0001 Radha bradley [facility] 18:22:13 Proteinu mary [id number] Completed 201305/22/2021 Proteinu mary;Prac luis fernando ID: 0001 Radha bradley [facility] 18:21:28 Leukorrh ea [id number] Completed 201305/22/2021 Leukorrh ea, not specifie d as infectiv e;Record ed Elsewher e: No Locat ion: [facility] S ource: EHR Plant Operations Manager mohsen: N Practi ce ID: 0001 David lable Time: 03:00:00 PM Radha bradley [facility] 18:21:00 Adult health examinat ion Completed 201405/22/2021 Routine general medical examinat ion at a health care facility ;Practic e ID: 0001 Radha brdaley [facility] 18:21:22 Speciali zed medical examinat ion Completed 201405/22/2021 Other specifie d chlamydi al diseases ;Practic e ID: 0001 Radha bradley [facility] 18:22:01 Venereal disease screenin g Completed 201405/22/2021 Screenin g examinat ion for venereal disease; Practice ID: 0001 Radha bradley [facility] 18:20:39 Secondar y amenorrh ea [id number] Completed 201405/22/2021 Secondar y amenorrh ea;Pract ice ID: 0001 Radha [place] [facility] 18:20:35 Pregnanc y detectio n examinat ion Completed 201405/22/2021 Encounte r for pregnanc y test, result positive ;Practic e ID: 0001 Radha bradley [facility] 18:22:14 Uterine size for dates discrepa ncy Completed 201405/22/2021 Uterine size-ivet e discrepa ncy, first trimeste r;Practi ce ID: 0001 Radha [place], [facility] 18:21:04 Gestatio n period, 8 weeks [id number] Completed 201405/22/2021 8 weeks gestatio n of pregnanc y;Practi ce ID: 0001 Radha bradley, [facility] 18:21:21 Pregnanc y, childbir th and puerperi um finding Completed 201505/22/2021 Encntr for suprvsn of normal first preg, first trimeste r;Practi ce ID: 0001 Radha bradley, [facility] 18:21:40 Pregnanc y, childbir th and puerperi um finding Completed 201505/22/2021 Encntr for suprvsn of normal first preg, third trimeste r;Practi ce ID: 0001 Radha Pedro Luis bradley, [facility] 18:21:42 finding Completed 201505/22/2021 Matern care for oth or susp poor fetl grth, 2nd tri, unsp;Pra ctice ID: 0001 Radha bradley, [facility] 18:21:07 Gestatio n period, 27 weeks [id number] Completed 201505/22/2021 27 weeks gestatio n of pregnanc y;Practi ce ID: 0001 Radha bradley, [facility] 18:21:55 Gestatio n period, 31 weeks [id number] Completed 201505/22/2021 31 weeks gestatio n of pregnanc y;Practi ce ID: 0001 Radha bradley, [facility] 18:22:08 Gestatio n period, 34 weeks [id number] Completed 201505/22/2021 34 weeks gestatio n of pregnanc y;Practi ce ID: 0001 Radha bradley [facility] 18:20:29 finding Completed 201505/22/2021 Matern care for oth or susp poor fetl grth, third tri, fts1;Pra ctice ID: 0001 Radha bradley, [facility] 18:21:11 Gestatio n period, 37 weeks [id number] Completed 201505/22/2021 37 weeks gestatio n of pregnanc y;Practi ce ID: 0001 Radha bradley, [facility] 18:21:51 Gestatio n period, 38 weeks [id number] Completed 201505/22/2021 38 weeks gestatio n of pregnanc y;Practi ce ID: 0001 Radha bradley, [facility] 18:20:31 Term pregnanc y delivere d [id number] Completed 201505/22/2021 Encounte r for full-ter m uncompli cated delivery ;Practic e ID: 0001 Radha bradley, [facility] 18:20:45 Finding of regulari ty of menstrua l cycle Completed 201505/22/2021 Irregula r menstrua tion, unspecif ied;Prac luis fernando ID: 0001 Radha bradley, [facility] 18:20:[address] Concept Completed 201605/22/2021 Encntr for vessel crew member exam (general ) (routine ) w/o abn findings ;Practic e ID: 0001 Radha bradley, [facility] 18:21:31 Syphilis test finding [id number] Completed 201605/22/2021 Encntr screen for infectio ns w sexl mode of transmis s;Record ed Elsewher e: No Locat ion: [facility] S ource: EHR Plant Operations Manager mohsen: N Practi ce ID: 0001 David lable Time: 03:15:00 PM Radha bradley, [facility] 18:21:50 Infectio n screenin g Completed 201605/22/2021 Encounte r for screenin g for oth infec/pa rastc diseases ;Recorde d Elsewher e: No Locat ion: [facility] S ource: EHR Plant Operations Manager mohsen: N Practi ce ID: 0001 David lable Time: 03:15:00 PM Radha bradley, [facility] 18:21:14 Insertio n of intraute rine contrace ptive device Completed 201605/22/2021 Encounte r for insertio n of intraute rine contrace ptive device;P ractice ID: 0001 Radha bradley, [facility] 18:22:10 Clinical finding Completed 201605/22/2021 Presence of (intraut erine) contrace ptive device;R ecorded Elsewher e: No Locat ion: [facility] S ource: EHR Plant Operations Manager mohsen: N Practi ce ID: 0001 David lable Time: 08:00:00 AM Radha bradley [facility] 18:21:45 Contrace ptive sheath status [id number] Completed 201605/22/2021 Encounte r for routine checking of intraute rine contrace p dev;Prac luis fernando ID: 0001 Radha [place], [facility] 18:21:16 Gestatio n period, 11 weeks [id number] Completed 201805/22/2021 11 weeks gestatio n of pregnanc y;Practi ce ID: 0001 Radha bradley, [facility] 18:22:03 Antenata l screenin g Completed 201805/22/2021 Encounte r for antenata l screenin g for nuchal transluc ency;Pra ctice ID: 0001 Radha bradley, [facility] 18:21:13 Pregnanc y-induce d hyperten rsusell Completed 201805/22/2021 Gestatio nal hyperten russell w/o signific ant proteinu mary, 2nd trimeste r;Record ed Elsewher e: No Locat ion: Nannette oglesby [facility] S ource: EHR Plant Operations Manager mohsen: N Practi ce ID: 0001 David lable Time: 02:30:00 PM Radha bradley, [facility] 18:21:02 Antenata l screenin g for malforma tion Completed 201805/22/2021 Encounte r for antenata l screenin g for malforma tions;Pr actice ID: 0001 Radha bradley, [facility] 18:22:11 Placenta previa [id number] Completed 201805/22/2021 Placenta previa specifie d as w/o hemor, second trimeste r;Record ed Elsewher e: No Locat ion: Nannette oglesby [facility] S ource: EHR Plant Operations Manager mohsen: N Practi ce ID: 0001 David lable Time: 01:00:00 PM Radha bradley [facility] 18:21:48 Gestatio n period, 24 weeks [id number] Completed 09/10/ 2019 05/22/2021 24 weeks gestatio n of pregnanc y;Record ed Elsewher e: No Locat ion: Nannette oglesby [facility] S ource: EHR Plant Operations Manager mohsen: N Practi ce ID: 0001 David lable Time: 01:00:00 PM Radha [place], [facility] 18:21:29 Normal pregnanc y in multigra bryan [id number] Completed 201805/22/2021 Encounte r for suprvsn of normal pregnanc y, third trimeste r;Practi ce ID: 0001 Radha Pedro Luis mirna, [facility] 18:21:53 Uterine size for dates discrepa ncy Completed 201805/22/2021 Uterine size-ivet e discrepa ncy, third trimeste r;Practi ce ID: 0001 Radha Pedro Luis bradley, [facility] 18:21:06 Gestatio n period, 35 weeks [id number] Completed 201805/22/2021 35 weeks gestatio n of pregnanc y;Practi ce ID: 0001 Radha Pedro Luis bradley, [facility] 18:22:15 finding Completed 201805/22/2021 Matern care for oth or susp poor fetl grth, third tri, unsp;Pra ctice ID: 0001 Radha Pedro Luis bradley, [facility] 18:21:09 Gestatio n period, 36 weeks [id number] Completed 201805/22/2021 36 weeks gestatio n of pregnanc y;Practi ce ID: 0001 Radha Pedro Luis bradley, [facility] 18:22:07 Single live from singleto n pregnanc y [id number] Completed 201805/22/2021 Single live ;Pr actice ID: 0001 Radha bradley, [facility] 18:20:37 Procedur e by method Completed 201905/22/2021 Encounte r for oth general cnsl and advice on contrace ption;Pr actice ID: [id number] Radha brad[place], [facility] 18:21:33 Lochia finding Completed 201905/22/2021 Encounte r for routine postpart um follow-u p;Practi ce ID: [id number] Radha bradley, [facility] 18:21:43 Pregnanc y [id number] Completed 202011/14/2021 Shadia Lu [place], [facility] 5 17:00:00 Pregnanc y [id number] Active 2024 Shadia Abner [place], [facility] 5 17:00:00 Precipit ate labor [id number] Active 2024 delivere d in car on last pregnanc y Raffy Mane MD [address], [place], [address], [facility] 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 5 06:51:43 Iron deficien cy anemia [id number] Active 2024 Fe suppleme nt, recheck at 34 weeks KYRA GOULD MD [address], [place], [address], [facility] 5 18:03:31 Problem Notes None recorded. Procedures Surgical History Date Name Laterality Status Provider Name and Address Organization Details Recorded Time 10/08/19 25 Date of Last Pap Smear completed Shadia Lu [facility] 11/02/2024 16:57:17 08/23/19 19 Cholecystectomy completed Ellen Tanner [facility] 08/23/2021 16:05:41 Cholecystectomy completed Latoya Connollyton [facility] 10/07/2024 15:24:22 Imaging Results None recorded. Procedure Notes None recorded. Medical Equipment None Reported. Allergies No known drug allergies Medications Name Sig Start Date Stop Date Status Note LastModified by Organization Details LastModified Time Mirena 21 mcg/24 hr (up to 8 years) 52 mg intrauter ine device 12/03 completed Prescrib ed Elsewher e: Yes Loca tion: [facility] odify By: [email or web address] Encoun ter DateTime : 05/21/20 17 11:45:00 AM Not Available Not Available Not Available Diflucan 150 mg tablet take 1 tablet by oral route once 11/11 completed Prescrib ed Elsewher e: No Locat ion: [facility] odify By: [email or web address] trick En counter [...] ed Elsewher e: No Locat ion: [facility] odify By: [email or web address] trick En counter DateTime : 01/15/20 12 08:28:05 AM Not Available Not Available Not Available Vitamin D2 1,250 mcg (50,000 unit) capsule take 1 capsule (09350JM ITS) by oral route every week 01/25 completed Prescrib ed Elsewher e: No [facility] od[facility] By: kelsy Oglesby ncounter DateTime : 10/17/19 16 01:42:07 [...] ed Elsewher e: No Locat ion: [facility] odify By: sonia alexander DateTime : 04/15/20 13 01:00:00 PM Not Available Not Available Not Available Triveteddy-Richard uo DHA 29 mg-1 mg-400 mg oral pack take 2 by Oral route every day 04/15 completed Prescrib ed Elsewher e: No Locat ion: [facility] odify By: [email or web address] trick En counter DateTime : 04/29/20 12 03:45:44 PM Not Available Not Available Not Available [employer]ER-PNV-DH A 28 mg iron-1 mg-200 mg capsule take 1 capsule by oral route every day 05/21 completed Prescrib ed Elsewher e: No Locat ion: [facility] odify By: kelsy mominunter DateTime : 05/25/20 15 02:30:00 PM Not Available Not Available Not Available Diclegis 10 mg-10 mg tablet,de layed release 05/22 completed Not Available Not Available Not Available Minastrin 24 Fe 1 mg-20 mcg (24)/75 mg (4) chewable tablet chew 1 tablet by oral route every day 05/25 completed Prescrib ed Elsewher e: No [facility] By: [email or web address] trick En counter [...] and Address Organization Details Last Updated DateTime 02/18/2025 72024.30728 g 119/81 mm[Hg] Shadia Lu [facility] 02/18/2025 14:03:16 Social History Question Answer Notes LastModified by Organizat ion Details LastModified Time Tobacco Smoking Status Never Smoker Faye Chavez mirna, [facility] 11/13/2021 15:42:19 Do You Have [...] Or The Highest Degree You Have Received? [id number] Information not available 06/01/2021 Are There Any [...] anxious, or unable to sleep at night)? [id number] Information not available 06/01/2021 Family History Relationship Description Onset Age of this Age Resolved Age Notes LastModified by Organization Details LastModified Time Mother Multiple sclerosis [email or web address] Not available 2019 09:09:49 Maternal Grandfather Diabetes mellitus [email or web address] Not available 2019 09:10:00 Sister Polycystic ovary syndrome [email or web address] Not available 2023 14:01:01 Paternal Uncle Seizure disorder [email or web address] Not available 09/09/ 2024 14:01:01 Paternal Aunt Inflammatory disease of liver Not available 2023 14:01:01 Father Diabetes mellitus [email or web address] Not available 08/23 16:05:09 Medical History Condition [...] ICD10 Code Diagnosis IMO Codes Diagnosis Note [id number] Raffy Mane MD [facility] [address] [address] 01/28/2025 09:35:59 01/28/2025 10:05:41 care status 167665320 Z34.82 [id number] Raffy Mane MD [facility] [address] [address] 02/18/2025 13:46:22 02/18/2025 14:50:08 care status 430026360 Z34.83 [id number] Health Concerns Section Related Observation LastModified by Organization Detai ls LastModified Time None Recorded Concern Status LastModified by Organization Details LastModified Time None Recorded Payers Encounter Date Sequence Insurance Name Policy Number Policy Chavez Covered Member ID Chavez Member ID Guarantor Name 02/18/2025 1 [facility]LY [facility] (O) [id number] Vannessa Bowden [id number] Vannessa Bowden 02/18/2025 2 [facility] ON OR AFTER 12/22/20 (MEDICAID REPLACEMENT - HMO) Vannessa Bowden [id number] Vannessa Bowden Notes Date Note Type Note Provider Name and Address Organization Details Recorded Time 02/18/2025 text/html Generic HPI TemplateReported by Patient Raffy Mane MD [address], [place], [address], [facility] 02/18/2025 14:46:02 OBGyn Episode Ob Episode Information Episode Created Date Number of Fetuses Patient Bloodtype Patient rh Status Prepregnancy Weight lbs Domestic Partner Domestic Partner Phone Father Name Slab Grinder Status 11/03/19 25 1 A Negative 173 OPEN Fetus Data First Name Last Name Admitted to NICU Weight (g) Sex Living Outcome Pediatric Complications Fetus ID Race Codes Race Delivery Type [id number] Problems Problem Notes Problem Name Start Date End Date Resolution Snomed Code Not e Administration of human anti-D immunoglobulin needed 11/04/2024 [id number] A neg rhogam @28wks Precipitate labor 11/02/2024 [id number] d elivered in car on last Past history of placental abruption [id number] History of previous intrauterine growth restricted [id number] Iron deficiency anemia 03/09/2025 645103 02 Fe supplement, recheck at 34 weeks [...] Weight in lbs Pre/Post Dialysis Refused Weight 176.300989809577 BP Diastolic BP Location Tested BP Systolic [...] Weight in lbs Pre/Post Dialysis Refused Weight 180.052204150714 BP Diastolic BP Location Tested BP Systolic [...] Type Weight in lbs Pre/Post Dialysis Refused 184.413246176067 BP Diastolic BP Location Tested BP Systolic [...] Type Weight in lbs Pre/Post Dialysis Refused 191.005550877278 BP Diastolic BP Location Tested BP Systolic [...] Type Weight in lbs Pre/Post Dialysis Refused 195.577697559097 BP Diastolic BP Location Tested BP Systolic [...] Weight in lbs Pre/Post Dialysis Refused Weight 200.411311525100 BP Diastolic BP Location Tested BP Systolic BP Type 76 L arm 114 sitting Fetus Heart Rate Present A 152 Present Fetus Movement A Yes Comments Flowsheet Date 03/09/2025 Oliver Score Blood Edema Fundus Height Fundus Units Glucose Ketones Leukocytes Nitrite Labor Signs Protein Cervic Dilation Cervic Effacement Cervic Station Type Weight in lbs Pre/Post Dialysis Refused Weight 200.053615970047 BP Diastolic BP Location Tested BP Systolic [...] Type Weight in lbs Pre/Post Dialysis Refused 200.327711660266 BP Diastolic BP Location Tested BP Systolic [...] Type Weight in lbs Pre/Post Dialysis Refused 203.87796566824 BP Diastolic BP Location Tested BP Systolic [...] Type Weight in lbs Pre/Post Dialysis Refused 204.242082620780 BP Diastolic BP Location Tested BP Systolic [...] Type Weight in lbs Pre/Post Dialysis Refused 208.206246403811 BP Diastolic BP Location Tested BP Systolic [...] Weight in lbs Pre/Post Dialysis Refused Weight 209.286847521838 BP Diastolic BP Location Tested BP Systolic [...]
--- OUTSIDE RECORDS SUMMARY | 2025-05-08 10:43 | XMS_ITS | Continuity of Care Document ---
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 Discussed plan. Not available 05/07/2025 10:17:02 Plan of Treatment [...] nce of HIV infec tion. Not Available [facility] (Lab) [address], [place], [address], 11/03/2024 12:54:58 11/03/1911/02/2024 HEPAT ITIS B SURFA CE ANTIG EN hepatitis B surface antigen Non-re active non-re active This assay was perfo rmed using [employer] ratio n reage nts and test kits. Value s obtai jeromy with other assay metho ds or kits canno t be used inter merritt eably . Not Available [facility] (Lab) [address], [place], [address], 11/03/2024 12:54:59 11/03/1911/02/2024 HEPAT ITIS C ANTIB BERYL SCREE N, REFLE X TO CONFI RMATI ON hepatitis C antibody Non-re active non-re active Antib odies to HCV Not Detec marline, does not exclu de the possi bilit y of expos ure to HCV. Not Available [facility] (Lab) [address], [place], [address], 11/03/2024 12:55:00 11/03/1911/02/2024 RUBEL LA IGG ANTIB BERYL, QUANT rubella antibodies, IgG Reacti ve reacti ve Not Available [facility] (Lab) [address], [place], [address], 11/03/2024 12:55:00 11/03/19 25 11/02/2024 RUBEL LA IGG ANTIB BERYL, QUANT rubella antibodies, IgG quant 20.6 IU/mL >=10 Non-r eacti ve (Non- Immun e) <10 IU/mL React shabbir (Immu ne) > or = 10 IU/mL Not Available [facility] (Lab) [address], [place], [address], 11/03/2024 12:55:00 11/03/1911/02/2024 CBC W/DIF F WBC 9.4 10'3/ uL 3.5-10 .5 Not Available [facility] (Lab) [address], [place], [address], 11/03/2024 12:55:01 11/03/19 25 11/02/2024 CBC W/DIF F RBC 3.77 10'6/ uL (based on docume nted legal sex) 3.80-5 .20 low Not Available [facility] (Lab) [address], [place], [address], 11/03/2024 12:55:01 11/03/19 25 11/02/2024 CBC W/DIF F HGB 12.4 g/dL (based on docume nted legal sex) 11.6-1 5.4 Not Available [facility] (Lab) [address] [address], [place], [address], 11/03/2024 12:55:01 11/03/1911/02/2024 CBC W/DIF F HCT 35.4 % (based on docume nted legal sex) 34.0-4 5.0 Not Available [facility] (Lab) [address], [place], [address], 11/03/2024 12:55:01 11/03/19 25 11/02/2024 CBC W/DIF F MCV 93.9 fL 80.0-9 9.0 Not Available [facility] (Lab) [address] [address], [place], [address], 11/03/2024 12:55:01 11/03/19 25 11/02/2024 CBC W/DIF F MCH 32.9 pg 27.0-3 4.0 Not Available [facility] (Lab) [address] [address], [place], [address], 11/03/2024 12:55:01 11/03/19 25 11/02/2024 CBC W/DIF F MCHC 35.0 g/dL 32.0-3 5.5 Not Available [facility] (Lab) [address] [address], [place], [address], 11/03/2024 12:55:01 11/03/19 25 11/02/2024 CBC W/DIF F RDW 13.2 % 11.0-1 5.0 Not Available [facility] (Lab) [address] [address], [place], [address], 11/03/2024 12:55:01 11/03/1911/02/2024 CBC W/DIF F plt 252 10'3/ uL 150-40 0 Not Available [facility] (Lab) [address], [place], [address], 11/03/2024 12:55:01 11/03/19 25 11/02/2024 CBC W/DIF F MPV 10.9 fL 8.8-12 .1 Not Available [facility] (Lab) [address] [address], [place], [address], 11/03/2024 12:55:01 11/03/19 25 11/02/2024 CBC W/DIF F NRBC's 0.0 % 0.0 Not Available [facility] (Lab) [address], [place], [address], 11/03/2024 12:55:01 11/03/1911/02/2024 CBC W/DIF F absolute NRBCs 0.0 10'3/ uL no refere nce range establ ished Not Available [facility] (Lab) [address] [address], [place], [address], 11/03/2024 12:55:01 11/03/1911/02/2024 CBC W/DIF F neutrophils 75.0 % 34.0-7 3.0 high Not Available [facility] (Lab) [address], [place], [address], 11/03/2024 12:55:01 11/03/19 25 11/02/2024 CBC W/DIF F lymphocytes 17.0 % 15.0-5 0.0 Not Available [facility] (Lab) [address] [place], [address], 11/03/2024 12:55:01 11/03/1911/02/2024 CBC W/DIF F monocytes 6.8 % 1.0-15 .0 Not Available [facility] (Lab) [address] [place], [address], 11/03/2024 12:55:01 11/03/19 25 11/02/2024 CBC W/DIF F eosinophils 0.6 % 0.0-8. 0 Not Available [facility] (Lab) [address] [address], [place], [address], 11/03/2024 12:55:01 11/03/1911/02/2024 CBC W/DIF F basophils 0.2 % 0.0-2. 0 Not Available [facility] (Lab) [address], [place], [address], 11/03/2024 12:55:01 11/03/1911/02/2024 CBC W/DIF F immature granulocytes 0.4 % no define d refere nce range Immat ure Granu locyt es (IG) repre sents autom ated enume ratio n of Metam yeloc ytes, Myelo cytes and Promy elocy kasey when IG is < 5%. Blast s are not inclu ded in IG and repor marline separ ately if prese nt. Not Available [facility] (Lab) [address], [place], [address], 11/03/2024 12:55:01 11/03/1911/02/2024 CBC W/DIF F absolute neutrophils 7.0 10'3/ uL 1.5-8. 0 Not Available [facility] (Lab) [address] [place], [address], 11/03/2024 12:55:01 11/03/1911/02/2024 CBC W/DIF F absolute lymphocytes 1.6 10'3/ uL 1.0-4. 0 Not Available [facility] (Lab) [address] [address], [place], [address], 11/03/2024 12:55:01 11/03/1911/02/2024 CBC W/DIF F absolute monocytes 0.6 10'3/ uL 0.2-1. 0 Not Available [facility] (Lab) [address], [place], [address], 11/03/2024 12:55:01 11/03/1911/02/2024 CBC W/DIF F absolute eosinophils 0.1 10'3/ uL 0.0-0. 6 Not Available [facility] (Lab) [address], [place], [address], 11/03/2024 12:55:01 11/03/1911/02/2024 CBC W/DIF F absolute basophils 0.0 10'3/ uL 0.0-0. 3 Not Available [facility] (Lab) [address], [place], [address], 11/03/2024 12:55:01 11/03/1911/02/2024 CBC W/DIF F absolute immature granulocytes 0.0 10'3/ uL 0.00-0 .10 Refer ence range s for nonbi nary/ inter sex or unspe cifie d gende r patie nts have not been estab lishe d. Pleas e [facility] for range s estab lishe d for cisge nder patie nts and evalu ate in the clini georges elyssa xt of the indiv idual patie nt: https ://izzy vasquez book. nm.or g/gen derx Not Available [facility] (Lab) [address], [place], [address], 11/03/2024 12:55:01 11/03/1911/02/2024 TYPE/ RH/SC REEN ABO/Rh type A NEG Not Available [facility] (Lab) [address], [place], [address], 11/03/2024 12:55:02 11/03/1911/02/2024 TYPE/ RH/SC REEN antibody screen NEG Not Available [facility] (Lab) [address], [place], [address], 11/03/2024 12:55:02 11/03/1911/02/2024 TYPE/ RH/SC REEN exp date 2024 23:59 Not Available [facility] (Lab) [address], [place], [address], 11/03/2024 12:55:02 11/03/1911/02/2024 HEMOG LOBIN A1C hemoglobin [...] >8.0% Actio n sugge sted Not Available [facility] (Lab) [address], [place], [address], 11/03/2024 12:55:02 11/03/1911/02/2024 RPR SCREE N, REFLE X TITER /CONF IRMAT ION RPR qualitative Nonrea ctive nonrea ctive Not Available [facility] (Lab) [address], [place], [address], 11/03/2024 12:55:03 11/03/1911/02/2024 CULTU RE: URINE result report SEE RESULT S BELOW Test: Cultu re: Urine Speci men Sourc e: Urine Voide d Speci men Type: Urine Speci men Date: 2024 1723 Resul t Date: 2024 0338 Resul t Statu s: Final resul t Abnor mal: No Resul ting Lab: [facility] [address] [facility] [address] Tel: CULTU RE ----- ----- ----- --- No growt h in 1 day (dete ction level of 10,00 0 colon ies / ml.) Not Available [facility] (Lab) [address], [place], [address], 11/04/2024 04:43:17 02/19/2002/18/2025 HEMAT OCRIT (HCT) HCT 32.0 % (based on docume nted legal sex) 34.0-4 5.0 low Not Available [facility] (Lab) [address], [place], [address], 02/19/2025 04:10:34 02/19/2002/18/2025 HEMOG LOBIN (HGB) HGB 10.3 g/dL (based on docume nted legal sex) 11.6-1 5.4 low Not Available [facility] (Lab) [address], [place], [address], 02/19/2025 04:10:34 02/19/2002/18/2025 GTT - GESTA MAYELIN L SCREE N, ACOG OB glucose, 1 hour screen 114 mg/dL 70-135 Not Available [facility] (Lab) [address] [place], [address], 02/19/2025 04:10:35 02/19/2002/18/2025 HIV 1/2 ANTIG EN/AN TIBOD Y, REFLE X CONFI RMATI ON HIV antigen/anti body Nonrea ctive nonrea ctive HIV-1 antig en and HIV-1 /HIV- 2 antib odies were not detec marline. No labor atory evide nce of HIV infec tion. Not Available [facility] (Lab) [address], [place], [address], 02/19/2025 04:10:35 03/05/2003/05/2025 RPR SCREE N, REFLE X TITER /CONF IRMAT ION RPR qualitative Nonrea ctive nonrea ctive Do not charg e a venip unctu re for this test. Test was cinthia d at last visit . Not Available [facility] (Lab) [address], [place], [address], 03/06/2025 11:08:08 04/07/2004/07/2025 CBC W/DIF F WBC 9.7 10'3/ uL 3.5-10 .5 Not Available [facility] (Lab) [address], [place], [address], 04/08/2025 04:02:42 04/07/20 25 04/07/2025 CBC W/DIF F RBC 3.68 10'6/ uL (based on docume nted legal sex) 3.80-5 .20 low Not Available [facility] (Lab) [address], [place], [address], 04/08/2025 04:02:42 04/07/20 25 04/07/2025 CBC W/DIF F HGB 11.4 g/dL (based on docume nted legal sex) 11.6-1 5.4 low Not Available [facility] (Lab) [address] [address], [place], [address], 04/08/2025 04:02:42 04/07/2004/07/2025 CBC W/DIF F HCT 34.1 % (based on docume nted legal sex) 34.0-4 5.0 Not Available [facility] (Lab) [address], [place], [address], 04/08/2025 04:02:42 04/07/20 25 04/07/2025 CBC W/DIF F MCV 92.7 fL 80.0-9 9.0 Not Available [facility] (Lab) [address], [place], [address], 04/08/2025 04:02:42 04/07/20 25 04/07/2025 CBC W/DIF F MCH 31.0 pg 27.0-3 4.0 Not Available [facility] (Lab) [address], [place], [address], 04/08/2025 04:02:42 04/07/20 25 04/07/2025 CBC W/DIF F MCHC 33.4 g/dL 32.0-3 5.5 Not Available [facility] (Lab) [address], [place], [address], 04/08/2025 04:02:42 04/07/2004/07/2025 CBC W/DIF F RDW 15.2 % 11.0-1 5.0 high Not Available [facility] (Lab) [address], [place], [address], 04/08/2025 04:02:42 04/07/20 25 04/07/2025 CBC W/DIF F plt 203 10'3/ uL 150-40 0 Not Available [facility] (Lab) [address], [place], [address], 04/08/2025 04:02:42 04/07/20 25 04/07/2025 CBC W/DIF F MPV 11.8 fL 8.8-12 .1 Not Available [facility] (Lab) [address], [place], [address], 04/08/2025 04:02:42 04/07/20 25 04/07/2025 CBC W/DIF F NRBC's 0.0 % 0.0 Not Available [facility] (Lab) [address], [place], [address], 04/08/2025 04:02:42 04/07/20 25 04/07/2025 CBC W/DIF F absolute NRBCs 0.0 10'3/ uL no refere nce range establ ished Not Available [facility] (Lab) [address] [place], [address], 04/08/2025 04:02:42 04/07/20 25 04/07/2025 CBC W/DIF F neutrophils 78.0 % 34.0-7 3.0 high Not Available [facility] (Lab) [address] [place], [address], 04/08/2025 04:02:42 04/07/20 25 04/07/2025 CBC W/DIF F lymphocytes 14.8 % 15.0-5 0.0 low Not Available [facility] (Lab) [address] [place], [address], 04/08/2025 04:02:42 04/07/20 25 04/07/2025 CBC W/DIF F monocytes 5.8 % 1.0-15 .0 Not Available [facility] (Lab) [address] [place], [address], 04/08/2025 04:02:42 04/07/20 25 04/07/2025 CBC W/DIF F eosinophils 0.6 % 0.0-8. 0 Not Available [facility] (Lab) [address] [place], [address], 04/08/2025 04:02:42 04/07/20 25 04/07/2025 CBC W/DIF F basophils 0.3 % 0.0-2. 0 Not Available [facility] (Lab) [address] [place], [address], 04/08/2025 04:02:42 04/07/20 25 04/07/2025 CBC W/DIF [...] separ ately if prese nt. Not Available [facility] (Lab) [address] [address], [place], [address], 04/08/2025 04:02:42 04/07/2004/07/2025 CBC W/DIF F absolute neutrophils 7.6 10'3/ uL 1.5-8. 0 Not Available [facility] (Lab) [address], [place], [address], 04/08/2025 04:02:42 04/07/20 25 04/07/2025 CBC W/DIF F absolute lymphocytes 1.4 10'3/ uL 1.0-4. 0 Not Available [facility] (Lab) [address] [address], [place], [address], 04/08/2025 04:02:42 04/07/20 25 04/07/2025 CBC W/DIF F absolute monocytes 0.6 10'3/ uL 0.2-1. 0 Not Available [facility] (Lab) [address] [address], [place], [address], 04/08/2025 04:02:42 04/07/20 25 04/07/2025 CBC W/DIF F absolute eosinophils 0.1 10'3/ uL 0.0-0. 6 Not Available [facility] (Lab) [address] [place], [address], 04/08/2025 04:02:42 04/07/20 25 04/07/2025 CBC W/DIF F absolute basophils 0.0 10'3/ uL 0.0-0. 3 Not Available [facility] (Lab) [address], [place], [address], 04/08/2025 04:02:42 04/07/20 25 04/07/2025 CBC W/DIF [...] of the indiv idual patie nt: https ://zizy vasquez book. nm.or g/gen derx Not Available [facility] (Lab) [address], [place], [address], 04/08/2025 04:02:42 04/07/2004/07/2025 ADRIAN TIN / IRON / TRANS ADRIAN N / TIBC iron 123 ug/dL 40-170 Not Available [facility] (Lab) [address], [place], [address], 04/08/2025 04:02:42 04/07/20 25 04/07/2025 ADRIAN TIN / IRON / TRANS ADRIAN N / TIBC transferrin 360 mg/dL 200-36 0 Not Available [facility] (Lab) [address] [address], [place], [address], 04/08/2025 04:02:42 04/07/20 25 04/07/2025 ADRIAN TIN / IRON / TRANS ADRIAN N / TIBC ferritin 10.4 NG/mL 8.0-25 2.0 Not Available [facility] (Lab) [address] [address], [place], [address], 04/08/2025 04:02:42 04/07/20 25 04/07/2025 ADRIAN TIN / IRON / TRANS ADRIAN N / TIBC TIBC 504 ug/dL 250-45 0 high Not Available [facility] (Lab) [address] [place], [address], 04/08/2025 04:02:42 04/07/20 25 04/07/2025 ADRIAN TIN / IRON / TRANS ADRIAN N / TIBC iron saturation 24 % 20-55 Not Available [facility] (Lab) [address] [place], [address], 04/08/2025 04:02:42 04/16/20 25 04/16/2025 CULTU RE: [...] t Abnor mal: Yes Resul ting Lab: [facility] [address] [facility] [address] Tel: CULTU RE ----- ----- ----- --- [...] jesica for these drugs . Not Available [facility] (Lab) [address], [place], [address], 04/20/2025 16:57:04 11/03/1911/02/2024 US, obste tric, nucha l trans lucen cy No observ ation record ed. [email or web address] [place] [address], [place], [address], 11/02/2024 18:18:57 11/03/1911/02/2024 US, obste tric, follo w-up No observ ation record ed. [email or web address] Graciela [address], [place], [address], 11/03/2024 15:44:13 01/01/20 25 12/31/2024 US, obste tric, 2nd or 3rd trime ster No observ ation record ed. [email or web address] [address], [place], [address], 12/31/2024 16:14:45 01/01/20 25 12/31/2024 US, obste tric, 2nd or 3rd trime ster No observ ation record ed. [email or web address] Gr[address]a [address], [place], [address], 01/03/2025 22:41:59 01/12/20 25 01/11/2025 US, obste tric, trans vagin al No observ ation record ed. [email or web address] [address], [place], [address], 01/11/2025 17:33:19 01/12/20 25 01/11/2025 US, obste tric, trans vagin al No observ ation record ed. [email or web address] Gr[address], [place], [address], 01/12/2025 22:12:23 03/24/20 25 03/24/2025 US, obste tric, follo w-up No observ ation record ed. [email or web address] [address], [place], [address], 03/24/2025 13:36:18 03/24/20 25 03/24/2025 US, obste tric, bioph ysica l profi le No observ ation record ed. [email or web address] [address], [place], [address], 03/24/2025 13:36:31 03/24/20 25 03/24/2025 US, obste tric, follo w-up No observ ation record ed. Graciela [address], [place], [address], 03/26/2025 17:41:33 04/06/2004/06/2025 imagi ng/di agnos tic resul t No observ ation record ed. [email or web address] Gr[address], [place], [address], 04/06/2025 13:11:41 04/06/2004/06/2025 US, obste tric, limit ed No observ ation record ed. [email or web address] [address] [address], [place], [address], 04/06/2025 11:40:14 Result Notes None recorded. Problems Name Problem SNOMED Code Status Onset Date Resolution Date Notes Provider Name and Address Organization Details Recorded Time History of growth retardat ion [id number] Completed wkly antenata l testing 32wks Graciela Bohnenstieh l null, [facility] 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 2 13:05:39 RhD negative [id number] Completed Graciela Gtznstieh l null, [facility] 2 13:05:39 Past pregnanc y history of placenta l abruptio n [id number] Active Shadia Lu null, [facility] 5 09:35:28 History of previous intraute rine growth restrict ed [id number] 87413 Active Shadia Lu null, [facility] 5 09:35:56 Vaginiti s and vulvovag initis Completed 201105/22/2021 Vaginiti s and vulvovag initis, unspecif ied;Prac luis fernando ID: 0001 Radha bradley, [facility] 18:20:42 Pregnanc y test positive [id number] Completed 201105/22/2021 Positive Pregnanc y Test;Pra ctice ID: 0001 Radha bradley, [facility] 18:21:18 Screenin g for malignan t neoplasm of cervix Completed 201105/22/2021 Pap Smear;Pr actice ID: 0001 Radha bradley, [facility] 18:20:40 anatomy study Completed 201105/22/2021 [facility] ANATMC SURVEY;P ractice ID: 0001 Radha bradley, [facility] 18:21:26 Primigra bryan [id number] Completed 201105/22/2021 Supervis ion of normal first pregnanc y;Practi ce ID: 0001 Radha Cloud [facility], [facility] 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 18:20:33 Delivery normal [id number] Completed 201205/22/2021 Normal delivery ;Practic e ID: 0001 Radha bradley, [facility] 18:21:56 Postpart um care Completed 201205/22/2021 Routine postpart um follow-u p;Practi ce ID: 0001 Radha bradley, [facility] 18:20:27 First degree perineal lacerati on [id number] Completed 201205/22/2021 First-de gree perineal lacerati on, unspecif ied as to episode of care in pregnanc y;Practi ce ID: 0001 Radha brdaley [facility] 18:22:05 Educatio n Completed 201205/22/2021 Counseli ng contrace ptive manageme nt;Pract ice ID: 0001 Radha bradley [facility] 18:21:58 Speciali zed medical examinat ion Completed 201205/22/2021 Routine gynecolo gical examinat ion;Prac luis fernando ID: 0001 Radha Cloud [facility], [facility] 18:22:00 Pregnanc y test negative [id number] Completed 201205/22/2021 Negative Pregnanc y Test;Pra ctice ID: 0001 Radha Cloud [facility], [facility] 18:21:19 Candidal vulvovag initis [id number] Completed 201305/22/2021 Candidia sis of vulva and vagina;P ractice ID: 0001 Radha Cloud [facility], [facility] 18:22:13 Proteinu mary [id number] Completed 201305/22/2021 Proteinu mary;Prac luis fernando ID: 0001 Radha [facility] 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 18:21:00 Adult health examinat ion Completed 201405/22/2021 Routine general medical examinat ion at a health care facility ;Practic e ID: 0001 Radha bradley [facility] 18:21:22 Speciali zed medical examinat ion Completed 201405/22/2021 Other specifie d chlamydi al diseases ;Practic e ID: 0001 Radha bradley [facility] 18:22:01 Venereal disease screenin g Completed 201405/22/2021 Screenin g examinat ion for venereal disease; Practice ID: 0001 Rahda bradley [facility] 18:20:39 Secondar y amenorrh ea [id number] Completed 201405/22/2021 Secondar y amenorrh ea;Pract ice ID: 0001 Radha bradley [facility] 18:20:35 Pregnanc y detectio n examinat ion Completed 201405/22/2021 Encounte r for pregnanc y test, result positive ;Practic e ID: 0001 Radha bradley [facility] 18:22:14 Uterine size for dates discrepa ncy Completed 201405/22/2021 Uterine size-ivet e discrepa ncy, first trimeste r;Practi ce ID: 0001 Radha bradley [facility] 18:21:04 Gestatio n period, 8 weeks [id number] Completed 201405/22/2021 8 weeks gestatio n of pregnanc y;Practi ce ID: 0001 Radha Cloud null, [facility] 18:21:21 Pregnanc y, childbir th and puerperi um finding Completed 201505/22/2021 Encntr for suprvsn of normal first preg, first trimeste r;Practi ce ID: 0001 Radha Cloud null, [facility] 18:21:40 Pregnanc y, childbir th and puerperi um finding Completed 201505/22/2021 Encntr for suprvsn of normal first preg, third trimeste r;Practi ce ID: 0001 Radha Cloud null, [facility] 18:21:42 finding Completed 201505/22/2021 Matern care for oth or susp poor fetl grth, 2nd tri, unsp;Pra ctice ID: 0001 Radha Cloud null, [facility] 18:21:07 Gestatio n period, 27 weeks [id number] Completed 201505/22/2021 27 weeks gestatio n of pregnanc y;Practi ce ID: 0001 Radha Cloud null, [facility] 18:21:55 Gestatio n period, 31 weeks [id number] Completed 201505/22/2021 31 weeks gestatio n of pregnanc y;Practi ce ID: 0001 Radha Cloud null, [facility] 18:22:08 Gestatio n period, 34 weeks [id number] Completed 201505/22/2021 34 weeks gestatio n of pregnanc y;Practi ce ID: 0001 Radha Cloud null, [facility] 18:20:29 finding Completed 201505/22/2021 Matern care for oth or susp poor fetl grth, third tri, fts1;Pra ctice ID: 0001 Radha bradley, [facility] 18:21:11 Gestatio n period, 37 weeks [id number] Completed 201505/22/2021 37 weeks gestatio n of pregnanc y;Practi ce ID: 0001 [facility]ad[facility] - [facility] 18:21:51 Gestatio n period, 38 weeks [id number] Completed 201505/22/2021 38 weeks gestatio n of pregnanc y;Practi ce ID: 0001 Radha Cloud [facility] 18:20:31 Term pregnanc y delivere d [id number] Completed 201505/22/2021 Encounte r for full-ter m uncompli cated delivery ;Practic e ID: 0001 Radha bradley, [facility] 18:20:45 Finding of regulari ty of menstrua l cycle Completed 201505/22/2021 Irregula r menstrua tion, unspecif ied;Prac luis fernando ID: 0001 Radha bradley [facility] 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 18:21:31 Syphilis test finding [id number] Completed 201605/22/2021 Encntr screen for infectio ns w sexl mode of transmis s;Record ed Elsewher e: No Locat ion: [facility] S ource: [employer] mohsen: N Practi ce ID: 0001 David lable Time: 03:15:00 PM Radha bradley [facility] 18:21:50 Infectio n screenin g Completed 201605/22/2021 Encounte r for screenin g for oth infec/pa rastc diseases ;Recorde d Elsewher e: No Locat ion: [facility] S ource: [employer] mohsen: N Practi ce ID: 0001 David lable Time: 03:15:00 PM [facility] 18:21:14 Insertio n of intraute rine contrace ptive device Completed 201605/22/2021 Encounte r for insertio n of intraute rine contrace ptive device;P ractice ID: 0001 [facility] 18:22:10 Clinical finding Completed 201605/22/2021 Presence of (intraut erine) contrace ptive device;R ecorded Elsewher e: No [facility]at ion[facility] Practi ce ID: 0001 David lable Time: 08:00:00 AM [facility] 18:21:45 Contrace ptive sheath status [id number] Completed 201605/22/2021 Encounte r for routine checking of intraute rine contrace p dev;Prac luis fernando ID: 0001 Radha bradley, [facility] 18:21:16 Gestatio n period, 11 weeks [id number] Completed 201805/22/2021 11 weeks gestatio n of pregnanc y;Practi ce ID: 0001 Radha bradley, [facility] 18:22:03 Antenata l screenin g Completed 201805/22/2021 Encounte r for antenata l screenin g for nuchal transluc ency;Pra ctice ID: 0001 Radha bradley, [facility] 18:21:13 Pregnanc y-induce d hyperten russell Completed 201805/22/2021 Gestatio nal hyperten russell w/o signific ant proteinu mary, 2nd trimeste r;Record ed Elsewher e: No Locat ion: [facility] S ource: [employer] mohsen: N Practi ce ID: 0001 David lable Time: 02:30:00 PM Radha bradley, [facility] 18:21:02 Antenata l screenin g for malforma tion Completed 201805/22/2021 Encounte r for antenata l screenin g for malforma tions;Pr actice ID: 0001 Radha bradley, [facility] 18:22:11 Placenta previa [id number] Completed 201805/22/2021 Placenta previa specifie d as w/o hemor, second trimeste r;Record ed Elsewher e: No Locat ion: [facility] S ource: [employer] mohsen: N Pravinti ce ID: 0001 David lable Time: 01:00:00 PM Radha bradley [facility] 18:21:48 Gestatio n period, 24 weeks [id number] Completed 201805/22/2021 24 weeks gestatio n of pregnanc y;Record ed Elsewher e: No Locat ion: [facility] S ource: [employer] mohsen: N Pravinti ce ID: 0001 David lable Time: 01:00:00 PM Radha bradley, [facility] 18:21:29 Normal pregnanc y in multigra bryan [id number] 56091 Completed 201805/22/2021 Encounte r for suprvsn of normal pregnanc y, third trimeste r;Practi ce ID: 0001 Radha bradley, [facility] 18:21:53 Uterine size for dates discrepa ncy Completed 201805/22/2021 Uterine size-ivet e discrepa ncy, third trimeste r;Practi ce ID: 0001 Radha bradley, [facility] 18:21:06 Gestatio n period, 35 weeks [id number] Completed 201805/22/2021 35 weeks gestatio n of pregnanc y;Practi ce ID: 0001 Radha bradley, [facility] 18:22:15 finding Completed 201805/22/2021 Matern care for oth or susp poor fetl grth, third tri, unsp;Pra ctice ID: 0001 Radha bradley, [facility] 18:21:09 Gestatio n period, 36 weeks 78258806 Completed 201805/22/2021 36 weeks gestatio n of pregnanc y;Practi ce ID: 0001 Radha bradley, [facility] 18:22:07 Single live from singleto n pregnanc y [id number] Completed 201805/22/2021 Single live ;Pr actice ID: 0001 Radha bradley, [facility] 18:20:37 Procedur e by method Completed 201905/22/2021 Encounte r for oth general cnsl and advice on contrace ption;Pr actice ID: 0001 Radha Cloud mirna, [facility] 18:21:33 Lochia finding Completed 201905/22/2021 Encounte r for routine postpart um follow-u p;Practi ce ID: 0001 Radha Cloud [facility], [facility] 1 18:21:43 Pregnanc y 64382807 Completed 202011/14/2021 Shadia Lu [facility] 5 17:00:00 Pregnanc y 87416667 Active 2024 Shadia Lu [facility], [facility] 5 17:00:00 Precipit ate labor 77571689 Active 2024 delivere d in car on last pregnanc y Raffy Mane MD [address], [place], [address], [facility] 5 17:13:06 Administ ration of human anti-D immunogl obulin needed Active 2024 A neg rhogam @28wks Yesi Vivar [facility] 5 06:51:43 Administ ration of human anti-D immunogl obulin needed Active 2024 A neg rhogam @28wks Yesi Vivar [facility] 5 06:51:43 Iron deficien cy anemia 68006659 Active 2024 Fe suppleme nt, recheck at 34 weeks KYRA GOULD MD [address], [place], [address], [facility] 5 18:03:31 Problem Notes None recorded. Procedures Surgical History Date Name Laterality Status Provider Name and Address Organization Details Recorded Time 10/08/19 25 Date of Last Pap Smear completed Shadiameme Lu [facility] 11/02/2024 16:57:17 08/23/19 19 Cholecystectomy completed Ellen Tanner [facility] 08/23/2021 16:05:41 Cholecystectomy completed Latoya Tejeda [facility] 10/07/2024 15:24:22 Imaging Results None recorded. Procedure Notes None recorded. Medical Equipment None Reported. Allergies No known drug allergies Medications Name Sig Start Date Stop Date Status Note LastModified by Organization Details LastModified Time Mirena 21 mcg/24 hr (up to 8 years) 52 mg intrauter ine device 12/03 completed Prescrib ed Elsewher e: Yes Loca tion: [facility] odify By: [email or web address] z Encoun ter DateTime : 05/21/20 17 11:45:00 AM Not Available Not Available Not Available Diflucan 150 mg tablet take 1 tablet by oral route once 11/11 completed Prescrib ed Elsewher e: No Locat ion: [facility] odify By: [email or web address] trick En counter DateTime [...] Prescrib ed Elsewher e: No Locat ion: [facility] odify By: [email or web address] trick En counter DateTime : 01/15/20 12 08:28:05 AM Not Available Not Available Not Available Vitamin D2 1,250 mcg (50,000 unit) capsule take 1 capsule ([id number] ITS) by oral route every week 01/25 completed Prescrib ed Elsewher e: No Locat ion: [facility] odify By: kelsy wayne DateTime : 10/17/19 [...] Prescrib ed Elsewher e: No Locat ion: [facility] odify By: sonia alexander DateTime : 04/15/20 13 01:00:00 PM Not Available Not Available Not Available Tyson-Richard uo DHA 29 mg-1 mg-400 mg oral pack take 2 by Oral route every day 04/15 completed Prescrib ed Elsewher e: No Locat ion: [facility] odify By: [email or web address] trick En counter DateTime : 04/29/20 12 03:45:44 PM Not Available Not Available Not Available GUITAR INSTRUCTOR-PNV-DH A 28 mg iron-1 mg-200 mg capsule take 1 capsule by oral route every day 05/21 completed Prescrib ed Elsewher e: No Locat ion: [facility] odify By: kelsy wayne DateTime : 05/25/20 15 02:30:00 PM Not Available Not Available Not Available Diclegis 10 mg-10 mg tablet,de layed release 05/22 completed Not Available Not Available Not Available Minastrin 24 Fe 1 mg-20 mcg (24)/75 mg (4) chewable tablet chew 1 tablet by oral route every day 05/25 completed Prescrib ed Elsewher e: No Locat ion: [facility] odify By: [email or web address] trick En counter DateTime [...] Updated DateTime 05/07/2025 172.72 cm 31.8 kg/m2 72960.81 g 127/85 mm[Hg] Shadia Lu [place] - [facility] 05/07/2025 10:16:57 Social History Question Answer Notes LastModified by Organizat ion Details LastModified Time Tobacco Smoking Status Never Smoker Faye Chavez [facility] 11/13/2021 15:42:19 Do You Have [...] Or The Highest Degree You Have Received? [id number] Information not available 06/01/2021 Are There Any [...] anxious, or unable to sleep at night)? [id number] Information not available 06/01/2021 Family History Relationship Description Onset Age of this Age Resolved Age Notes LastModified by Organization Details LastModified Time Mother Multiple sclerosis [email or web address] Not available 2019 09:09:49 Maternal Grandfather Diabetes mellitus [email or web address] Not available 2019 09:10:00 Sister Polycystic ovary syndrome Not available 2023 14:01:01 Paternal Uncle Seizure disorder [email or web address] Not available 2023 14:01:01 Paternal Aunt Inflammatory disease of liver [email or web address] Not available 2023 14:01:01 Father Diabetes mellitus [email or web address] Not available 08/23 16:05:09 Medical History Condition [...] ICD10 Code Diagnosis IMO Codes Diagnosis Note [id number] KYRA GOULD MD [place] [address] [address] 04/06/2025 10:18:59 04/06/2025 11:09:33 Oligohydramnios 05243120 O41.03X0 Z3A.34 45431930 [id number] KYRA GOULD MD [place] [address] [address] 04/07/2025 13:49:57 04/07/2025 14:53:45 Anemia 044280178 D64.9 9455501 Iron defic iency anemia 07606758 D50.9 26220690 Gestation period, 35 weeks 63159398 Z3A.35 2487043 [id number] KYRA GOULD MD [facility] [address] [address] 04/16/2025 14:41:56 04/16/2025 15:29:08 Gestation period, 36 weeks 33941948 Z3A.36 6218830 Iron defic iency anemia 40703874 D50.9 26573948 Precipitate labor 293801 04 O62.3 105714 [id number] Paris Whitney CNM [facility] [address] [address] 04/30/2025 09:39:14 04/30/2025 10:21:58 Gestation period, 38 weeks 78984243 Z3A.38 7190950 [id number] Paris Whitney CNM [facility] [address],[facility] [place] [address] 05/07/2025 09:38:27 05/07/2025 10:38:28 Gestation period, 39 weeks 93103677 Z3A.39 6814256 Health Concerns Section Related Observation LastModified by Organization Detai ls LastModified Time None Recorded Concern Status LastModified by Organization Details LastModified Time None Recorded Payers Encounter Date Sequence Insurance Name Policy Number Policy Chavez Covered Member ID Chavez Member ID Guarantor Name 05/07/2025 1 [facility] [id number] Vannessa Bowden [id number] Vannessa Bowden 05/07/2025 2 [facility] [employer] ON OR AFTER 12/22/20 (MEDICAID REPLACEMENT - HMO) Vannessa Bowden [id number] Vannessa Bowden Notes Date Note Type Note Provider Name and Address Organization Details Recorded Time 05/07/2025 text/html Generic HPI TemplateReported by Patient Paris Whitney CNM [address], [place], [address], [facility] 05/07/2025 10:30:57 OBGyn Episode Ob Episode Information Episode Created Date Number of Fetuses Patient Bloodtype Patient rh Status Prepregnancy Weight lbs Domestic Partner Domestic Partner Phone Father Name Sap Integration Architect Status 11/03/19 25 1 A Negative 173 OPEN Fetus Data First Name Last Name Admitted to NICU Weight (g) Sex Living Outcome Pediatric Complications Fetus ID Race Codes Race Delivery Type [id number] Problems Problem Notes Problem Name Start Date End Date Resolution Snomed Code Not e Administration of human anti-D immunoglobulin needed 11/04/2024 8204086983 A neg rhogam @28wks Precipitate labor 11/02/2024 73854847 d elivered in car on last Past history of placental abruption 924226995 History of previous intrauterine growth restricted 919198594671613 Iron deficiency anemia 03/09/2025 101057 02 Fe supplement, recheck at 34 weeks [...] Weight in lbs Pre/Post Dialysis Refused Weight 176.500449198668 BP Diastolic BP Location Tested BP Systolic [...] Weight in lbs Pre/Post Dialysis Refused Weight 180.594316074439 BP Diastolic BP Location Tested BP Systolic [...] Type Weight in lbs Pre/Post Dialysis Refused 184.402773509619 BP Diastolic BP Location Tested BP Systolic [...] Type Weight in lbs Pre/Post Dialysis Refused 191.065178218634 BP Diastolic BP Location Tested BP Systolic [...] Type Weight in lbs Pre/Post Dialysis Refused 195.625813985922 BP Diastolic BP Location Tested BP Systolic [...] Weight in lbs Pre/Post Dialysis Refused Weight 200.156437406666 BP Diastolic BP Location Tested BP Systolic BP Type 76 L arm 114 sitting Fetus Heart Rate Present A 152 Present Fetus Movement A Yes Comments Flowsheet Date 03/09/2025 Oliver Score Blood Edema Fundus Height Fundus Units Glucose Ketones Leukocytes Nitrite Labor Signs Protein Cervic Dilation Cervic Effacement Cervic Station Type Weight in lbs Pre/Post Dialysis Refused Weight 200.408009868860 BP Diastolic BP Location Tested BP Systolic [...] Type Weight in lbs Pre/Post Dialysis Refused 200.344445801211 BP Diastolic BP Location Tested BP Systolic [...] Type Weight in lbs Pre/Post Dialysis Refused 203.94491995793 BP Diastolic BP Location Tested BP Systolic [...] Type Weight in lbs Pre/Post Dialysis Refused 204.053683084878 BP Diastolic BP Location Tested BP Systolic [...] Type Weight in lbs Pre/Post Dialysis Refused 208.945567063863 BP Diastolic BP Location Tested BP Systolic [...] Weight in lbs Pre/Post Dialysis Refused Weight 209.305671613763 BP Diastolic BP Location Tested BP Systolic [...]
--- OUTSIDE RECORDS SUMMARY | 2025-05-08 10:44 | XMS_ITS | Continuity of Care Document ---
Author Organization [facility], [facility] Address [address] [place] [address] [place] [address] Care Team Providers Care Coil Maker Name Role Phone ABYLO Primary Care Provider [...] Surgeries None recorded. Imaging US, obstetric , follow-up 2024 025 [email or web address] [facility], [address], [place], [address], 03/24/2025 13:38:26 US, obstetric , biophysic al profile 2024 025 [facility], [address], [place], [address], 03/24/2025 13:36:31 Medication Orders None recorded. Patient TargetsNo targets recorded. Patient InstructionsNo instructions recorded. Reason for Referral None Reported. Results Created Date Observation Date Name Description Value Unit Range Abnormal Flag Note LastModifiedBy Organization Detail LastModifiedTime 11/03/19 25 11/02/2024 HIV 1/2 ANTIG EN/AN TIBOD Y, REFLE X CONFI RMATI ON HIV antigen/anti body Nonrea ctive nonrea ctive HIV-1 antig en and HIV-1 /HIV- 2 antib odies were not detec marline. No labor atory evide nce of HIV infec tion. Not Available [facility] (Lab) [address], [place], [address], 11/03/2024 12:54:58 11/03/1911/02/2024 HEPAT ITIS B SURFA CE ANTIG EN hepatitis B surface antigen Non-re active non-re active This assay was perfo rmed using [employer] ratio n reage nts and test kits. Value s obtai jeromy with other assay metho ds or kits canno t be used inter merritt eably . Not Available [facility] (Lab) [address], [place], [address], 11/03/2024 12:54:59 11/03/1911/02/2024 HEPAT ITIS C ANTIB BERYL SCREE N, REFLE X TO CONFI RMATI ON hepatitis C antibody Non-re active non-re active Antib odies to HCV Not Detec marline, does not exclu de the possi bilit y of expos ure to HCV. Not Available [facility] (Lab) [address], [place], [address], 11/03/2024 12:55:00 11/03/1911/02/2024 RUBEL LA IGG ANTIB BERYL, QUANT rubella antibodies, IgG Reacti ve reacti ve Not Available [facility] (Lab) [address] [place], [address], 11/03/2024 12:55:00 11/03/1911/02/2024 RUBEL LA IGG ANTIB BERYL, QUANT rubella antibodies, IgG quant 20.6 IU/mL >=10 Non-r eacti ve (Non- Immun e) <10 IU/mL React shabbir (Immu ne) > or = 10 IU/mL Not Available [facility] (Lab) [address] [place], [address], 11/03/2024 12:55:00 11/03/1911/02/2024 CBC W/DIF F WBC 9.4 10'3/ uL 3.5-10 .5 Not Available [facility] (Lab) [address], [place], [address], 11/03/2024 12:55:01 11/03/1911/02/2024 CBC W/DIF F RBC 3.77 10'6/ uL (based on docume nted legal sex) 3.80-5 .20 low Not Available [facility] (Lab) [address], [place], [address], 11/03/2024 12:55:01 11/03/1911/02/2024 CBC W/DIF F HGB 12.4 g/dL (based on docume nted legal sex) 11.6-1 5.4 Not Available [facility] (Lab) [address], [place], [address], 11/03/2024 12:55:01 11/03/1911/02/2024 CBC W/DIF F HCT 35.4 % (based on docume nted legal sex) 34.0-4 5.0 Not Available [facility] (Lab) [address], [place], [address], 11/03/2024 12:55:01 11/03/1911/02/2024 CBC W/DIF F MCV 93.9 fL 80.0-9 9.0 Not Available [facility] (Lab) [address], [place], [address], 11/03/2024 12:55:01 11/03/1911/02/2024 CBC W/DIF F MCH 32.9 pg 27.0-3 4.0 Not Available [facility] (Lab) [address], [place], [address], 11/03/2024 12:55:01 11/03/1911/02/2024 CBC W/DIF F MCHC 35.0 g/dL 32.0-3 5.5 Not Available [facility] (Lab) [address], [place], [address], 11/03/2024 12:55:01 11/03/1911/02/2024 CBC W/DIF F RDW 13.2 % 11.0-1 5.0 Not Available [facility] (Lab) [address], [place], [address], 11/03/2024 12:55:01 11/03/1911/02/2024 CBC W/DIF F plt 252 10'3/ uL 150-40 0 Not Available [facility] (Lab) [address], [place], [address], 11/03/2024 12:55:01 11/03/1911/02/2024 CBC W/DIF F MPV 10.9 fL 8.8-12 .1 Not Available [facility] (Lab) [address], [place], [address], 11/03/2024 12:55:01 11/03/1911/02/2024 CBC W/DIF F NRBC's 0.0 % 0.0 Not Available [facility] (Lab) [address], [place], [address], 11/03/2024 12:55:01 11/03/1911/02/2024 CBC W/DIF F absolute NRBCs 0.0 10'3/ uL no refere nce range establ ished Not Available [facility] (Lab) [address], [place], [address], 11/03/2024 12:55:01 11/03/1911/02/2024 CBC W/DIF F neutrophils 75.0 % 34.0-7 3.0 high Not Available [facility] (Lab) [address] [place], [address], 11/03/2024 12:55:01 11/03/19 25 11/02/2024 CBC W/DIF F lymphocytes 17.0 % 15.0-5 0.0 Not Available [facility] (Lab) [address], [place], [address], 11/03/2024 12:55:01 11/03/19 25 11/02/2024 CBC W/DIF F monocytes 6.8 % 1.0-15 .0 Not Available [facility] (Lab) [address], [place], [address], 11/03/2024 12:55:01 11/03/1911/02/2024 CBC W/DIF F eosinophils 0.6 % 0.0-8. 0 Not Available [facility] (Lab) [address], [place], [address], 11/03/2024 12:55:01 11/03/1911/02/2024 CBC W/DIF F basophils 0.2 % 0.0-2. 0 Not Available [facility] (Lab) [address], [place], [address], 11/03/2024 12:55:01 11/03/1911/02/2024 CBC W/DIF F immature granulocytes 0.4 % no define d refere nce range Immat ure Granu locyt es (IG) repre sents autom ated enume ratio n of Metam yeloc ytes, Myelo cytes and Promy elocy kasey when IG is < 5%. Blast s are not inclu ded in IG and repor marline separ ately if prese nt. Not Available [facility] (Lab) [address], [place], [address], 11/03/2024 12:55:01 11/03/1911/02/2024 CBC W/DIF F absolute neutrophils 7.0 10'3/ uL 1.5-8. 0 Not Available [facility] (Lab) [address], [place], [address], 11/03/2024 12:55:01 11/03/1911/02/2024 CBC W/DIF F absolute lymphocytes 1.6 10'3/ uL 1.0-4. 0 Not Available [facility] (Lab) [address], [place], [address], 11/03/2024 12:55:01 11/03/1911/02/2024 CBC W/DIF F absolute monocytes 0.6 10'3/ uL 0.2-1. 0 Not Available [facility] (Lab) [address], [place], [address], 11/03/2024 12:55:01 11/03/19 25 11/02/2024 CBC W/DIF F absolute eosinophils 0.1 10'3/ uL 0.0-0. 6 Not Available [facility] (Lab) [address], [place], [address], 11/03/2024 12:55:01 11/03/1911/02/2024 CBC W/DIF F absolute basophils 0.0 10'3/ uL 0.0-0. 3 Not Available [facility] (Lab) [address], [place], [address], 11/03/2024 12:55:01 11/03/1911/02/2024 CBC W/DIF F absolute [...] vasquez book. nm.or g/gen derx Not Available [facility] (Lab) [address], [place], [address], 11/03/2024 12:55:01 11/03/1911/02/2024 TYPE/ RH/SC REEN ABO/Rh type A NEG Not Available [facility] (Lab) [address], [place], [address], 11/03/2024 12:55:02 11/03/1911/02/2024 TYPE/ RH/SC REEN antibody screen NEG Not Available [facility] (Lab) [address], [place], [address], 11/03/2024 12:55:02 11/03/1911/02/2024 TYPE/ RH/SC REEN exp date 2024 23:59 Not Available [facility] (Lab) [address], [place], [address], 11/03/2024 12:55:02 11/03/1911/02/2024 HEMOG LOBIN A1C hemoglobin A1C 4.5 % 4.0-5. 6 The Ameri can [employer] kasey [employer] iatio n recom mends that a prima ry goal of thera py ronnieul d be a HBA1C of < 7% and that physi cians shoul d reeva luate the treat ment regim en in patie nts with HBA1C value s consi stent ly > 8%. <5.7% Hina l 5.7 - 6.4% Incre ased risk for diabe kasey >=6.5 % Diagn ostic of diabe kasey <7.0% Goal of thera py >8.0% Actio n sugge sted Not Available [facility] (Lab) [address], [place], [address], 11/03/2024 12:55:02 11/03/1911/02/2024 RPR SCREE N, REFLE X TITER /CONF IRMAT ION RPR qualitative Nonrea ctive nonrea ctive Not Available [facility] (Lab) [address], [place], [address], 11/03/2024 12:55:03 11/03/1911/02/2024 CULTU RE: URINE result report SEE RESULT S BELOW Test: Cultu re: Urine Speci men Sourc e: Urine Voide d Speci men Type: Urine Speci men Date: 2024 1723 Resul t Date: 2024 0338 Resul t Statu s: Final resul t Abnor mal: No Resul ting Lab: [facility] [address] [facility] [address] Tel: CULTU RE ----- ----- ----- --- No growt h in 1 day (dete ction level of 10,00 0 colon ies / ml.) Not Available [facility] (Lab) [address] [place], [address], 11/04/2024 04:43:17 02/19/20 25 02/18/2025 HEMAT OCRIT (HCT) HCT 32.0 % (based on docume nted legal sex) 34.0-4 5.0 low Not Available [facility] (Lab) [address] [place], [address], 02/19/2025 04:10:34 02/19/20 25 02/18/2025 HEMOG LOBIN (HGB) HGB 10.3 g/dL (based on docume nted legal sex) 11.6-1 5.4 low Not Available [facility] (Lab) [address] [place], [address], 02/19/2025 04:10:34 02/19/20 25 02/18/2025 GTT - GESTA MAYELIN L SCREE N, ACOG OB glucose, 1 hour screen 114 mg/dL 70-135 Not Available [facility] (Lab) [address] [place], [address], 02/19/2025 04:10:35 02/19/20 25 02/18/2025 HIV 1/2 ANTIG EN/AN TIBOD Y, REFLE X CONFI RMATI ON HIV antigen/anti body Nonrea ctive nonrea ctive HIV-1 antig en and HIV-1 /HIV- 2 antib odies were not detec marline. No labor atory evide nce of HIV infec tion. Not Available [facility] (Lab) [address], [place], [address], 02/19/2025 04:10:35 03/05/20 25 03/05/2025 RPR SCREE N, REFLE X TITER /CONF IRMAT ION RPR qualitative Nonrea ctive nonrea ctive Do not charg e a venip unctu re for this test. Test was misse d at last visit . Not Available [facility] (Lab) [address], [place], [address], 03/06/2025 11:08:08 11/03/19 25 11/02/2024 US, obste tric, nucha l trans lucen cy No observ ation record ed. [email or web address] [facility] [address], [place], [address], 11/02/2024 18:18:57 11/03/19 25 11/02/2024 US, obste tric, follo w-up No observ ation record ed. [email or web address] [address], [place], [address], 11/03/2024 15:44:13 01/01/20 25 12/31/2024 US, obste tric, 2nd or 3rd trime ster No observ ation record ed. [email or web address] [facility] [address], [place], [address], 12/31/2024 16:14:45 01/01/20 25 12/31/2024 US, obste tric, 2nd or 3rd trime ster No observ ation record ed. [email or web address] [address], [place], [address], 01/03/2025 22:41:59 01/12/20 25 01/11/2025 US, obste tric, trans vagin al No observ ation record ed. [email or web address] [facility] [address], [place], [address], 01/11/2025 17:33:19 01/12/2001/11/2025 US, mary gómez, trans vagin al No observ ation record ed. [address], [place], [address], 01/12/2025 22:12:23 03/24/2003/24/2025 US, mary gómez, follo w-up No observ ation record ed. [email or web address] [facility] [address], [place], [address], 03/24/2025 13:36:18 03/24/2003/24/2025 , mary gómez, bioph ysica l profi le No observ ation record ed. [email or web address] [facility] [address], [place], [address], 03/24/2025 13:36:31 03/24/2003/24/2025 , mary gómez, follo w-up No observ ation record ed. [email or web address] [address], [place], [address], 03/26/2025 17:41:33 04/06/2004/06/2025 imagi ng/di agnos tic resul t No observ ation record ed. MIMI [address], [place], [address], 04/06/2025 13:11:41 04/06/2004/06/2025 , mary gómez, limit ed No observ ation record ed. [email or web address] [facility] [address], [place], [address], 04/06/2025 11:40:14 Result Notes None recorded. Problems Name Problem SNOMED Code Status Onset Date Resolution Date Notes Provider Name and Address Organization Details Recorded Time History of growth retardat ion [id number] Completed wkly antenata l testing 32wks Graciela Weir l null, [facility] 2 13:05:39 Placenta l abruptio n - delivere d [id number] Completed 36wks Graciela Niñotieh l null, [facility] 2 13:05:39 RhD negative [id number] Completed [facility] 13:05:39 Past pregnanc y history of placenta l abruptio n 375509504 Active Shadia Abner [facility] 5 09:35:28 History of previous intraute rine growth restrict ed [id number] 80122 Active Shadia Lu null, [facility] 5 09:35:56 Vaginiti s and vulvovag initis Completed 201105/22/2021 Vaginiti s and vulvovag initis, unspecif ied;Prac luis fernando ID: 0001 Radha Cloud [facility], [facility] 18:20:42 Pregnanc y test positive [id number] Completed 201105/22/2021 Positive Pregnanc y Test;Pra ctice ID: 0001 Radha Cloud null, [facility] 18:21:18 Screenin g for malignan t neoplasm of cervix Completed 201105/22/2021 Pap Smear;Pr actice ID: 0001 Radha Cloud null, [facility] 18:20:40 anatomy study Completed 201105/22/2021 [facility] ANATMC SURVEY;Emil hagen ID: 0001 Radha bradley, [facility] 18:21:26 Primigra bryan [id number] Completed 201105/22/2021 Supervis ion of normal first pregnanc y;Practi ce ID: 0001 Radha bradley, [facility] 18:20:25 malforma tion of central nervous system affectin g obstetri [facility] [id number] Completed 201205/22/2021 Central nervous system malforma tion in fetus, antepart um;Recor ded Elsewher e: No Locat ion: [facility] S ource: EHR Felt Checker mohsen: N Pravinti ce ID: 0001 David lable Time: 11:00:00 AM Radha bradley [facility] 18:20:33 Delivery normal [id number] Completed 201205/22/2021 Normal delivery ;Practic e ID: 0001 Radha bradley, [facility] 18:21:56 Postpart um care Completed 201205/22/2021 Routine postpart um follow-u p;Practi ce ID: 0001 Radha bradley, [facility] 18:20:27 First degree perineal lacerati on [id number] Completed 201205/22/2021 First-de gree perineal lacerati on, unspecif ied as to episode of care in pregnanc y;Practi ce ID: 0001 Radha bradley, [facility] 18:22:05 Educatio n Completed 201205/22/2021 Counseli ng contrace ptive manageme nt;Pract ice ID: 0001 Radha Pedro Luis bradley [facility] 18:21:58 Speciali zed medical examinat ion Completed 201205/22/2021 Routine gynecolo gical examinat ion;Prac luis fernando ID: 0001 Radha bradley [facility] 18:22:00 Pregnanc y test negative [id number] Completed 201205/22/2021 Negative Pregnanc y Test;Pra ctice ID: 0001 Radha bradley [facility] 18:21:19 Candidal vulvovag initis [id number] Completed 201305/22/2021 Candidia sis of vulva and vagina;P ractice ID: 0001 [facility] 18:22:13 Proteinu mary [id number] Completed 201305/22/2021 Proteinu mary;Prac luis fernando ID: 0001 Radha Cloud [facility] 18:21:28 Leukorrh ea 471525930 Completed 201305/22/2021 Leukorrh ea, not specifie d as infectiv e;Record ed Elsewher e: No Locat ion: [facility] S ource: EHR Felt Checker mohsen: N Practi ce ID: 0001 David lable Time: 03:00:00 PM Radha bradley [facility] 18:21:00 Adult health examinat ion Completed 201405/22/2021 Routine general medical examinat ion at a health care facility ;Practic e ID: 0001 Radha Cloud [facility] 18:21:22 Speciali zefarida medical examinat ion Completed 201405/22/2021 Other specifie d chlamydi al diseases ;Practic e ID: 0001 Radha Cloud [facility] 18:22:01 Venereal disease screenin g Completed 201405/22/2021 Screenin g examinat ion for venereal disease; Practice ID: 0001 Radha Pedro Luis mirna, [facility] 18:20:39 Secondar y amenorrh ea [id number] Completed 201405/22/2021 Secondar y amenorrh ea;Pract ice ID: 0001 [facility] 18:20:35 Pregnanc y detectio n examinat ion Completed 201405/22/2021 Encounte r for pregnanc y test, result positive ;Practic e ID: 0001 Radha Pedro Luis bradley [facility] 18:22:14 Uterine size for dates discrepa ncy Completed 201405/22/2021 Uterine size-ivet e discrepa ncy, first trimeste r;Practi ce ID: 0001 Radha Pedro Luis bradley, [facility] 18:21:04 Gestatio n period, 8 weeks [id number] Completed 201405/22/2021 8 weeks gestatio n of pregnanc y;Practi ce ID: 0001 Radha Pedro Luis bradley, [facility] 18:21:21 Pregnanc y, childbir th and puerperi um finding Completed 201505/22/2021 Encntr for suprvsn of normal first preg, first trimeste r;Practi ce ID: 0001 Radha bradley, [facility] 18:21:40 Pregnanc y, childbir th and puerperi um finding Completed 201505/22/2021 Encntr for suprvsn of normal first preg, third trimeste r;Practi ce ID: 0001 Radha bradley [facility] 18:21:42 finding Completed 201505/22/2021 Matern care for oth or susp poor fetl grth, 2nd tri, unsp;Pra ctice ID: 0001 Radha Cloud null, [facility] 18:21:07 Gestatio n period, 27 weeks [id number] Completed 201505/22/2021 27 weeks gestatio n of pregnanc y;Practi ce ID: 0001 Radha Cloud null, [facility] 18:21:55 Gestatio n period, 31 weeks [id number] Completed 201505/22/2021 31 weeks gestatio n of pregnanc y;Practi ce ID: 0001 Radha Pedro Luis null, [facility] 18:22:08 Gestatio n period, 34 weeks [id number] Completed 201505/22/2021 34 weeks gestatio n of pregnanc y;Practi ce ID: 0001 Radha Cloud null, [facility] 18:20:29 finding Completed 201505/22/2021 Matern care for oth or susp poor fetl grth, third tri, fts1;Pra ctice ID: 0001 Radha Cloud null, [facility] 18:21:11 Gestatio n period, 37 weeks [id number] Completed 201505/22/2021 37 weeks gestatio n of pregnanc y;Practi ce ID: 0001 Radha Cloud null, [facility] 18:21:51 Gestatio n period, 38 weeks [id number] Completed 201505/22/2021 38 weeks gestatio n of pregnanc y;Practi ce ID: 0001 Radha Wauregan null, [facility] 18:20:31 Term pregnanc y delivere d [id number] Completed 201505/22/2021 Encounte r for full-ter m uncompli cated delivery ;Practic e ID: 0001 Radha bradley, [facility] 18:20:45 Finding of regulari ty of menstrua l cycle Completed 201505/22/2021 Irregula r menstrua tion, unspecif ied;Prac luis fernando ID: 0001 Radha bradley, [facility] 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 18:21:31 Syphilis test finding [id number] Completed 201605/22/2021 Encntr screen for infectio ns w sexl mode of transmis s;Record ed Elsewher e: No Locat ion: [facility] S ource: EHR Felt Checker mohsen: N Practi ce ID: 0001 David lable Time: 03:15:00 PM Radha Cloud [facility] 18:21:50 Infectio n screenin g Completed 201605/22/2021 Encounte r for screenin g for oth infec/pa rastc diseases ;Recorde d Elsewher e: No Locat ion: [facility] S ource: EHR Felt Checker mohsen: N Practi ce ID: 0001 David lable Time: 03:15:00 PM Radha Cloud [facility] 18:21:14 Insertio n of intraute rine contrace ptive device Completed 201605/22/2021 Encounte r for insertio n of intraute rine contrace ptive device;P ractice ID: 0001 [facility]:22:10 Clinical finding Completed 201605/22/2021 Presence of (intraut erine) contrace ptive device;R ecorded Elsewher e: No Locat ion: [facility] S ource: EHR Felt Checker mohsen: N Practi ce ID: 0001 David lable Time: 08:00:00 AM [facility] 18:21:45 Contrace ptive sheath status [id number] Completed 201605/22/2021 Encounte r for routine checking of intraute rine contrace p dev;Prac luis fernando ID: 0001 Radha bradley, [facility] 18:21:16 Gestatio n period, 11 weeks [id number] Completed 201805/22/2021 11 weeks gestatio n of pregnanc y;Practi ce ID: 0001 Radha Cloud [facility] 18:22:03 Antenata l screenin g Completed 201805/22/2021 Encounte r for antenata l screenin g for nuchal transluc ency;Pra ctice ID: 0001 [facility] 18:21:13 Pregnanc y-induce d hyperten russell Completed 201805/22/2021 Gestatio nal hyperten russell w/o signific ant proteinu mary, 2nd trimeste r;Record ed Elsewher e: No [facility] S ource: EHR Felt Checker mohsen: N Practi ce ID: 0001 David lable Time: 02:30:00 PM Radha bradley [facility] 18:21:02 Antenata l screenin g for malforma tion Completed 201805/22/2021 Encounte r for antenata l screenin g for malforma tions;Pr actice ID: 0001 Radha bradley, [facility] 18:22:11 Placenta previa [id number] Completed 201805/22/2021 Placenta previa specifie d as w/o hemor, second trimeste r;Record ed Elsewher e: No Locat ion: [facility] S ource: EHR Felt Checker mohsen: N Practi ce ID: 0001 David lable Time: 01:00:00 PM Radha bradley, [facility] 18:21:48 Gestatio n period, 24 weeks [id number] Completed 201805/22/2021 24 weeks gestatio n of pregnanc y;Record ed Elsewher e: No Locat ion: [facility] S ource: EHR Felt Checker mohsen: N Practi ce ID: 0001 David lable Time: 01:00:00 PM Radha bradley, [facility] 18:21:29 Normal pregnanc y in multigra bryan [id number] Completed 201805/22/2021 Encounte r for suprvsn of normal pregnanc y, third trimeste r;Practi ce ID: 0001 Radha bradley, [facility] 18:21:53 Uterine size for dates discrepa ncy Completed 201805/22/2021 Uterine size-ivet e discrepa ncy, third trimeste r;Practi ce ID: 0001 Radha Cloud null, [facility] 18:21:06 Gestatio n period, 35 weeks [id number] Completed 201805/22/2021 35 weeks gestatio n of pregnanc y;Practi ce ID: 0001 Radha bradley, [facility] 18:22:15 finding Completed 201805/22/2021 Matern care for oth or susp poor fetl grth, third tri, unsp;Pra ctice ID: 0001 Radha bradley, [facility] 18:21:09 Gestatio n period, 36 weeks [id number] Completed 201805/22/2021 36 weeks gestatio n of pregnanc y;Practi ce ID: 0001 Radha bradley, [facility] 18:22:07 Single live from singleto n pregnanc y [id number] Completed 201805/22/2021 Single live ;Pr actice ID: 0001 Radha bradley, [facility] 18:20:37 Procedur e by method Completed 201905/22/2021 Encounte r for oth general cnsl and advice on contrace ption;Pr actice ID: 0001 Radha bradley, [facility] 18:21:33 Lochia finding Completed 201905/22/2021 Encounte r for routine postpart um follow-u p;Practi ce ID: 0001 Radha bradley, [facility] 18:21:43 Pregnanc y [id number] Completed 202011/14/2021 Shadia bradley, [facility] 5 17:00:00 Pregnanc y [id number] Active 2024 Shadia bradley, [facility] 5 17:00:00 Precipit ate labor [id number] Active 2024 delivere d in car on last pregnanc y Raffy Mane MD [address], [place], [id number], [facility] 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 5 06:51:43 Iron deficien cy anemia 26885139 Active 2024 Fe suppleme nt, recheck at 34 weeks KYRA GOULD MD [address], [place], [address], [facility] 5 18:03:31 Problem Notes None recorded. Procedures Surgical History Date Name Laterality Status Provider Name and Address Organization Details Recorded Time 10/08/19 25 Date of Last Pap Smear completed Shadia Lu [facility] 11/02/2024 16:57:17 08/23/19 19 Cholecystectomy completed Ellen Tanner [facility] 08/23/2021 16:05:41 Cholecystectomy completed Latoay Tejeda [facility] 10/07/2024 15:24:22 Imaging Results None recorded. Procedure Notes None recorded. Medical Equipment None Reported. Allergies No known drug allergies Medications Name Sig Start Date Stop Date Status Note LastModified by Organization Details LastModified Time Mirena 21 mcg/24 hr (up to 8 years) 52 mg intrauter ine device 12/03 completed Prescrib ed Elsewher e: Yes Loca tion: [facility] odify By: [email or web address] z Encoun ter DateTime : 05/21/20 17 11:45:00 AM Not Available Not Available Not Available Diflucan 150 mg tablet take 1 tablet by oral route once 11/11 completed Prescrib ed Elsewher e: No Locat ion: [facility] odify By: [email or web address] trick En counter DateTime [...] Prescrib ed Elsewher e: No Locat ion: [facility] odify By: [email or web address] trick En counter DateTime : 01/15/20 12 08:28:05 AM Not Available Not Available Not Available Vitamin D2 1,250 mcg (50,000 unit) capsule take 1 capsule (22844GJ ITS) by oral route every week 01/25 completed Prescrib ed Elsewher e: No Locat ion: [facility] odify By: kelsy wayne DateTime : 10/17/19 [...] Prescrib ed Elsewher e: No Locat ion: [facility] odify By: sonia alexander DateTime : 04/15/20 13 01:00:00 PM Not Available Not Available Not Available Triveen-D uo DHA 29 mg-1 mg-400 mg oral pack take 2 by Oral route every day 04/15 completed Prescrib ed Elsewher e: No Locat ion: [facility] odify By: [email or web address] trick En counter DateTime : 04/29/20 12 03:45:44 PM Not Available Not Available Not Available FILM READER-PNV-DH A 28 mg iron-1 mg-200 mg capsule take 1 capsule by oral route every day 05/21 completed Prescrib ed Elsewher e: No Locat ion: [facility] odify By: [email or web address] wayne DateTime : 05/25/20 02:30:00 PM Not Available Not Available Not Available Diclegis 10 mg-10 mg tablet,de layed release 05/22 completed Not Available Not Available Not Available Minastrin 24 Fe 1 mg-20 mcg (24)/75 mg (4) chewable tablet chew 1 tablet by oral route every day 05/25 completed Prescrib ed Elsewher e: No Locat ion: [facility] odify By: [email or web address] trick En counter [...] Address Organization Details Last Updated DateTime 03/24/2025 35214.474 g 30.4 kg/m2 172.72 cm 106/76 mm[Hg] Candice Malik [facility] 03/24/2025 10:31:36 Social History Question Answer Notes LastModified by Organizat ion Details LastModified Time Tobacco Smoking Status Never Smoker Faye bradley, [facility] 11/13/2021 15:42:19 Do You Have An [...] Or The Highest Degree You Have Received? [id number] Information not available 06/01/2021 Are There Any [...] anxious, or unable to sleep at night)? [id number] Information not available 06/01/2021 Family History Relationship Description Onset Age of this Age Resolved Age Notes LastModified by Organization Details LastModified Time Mother Multiple sclerosis [email or web address] Not available 2019 09:09:49 Maternal Grandfather Diabetes mellitus [email or web address] Not available 2019 09:10:00 Sister Polycystic ovary syndrome [email or web address] Not available 2023 14:01:01 Paternal Uncle Seizure disorder Not available 2023 14:01:01 Paternal Aunt Inflammatory disease of liver [email or web address] Not available 2023 14:01:01 Father Diabetes mellitus [email or web address] Not available 08/23 16:05:09 Medical History Condition [...] ICD10 Code Diagnosis IMO Codes Diagnosis Note [id number] Raffy Mane MD [facility] [address],[place] [address] 03/05/2025 14:53:58 03/05/2025 17:56:54 [id number] KYRA GOULD MD [facility] [address] [place] [address] 03/09/2025 17:40:12 03/09/2025 18:06:45 History of previous intrauterine growth restricted 2714502741 90239 Z87.59 [id number] Past pregn loki history of placental abruption 905839847 Z87.59 26885991 Iron defic iency anemia 90983161 D50.9 74711948 Gestation period, 30 weeks 78672793 Z3A.30 0445704 [id number] KYRA GOULD MD [facility] [address] [place] [address] 03/24/2025 09:55:18 03/24/2025 10:37:52 Past history of small for gestational age baby 511140053 Z87.59 O41.03X0 Z3A.33 51171012 [id number] KYRA GOULD MD [facility] [address] [place] [address] 03/24/2025 09:55:33 03/24/2025 16:01:09 Iron deficiency anemia 92090785 D50.9 22078991 History of previous intrauterine growth restricted 1505970549 86051 Z87.59 82899246 Gestation period, 33 weeks 91508776 Z3A.33 5347950 Health Concerns Section Related Observation LastModified by Organization Detai ls LastModified Time None Recorded Concern Status LastModified by Organization Details LastModified Time None Recorded Payers Encounter Date Sequence Insurance Name Policy Number Policy Chavez Covered Member ID Chavez Member ID Guarantor Name 03/24/2025 1 [facility] (O) [id number] Vannessa Bricenogeorge [id number] Vannessa Dennise 03/24/2025 2 [facility] ON OR AFTER 12/22/20 (MEDICAID REPLACEMENT - HMO) Vannessa Holik [id number] Vannessa Bowden Notes Date Note Type Note Provider Name and Address Organization Details Recorded Time 03/24/2025 text/html Generic HPI TemplateReported by Patient KYRA GOULD MD [address], [place], [address], [facility] 03/24/2025 15:57:46 OBGyn Episode Ob Episode Information Episode Created Date Number of Fetuses Patient Bloodtype Patient rh Status Prepregnancy Weight lbs Domestic Partner Domestic Partner Phone Father Name Unloader Operator Status 11/03/19 25 1 A Negative 173 OPEN Fetus Data First Name Last Name Admitted to NICU Weight (g) Sex Living Outcome Pediatric Complications Fetus ID Race Codes Race Delivery Type [id number] Problems Problem Notes Problem Name Start Date End Date Resolution Snomed Code Not e Administration of human anti-D immunoglobulin needed 11/04/2024 8944898776 A neg rhogam @28wks Precipitate labor 11/02/2024 37424842 d elivered in car on last Past history of placental abruption 034293107 History of previous intrauterine growth restricted 911328832021635 Iron deficiency anemia 03/09/2025 512026 02 Fe supplement, recheck at 34 weeks [...] Weight in lbs Pre/Post Dialysis Refused Weight 176.413624540562 BP Diastolic BP Location Tested BP Systolic [...] Weight in lbs Pre/Post Dialysis Refused Weight 180.272816936090 BP Diastolic BP Location Tested BP Systolic [...] Type Weight in lbs Pre/Post Dialysis Refused 184.391563490207 BP Diastolic BP Location Tested BP Systolic [...] Type Weight in lbs Pre/Post Dialysis Refused 191.888312259711 BP Diastolic BP Location Tested BP Systolic [...] Type Weight in lbs Pre/Post Dialysis Refused 195.147679519565 BP Diastolic BP Location Tested BP Systolic [...] Weight in lbs Pre/Post Dialysis Refused Weight 200.980700224382 BP Diastolic BP Location Tested BP Systolic BP Type 76 L arm 114 sitting Fetus Heart Rate Present A 152 Present Fetus Movement A Yes Comments Flowsheet Date 03/09/2025 Oliver Score Blood Edema Fundus Height Fundus Units Glucose Ketones Leukocytes Nitrite Labor Signs Protein Cervic Dilation Cervic Effacement Cervic Station Type Weight in lbs Pre/Post Dialysis Refused Weight 200.738718877159 BP Diastolic BP Location Tested BP Systolic [...] Type Weight in lbs Pre/Post Dialysis Refused 200.176734127024 BP Diastolic BP Location Tested BP Systolic [...] Type Weight in lbs Pre/Post Dialysis Refused 203.04186191380 BP Diastolic BP Location Tested BP Systolic [...] Type Weight in lbs Pre/Post Dialysis Refused 204.157017633010 BP Diastolic BP Location Tested BP Systolic [...] Type Weight in lbs Pre/Post Dialysis Refused 208.825549686766 BP Diastolic BP Location Tested BP Systolic [...] Weight in lbs Pre/Post Dialysis Refused Weight 209.668119199409 BP Diastolic BP Location Tested BP Systolic [...]
--- OUTSIDE RECORDS SUMMARY | 2025-05-08 10:44 | XMS_ITS | Continuity of Care Document ---
Author Organization [facility] Address [address] [place] [address] Care Team Providers Care Health Sciences Manager Name Role Phone LO BADILLO Primary Care Provider Assessment No assessment recorded. Plan of Treatment Reminders Order Date Submit Date Provider Last Modified By Organization Details Last Modified Time Details Appointments OB ROUTINE 2024 09:00A Taylor Whitney CNM Not available Not available Not available INDUCTION 2024 05:00A Taylor Whitney CNM Not available Not available Not available Lab iron + TIBC + ferritin, serum 2024 025 [facility] (Lab), [address] [place], [address], 04/08/2025 04:02:42 CBC w/ auto diff 2024 025 [facility] (Lab), [address] [place], [address], 04/08/2025 04:02:42 Referral None recorded. Procedures None [...] nce of HIV infec tion. Not Available [facility] (Lab) [address], [place], [address], 11/03/2024 12:54:58 11/03/1911/02/2024 HEPAT ITIS B SURFA CE ANTIG EN hepatitis B surface antigen Non-re active non-re active This assay was perfo rmed using [employer] ratio n reage nts and test kits. Value s obtai jeromy with other assay metho ds or kits canno t be used inter merritt eably . Not Available [facility] (Lab) [address], [place], [address], 11/03/2024 12:54:59 11/03/1911/02/2024 HEPAT ITIS C ANTIB BERYL SCREE N, REFLE X TO CONFI RMATI ON hepatitis C antibody Non-re active non-re active Antib odies to HCV Not Detec marline, does not exclu de the possi bilit y of expos ure to HCV. Not Available [facility] (Lab) [address], [place], [address], 11/03/2024 12:55:00 11/03/1911/02/2024 RUBEL LA IGG ANTIB BERYL, QUANT rubella antibodies, IgG Reacti ve reacti ve Not Available [facility] (Lab) [address] [place], [address], 11/03/2024 12:55:00 11/03/19 25 11/02/2024 RUBEL LA IGG ANTIB BERYL, QUANT rubella antibodies, IgG quant 20.6 IU/mL >=10 Non-r eacti ve (Non- Immun e) <10 IU/mL React shabbir (Immu ne) > or = 10 IU/mL Not Available [facility] (Lab) [address] [place], [address], 11/03/2024 12:55:00 11/03/19 25 11/02/2024 CBC W/DIF F WBC 9.4 10'3/ uL 3.5-10 .5 Not Available [facility] (Lab) [address] , [place], [address], 11/03/2024 12:55:01 11/03/19 25 11/02/2024 CBC W/DIF F RBC 3.77 10'6/ uL (based on docume nted legal sex) 3.80-5 .20 low Not Available [facility] (Lab) [address], [place], [address], 11/03/2024 12:55:01 11/03/19 25 11/02/2024 CBC W/DIF F HGB 12.4 g/dL (based on docume nted legal sex) 11.6-1 5.4 Not Available [facility] (Lab) [address], [place], [address], 11/03/2024 12:55:01 11/03/19 25 11/02/2024 CBC W/DIF F HCT 35.4 % (based on docume nted legal sex) 34.0-4 5.0 Not Available [facility] (Lab) [address], [place], [address], 11/03/2024 12:55:01 11/03/1911/02/2024 CBC W/DIF F MCV 93.9 fL 80.0-9 9.0 Not Available [facility] (Lab) [address], [place], [address], 11/03/2024 12:55:01 11/03/19 25 11/02/2024 CBC W/DIF F MCH 32.9 pg 27.0-3 4.0 Not Available [facility] (Lab) [address], [place], [address], 11/03/2024 12:55:01 11/03/19 25 11/02/2024 CBC W/DIF F MCHC 35.0 g/dL 32.0-3 5.5 Not Available [facility] (Lab) [address], [place], [address], 11/03/2024 12:55:01 11/03/1911/02/2024 CBC W/DIF F RDW 13.2 % 11.0-1 5.0 Not Available [facility] (Lab) [address], [place], [address], 11/03/2024 12:55:01 11/03/1911/02/2024 CBC W/DIF F plt 252 10'3/ uL 150-40 0 Not Available [facility] (Lab) [address], [place], [address], 11/03/2024 12:55:01 11/03/1911/02/2024 CBC W/DIF F MPV 10.9 fL 8.8-12 .1 Not Available [facility] (Lab) [address], [place], [address], 11/03/2024 12:55:01 11/03/1911/02/2024 CBC W/DIF F NRBC's 0.0 % 0.0 Not Available [facility] (Lab) [address], [place], [address], 11/03/2024 12:55:01 11/03/1911/02/2024 CBC W/DIF F absolute NRBCs 0.0 10'3/ uL no refere nce range establ ished Not Available [facility] (Lab) [address], [place], [address], 11/03/2024 12:55:01 11/03/1911/02/2024 CBC W/DIF F neutrophils 75.0 % 34.0-7 3.0 high Not Available [facility] (Lab) [address] [place], [address], 11/03/2024 12:55:01 11/03/1911/02/2024 CBC W/DIF F lymphocytes 17.0 % 15.0-5 0.0 Not Available [facility] (Lab) [address] [place], [address], 11/03/2024 12:55:01 11/03/1911/02/2024 CBC W/DIF F monocytes 6.8 % 1.0-15 .0 Not Available [facility] (Lab) [address], [place], [address], 11/03/2024 12:55:01 11/03/1911/02/2024 CBC W/DIF F eosinophils 0.6 % 0.0-8. 0 Not Available [facility] (Lab) [address], [place], [address], 11/03/2024 12:55:01 11/03/1911/02/2024 CBC W/DIF F basophils 0.2 % 0.0-2. 0 Not Available [facility] (Lab) [address], [place], [address], 11/03/2024 12:55:01 11/03/1911/02/2024 CBC W/DIF F immature granulocytes 0.4 % no define d refere nce range Immat ure Granu locyt es (IG) repre sents autom ated enume ratio n of Metam yeloc ytes, Myelo cytes and Promy elocy kasey when IG is < 5%. Blast s are not inclu ded in IG and repor marline separ ately if prese nt. Not Available [facility] (Lab) [address], [place], [address], 11/03/2024 12:55:01 11/03/1911/02/2024 CBC W/DIF F absolute neutrophils 7.0 10'3/ uL 1.5-8. 0 Not Available [facility] (Lab) [address], [place], [address], 11/03/2024 12:55:01 11/03/1911/02/2024 CBC W/DIF F absolute lymphocytes 1.6 10'3/ uL 1.0-4. 0 Not Available [facility] (Lab) [address], [place], [address], 11/03/2024 12:55:01 11/03/1911/02/2024 CBC W/DIF F absolute monocytes 0.6 10'3/ uL 0.2-1. 0 Not Available [facility] (Lab) [address], [place], [address], 11/03/2024 12:55:01 11/03/1911/02/2024 CBC W/DIF F absolute eosinophils 0.1 10'3/ uL 0.0-0. 6 Not Available [facility] (Lab) [address], [place], [address], 11/03/2024 12:55:01 11/03/1911/02/2024 CBC W/DIF F absolute basophils 0.0 10'3/ uL 0.0-0. 3 Not Available [facility] (Lab) [address], [place], [address], 11/03/2024 12:55:01 11/03/1911/02/2024 CBC W/DIF F absolute [...] vasquez book. nm.or g/gen derx Not Available [facility] (Lab) [address], [place], [address], 11/03/2024 12:55:01 11/03/1911/02/2024 TYPE/ RH/SC REEN ABO/Rh type A NEG Not Available [facility] (Lab) [address], [place], [address], 11/03/2024 12:55:02 11/03/1911/02/2024 TYPE/ RH/SC REEN antibody screen NEG Not Available [facility] (Lab) [address], [place], [address], 11/03/2024 12:55:02 11/03/1911/02/2024 TYPE/ RH/SC REEN exp date 2024 23:59 Not Available [facility] (Lab) [address], [place], [address], 11/03/2024 12:55:02 11/03/1911/02/2024 HEMOG LOBIN A1C hemoglobin [...] >8.0% Actio n sugge sted Not Available [facility] (Lab) [address], [place], [address], 11/03/2024 12:55:02 11/03/1911/02/2024 RPR SCREE N, REFLE X TITER /CONF IRMAT ION RPR qualitative Nonrea ctive nonrea ctive Not Available [facility] (Lab) [address], [place], [address], 11/03/2024 12:55:03 11/03/1911/02/2024 CULTU RE: URINE result report SEE RESULT S BELOW Test: Cultu re: Urine Speci men Sourc e: Urine Voide d Speci men Type: Urine Speci men Date: 2024 1723 Resul t Date: 2024 0338 Resul t Statu s: Final resul t Abnor mal: No Resul ting Lab: [facility] [address] [facility] [address] Tel: CULTU RE ----- ----- ----- --- No growt h in 1 day (dete ction level of 10,00 0 colon ies / ml.) Not Available [facility] (Lab) [address], [place], [address], 11/04/2024 04:43:17 02/19/2002/18/2025 HEMAT OCRIT (HCT) HCT 32.0 % (based on docume nted legal sex) 34.0-4 5.0 low Not Available [facility] (Lab) [address] [place], [address], 02/19/2025 04:10:34 02/19/20 25 02/18/2025 HEMOG LOBIN (HGB) HGB 10.3 g/dL (based on docume nted legal sex) 11.6-1 5.4 low Not Available [facility] (Lab) [address] [place], [address], 02/19/2025 04:10:34 02/19/2002/18/2025 GTT - GESTA MAYELIN L SCREE N, ACOG OB glucose, 1 hour screen 114 mg/dL 70-135 Not Available [facility] (Lab) [address] [place], [address], 02/19/2025 04:10:35 02/19/2002/18/2025 HIV 1/2 ANTIG EN/AN TIBOD Y, REFLE X CONFI RMATI ON HIV antigen/anti body Nonrea ctive nonrea ctive HIV-1 antig en and HIV-1 /HIV- 2 antib odies were not detec marline. No labor atory evide nce of HIV infec tion. Not Available [facility] (Lab) [address], [place], [address], 02/19/2025 04:10:35 03/05/2003/05/2025 RPR SCREE N, REFLE X TITER /CONF IRMAT ION RPR qualitative Nonrea ctive nonrea ctive Do not charg e a venip unctu re for this test. Test was misse d at last visit . Not Available [facility] (Lab) [address], [place], [address], 03/06/2025 11:08:08 04/07/2004/07/2025 CBC W/DIF F WBC 9.7 10'3/ uL 3.5-10 .5 Not Available [facility] (Lab) [address], [place], [address], 04/08/2025 04:02:42 04/07/20 25 04/07/2025 CBC W/DIF F RBC 3.68 10'6/ uL (based on docume nted legal sex) 3.80-5 .20 low Not Available [facility] (Lab) [address], [place], [address], 04/08/2025 04:02:42 04/07/20 25 04/07/2025 CBC W/DIF F HGB 11.4 g/dL (based on docume nted legal sex) 11.6-1 5.4 low Not Available [facility] (Lab) [address], [place], [address], 04/08/2025 04:02:42 04/07/20 25 04/07/2025 CBC W/DIF F HCT 34.1 % (based on docume nted legal sex) 34.0-4 5.0 Not Available [facility] (Lab) [address] [place], [address], 04/08/2025 04:02:42 04/07/20 25 04/07/2025 CBC W/DIF F MCV 92.7 fL 80.0-9 9.0 Not Available [facility] (Lab) [address], [place], [address], 04/08/2025 04:02:42 04/07/20 25 04/07/2025 CBC W/DIF F MCH 31.0 pg 27.0-3 4.0 Not Available [facility] (Lab) [address], [place], [address], 04/08/2025 04:02:42 04/07/20 25 04/07/2025 CBC W/DIF F MCHC 33.4 g/dL 32.0-3 5.5 Not Available [facility] (Lab) [address], [place], [address], 04/08/2025 04:02:42 04/07/20 25 04/07/2025 CBC W/DIF F RDW 15.2 % 11.0-1 5.0 high Not Available [facility] (Lab) [address], [place], [address], 04/08/2025 04:02:42 04/07/20 25 04/07/2025 CBC W/DIF F plt 203 10'3/ uL 150-40 0 Not Available [facility] (Lab) [address], [place], [address], 04/08/2025 04:02:42 04/07/20 25 04/07/2025 CBC W/DIF F MPV 11.8 fL 8.8-12 .1 Not Available [facility] (Lab) [address], [place], [address], 04/08/2025 04:02:42 04/07/20 25 04/07/2025 CBC W/DIF F NRBC's 0.0 % 0.0 Not Available [facility] (Lab) [address], [place], [address], 04/08/2025 04:02:42 04/07/20 25 04/07/2025 CBC W/DIF F absolute NRBCs 0.0 10'3/ uL no refere nce range establ ished Not Available [facility] (Lab) [address], [place], [address], 04/08/2025 04:02:42 04/07/20 25 04/07/2025 CBC W/DIF F neutrophils 78.0 % 34.0-7 3.0 high Not Available [facility] (Lab) [address], [place], [address], 04/08/2025 04:02:42 04/07/20 25 04/07/2025 CBC W/DIF F lymphocytes 14.8 % 15.0-5 0.0 low Not Available [facility] (Lab) [address], [place], [address], 04/08/2025 04:02:42 04/07/20 25 04/07/2025 CBC W/DIF F monocytes 5.8 % 1.0-15 .0 Not Available [facility] (Lab) [address], [place], [address], 04/08/2025 04:02:42 04/07/20 25 04/07/2025 CBC W/DIF F eosinophils 0.6 % 0.0-8. 0 Not Available [facility] (Lab) [address] [place], [address], 04/08/2025 04:02:42 04/07/20 25 04/07/2025 CBC W/DIF F basophils 0.3 % 0.0-2. 0 Not Available [facility] (Lab) [address] [place], [address], 04/08/2025 04:02:42 04/07/20 25 04/07/2025 CBC W/DIF [...] separ ately if prese nt. Not Available [facility] (Lab) [address], [place], [address], 04/08/2025 04:02:42 04/07/20 25 04/07/2025 CBC W/DIF F absolute neutrophils 7.6 10'3/ uL 1.5-8. 0 Not Available [facility] (Lab) [address], [place], [address], 04/08/2025 04:02:42 04/07/20 25 04/07/2025 CBC W/DIF F absolute lymphocytes 1.4 10'3/ uL 1.0-4. 0 Not Available [facility] (Lab) [address], [place], [address], 04/08/2025 04:02:42 04/07/20 25 04/07/2025 CBC W/DIF F absolute monocytes 0.6 10'3/ uL 0.2-1. 0 Not Available [facility] (Lab) [address], [place], [address], 04/08/2025 04:02:42 04/07/20 25 04/07/2025 CBC W/DIF F absolute eosinophils 0.1 10'3/ uL 0.0-0. 6 Not Available [facility] (Lab) [address], [place], [address], 04/08/2025 04:02:42 04/07/2004/07/2025 CBC W/DIF F absolute basophils 0.0 10'3/ uL 0.0-0. 3 Not Available [facility] (Lab) [address] [place], [address], 04/08/2025 04:02:42 04/07/20 25 04/07/2025 CBC W/DIF F absolute immature granulocytes 0.1 10'3/ uL 0.00-0 .10 Refer ence range s for nonbi nary/ inter sex or unspe cifie d gende r patie nts have not been estab lishe d. Pleas e [facility] for range s estab lishe d for cisge nder patie nts and evalu ate in the clini ge[place]es elyssa xt of the indiv idual patie nt: https ://izzy vasquez book. nm.or g/gen derx Not Available [facility] (Lab) [address], [place], [address], 04/08/2025 04:02:42 04/07/2004/07/2025 ADRIAN TIN / IRON / TRANS ADRIAN N / TIBC iron 123 ug/dL 40-170 Not Available [facility] (Lab) [address] [place], [address], 04/08/2025 04:02:42 04/07/20 25 04/07/2025 ADRIAN TIN / IRON / TRANS ADRIAN N / TIBC transferrin 360 mg/dL 200-36 0 Not Available [facility] (Lab) [address], [place], [address], 04/08/2025 04:02:42 04/07/20 25 04/07/2025 ADRIAN TIN / IRON / TRANS ADRIAN N / TIBC ferritin 10.4 NG/mL 8.0-25 2.0 Not Available [facility] (Lab) [address] [place], [address], 04/08/2025 04:02:42 04/07/20 25 04/07/2025 ADRIAN TIN / IRON / TRANS ADRIAN N / TIBC TIBC 504 ug/dL 250-45 0 high Not Available [facility] (Lab) [address] [place], [address], 04/08/2025 04:02:42 04/07/20 25 04/07/2025 ADRIAN TIN / IRON / TRANS ADRIAN N / TIBC iron saturation 24 % 20-55 Not Available [facility] (Lab) [address], [place], [address], 04/08/2025 04:02:42 11/03/19 25 11/02/2024 US, obste tric, nucha l trans lucen cy No observ ation record ed. [email or web address] [facility] [address], [place], [address], 11/02/2024 18:18:57 11/03/19 25 11/02/2024 US, obste tric, follo w-up No observ ation record ed. [email or web address] [address], [place], [address], 11/03/2024 15:44:13 01/01/20 25 12/31/2024 US, obste tric, 2nd or 3rd trime ster No observ ation record ed. [email or web address] [facility] [address], [place], [address], 12/31/2024 16:14:45 01/01/20 25 12/31/2024 US, obste tric, 2nd or 3rd trime ster No observ ation record ed. [email or web address] [address], [place], [address], 01/03/2025 22:41:59 01/12/20 25 01/11/2025 US, obste tric, trans vagin al No observ ation record ed. [email or web address] [facility] [address], [place], [address], 01/11/2025 17:33:19 01/12/20 25 01/11/2025 US, obste tric, trans vagin al No observ ation record ed. [email or web address] [address], [place], [address], 01/12/2025 22:12:23 03/24/2003/24/2025 US, obste tric, follo w-up No observ ation record ed. [email or web address] [facility] [address], [place], [address], 03/24/2025 13:36:18 03/24/2003/24/2025 US, obste tric, bioph ysica l profi le No observ ation record ed. [email or web address] [facility] [address], [place], [address], 03/24/2025 13:36:31 03/24/2003/24/2025 US, obste tric, follo w-up No observ ation record ed. [email or web address] [address], [place], [address], 03/26/2025 17:41:33 04/06/2004/06/2025 imagi ng/di agnos tic resul t No observ ation record ed. [email or web address] [address], [place], [address], 04/06/2025 13:11:41 04/06/2004/06/2025 , obste tric, limit ed No observ ation record ed. [email or web address] [facility] [address], [place], [address], 04/06/2025 11:40:14 Result Notes None recorded. Problems Name Problem SNOMED Code Status Onset Date Resolution Date Notes Provider Name and Address Organization Details Recorded Time History of growth retardat ion 1805551543 9100 Completed wkly antenata l testing 32wks Graciela lund [facility], [facility] 13:05:39 Placenta l abruptio n - delivere d [id number] Completed 36wks Graciela lund [facility], [facility] 2 13:05:39 RhD negative [id number] Completed Graciela lund null, [facility] 2 13:05:39 Past pregnanc y history of placenta l abruptio n 294882402 Active Shadia Abner null, [facility] 5 09:35:28 History of previous intraute rine growth restrict ed 4085280581 54841 Active Shadia Lu null, [facility] 5 09:35:56 Vaginiti s and vulvovag initis Completed 201105/22/2021 Vaginiti s and vulvovag initis, unspecif ied;Prac luis fernando ID: 0001 Radha Cloud [facility], [facility] 18:20:42 Pregnanc y test positive [id number] Completed 201105/22/2021 Positive Pregnanc y Test;Pra ctice ID: 0001 Radha Cloud [facility], [facility] 18:21:18 Screenin g for malignan t neoplasm of cervix Completed 201105/22/2021 Pap Smear;Pr actice ID: 0001 Radha Cloud [facility], [facility] 18:20:40 anatomy study Completed 201105/22/2021 [facility] SURVEY;P ractice ID: 0001 Radha bradley, [facility] 18:21:26 Primigra bryan [id number] Completed 201105/22/2021 Supervis ion of normal first pregnanc y;Practi ce ID: 0001 Radha Cloud [facility], [facility] 18:20:25 malforma tion of central nervous system affectin g obstetri ge[facility] care [id number] Completed 201205/22/2021 Central nervous system malforma tion in fetus, antepart um;Recor ded Elsewher e: No [facility] our[facility]: EHR Farmworker Rice mohsen: N Practi ce ID: 0001 David lable Time: 11:00:00 AM Radha bradley, [facility] 18:20:33 Delivery normal [id number] Completed 201205/22/2021 Normal delivery ;Practic e ID: 0001 Radha bradley, [facility] 18:21:56 Postpart um care Completed 201205/22/2021 Routine postpart um follow-u p;Practi ce ID: 0001 Radha Cloud [facility], [facility] 18:20:27 First degree perineal lacerati on [id number] Completed 201205/22/2021 First-de gree perineal lacerati on, unspecif ied as to episode of care in pregnanc y;Practi ce ID: 0001 Radha bradley, [facility] 18:22:05 Educatio n Completed 201205/22/2021 Counseli ng contrace ptive manageme nt;Pract ice ID: 0001 Radha bradley, [facility] 18:21:58 Speciali zed medical examinat ion Completed 201205/22/2021 Routine gynecolo gical examinat ion;Prac luis fernando ID: 0001 Radha bradley, [facility] 18:22:00 Pregnanc y test negative [id number] Completed 201205/22/2021 Negative Pregnanc y Test;Pra ctice ID: 0001 Radha bradley, [facility] 18:21:19 Candidal vulvovag initis [id number] Completed 201305/22/2021 Candidia sis of vulva and vagina;P ractice ID: 0001 Radha bradley [facility] 18:22:13 Proteinu mary [id number] Completed 201305/22/2021 Proteinu mary;Prac luis fernando ID: 0001 [facility] 18:21:28 Leukorrh ea [id number] Completed 201305/22/2021 Leukorrh ea, not specifie d as infectiv e;Record ed Elsewher e: No Locat ion: [facility] S ource: EHR Farmworker Rice mohsen: N Practi ce ID: 0001 David lable Time: 03:00:00 PM Radha bradley [facility] 18:21:00 Adult health examinat ion Completed 201405/22/2021 Routine general medical examinat ion at a health care facility ;Practic e ID: 0001 Radha bradley [facility] 18:21:22 Speciali zed medical examinat ion Completed 201405/22/2021 Other specifie d chlamydi al diseases ;Practic e ID: 0001 Radha bradley [facility] 18:22:01 Venereal disease screenin g Completed 201405/22/2021 Screenin g examinat ion for venereal disease; Practice ID: 0001 Radhajeane bradley [facility] 18:20:39 Secondar y amenorrh ea [id number] Completed 201405/22/2021 Secondar y amenorrh ea;Pract ice ID: 0001 Radha bradley [facility] 18:20:35 Pregnanc y detectio n examinat ion Completed 201405/22/2021 Encounte r for pregnanc y test, result positive ;Practic e ID: 0001 Radha Denton mirna, [facility] 18:22:14 Uterine size for dates discrepa ncy Completed 201405/22/2021 Uterine size-ivet e discrepa ncy, first trimeste r;Practi ce ID: 0001 Radha Denton null, [facility] 18:21:04 Gestatio n period, 8 weeks [id number] Completed 201405/22/2021 8 weeks gestatio n of pregnanc y;Practi ce ID: 0001 Radha Pedro Luis mirna, [facility] 18:21:21 Pregnanc y, childbir th and puerperi um finding Completed 201505/22/2021 Encntr for suprvsn of normal first preg, first trimeste r;Practi ce ID: 0001 Radha Denton mirna, [facility] 18:21:40 Pregnanc y, childbir th and puerperi um finding Completed 201505/22/2021 Encntr for suprvsn of normal first preg, third trimeste r;Practi ce ID: 0001 Radha Denton null, [facility] 18:21:42 finding Completed 201505/22/2021 Matern care for oth or susp poor fetl grth, 2nd tri, unsp;Pra ctice ID: 0001 Radha Doran mirna, [facility] 18:21:07 Gestatio n period, 27 weeks [id number] Completed 201505/22/2021 27 weeks gestatio n of pregnanc y;Practi ce ID: 0001 Radha Pedro Luis bradley, [facility] 18:21:55 Gestatio n period, 31 weeks [id number] Completed 201505/22/2021 31 weeks gestatio n of pregnanc y;Practi ce ID: 0001 Radha bradley, [facility] 18:22:08 Gestatio n period, 34 weeks [id number] Completed 201505/22/2021 34 weeks gestatio n of pregnanc y;Practi ce ID: 0001 Radha bradley, [facility] 18:20:29 finding Completed 201505/22/2021 Matern care for oth or susp poor fetl grth, third tri, fts1;Pra ctice ID: 0001 Radha bradley, [facility] 18:21:11 Gestatio n period, 37 weeks [id number] Completed 201505/22/2021 37 weeks gestatio n of pregnanc y;Practi ce ID: 0001 Radha bradley, [facility] 18:21:51 Gestatio n period, 38 weeks 24751418 Completed 201505/22/2021 38 weeks gestatio n of pregnanc y;Practi ce ID: 0001 Radha bradley, [facility] 18:20:31 Term pregnanc y delivere d [id number] Completed 201505/22/2021 Encounte r for full-ter m uncompli cated delivery ;Practic e ID: 0001 Radha bradley, [facility] 18:20:45 Finding of regulari ty of menstrua l cycle Completed 201505/22/2021 Irregula r menstrua tion, unspecif ied;Prac luis fernando ID: 0001 Radha bradley, [facility] 18:20:[address] Concept Completed 201605/22/2021 Encntr for director of financial aid exam (general ) (routine ) w/o abn findings ;Practic e ID: 0001 Radha bradley [facility] 18:21:31 Syphilis test finding 558196027 Completed 201605/22/2021 Encntr screen for infectio ns w sexl mode of transmis s;Record ed Elsewher e: No Locat ion: [facility] S ource: EHR Farmworker Rice mohsen: N Practi ce ID: 0001 David lable Time: 03:15:00 PM Radha bradley [facility] 18:21:50 Infectio n screenin g Completed 201605/22/2021 Encounte r for screenin g for oth infec/pa rastc diseases ;Recorde d Elsewher e: No Locat ion: [facility] S ource: EHR Farmworker Rice mohsen: N Practi ce ID: 0001 David lable Time: 03:15:00 PM Radha bradley [facility] 18:21:14 Insertio n of intraute rine contrace ptive device Completed 201605/22/2021 Encounte r for insertio n of intraute rine contrace ptive device;P ractice ID: 0001 Radha bradley [facility] 18:22:10 Clinical finding Completed 201605/22/2021 Presence of (intraut erine) contrace ptive device;R ecorded Elsewher e: No Locat ion: [facility] S ource: EHR Farmworker Rice mohsen: N Practi ce ID: 0001 David lable Time: 08:00:00 AM Radha bradley [facility] 18:21:45 Contrace ptive sheath status [id number] Completed 201605/22/2021 Encounte r for routine checking of intraute rine contrace p dev;Prac luis fernando ID: 0001 Radha bradley, [facility] 18:21:16 Gestatio n period, 11 weeks [id number] Completed 201805/22/2021 11 weeks gestatio n of pregnanc y;Practi ce ID: 0001 Radha bradley, [facility] 18:22:03 Antenata l screenin g Completed 201805/22/2021 Encounte r for antenata l screenin g for nuchal transluc ency;Pra ctice ID: 0001 Radha bradley, [facility] 18:21:13 Pregnanc y-induce d hyperten russell Completed 201805/22/2021 Gestatio nal hyperten russell w/o signific ant proteinu mary, 2nd trimeste r;Record ed Elsewher e: No Locat ion: [facility] S ource: EHR Farmworker Rice mohsen: N Practi ce ID: 0001 David lable Time: 02:30:00 PM Radha bradley, [facility] 18:21:02 Antenata l screenin g for malforma tion Completed 201805/22/2021 Encounte r for antenata l screenin g for malforma tions;Pr actice ID: 0001 Radha bradley, [facility] 18:22:11 Placenta previa 94494212 Completed 201805/22/2021 Placenta previa specifie d as w/o hemor, second trimeste r;Record ed Elsewher e: No Locat ion: [facility] S ource: EHR Farmworker Rice mohsen: N Practi ce ID: 0001 David lable Time: 01:00:00 PM Radha bradley, [facility] 18:21:48 Gestatio n period, 24 weeks [id number] Completed 201805/22/2021 24 weeks gestatio n of pregnanc y;Record ed Elsewher e: No Locat ion: [facility] S ource: EHR Farmworker Rice mohsen: N Practi ce ID: 0001 David lable Time: 01:00:00 PM Radha bradley, [facility] 18:21:29 Normal pregnanc y in multigra bryan [id number] 59708 Completed 201805/22/2021 Encounte r for suprvsn of normal pregnanc y, third trimeste r;Practi ce ID: 0001 Radha Cloud mirna, [facility] 18:21:53 Uterine size for dates discrepa ncy Completed 201805/22/2021 Uterine size-ivet e discrepa ncy, third trimeste r;Practi ce ID: 0001 Radha Cloud mirna, [facility] 18:21:06 Gestatio n period, 35 weeks 79011760 Completed 201805/22/2021 35 weeks gestatio n of pregnanc y;Practi ce ID: 0001 Radha Pedro Luis mirna, [facility] 18:22:15 finding Completed 201805/22/2021 Matern care for oth or susp poor fetl grth, third tri, unsp;Pra ctice ID: 0001 Radha Denton mirna, [facility] 18:21:09 Gestatio n period, 36 weeks [id number] Completed 201805/22/2021 36 weeks gestatio n of pregnanc y;Practi ce ID: 0001 Radha Pedro Luis bradley, [facility] 18:22:07 Single live from jerryo n pregnanc y [id number] Completed 201805/22/2021 Single live ;Pr actice ID: 0001 Radha bradley, [facility] 18:20:37 Procedur e by method Completed 201905/22/2021 Encounte r for oth general cnsl and advice on contrace ption;Pr actice ID: 0001 Radha bradley, [facility] 18:21:33 Lochia finding Completed 201905/22/2021 Encounte r for routine postpart um follow-u p;Practi ce ID: 0001 Radha Cloud [facility], [facility] 18:21:43 Pregnanc y 56223412 Completed 202011/14/2021 Shadiameme Lu [facility], [facility] 5 17:00:00 Pregnanc y 49078388 Active 2024 Shadia Aly [facility], [facility] 5 17:00:00 Precipit ate labor 91251856 Active 2024 delivere d in car on last pregnanc y Raffy Mane MD [address], [place], [address], [facility] 5 17:13:06 Administ ration of human anti-D immunogl obulin needed Active 2024 A neg rhogam @28wks Yesi Cb [facility], [facility] 5 06:51:43 Administ ration of human anti-D immunogl obulin needed Active 2024 A neg rhogam @28wks Yesi Vivar [facility], [facility] 5 06:51:43 Iron deficien cy anemia 05458850 Active 2024 Fe suppleme nt, recheck at 34 weeks KYRA GOULD MD [address], [place], [address], [facility] 18:03:31 Problem Notes None recorded. Procedures Surgical History Date Name Laterality Status Provider Name and Address Organization Details Recorded Time 10/08/19 25 Date of Last Pap Smear completed Shadia Lu [facility] 11/02/2024 16:57:17 08/23/19 19 Cholecystectomy completed Ellen Tanner [facility] 08/23/2021 16:05:41 Cholecystectomy completed Latoya Tejeda [facility] 10/07/2024 15:24:22 Imaging Results None recorded. Procedure Notes None recorded. Medical Equipment None Reported. Allergies No known drug allergies Medications Name Sig Start Date Stop Date Status Note LastModified by Organization Details LastModified Time Mirena 21 mcg/24 hr (up to 8 years) 52 mg intrauter ine device 12/03 completed [facility] ed Elsewher e: Yes Loca tion: [facility] odify By: [email or web address] z Encoun ter DateTime : 05/21/20 17 11:45:00 AM Not Available Not Available Not Available Diflucan 150 mg tablet take 1 tablet by oral route once 11/11 completed [facility] ed Elsewher e: No Locat ion: [facility] odify By: [email or web address] trick En counter [...] route every day at bedtime 04/14 completed [facility] ed Elsewher e: No Locat ion: [facility] odify By: [email or web address] trick En counter DateTime : 01/15/20 12 08:28:05 AM Not Available Not Available Not Available Vitamin D2 1,250 mcg (50,000 unit) capsule take 1 capsule (47908RC ITS) by oral route every week 01/25 completed Prescrib ed Elsewher e: No Locat ion: [facility] odify By: ammona Oglesby ncounter DateTime : 10/17/19 16 01:42:07 [...] Prescrib ed Elsewher e: No Locat ion: [facility] odify By: sonia alexander DateTime : 04/15/20 13 01:00:00 PM Not Available Not Available Not Available Triveen-Richard uo DHA 29 mg-1 mg-400 mg oral pack take 2 by Oral route every day 04/15 completed Prescrib ed Elsewher e: No Locat ion: [facility] odify By: [email or web address] trick En counter DateTime : 04/29/20 12 03:45:44 PM Not Available Not Available Not Available CONSTRUCTION MILLWRIGHT-PNV-DH A 28 mg iron-1 mg-200 mg capsule take 1 capsule by oral route every day 05/21 completed Prescrib ed Elsewher e: No Locat ion: [facility] odify By: kelsy Oglesby ncounter DateTime : 05/25/20 15 02:30:00 PM Not Available Not Available Not Available Diclegis 10 mg-10 mg tablet,de layed release 05/22 completed Not Available Not Available Not Available Minastrin 24 Fe 1 mg-20 mcg (24)/75 mg (4) chewable tablet chew 1 tablet by oral route every day 05/25 completed Prescrib ed Elsewher e: No Locat ion: [facility] M odsammy By: [email or web address] trick En counter [...] Address Organization Details Last Updated DateTime 04/07/2025 47148.251 11 g 30.9 kg/m2 172.72 cm 116/76 mm[Hg] Candice Malik [facility] 04/07/2025 14:13:18 Social History Question Answer Notes LastModified by Organizat ion Details LastModified Time Tobacco Smoking Status Never Smoker Faye bradley, [facility] 11/13/2021 15:42:19 Do You Have [...] Or The Highest Degree You Have Received? TD89820-3 Information not available 06/01/2021 Are There Any [...] anxious, or unable to sleep at night)? ER0893-5 Information not available 06/01/2021 Family History Relationship Description Onset Age of this Age Resolved Age Notes LastModified by Organization Details LastModified Time Mother Multiple sclerosis [email or web address] Not available 2019 09:09:49 Maternal Grandfather Diabetes mellitus [email or web address] Not available 2019 09:10:00 Sister Polycystic ovary syndrome [email or web address] Not available 2023 14:01:01 Paternal Uncle Seizure disorder [email or web address] Not available 2023 14:01:01 Paternal Aunt Inflammatory disease of liver Not available 2023 14:01:01 Father Diabetes mellitus [email or web address] Not available 08/23 16:05:09 Medical History Condition [...] ICD10 Code Diagnosis IMO Codes Diagnosis Note [id number] KYRA GOULD MD [facility] [address],[place] [address] 03/09/2025 17:40:12 03/09/2025 18:06:45 History of previous intrauterine growth restricted 7576458805 41434 Z87.59 90663751 Past pregn loki history of placental abruption 374668415 Z87.59 00034438 Iron defic iency anemia 00910799 D50.9 23347518 Gestation period, 30 weeks 09036669 Z3A.30 6641845 [id number] KYRA GOULD MD [facility] [address],[place] [address] 03/24/2025 09:55:18 03/24/2025 10:37:52 Past history of small for gestational age baby 512544449 Z87.59 O41.03X0 Z3A.33 20186850 [id number] KYRA GOULD MD [facility] [address],[place] [address] 03/24/2025 09:55:33 03/24/2025 16:01:09 Iron deficiency anemia 50044984 D50.9 59889344 History of previous intrauterine growth restricted 5565859089 66214 Z87.59 13488045 Gestation period, 33 weeks 95492639 Z3A.33 8707406 [id number] KYRA GOULD MD [facility] [address],[place] [address] 04/06/2025 10:18:59 04/06/2025 11:09:33 Oligohydramnios 25033667 O41.03X0 Z3A.34 28157125 [id number] KYRA GOULD MD [facility] [address] [place] [address] 04/07/2025 13:49:57 04/07/2025 14:53:45 Anemia 053092534 D64.9 3678571 Iron defic iency anemia 17785964 D50.9 29275277 Gestation period, 35 weeks 92098720 Z3A.35 7111960 Health Concerns Section Related Observation LastModified by Organization Detai ls LastModified Time None Recorded Concern Status LastModified by Organization Details LastModified Time None Recorded Payers Encounter Date Sequence Insurance Name Policy Number Policy Chavez Covered Member ID Chavez Member ID Guarantor Name 04/07/2025 1 [facility] (O) [id number] Vannessa Bricenogeorge [id number] Vannessa Dennise 04/07/2025 2 [facility] - DOS ON OR AFTER 20 (MEDICAID REPLACEMENT - HMO) Vannessa Bowden [id number] Vannessa Bowden Notes Date Note Type Note Provider Name and Address Organization Details Recorded Time 04/07/2025 text/html Generic HPI TemplateReported by Patient KYRA GOULD MD [address], [place], [address], [facility] 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 Status 11/03/19 25 1 A Negative 173 OPEN Fetus Data First Name Last Name Admitted to NICU Weight (g) Sex Living Outcome Pediatric Complications Fetus ID Race Codes Race Delivery Type [id number] Problems Problem Notes Problem Name Start Date End Date Resolution Snomed Code Not e Administration of human anti-D immunoglobulin needed 11/04/2024 9046019610 A neg rhogam @28wks Precipitate labor 11/02/2024 69778571 d elivered in car on last Past history of placental abruption 906126864 History of previous intrauterine growth restricted 903034988562890 Iron deficiency anemia 03/09/2025 404747 02 Fe supplement, recheck at 34 weeks [...] Weight in lbs Pre/Post Dialysis Refused Weight 176.810714541275 BP Diastolic BP Location Tested BP Systolic [...] Weight in lbs Pre/Post Dialysis Refused Weight 180.938754624071 BP Diastolic BP Location Tested BP Systolic [...] Type Weight in lbs Pre/Post Dialysis Refused 184.466339785634 BP Diastolic BP Location Tested BP Systolic [...] Type Weight in lbs Pre/Post Dialysis Refused 191.758758276466 BP Diastolic BP Location Tested BP Systolic [...] Type Weight in lbs Pre/Post Dialysis Refused 195.979999195914 BP Diastolic BP Location Tested BP Systolic [...] Weight in lbs Pre/Post Dialysis Refused Weight 200.614570477688 BP Diastolic BP Location Tested BP Systolic BP Type 76 L arm 114 sitting Fetus Heart Rate Present A 152 Present Fetus Movement A Yes Comments Flowsheet Date 03/09/2025 Oliver Score Blood Edema Fundus Height Fundus Units Glucose Ketones Leukocytes Nitrite Labor Signs Protein Cervic Dilation Cervic Effacement Cervic Station Type Weight in lbs Pre/Post Dialysis Refused Weight 200.450396847960 BP Diastolic BP Location Tested BP Systolic [...] Type Weight in lbs Pre/Post Dialysis Refused 200.828309145052 BP Diastolic BP Location Tested BP Systolic [...] Type Weight in lbs Pre/Post Dialysis Refused 203.74953592083 BP Diastolic BP Location Tested BP Systolic [...] Type Weight in lbs Pre/Post Dialysis Refused 204.185879433826 BP Diastolic BP Location Tested BP Systolic [...] Type Weight in lbs Pre/Post Dialysis Refused 208.146268454958 BP Diastolic BP Location Tested BP Systolic [...] Weight in lbs Pre/Post Dialysis Refused Weight 209.707754305671 BP Diastolic BP Location Tested BP Systolic [...]
[2025-05-08 10:46] LABS: Hematocrit 37.1 % (37.0-47.0); Hemoglobin 12.4 g/dL (12.0-15.0); Immature Granulocyte Percent A 0.6 % (0-0.5); Lymphocytes Absolute Auto 1.48 K/mm3 (0.9-3.2); Mean Corpuscular HGB Conc 33.4 g/dl (32-36); Mean Corpuscular Hemoglobin 30.0 pg (26-34); Mean Corpuscular Volume 89.6 fl (80-100); Nucleated Red Blood Cells Absolute Auto 0.000 K/mm3 (0.0-0.012); Nucleated Red Blood Cells Perc 0.0 % (0.0-0.2); Platelet Count Result 176 k/mm3 (150-375); Red Blood Count 4.14 M/mm3 (4.2-5.4); White Blood Count 12.6 K/mm3 (4.5-10.0)
[2025-05-08] MEDS: LACTATED RINGERS 1,000 ML 125 ML IV CONT (10:47)
[2025-05-08] MEDS: AMPICILLIN SODIUM 2 GM in SODIUM CHLORIDE 0.9% IV 100 ML 200 ML IVPB (10:49)
--- NOTE | 2025-05-08 10:53 | LDADM ---
This patient, Vannessa Bowden, was admitted to Labor/Delivery/Recovery 105 on 05/08/25 at 10:16. Plans for labor, pain management and were discussed with patient. Patient/family oriented to hospital policies and general routines including ID bracelet, bed and alarms, visiting hours, pain management, procedures, bathroom and other care routines, personal items, smoking policy, room service/diet and guest tray routines, security routines, and visiting hours. Patient/Family are encouraged to report perceived risks to care and to ask questions if they do not understand what they are told or what they should do. See OBIX for further documentation.
[2025-05-08 11:32] LABS: Syphilis IgG/IgM Antibody Non-Reactive (Nonreactive)
[2025-05-08] MEDS: OXYTOCIN 30 UNITS/NS 500 ML 30 UNITS/500 ML BAG 999 UNITS IV CONT (11:42)
--- NOTE | 2025-05-08 11:50 | WPDOBADMIT ---
Obstetrics - Admit Note Admission Note: record reviewed. No pertinent additions to the history and/or any subsequent changes in the physical findings that are not consistent with the expected course of the were found. Additions to the history and/or subsequent changes in the physical findings follow. Admit in labor
--- NOTE | 2025-05-08 11:50 | PM.OBPRVD ---
OB - Vaginal Delivery Note Procedure Delivery date: 05/08/25 Delivery augmentation: Rupture of Membranes Delivery monitor: External FHT and External Uterine Route of delivery: Episiotomy description: None Laceration Description: Superficial Specimen: No Quantitative Blood Loss (ml): 100 Anesthesia type: None Disposition: Floor Complications: No immediate complications [place] Baby Date of : 05/08/25 Time of : 11:42 Gestational Age by Date: 39 gender: Female presentation: vertex position: Left Occiput Anterior Placenta delivery description: Spontaneous Cord Vessel Description: 3 Vessels score one minute: 9 score five minutes: 9
[2025-05-08] MEDS: OXYTOCIN 30 UNITS/NS 500 ML 30 UNITS/500 ML BAG 125 UNITS IV CONT (12:11)
--- NOTE | 2025-05-08 15:09 | OBPPTRN ---
Patient transferred to post room #291 via wc. Support person present. Oriented to unit, room, information board, rooming in, admission packet and security measures. Patient verbalizes understanding.
[2025-05-08] MEDS: DOCUSATE SODIUM 100 MG CAPSULE PO (17:03)
[2025-05-09 04:15] VITALS: BP 116/70; PULSE 79; RESP 18; TEMP 36.5; O2SAT 100
[2025-05-09 05:06] LABS: Hematocrit 32.6 % (37.0-47.0); Hemoglobin 10.5 g/dL (12.0-15.0)
[2025-05-09] MEDS: BENZOCAINE 20% AER SPR (*SP) 56 GM CAN 1 SPRAY TOPICAL (06:43)
[2025-05-09] MEDS: WITCH HAZEL 40 PADS 1 PAD TOPICAL (06:43)
[2025-05-09] MEDS: IBUPROFEN 600 MG TABLET PO ×3 (06:43→17:13)
[2025-05-09] MEDS: ACETAMINOPHEN 325 MG TABLET 650 MG PO ×3 (06:44→17:13)
[2025-05-09 08:01] VITALS: BP 121/81; PULSE 94; RESP 12; TEMP 36.7; O2SAT 100
--- NOTE | 2025-05-09 09:01 | PM.OBPNVD ---
OB - PN: Subj Subjective Date/time seen: 05/09/25 09:01 Patient comments: no complaints, pain well controlled, incisional pain, tolerating diet and flatus present OB - PN: Obj Data Labs 05/09/25 04:17 Labs: Laboratory Results - last 24 hr 05/08/25 05/09/25 10:42 04:17 WBC 12.6 H RBC 4.14 L Hgb 12.4 D 10.5 L Hct 37.1 32.6 L MCV 89.6 MCH 30.0 MCHC 33.4 RDW 13.9 Plt Count 176 MPV 11.2 H Immature Gran % (Auto) 0.6 H Neut % (Auto) 81.8 H Lymph % (Auto) 11.8 L [place] % (Auto) 5.4 Eos % (Auto) 0.2 Baso % (Auto) 0.2 Lymph # (Auto) 1.48 [place] # (Auto) 0.7 H Eos # (Auto) 0.0 Baso # (Auto) 0.0 Abs Immat Gran (auto) 0.08 H Absolute Neuts (auto) 10.3 H Absolute Nucleated RBC 0.000 Nucleated RBC % 0.0 Syphilis IgG/IgM Ab Non-reactive Blood Type A Negative Antibody Screen Negative OB - PN A/P Plan day: 1 Plan: routine care Comments: No problems, routine care Time Spent With Patient Time: Total time spent is greater than 50% in coordination of care (as documented) at patient's floor/unit and/or counseling patient: Exam Const: General: comfortable, no acute distress and alert Resp: Effort & Inspection: normal respiratory effort Auscultation: no crackles, no rales and no rhonchi Cardio: Rate: regular rate Heart sounds: no click, no murmurs and no rubs GI: Inspection: non-distended GI Palp: No Tenderness to palpation present (GI) Auscultation: normal bowel sounds Other: Incision - CDI Extrem: General: normal to inspection, no pedal edema and no calf tenderness
--- NOTE | 2025-05-09 09:02 | P.DS_ITS ---
DS: Admitting Diagnosis Discharge Date 05/09/2025 Admitting Diagnosis Term DS: Discharge Diagnosis Discharge Diagnosis (1) Term delivered: Code(s): O80 - Encounter for full-term uncomplicated delivery Status: Acute OB - DS: Summary OB Procedures : None OB Procedures Intrapartum: Spontaneous Vag Delivery OB Procedures: : None Peripartum Data Laceration Description: Superficial Episiotomy description: None Time Spent with Patient Time attestation: Total time spent providing and/or coordinating discharge services: DS: Data Data Completed and Pending Labs on day of discharge: Labs from last 24 hours 05/09/25 05/08/25 04:17 10:42 WBC 12.6 H RBC 4.14 L Hgb 10.5 L 12.4 D Hct 32.6 L 37.1 MCV 89.6 MCH 30.0 MCHC 33.4 RDW 13.9 Plt Count 176 MPV 11.2 H Immature Gran % (Auto) 0.6 H Neut % (Auto) 81.8 H Lymph % (Auto) 11.8 L [place] % (Auto) 5.4 Eos % (Auto) 0.2 Baso % (Auto) 0.2 Lymph # (Auto) 1.48 [place] # (Auto) 0.7 H Eos # (Auto) 0.0 Baso # (Auto) 0.0 Abs Immat Gran (auto) 0.08 H Absolute Neuts (auto) 10.3 H Absolute Nucleated RBC 0.000 Nucleated RBC % 0.0 Syphilis IgG/IgM Ab Non-reactive Blood Type A Negative Antibody Screen Negative Discharge Plan Discharge Consulting providers: Paris Whitney Discharging Clinician: Raffy Mane Patient Disposition: Home Activity: pelvic rest Diet: regular Patient Instructions: Antibiotic Form Patient Language: Nepali Stand Alone Forms: General Discharge Information Follow-up/Referrals: Raffy Mane MD [Physician, [employer]] Discharge Medications: No Action PNV no.95-ferrous fumarate-FA [] 28 mg iron- 800 mcg Tablet 1 tablet PO DAILY Date of admission: 05/08/25 10:16 Primary Care Provider: DeborahAndrea Admitting Provider: Raffy Mane Attending physician on admission: Raffy Mane Condition: Stable
[2025-05-09] MEDS: DIBUCAINE 1% OINTMENT 30 GM TUBE 1 APPLIC TOPICAL (09:06)
[2025-05-09] MEDS: MULTIVIT/MIN/PREN/FOL AC/IRON TABLET 1 TAB PO (09:06)
[2025-05-09 16:41] VITALS: BP 107/78; PULSE 89; RESP 12; TEMP 36.7; O2SAT 100
[2025-05-09] MEDS: DOCUSATE SODIUM 100 MG CAPSULE PO (17:13)
[2025-05-09 20:00] VITALS: BP 123/84; PULSE 72; RESP 16; TEMP 36.3; O2SAT 99
[2025-05-10] MEDS: IBUPROFEN 600 MG TABLET PO ×2 (00:10→08:15)
[2025-05-10] MEDS: MULTIVIT/MIN/PREN/FOL AC/IRON TABLET 1 TAB PO (07:44)
[2025-05-10 08:10] VITALS: BP 114/76; PULSE 66; RESP 18; TEMP 37.2; O2SAT 98
[2025-05-10] MEDS: ACETAMINOPHEN 325 MG TABLET 650 MG PO (08:15)
--- NOTE | 2025-05-10 10:22 | PC.NURSE ---
Consulted with mother concerning needs and she shared her ability to independently latch infant optimally without pain. Mother is feeding appropriately for growth of and understands stimulating to eat if needed. has had appropriate feedings in the last 24 hours meets the outcomes for weight, output, blood sugar and jaundice at this time. Reinforced understanding of milk production, transition of milk, signs of adequate intake, transition of stool, prevention/relief of engorgement, plugged ducts, mastitis, responsive watching for feeding cues, the different methods of stimulating to breastfeed 1-3 hours after the start of the last feeding, community resources, and when to call a provider using the resource of the feeding sheet along with the mom and baby guide. Mother voiced understanding of the information shared, is confident to continue effectively her infant at home, when to call for assistance, denies any additional assistance or education at this time. Mother declined [facility] referral. Reported to the Primary RN.
[2025-05-11 09:22] VITALS: BP 131/79; PULSE 79; RESP 18; TEMP 36.6; O2SAT 98
== END 2025-05-10 10:37 | disposition home or self-care (01) | DRG 807 ==
LOC: ANHLDR 10:48 → ANHOB2 14:50
PROVIDERS: Advanced Practice Midwife; Admitting Provider Obstetrics & Gynecology; PCP Family Medicine Sports Medicine; Visit Provider Obstetrics & Gynecology
DX: O99.824 Streptococcus B carrier state complicating childbirth (principal); Z37.0 Single live birth; Z3A.39 39 weeks gestation of pregnancy
CPT/HCPCS: 36415; 85014; 85018; 85025; 86593; 86850; 86900; 86901; A9270; J0290; J2590; J7120